=== PATIENT | female | born 1995 | race Caucasian/White ===

== ENCOUNTER 2018-12-04 13:45 | Emergency (ER) | payer MEDICAID, OTHER ==
[~2018-12-04] VITALS: Ht 165.1 cm; Wt 78.5 kg
--- OUTSIDE RECORDS SUMMARY | 2018-12-04 13:51 | XMS REPORT ---
Author Author ISAK BUCHANAN [facility] Address [address] [place] [address] Care Team Providers Care Brand Engineer Name Role Phone ISAK BUCHANAN Unavailable PROBLEMS Type Condition ICD9-CM Code [id number] Code Onset Dates Condition Status SNOMED Code Problem Bipolar 1 disorder, depressed, moderate F31.32 Active 59716773 Problem Borderline personality disorder F60.3 Active 24121129 Problem PTSD (post-traumatic stress disorder) F43.10 Active 46558855 Problem Ulcerative colitis with complication, unspecified location K51.919 Active 27377313 Problem Chronic post-traumatic stress disorder (PTSD) F43.12 Active 911380907 Problem Chronic GERD K21.9 Active 458492843 Problem GERD without esophagitis K21.9 Active 974591543 Problem Opioid use disorder, severe, dependence F11.20 Active 71375745 Problem Mood disorder F39 Active 19821149 Problem Opioid dependence with withdrawal F11.23 Active 85886506 Problem Stimulant dependence F15.20 Active 855638684 Problem MOUNA (generalized anxiety disorder) F41.1 Active 95299519 Problem Other chronic pain G89.29 Active 87956034 ALLERGIES Substance Reaction Event Type Date Status almonds hard to breath Non Drug Allergy Aug, Active red dye headaches Non Drug Allergy Aug, Active ENCOUNTERS Encounter Location Date Diagnosis [facility] [address] [facility] [id number] [address] Sep, [facility] [address] [id number] [address] Sep, [facility] [address] [id number] [address] Aug, [facility] [address] [facility] [id number] [id number] Aug, Dental examination Z01.20 ; Caries K02.9 and Oral health maintenance status requiring routine preventive dental care K08.9 [facility] [address] [address] Aug, [facility] [address] [place] [address] Aug, Opioid use disorder, severe, dependence F11.20 [place] [address] [address] Aug, [place] [address] [address] Aug, [address] [address] Aug, PTSD (post-traumatic stress disorder) F43.10 ; Mood disorder F39 ; Stimulant dependence F15.20 ; Opioid dependence with withdrawal F11.23 ; IV drug user F19.90 and MOUNA (generalized anxiety disorder) F41.1 [place] [address] [address] Aug, Opioid use disorder, severe, dependence F11.20 ; PTSD (post- traumatic stress disorder) F43.10 and IV drug user F19.[address] [address] Aug, Borderline personality disorder F60.[address] [address] Aug, [facility] [address] [place] [address] Aug, Opioid use disorder, severe, dependence F11.[address] [address] Jul, Pain in thoracic spine M54.6 ; Other chronic pain G89.29 ; Encounter for IUD removal Z30.432 ; Cervicitis N72 and Screening for cervical cancer Z12.[address] [address] Jul, Bipolar 1 disorder, depressed, moderate F31.32 ; PTSD (post- traumatic stress disorder) F43.10 ; Borderline personality disorder F60.3 ; Opioid dependence with withdrawal F11.23 and Stimulant dependence F15.20 [facility] [id number] [place] [address] Jul, [facility] [address] [address] Jul, Bipolar 1 disorder, depressed, moderate F31.32 ; Borderline personality disorder F60.3 ; PTSD (post-traumatic stress disorder) F43.10 ; Opioid dependence with withdrawal F11.23 and Stimulant dependence F15.20 [place] [address] [address] Jul, [facility] [address] [address] Jul, Bipolar 1 disorder, depressed, moderate F31.32 ; PTSD (post- traumatic stress disorder) F43.10 and Borderline personality disorder F60.3 [place] [address] [address] Jul, Bipolar 1 disorder, depressed, moderate F31.32 ; PTSD (post- traumatic stress disorder) F43.10 and Borderline personality disorder F60.3 [facility] [id number] [place] [address] Jul, [place] [address] [address] Jul, Chronic GERD K21.9 and Chronic post-traumatic stress disorder (PTSD) F43.12 [facility] [address] [address] Jul, Pain of upper abdomen R10.10 IMMUNIZATIONS No Known Immunizations SOCIAL HISTORY Never Assessed REASON FOR VISIT Dental Establish Care PLAN OF CARE Activity Details Follow Up angie Reason:restorative #14 VITAL SIGNS Height 65 in 2018-09-16 Blood pressure systolic 108 mmHg 2018-09-16 Blood pressure diastolic 78 mmHg 2018-09-16 MEDICATIONS Medication Instructions Dosage Frequency Start Date End Date Duration Status Effexor XR 75 MG Orally Once a day 1 capsule 24h Aug, 30 day(s ) Active Omeprazole 20 MG Orally Once a day 1 capsule 24h Active Sucralfate 1 GM Orally Twice a day 1 tablet at bedtime on an empty stomach before meals 12h Active Diclofenac Sodium 50 mg Orally 2 times a day 1 tablet with food or milk 12h Jul, Sep, 30 day(s) Active RESULTS No Results PROCEDURES Procedure Date Ordered Result Body Site COMP ORAL EVALUATION - NEW/EST PT Sep 16, 2018 INTRAORL - CMPL SERIES CODE 64708 Sep 16, 2018 PROPHYLAXIS - ADULT Sep 16, 2018 PANORAMIC FILM SEE ALSO CODE 19574 Sep 16, 2018 TOPICAL FLUORIDE VARNISH Sep 16, 2018 INSTRUCTIONS MEDICATIONS ADMINISTERED No Known Medications MEDICAL (GENERAL) HISTORY Type Description Date Medical History Colitis Medical History chronic gastritis Medical History heroin use disorder Medical History opiate use disorder Medical History methamphetamine abuse Medical History perthes hip disease Medical History asthma Surgical History cholecystectomy Surgical History left hip surgery; plates and screws 2007 Hospitalization History Colitis 01/2018 Hospitalization History multiple hospitalizations r/t gastritis and colitis Hospitalization History child
--- OUTSIDE RECORDS SUMMARY | 2018-12-04 13:51 | XMS REPORT ---
Author Author CHE EDWARDS Organization [facility] Address [address] [place] [address] Care Team Providers Care Soap Boiler Name Role Phone CHE EDWARDS Unavailable PROBLEMS Type Condition ICD9-CM Code [id number] Code Onset Dates Condition Status SNOMED Code Problem Bipolar 1 disorder, depressed, moderate F31.32 Active 07731130 Problem Borderline personality disorder F60.3 Active 92949384 Problem PTSD (post-traumatic stress disorder) F43.10 Active 52451589 Problem Ulcerative colitis with complication, unspecified location K51.919 Active 87567558 Problem Chronic post-traumatic stress disorder (PTSD) F43.12 Active 613587840 Problem Chronic GERD K21.9 Active 066194195 Problem GERD without esophagitis K21.9 Active 368914119 Problem Opioid use disorder, severe, dependence F11.20 Active 51394620 Problem Mood disorder F39 Active 74825257 Problem Opioid dependence with withdrawal F11.23 Active 53031818 Problem Stimulant dependence F15.20 Active 852215727 Problem MOUNA (generalized anxiety disorder) F41.1 Active 13478820 Problem Other chronic pain G89.29 Active 48832863 ALLERGIES No Information ENCOUNTERS Encounter Location Date Diagnosis [facility] [address] [place] [address] Sep, [facility] [id number] [place] [address] Sep, [facility] [id number] [place] [id number] Aug, Dental examination Z01.20 ; Caries K02.9 and Oral health maintenance status requiring routine preventive dental care K08.9 [facility] [address] [place] [address] Aug, [facility] [address] [place] [id number] Aug, Opioid use disorder, severe, dependence F11.20 [facility] [id number] [place] [address] Aug, [facility] [address] [address] Aug, [facility] [address] [place] [address] [id number] Aug, PTSD (post-traumatic stress disorder) F43.10 ; Mood disorder F39 ; Stimulant dependence F15.20 ; Opioid dependence with withdrawal F11.23 ; IV drug user F19.90 and MOUNA (generalized anxiety disorder) F41.1 [facility] [address] [address] Aug, Opioid use disorder, severe, dependence F11.20 ; PTSD (post- traumatic stress disorder) F43.10 and IV drug user F19.90 [facility] [address] [place] [address] Aug, Borderline personality disorder F60.3 [place] [address] [address] Aug, [facility] [address] [place] [id number] Aug, Opioid use disorder, severe, dependence F11.20 [place] [address] [address] Jul, Pain in thoracic spine M54.6 ; Other chronic pain G89.29 ; Encounter for IUD removal Z30.432 ; Cervicitis N72 and Screening for cervical cancer Z12.4 [facility] [address] [place] [address] Jul, 2018 Bipolar 1 disorder, depressed, moderate F31.32 ; PTSD (post- traumatic stress disorder) F43.10 ; Borderline personality disorder F60.3 ; Opioid dependence with withdrawal F11.23 and Stimulant dependence F15.20 [place] [address] [place] [address] Jul, [facility] [id number] [place], [place] [address] Jul, Bipolar 1 disorder, depressed, moderate F31.32 ; Borderline personality disorder F60.3 ; PTSD (post-traumatic stress disorder) F43.10 ; Opioid dependence with withdrawal F11.23 and Stimulant dependence F15.20 [place] [address] [id number] [place] [address] Jul, [facility] [id number] [place] [address] Jul, Bipolar 1 disorder, depressed, moderate F31.32 ; PTSD (post- traumatic stress disorder) F43.10 and Borderline personality disorder F60.3 [place] [address] [place] [id number] [place] [address] Jul, Bipolar 1 disorder, depressed, moderate F31.32 ; PTSD (post- traumatic stress disorder) F43.10 and Borderline personality disorder F60.3 [facility] [id number] [place] [address] Jul, [place] [address] [id number] [place] [address] Jul, Chronic GERD K21.9 and Chronic post-traumatic stress disorder (PTSD) F43.12 [facility] [address] [place] [address] Jul, Pain of upper abdomen R10.10 IMMUNIZATIONS No Known Immunizations SOCIAL HISTORY Never Assessed REASON FOR VISIT No Show Follow Up PLAN OF CARE VITAL SIGNS MEDICATIONS Unknown Medications RESULTS No Results PROCEDURES No Known procedures INSTRUCTIONS MEDICATIONS ADMINISTERED No Known Medications MEDICAL [...]
--- OUTSIDE RECORDS SUMMARY | 2018-12-04 13:51 | XMS REPORT ---
Author Author JOSHUA WATSON [facility] Address [address] [place] [address] Care Team Providers Care Fish Smoker Name Role Phone JOSHUA WATSON Unavailable PROBLEMS Type Condition ICD9-CM Code EIS61-UD Code Onset Dates Condition Status SNOMED Code Problem Bipolar 1 disorder, depressed, moderate F31.32 Active 73117471 Problem Borderline personality disorder F60.3 Active 55303008 Problem PTSD (post-traumatic stress disorder) F43.10 Active 43664080 Problem Chronic post-traumatic stress disorder (PTSD) F43.12 Active 559940206 Problem Chronic GERD K21.9 Active 393998872 Problem GERD without esophagitis K21.9 Active 940550007 Problem Opioid use disorder, severe, dependence F11.20 Active 34906351 Problem Mood disorder F39 Active 24161504 Problem Opioid dependence with withdrawal F11.23 Active 08239232 Problem Stimulant dependence F15.20 Active 737505647 Problem MOUNA (generalized anxiety disorder) F41.1 Active 59544378 Problem Other chronic pain G89.29 Active 10591593 ALLERGIES No Information ENCOUNTERS Encounter Location Date Diagnosis [facility] [address] [place] [address] Sep, [facility] [address] [place] [address] Aug, [facility] [address] [place] [address] Aug, PTSD (post-traumatic stress disorder) F43.10 ; Mood disorder F39 ; Stimulant dependence F15.20 ; Opioid dependence with withdrawal F11.23 ; IV drug user F19.90 and MOUNA (generalized anxiety disorder) F41.1 [facility] [address] [place] [address] Aug, Opioid use disorder, severe, dependence F11.20 ; PTSD (post- traumatic stress disorder) F43.10 and IV drug user F19.90 [facility] [address] [place] [address] Aug, Borderline personality disorder F60.3 [facility] [id number] [place] [address] Aug, [facility] [address] [place] [address] Aug, [facility] [id number] [place] [address] Jul, Pain in thoracic spine M54.6 ; Other chronic pain G89.29 ; Encounter for IUD removal Z30.432 ; Cervicitis N72 and Screening for cervical cancer Z12.4 [facility] [id number] [place] [address] Jul, Bipolar 1 disorder, depressed, moderate F31.32 ; PTSD (post- traumatic stress disorder) F43.10 ; Borderline personality disorder F60.3 ; Opioid dependence with withdrawal F11.23 and Stimulant dependence F15.20 [facility] [id number] [place] [address] Jul, [facility] [id number] [place] [address] Jul, Bipolar 1 disorder, depressed, moderate F31.32 ; Borderline personality disorder F60.3 ; PTSD (post-traumatic stress disorder) F43.10 ; Opioid dependence with withdrawal F11.23 and Stimulant dependence F15.20 [facility] [address] [place] [address] Jul, [facility] [id number] [place] [address] Jul, Bipolar 1 disorder, depressed, moderate F31.32 ; PTSD (post- traumatic stress disorder) F43.10 and Borderline personality disorder F60.3 [facility] [id number] [place] [address] Jul, Bipolar 1 disorder, depressed, moderate F31.32 ; PTSD (post- traumatic stress disorder) F43.10 and Borderline personality disorder F60.3 [facility] [address] [id number], [place] [address] Jul, [facility] [id number] [address] Jul, Chronic GERD K21.9 and Chronic post-traumatic stress disorder (PTSD) F43.12 [facility] [address] [facility] [id number] [address] Jul, 2018 Pain of upper abdomen R10.10 IMMUNIZATIONS No Known Immunizations SOCIAL HISTORY Never Assessed REASON FOR VISIT SOCWK-IN PLAN OF CARE VITAL SIGNS MEDICATIONS Unknown Medications RESULTS No Results PROCEDURES No Known procedures INSTRUCTIONS MEDICATIONS ADMINISTERED No Known Medications MEDICAL (GENERAL) HISTORY Type Description Date Medical History Colitis Medical History chronic gastritis Medical History heroin use disorder Medical History opiate use disorder Medical History methamphetamine abuse Medical History perthes disease Surgical History cholecystectomy Surgical History left hip surgery; plates and screws 2007 Hospitalization History Colitis 01/2018 Hospitalization History multiple hospitalizations r/t gastritis and colitis Hospitalization History child
--- OUTSIDE RECORDS SUMMARY | 2018-12-04 13:51 | XMS REPORT ---
Author Author DODIE LIMA [facility] Address [address] [place] [address] Care Team Providers Care Cellar Supervisor Name Role Phone LIMA STOLL Unavailable PROBLEMS Type Condition ICD9-CM Code TKD64-AO Code Onset Dates Condition Status SNOMED Code Problem Bipolar 1 disorder, depressed, moderate F31.32 Active 23443035 Problem Borderline personality disorder F60.3 Active 11692151 Problem PTSD (post-traumatic stress disorder) F43.10 Active 03100702 Problem Ulcerative colitis with complication, unspecified location K51.919 Active 63537265 Problem Chronic post-traumatic stress disorder (PTSD) F43.12 Active 262023977 Problem Chronic GERD K21.9 Active 541785999 Problem GERD without esophagitis K21.9 Active 536762002 Problem Opioid use disorder, severe, dependence F11.20 Active 57967119 Problem Mood disorder F39 Active 55232114 Problem Opioid dependence with withdrawal F11.23 Active 91031324 Problem Stimulant dependence F15.20 Active 113979332 Problem MOUNA (generalized anxiety disorder) F41.1 Active 75272382 Problem Other chronic pain G89.29 Active 66959242 ALLERGIES No Information ENCOUNTERS Encounter Location Date Diagnosis [facility] [address] [address] Nov, [facility] [address], [place] [address] Oct, [facility] [address] [place] [address] Oct, PTSD (post-traumatic stress disorder) F43.10 [facility] [id number] [address] Sep, [facility] [address] [place] [id number] Aug, Dental examination Z01.20 ; Caries K02.9 and Oral health maintenance status requiring routine preventive dental care K08.9 [facility] [address] [id number] [place] [address] Aug, [facility] [address] [place] [address] Aug, Opioid use disorder, severe, dependence F11.20 [place] [id number] [place] [address] Aug, [place] [address] [address] Aug, [place] [address] [address] Aug, PTSD (post-traumatic stress disorder) F43.10 ; Mood disorder F39 ; Stimulant dependence F15.20 ; Opioid dependence with withdrawal F11.23 ; IV drug user F19.90 and MOUNA (generalized anxiety disorder) F41.1 [place] [id number] [place] [address] Aug, Opioid use disorder, severe, dependence F11.20 ; PTSD (post- traumatic stress disorder) F43.10 and IV drug user F19.90 [facility] [address] [place] [address] Aug, Borderline personality disorder F60.3 [place] [id number] [place] [address] Aug, [facility] [address] [place] [address] Aug, Opioid use disorder, severe, dependence F11.[address] [address] Jul, Pain in thoracic spine M54.6 ; Other chronic pain G89.29 ; Encounter for IUD removal Z30.432 ; Cervicitis N72 and Screening for cervical cancer Z12.4 [place] [address] [place] [address] Jul, Bipolar 1 disorder, depressed, moderate F31.32 ; PTSD (post- traumatic stress disorder) F43.10 ; Borderline personality disorder F60.3 ; Opioid dependence with withdrawal F11.23 and Stimulant dependence F15.20 [place] [id number] [place] [address] Jul, [place] [address] [address] Jul, Bipolar 1 disorder, depressed, moderate F31.32 ; Borderline personality disorder F60.3 ; PTSD (post-traumatic stress disorder) F43.10 ; Opioid dependence with withdrawal F11.23 and Stimulant dependence F15.20 [place] [id number] [place] [address] Jul, [place] [id number] [place] [address] Jul, Bipolar 1 disorder, depressed, moderate F31.32 ; PTSD (post- traumatic stress disorder) F43.10 and Borderline personality disorder F60.3 [place] [id number] [place] [address]- [address] Jul, Bipolar 1 disorder, depressed, moderate F31.32 ; PTSD (post- traumatic stress disorder) F43.10 and Borderline personality disorder F60.3 [place] [id number] [place] [address] Jul, [place] [id number] [place] [address]- [address] Jul, Chronic GERD K21.9 and Chronic post-traumatic stress disorder (PTSD) F43.12 [facility] [id number] [place] [address] Jul, Pain of upper abdomen R10.10 IMMUNIZATIONS No Known Immunizations SOCIAL HISTORY Never Assessed REASON FOR VISIT Medication refill request PLAN OF CARE VITAL SIGNS MEDICATIONS Medication Instructions Dosage Frequency Start Date End Date Duration Status Effexor XR 75 MG Orally Once a day 1 capsule 24h Aug, 30 day(s ) Active RESULTS No Results PROCEDURES No Known procedures [...]
--- OUTSIDE RECORDS SUMMARY | 2018-12-04 13:51 | XMS REPORT ---
Author Author DEMARCO SEGAL Organization [facility] Address [address] [place] [address] Care Team Providers Care Statistical Geneticist Name Role Phone DEMARCO SEGAL Unavailable PROBLEMS Type Condition ICD9-CM Code [id number] Code Onset Dates Condition Status SNOMED Code Problem Bipolar 1 disorder, depressed, moderate F31.32 Active 72282468 Problem Borderline personality disorder F60.3 Active 48302402 Problem PTSD (post-traumatic stress disorder) F43.10 Active 52170205 Problem Chronic post-traumatic stress disorder (PTSD) F43.12 Active 438445842 Problem Chronic GERD K21.9 Active 627155835 Problem GERD without esophagitis K21.9 Active 054000235 Problem Opioid use disorder, severe, dependence F11.20 Active 65062279 Problem Mood disorder F39 Active 74805345 Problem Opioid dependence with withdrawal F11.23 Active 82521254 Problem Stimulant dependence F15.20 Active 653436481 Problem MOUNA (generalized anxiety disorder) F41.1 Active 68156541 Problem Other chronic pain G89.29 Active 87388191 ALLERGIES Substance Reaction Event Type Date Status almonds Unknown Non Drug Allergy Aug, Active red dye Unknown Non Drug Allergy Aug, Active ENCOUNTERS Encounter Location Date Diagnosis [facility] [id number] [place] [address] Sep, [facility] [id number] [place] [address] Aug, [place] [address] [place] [address] Aug, PTSD (post-traumatic stress disorder) F43.10 ; Mood disorder F39 ; Stimulant dependence F15.20 ; Opioid dependence with withdrawal F11.23 ; IV drug user F19.90 and MOUNA (generalized anxiety disorder) F41.1 [facility] [address] [place] [address] Aug, Opioid use disorder, severe, dependence F11.20 ; PTSD (post- traumatic stress disorder) F43.10 and IV drug user F19.90 [facility] [address] [place] [address] Aug, Borderline personality disorder F60.3 [facility] [address] [address] Aug, [facility] [address] [address] Aug, [facility] [id number] [place] [address] Jul, Pain in thoracic spine M54.6 ; Other chronic pain G89.29 ; Encounter for IUD removal Z30.432 ; Cervicitis N72 and Screening for cervical cancer Z12.4 [place] [id number] [place] [address] Jul, Bipolar 1 disorder, depressed, moderate F31.32 ; PTSD (post- traumatic stress disorder) F43.10 ; Borderline personality disorder F60.3 ; Opioid dependence with withdrawal F11.23 and Stimulant dependence F15.20 [facility] [address] [place] [address] Jul, [facility] [id number] [place] [address] Jul, Bipolar 1 disorder, depressed, moderate F31.32 ; Borderline personality disorder F60.3 ; PTSD (post-traumatic stress disorder) F43.10 ; Opioid dependence with withdrawal F11.23 and Stimulant dependence F15.20 [place] [id number] [place] [address] Jul, [place] [id number] [place] [address] Jul, Bipolar 1 disorder, depressed, moderate F31.32 ; PTSD (post- traumatic stress disorder) F43.10 and Borderline personality disorder F60.3 [facility] [id number], [place] [address] Jul, 2018 Bipolar 1 disorder, depressed, moderate F31.32 ; PTSD (post- traumatic stress disorder) F43.10 and Borderline personality disorder F60.3 [facility] [id number], [place] [address] Jul, [facility] [address] [place] [address] 2018 Chronic GERD K21.9 and Chronic post-traumatic stress disorder (PTSD) F43.12 [facility] [address] [place] [address] Jul, 2018 Pain of upper abdomen R10.10 IMMUNIZATIONS No Known Immunizations SOCIAL HISTORY Never Assessed REASON FOR VISIT MAT Assessment PLAN OF CARE Activity Details Follow Up pt will call Reason: VITAL SIGNS Height 65 in 2018-09-06 Weight 177.8 lbs 2018-09-06 Temperature 98.3 degrees Fahrenheit 2018-09-06 Heart Rate 68 bpm 2018-09-06 Respiratory Rate 18 2018-09-06 BMI 29.58 kg/m2 2018-09-06 Blood pressure systolic 100 mmHg 2018-09-06 Blood pressure diastolic 70 mmHg 2018-09-06 MEDICATIONS Medication Instructions Dosage Frequency Start Date End Date Duration Status Cyclobenzaprine HCl 5 mg Orally Three times a day 1 tablet as needed 8h 17 Aug, 2018 10 days Active Sucralfate 1 GM Orally Twice a day 1 tablet at bedtime on an empty stomach before meals 12h Not-Taking Omeprazole 20 MG Orally Once a day 1 capsule 24h Not-Taking Diclofenac Sodium 50 mg Orally 2 times a day 1 tablet with food or milk 12h 27 Jul, 2018 Sep, 30 day(s) Not-Taking RESULTS No Results PROCEDURES Procedure Date Ordered Result Body Site ACUTE HEPATITIS PANEL Sep 06, 2018 HIV-1 AG W/HIV-1 & HIV-2 AB Sep 06, 2018 COMPREHEN METABOLIC PANEL Sep 06, 2018 LIPID PANEL Sep 06, 2018 ASSAY THYROID STIM HORMONE Sep 06, 2018 COMPLETE CBC W/AUTO DIFF WBC Sep 06, 2018 INSTRUCTIONS MEDICATIONS ADMINISTERED No Known Medications [...]
--- OUTSIDE RECORDS SUMMARY | 2018-12-04 13:51 | XMS REPORT | CCD ---
Author Author MOMOGARRY Lares Organization Unknown Address [address] [place] [id number] Care Team Providers Care Freight Car Inspector Name Role Phone JEREMY MANJARREZ Attphys R., KIRSTEN NASST G., DUKE NASST D., JUSTINE NASST K., FRANKIE [place] NASST R., MARISOL Segal NASST B., KALEIGH NASST C., SUNIL NASST N., PERCY NASST G., JANIE NASST M., MONIQUE NASST Vital Signs Vital Sign Value Unit Date/Time Recent/Initial? BMI (Body Mass Index) 30.95 kg/m^2 09/29/2017 06:30 Initial VS Weight Measured 186 lbs 09/29/2017 06:30 Initial VS Height 65 in 2016 06:30 Initial VS BSA (Body Surface Area) 1.97 m^2 09/29/2017 06:30 Initial VS Respiratory Rate 20 bpm 09/29/2017 11:45 Initial VS Body Temperature 97.4 degrees 09/29/2017 11:45 Initial VS BP Systolic 113 mmHg 09/29/2017 16:58 Initial VS BP Diastolic 60 mmHg 09/29/2017 16:58 Initial VS Heart Rate 77 bpm 11/2016 16:58 Initial VS O2 % BldC Oximetry 97 % 09/29/2017 16:58 Initial VS BP Systolic 116 mmHg 10/02/2017 07:24 Most Recent VS BP Diastolic 66 mmHg 10/02/2017 07:24 Most Recent VS Respiratory Rate 18 bpm 10/02/2017 07:24 Most Recent VS Heart Rate 75 bpm 02/2017 07:24 Most Recent VS O2 % BldC Oximetry 97 % 10/02/2017 07:24 Most Recent VS Body Temperature 97.3 degrees 10/02/2017 07:24 Most Recent VS Allergies Allergy Code Allergy Type Reaction Status RED DYE 0 Drug allergy Active ALMOND 0 Food allergy Active HYDROCODONE 5489 Drug allergy Active Procedures Unknown or Not Available. History of Immunizations Unknown or Not Available. Problems Problem Code Start Date Resolved Date Status Migraine 48541152 04/28/2017 Active Strain of muscle 49954044 06/24/2017 Active Vaginal delivery 741867800 Active Results DRUGS OF ABUSE SCREEN URINE - Collect Date/Time: 09/29/2017 07:00 Test Name Code Test Result Test Units Test Ref Range METHAMPHETAMINE NEGATIVE N/A NORMAL:NEGATIVE COCAINE 96297-6 NEGATIVE N/A NORMAL:NEGATIVE THC NEGATIVE N/A NORMAL:NEGATIVE MDMA NEGATIVE N/A NORMAL:NEGATIVE METHADONE 45607-2 NEGATIVE N/A NORMAL:NEGATIVE MORPHINE NEGATIVE N/ A NORMAL:NEGATIVE BENZODIAZEPINE 58908-1 NEGATIVE N/A NORMAL:NEGATIVE TRICYCLICS, QUAL NEGATIVE N/A NORMAL:NEGATIVE BARBITURATES 60832-3 NEGATIVE N/A NORMAL:NEGATIVE PHENCYCLIDINE 89541-5 NEGATIVE N/A NORMAL:NEGATIVE AMPHETAMINES 33269-3 NEGATIVE N/A NORMAL:NEGATIVE OXYCODONE NEGATIVE N /A NORMAL:NEGATIVE CBC WITH DIFF - Collect Date/Time: 09/29/2017 07:25 Test Name Code Test Result Test Units Test Ref Range WBC 6690-2 14.74 10^3 L=5.00 H=10.00 RBC 789-8 3.52 10^6 L=4.00 H=5.20 HEMOGLOBIN 718-7 9.7 g /dl L=12.0 H=18.0 HEMATOCRIT 4544-3 28.8 % L=36.0 H=52.0 MCV 787-2 81.8 fl L=80.0 H=100 MCH 785-6 27.6 pg L=27.0 H=31.2 MCHC 786-4 33.7 g/dl L=31.0 H=37.0 PLATELET 777-3 524 10^ 3 L=130 H=400 RDW 33208-0 14.4 % L=11.6 H=14.8 SEGS 65.90 % L=60.00 H=70.00 IG% 0.70 % LYMPHS 26.90 % L=10.00 H=50.00 MONOS 5.20 % L=1.00 H=12.00 EOS 1.00 % L=0.00 H=7.00 BASOS 0.30 % L=0.00 H=0.40 # RUCHI 751-8 9.71 10^3 L=2.00 H=6.90 # IG 0.10 10^3 # LYM 731-0 3.97 10^3 L=0.60 H=3.40 # EOS 0.15 10^3 L=0.00 H=0.70 # BASO 0.04 10^3 L=0.00 H=0.04 # MONO 742-7 0.77 10^ 3 L=0.00 H=0.90 MANUAL DIFF NOT INDICATE N/A SEND TO [facility]? NO N/A H /H (HEMOGLOBIN AND HEMATOCRIT) - Collect Date/Time: 09/30/2017 06:36 Test Name Code Test Result Test Units Test Ref Range HEMOGLOBIN 718-7 9.8 g /dl L=12.0 H=18.0 HEMATOCRIT 4544-3 30.8 % L=36.0 H=52.0 TYPE AND SCREEN - Collect Date/Time: 09/29/2017 07:25 Test Name Code Test Result Test Units Test Ref Range ABO A N/A RH POSITIVE N/A AB SCREEN NEGATIVE N /A Active Medications Medication Code Dose Units Frequency Route Modification Start Date/Time Ibuprofen 800MG Oral Tablet 394468 800 MILLIGRAMS EVERY 8 HOURS BY MOUTH 09/30/2017 07:58 Prescription Detail TAKE 800 MILLIGRAMS BY MOUTH EVERY 8 HOURS oxyCODONE HCl-acetaminophen 5MG-325MG Oral Tablet 6982576 1 TABLET(S) NEEDED EVERY 4 HR BY MOUTH 09/30/2017 07:58 Prescription Detail TAKE 1 TABLET(S) BY MOUTH NEEDED EVERY 4 HR Docusate Sodium 100MG Oral Capsule, Liquid Filled 8983152 100 MILLIGRAMS NEEDED 2X DAY BY MOUTH 09/30/2017 07:57 Prescription Detail TAKE 100 MILLIGRAMS BY MOUTH NEEDED 2X DAY Ferrous Sulfate 325MG Oral Tablet 128552 325 mg DAILY BY MOUTH 09/30/2017 07:57 Prescription Detail TAKE 325 mg BY MOUTH DAILY Lansinoh HPA Lanolin Topical application Ointment 48004388186 1 APPLICATION PRN TOPICALLY 12/2016 07:57 Prescription Detail 1 APPLICATION TOPICALLY PRN Medications Administered During Visit Medication Dose Units Frequency Route Date/Time of Last Dose PITOCIN PREMIX 30UNITS/500mL D5W 30 UNITS ONCE IVPB 2016 16:31 IVF LR (lactated ringers) IV 1000mL 1000 ML CONT IV IV 2016 16:32 NS FLUSH Inj 10mL 3 ML Q SHIFT IVP 09/29/2017 21:22 MOTRIN (ibuprofen) Tab 800mg 800 MG Q8H PO 10/01/2017 20:57 TYLENOL (acetaminophen) Tab 325mg 650 MG PRN Q4H PO 09/29/2017 16:30 COLACE (docusate sodium) Cap 100mg 100 MG PRN BID PO 2016 09:05 LANSINOH BREAST (lanolin) Cream 7gm 1 FERNANDO PRN TOP 09/29/2017 17:01 WITCH FAUSTO PADS W/ALOE Topical 1 FERNANDO PRN TOP 09/29/2017 16:30 BENADRYL Cap 25mg 25 MG PRN Q6H PO 09/29/2017 17:08 TYLENOL W/COD Tab 300mg/30mg 1 TAB PRN PO 10/01/2017 17:36 FERROUS SULFATE Tab 325mg 325 mg DAILY PO 10/01/2017 09:05 PERCOCET Tab 5mg/325mg 2 TAB PRN Q4H PO 10/02/2017 08:37 GAS-X Chewable Tab 80mg 80 MG PRN PO 09/30/2017 09:03 Encounters Unknown or Not Available. Social History Smoking Status Code Start Date End Date Current every day smoker 853496140 2007 Patient Decision Aids Patient Decision Aid Caring for Your Breastfed Baby Vaginal Delivery Discharge Instructions You were admitted to [facility] on 09/29/2017 06:11 You had the following tests done: CBC WITH DIFF DRUGS OF ABUSE SCREEN URINE H /H (HEMOGLOBIN AND HEMATOCRIT) TYPE AND SCREEN You were discharged from [facility] on 10/02/2017 09:09 Should you have any questions prior to discharge, please contact a member of your healthcare team. If you have left the hospital and have any questions, please contact your primary care physician. Diet: Regular, non-gas forming. Discharge To: Home, You will receive a follow up phone call. within 2 weeks after discharge.. Activity: No lifting heavier than your baby, Exercise as tolerated. No driving while taking pain medications. No sex or tampon use until 6 week appt. Hygiene: Shower as desired, Tub baths after 48 hours. Limit tub baths to 20min at a time, until 6 week post appt. Sitz bath as needed. Notify Provider: Excessive bleeding or large clots, Temperature 100.4F or higher. Foul odor coming from your vagina, Unrelieved incisional or abdominal pain. Swelling, redness, discharge or bleeding, from your incision or laceration. Your incision begins to separate, Difficulties with urination. No bowel movement within 4 days of, giving . Any type of visual disturbance, Severe headache. Notify Provider Cont'd: Flu-like symptoms, Pain or redness in one or both, your breasts. Pain, warmth, tenderness or swelling, in your legs or calf areas. Frequent nausea and vomiting, Chest pain or problems breathing. Signs of depression. For Help: [facility] OB Business Intern:[phone] ext.[phone]. [facility] Nsg Station:[phone] ext.[phone]. My 2 week follow up appointment: My follow up appt with Karen Kirk APRN, is scheduled for -10/13/17- at - 11:00am- at the [facility] in [place]. My 6 week follow up appt- with Dr. Manjarrez, is scheduled for -11/10/17- at 1:30pm- at the [facility] in [place]. Important Phone Numbers: [place]: , [place]: [phone]. [facility] Nurses Desk: , ext [phone], [facility] Program: [phone]. General Information: The booklet "A New Beginning", has been given to me. All of my questions & concerns have, been addressed. I understand how to care for myself, & my baby. All of my personal belongings will be, taken with me when I am released. I have been given the opportunity to. receive the car seat safety instruction. I understand how to properly install, my baby' s car seat. Resources: Please call for any questions/concerns:. [facility]: [phone], [facility]: or [phone]. Social Rehab Services : . [facility] Dept: [phone]. [facility] Dept: [phone]. [facility] Dept: [phone]. [facility] Dept:[phone]. [facility] Dept : [phone]. Domestic Violence Hotline: [phone]. Patient Survey: It is very important that we provide, you with the best patient and. family centered care., In a few weeks, you may receive a. patient satisfaction survey about your. experience at [facility]., Please honestly answer the questions. and return the completed survey., Please let us know how we are doing.. Breast Care: Lansinoh Cream to nipples as needed, Avoid stimulation. Wearing a bra may help relieve, breast discomfort. Chief Complaint and Reason For Visit Chief Complaint Date of Onset DELIVERY 09/27/2017 Function Status Unknown or Not Available. Plan of Care Unknown or Not Available. Referral/Transition of Care Unknown or Not Available.
--- OUTSIDE RECORDS SUMMARY | 2018-12-04 13:52 | XMS REPORT ---
Author Author LORNA CUNNINGHAM [facility] Address [address] [place] [address] Care Team Providers Care Metal Dealer Name Role Phone LORNA CUNNINGHAM Unavailable PROBLEMS Type Condition ICD9-CM Code [id number] Code Onset Dates Condition Status SNOMED Code Problem Bipolar 1 disorder, depressed, moderate F31.32 Active 77734308 Problem Borderline personality disorder F60.3 Active 54233531 Problem PTSD (post-traumatic stress disorder) F43.10 Active 81748854 Problem Chronic post-traumatic stress disorder (PTSD) F43.12 Active 607845231 Problem Chronic GERD K21.9 Active 053792593 Problem GERD without esophagitis K21.9 Active 053542891 Problem Opioid use disorder, severe, dependence F11.20 Active 02451840 Problem Mood disorder F39 Active 13122353 Problem Opioid dependence with withdrawal F11.23 Active 83169183 Problem Stimulant dependence F15.20 Active 702882406 Problem MOUNA (generalized anxiety disorder) F41.1 Active 59547385 Problem Other chronic pain G89.29 Active 25317515 ALLERGIES Substance Reaction Event Type Date Status almonds Unknown Non Drug Allergy Jul, Active red dye Unknown Non Drug Allergy Jul, Active ENCOUNTERS Encounter Location Date Diagnosis [facility] [id number], [place] [address] Sep, [facility] [id number] [id number] Aug, [facility] [id number] [place] [address] Aug, [facility] [address], [place] [address] Aug, PTSD (post-traumatic stress disorder) F43.10 ; Mood disorder F39 ; Stimulant dependence F15.20 ; Opioid dependence with withdrawal F11.23 ; IV drug user F19.90 and MOUNA (generalized anxiety disorder) F41.1 [facility] [id number] [place] [address] Aug, Opioid use disorder, severe, dependence F11.20 ; PTSD (post- traumatic stress disorder) F43.10 and IV drug user F19.90 [facility] [address] [place] [address] Aug, Borderline personality disorder F60.3 [facility] [id number] [place] [address] Aug, [facility] [address] [id number] Aug, [facility] [id number] [place] [address] Jul, Pain in thoracic spine M54.6 ; Other chronic pain G89.29 ; Encounter for IUD removal Z30.432 ; Cervicitis N72 and Screening for cervical cancer Z12.4 [facility] [id number] [place] [address] Jul, Bipolar 1 disorder, depressed, moderate F31.32 ; PTSD (post- traumatic stress disorder) F43.10 ; Borderline personality disorder F60.3 ; Opioid dependence with withdrawal F11.23 and Stimulant dependence F15.20 [facility] [address] [place] [address] Jul, [facility] [id number] [place] [address] Jul, Bipolar 1 disorder, depressed, moderate F31.32 ; Borderline personality disorder F60.3 ; PTSD (post-traumatic stress disorder) F43.10 ; Opioid dependence with withdrawal F11.23 and Stimulant dependence F15.20 [facility] [address] [place] [address] Jul, [facility] [id number] [place] [address] Jul, Bipolar 1 disorder, depressed, moderate F31.32 ; PTSD (post- traumatic stress disorder) F43.10 and Borderline personality disorder F60.3 [facility] [address], [place] [address] Jul, Bipolar 1 disorder, depressed, moderate F31.32 ; PTSD (post- traumatic stress disorder) F43.10 and Borderline personality disorder F60.3 [facility] [address], [place] [address] Jul, [facility] [address], [place] [address] Jul, Chronic GERD K21.9 and Chronic post-traumatic stress disorder (PTSD) F43.12 [facility] [id number], [place] [address] Jul, Pain of upper abdomen R10.10 IMMUNIZATIONS No Known Immunizations SOCIAL HISTORY Never Assessed REASON FOR VISIT Establish Care Luda Narayanan MA, Patient is also wanting her mirena taken out PLAN OF CARE Activity Details Follow Up 3 months or as indicated by lab Reason: Pending Test GC/CHLAM PROBE (STATE) Pending Test PAP REFLEX TO HPV IF ASCUS Future/Pending Procedure IUD REMOVAL VITAL SIGNS Height 65 in 2018-08-25 Weight 178.6 lbs 2018-08-25 Temperature 97.8 degrees Fahrenheit 2018-08-25 Heart Rate 88 bpm 2018-08-25 Respiratory Rate 20 2018-08-25 BMI 29.72 kg/m2 2018-08-25 Blood pressure systolic 126 mmHg 2018-08-25 Blood pressure diastolic 68 mmHg 2018-08-25 MEDICATIONS Medication Instructions Dosage Frequency Start Date End Date Duration Status Sucralfate 1 GM Orally Twice a day 1 tablet at bedtime on an empty stomach before meals 12h Active Metronidazole 500 mg Orally 2 times a day 1 tablet 12h 27 Jul, 2018Aug 10 day(s) Active Omeprazole 20 MG Orally Once a day 1 capsule 24h Active Cyclobenzaprine HCl 5 mg Orally Three times a day 1 tablet as needed 8h Aug, 10 days Active Diclofenac Sodium 50 mg Orally 2 times a day 1 tablet with food or milk 12h 27 Jul, 2018 Sep, 30 day(s) Active RESULTS No Results PROCEDURES Procedure Date Ordered Result Body Site X-RAY EXAM OF THORACIC SPINE Aug 25, 2018 URINE TEST Aug 25, 2018 REMOVE INTRAUTERINE DEVICE Aug 25, 2018 TRICHOMONAS ASSAY W/OPTIC Aug 25, 2018 No Charge Aug 25, 2018 SPECIMEN HANDLING Aug 25, 2018 Bacterial Vaginosis In House Aug 25, 2018 INSTRUCTIONS MEDICATIONS ADMINISTERED No Known Medications [...]
--- OUTSIDE RECORDS SUMMARY | 2018-12-04 13:52 | XMS REPORT ---
Author Author CHE EDWARDS Organization [facility] Address [address] [place] [address] Care Team Providers Care Project Management Engineer Name Role Phone CHE EDWARDS Unavailable PROBLEMS Type Condition ICD9-CM Code [id number] Code Onset Dates Condition Status SNOMED Code Problem Chronic post-traumatic stress disorder (PTSD) F43.12 Active 243522350 Problem GERD without esophagitis K21.9 Active 126672611 Problem Chronic GERD K21.9 Active 802671278 Problem Other chronic pain G89.29 Active 54144520 Problem Opioid dependence with withdrawal F11.23 Active 96452586 Problem PTSD (post-traumatic stress disorder) F43.10 Active 06197337 Problem Bipolar 1 disorder, depressed, moderate F31.32 Active 17751141 Problem Stimulant dependence F15.20 Active 595560500 Problem Borderline personality disorder F60.3 Active 07965341 ALLERGIES No Information ENCOUNTERS Encounter Location Date Diagnosis [facility] [address] [place] [id number] Aug, [facility] [address] [place] [address] 67167- 1627 Aug, [facility] [id number] [place] [address] 09568- 2249 Aug, [facility] [address] [place] [address] 51444- 1567 Aug, [facility] [address] [place] [address] Aug, Borderline personality disorder F60.3 [facility] [id number] [place] [address] 50045- 6743 Aug, [facility] [address] [place] [address] Aug, [facility] [id number] [place] [address] 47675- 6764 27 Jul, 2018 Pain in thoracic spine M54.6 ; Other chronic pain G89.29 ; Encounter for IUD removal Z30.432 ; Cervicitis N72 and Screening for cervical cancer Z12.4 [place] [id number] [place] [address] 43664- 7154 26 Jul, 2018 Bipolar 1 disorder, depressed, moderate F31.32 ; PTSD (post- traumatic stress disorder) F43.10 ; Borderline personality disorder F60.3 ; Opioid dependence with withdrawal F11.23 and Stimulant dependence F15.20 [place] [id number] [place] [address] 56462- 7784 Jul, [place] [id number] [place] [address] 60064- 4934 Jul, Bipolar 1 disorder, depressed, moderate F31.32 ; Borderline personality disorder F60.3 ; PTSD (post-traumatic stress disorder) F43.10 ; Opioid dependence with withdrawal F11.23 and Stimulant dependence F15.20 [place] [id number] [place] [address] 62950- 6514 Jul, [place] [id number] [place] [address] 35035- 3291 Jul, Bipolar 1 disorder, depressed, moderate F31.32 ; PTSD (post- traumatic stress disorder) F43.10 and Borderline personality disorder F60.3 [place] [id number] [place] [address] 83289- 8751 Jul, Bipolar 1 disorder, depressed, moderate F31.32 ; PTSD (post- traumatic stress disorder) F43.10 and Borderline personality disorder F60.3 [place] [id number] [place] [address] 64872- 7096 Jul, [place] [id number] [place] [address] 90211- 3876 Jul, Chronic GERD K21.9 and Chronic post-traumatic stress disorder (PTSD) F43.12 [facility] [address] [facility] [place] [id number] [place] [address] Jul, Pain of upper abdomen R10.10 IMMUNIZATIONS No Known Immunizations SOCIAL HISTORY Never Assessed REASON FOR VISIT intake PLAN OF CARE Activity Details Follow Up 1 Week Reason: VITAL SIGNS MEDICATIONS Medication Instructions Dosage Frequency Start Date End Date Duration Status Omeprazole 20 MG Orally Once a day 1 capsule 24h Unknown Sucralfate 1 GM Orally Twice a day 1 tablet at bedtime on an empty stomach before meals 12h Unknown RESULTS No Results PROCEDURES Procedure Date Ordered Result Body Site Psych diagnostic evaluation, established patient Aug 09, 2018 INSTRUCTIONS MEDICATIONS ADMINISTERED No Known Medications MEDICAL (GENERAL) HISTORY Type Description Date Medical History Colitis Surgical History cholecystectomy Hospitalization History Colitis 01/2018
--- OUTSIDE RECORDS SUMMARY | 2018-12-04 13:52 | XMS REPORT ---
Author Author [facility] Medical Staff Organization [facility] Address [address] [place], [place] [id number] Phone [phone] Summary purpose CCDA Sent to MDE Chief Complaint and Reason for Visit No authorized Reason for Visit (Admitting Diagnosis) is available for this visit. Problem list No authorized problems tracked for continuity of care are available for this visit. Encounters No authorized problems tracked for encounter diagnoses are available for this visit. Medications No home medications recorded for this patient visit Allergies, adverse reactions, alerts No allergy information is available for this patient. Immunizations No immunizations recorded for this patient visit Relevant diagnostic tests and/or laboratory data RESULTS Chemistry Group [id number]:00 Result Normal Range Units Albumin 4.2 3.5-5.0 g/dl Total Protein 7.0 6.3-8.2 g/dl AST 21 14-36 U/L ALP 54 38-126 U/L ALT 31 9-52 U/L Bilirubin Total .8 0.2-1.3 mg/dl Sodium 139 137-145 mmol/L Potassium 4.5 3.6-5.0 mmol/L Chloride 102 98-107 mmol/L CO2 30 22-30 mmol/L BUN 10 7-17 mg/dl Creatinine .7 0.7-1.2 mg/dl Glucose 83 65-105 mg/dl Calcium 10.2 8.4-10.2 mg/dl AG Ratio 1.6 1.1-2.2 g/dl Globulin 2.7 2.3-3.5 g/dl Comprehensive Metabolic Panel [id number]:18:00 Result Normal Range Units Albumin 4.2 3.5-5.0 g/dl Total Protein 7.0 6.3-8.2 g/dl AST 21 14-36 U/L ALP 54 38-126 U/L ALT 31 9-52 U/L Bilirubin Total .8 0.2-1.3 mg/dl Sodium 139 137-145 mmol/L Potassium 4.5 3.6-5.0 mmol/L Chloride 102 98-107 mmol/L CO2 30 22-30 mmol/L BUN 10 7-17 mg/dl Creatinine .7 0.7-1.2 mg/dl Glucose 83 65-105 mg/dl Calcium 10.2 8.4-10.2 mg/dl AG Ratio 1.6 1.1-2.2 g/dl Globulin 2.7 2.3-3.5 g/dl Hepatic Function Profile :18:00 Result Normal Range Units Albumin 4.2 3.5-5.0 g/dl Total Protein 7.0 6.3-8.2 g/dl AG Ratio 1.6 1.1-2.2 g/dl Globulin 2.7 2.3-3.5 g/dl AST 21 14-36 U/L ALP 54 38-126 U/L ALT 31 9-52 U/L Bilirubin Total .8 0.2-1.3 mg/dl Basic Metabolic Panel :18:00 Result Normal Range Units Sodium 139 137-145 mmol/L Potassium 4.5 3.6-5.0 mmol/L Chloride 102 98-107 mmol/L CO2 30 22-30 mmol/L BUN 10 7-17 mg/dl Creatinine .7 0.7-1.2 mg/dl Glucose 83 65-105 mg/dl Calcium 10.2 8.4-10.2 mg/dl Electrolyte Panel :18:00 Result Normal Range Units Sodium 139 137-145 mmol/L Potassium 4.5 3.6-5.0 mmol/L Chloride 102 98-107 mmol/L CO2 30 22-30 mmol/L Wet Prep [id number]:35:00 Epithelial Cells 10-20 (NORMAL 0-10/HPF) White Blood Cells 0-2 (NORMAL 0-5/HPF) Red Blood Cells 0 (NORMAL 0-5/HPF) Yeast 0 (NORMAL 0/HPF) Hyphae 0 (NORMAL 0/HPF) Trichomonas 0 (NORMAL 0/HPF) Bacteria 3+ LARGE AMOUNTS IN EVERY FIELD (NORMAL 0-4+) Clue Cells 3-5 (NORMAL 0/HPF) JAE Prep [id number]:35:00 Yeast 0 (NORMAL 0/HPF) Hyphae 0 (NORMAL 0/HPF) C. trachomatis/N. gonorrhoeae [id number]:35:00 Result Normal Range Units Source Endocervical Culture Genital :35:00 Result Normal Range Units Source Vagina Special Requests NONE History of procedures No procedures recorded for this patient visit. Functional status No functional or cognitive status observations are available for this visit. Vital signs No authorized vital signs are available for this visit. Social history No Social History or smoking status observations were recorded for this visit. ( Unknown if ever smoked.) Treatment Plan No treatment plan text is available for this visit. Hospital discharge instructions No discharge instruction text is available for this visit.
--- OUTSIDE RECORDS SUMMARY | 2018-12-04 13:52 | XMS REPORT ---
Author Author DODIE LIMA Organization [facility] Address [address] [place] [address] Care Team Providers Care Valve Repairer Reclamation Name Role Phone LENYCHIRAG LIMA Unavailable PROBLEMS Type Condition ICD9-CM Code ERL53-IL Code Onset Dates Condition Status SNOMED Code Problem Bipolar 1 disorder, depressed, moderate F31.32 Active 47061922 Problem Borderline personality disorder F60.3 Active 54277056 Problem PTSD (post-traumatic stress disorder) F43.10 Active 19559505 Problem Chronic post-traumatic stress disorder (PTSD) F43.12 Active 169943734 Problem Chronic GERD K21.9 Active 118508298 Problem GERD without esophagitis K21.9 Active 864867673 Problem Opioid use disorder, severe, dependence F11.20 Active 84304487 Problem Mood disorder F39 Active 79788542 Problem Opioid dependence with withdrawal F11.23 Active 19177239 Problem Stimulant dependence F15.20 Active 014905744 Problem MOUNA (generalized anxiety disorder) F41.1 Active 71694561 Problem Other chronic pain G89.29 Active 23992712 ALLERGIES Substance Reaction Event Type Date Status almonds hard to breath Non Drug Allergy Aug, Active red dye headaches Non Drug Allergy Aug, Active ENCOUNTERS Encounter Location Date Diagnosis [facility] [id number] [place] [address] 60174- 0342 Sep, [facility] [id number] [address] Aug, [facility] [address] [place] [address] 93906- 1358 Aug, PTSD (post-traumatic stress disorder) F43.10 ; Mood disorder F39 ; Stimulant dependence F15.20 ; Opioid dependence with withdrawal F11.23 ; IV drug user F19.90 and MOUNA (generalized anxiety disorder) F41.1 [facility] [address] [place] [address] 66952- 2918 Aug, Opioid use disorder, severe, dependence F11.20 ; PTSD (post- traumatic stress disorder) F43.10 and IV drug user F19.90 [facility] [address] [place] [address] Aug, Borderline personality disorder F60.3 [facility] [address] 356336- [address]689 Aug, [facility] [address] [address] Aug, [place] [address] 356330- 3505 Jul, Pain in thoracic spine M54.6 ; Other chronic pain G89.29 ; Encounter for IUD removal Z30.432 ; Cervicitis N72 and Screening for cervical cancer Z12.4 [place] [address] 24338- 5903 Jul, Bipolar 1 disorder, depressed, moderate F31.32 ; PTSD (post- traumatic stress disorder) F43.10 ; Borderline personality disorder F60.3 ; Opioid dependence with withdrawal F11.23 and Stimulant dependence F15.20 [place] [address] [place] [address] 52003- 0293 Jul, [place] [id number] [place] [address] 86526- 6513 Jul, Bipolar 1 disorder, depressed, moderate F31.32 ; Borderline personality disorder F60.3 ; PTSD (post-traumatic stress disorder) F43.10 ; Opioid dependence with withdrawal F11.23 and Stimulant dependence F15.20 [place] [id number] [place] [address] 61332- 5062 Jul, [place] [id number] [place] [address] 95141- 8168 Jul, Bipolar 1 disorder, depressed, moderate F31.32 ; PTSD (post- traumatic stress disorder) F43.10 and Borderline personality disorder F60.3 [facility] [id number] [address] 11 Jul, 2018 Bipolar 1 disorder, depressed, moderate F31.32 ; PTSD (post- traumatic stress disorder) F43.10 and Borderline personality disorder F60.3 [facility] [id number] [address] Jul, [facility] [id number] [address] 2018 Chronic GERD K21.9 and Chronic post-traumatic stress disorder (PTSD) F43.12 [facility] [address] [address] Jul, 2018 Pain of upper abdomen R10.10 IMMUNIZATIONS No Known Immunizations SOCIAL HISTORY Never Assessed REASON FOR VISIT intake PLAN OF CARE Activity Details Follow Up 4 Weeks Reason: VITAL SIGNS MEDICATIONS Medication Instructions Dosage Frequency Start Date End Date Duration Status Cyclobenzaprine HCl 5 mg Orally Three times a day 1 tablet as needed 8h 17 Aug, 2018 10 days Active Effexor XR 75 MG Orally Once a [...] 30 day(s) Active RESULTS No Results PROCEDURES No Known [...]
--- OUTSIDE RECORDS SUMMARY | 2018-12-04 13:52 | XMS REPORT ---
Author Author PEREZ HOLT Organization [facility] Address [address] [place] [address] Phone Unavailable Care Team Providers Care Pmo Consultant Name Role Phone PEREZ HOLT Unavailable Unavailable PROBLEMS Type Condition ICD9-CM Code QGN00-TR Code Onset Dates Condition Status SNOMED Code Problem Chronic post-traumatic stress disorder (PTSD) F43.12 Active 371111508 Problem GERD without esophagitis K21.9 Active 096125393 Problem Chronic GERD K21.9 Active 110322744 Problem Other chronic pain G89.29 Active 51838193 Problem Opioid dependence with withdrawal F11.23 Active 44839674 Problem PTSD (post-traumatic stress disorder) F43.10 Active 14213686 Problem Bipolar 1 disorder, depressed, moderate F31.32 Active 56556281 Problem Stimulant dependence F15.20 Active 294726459 Problem Borderline personality disorder F60.3 Active 03765849 ALLERGIES Substance Reaction Event Type Date Status almonds Unknown Non Drug Allergy Jul, Active red dye Unknown Non Drug Allergy Jul, Active ENCOUNTERS Encounter Location Date Diagnosis [facility] [address] [place] [address] [phone] Aug, [facility] [address] [place] [address] 24735- 1985 Aug, [facility] [id number] [place] [address] 41209- 5168 Aug, [facility] [id number] [place] [address] 95911- 2446 Aug, [facility] [address] [place] [address] Aug, [facility] [address] [place] [address] 03165- 0080 Jul, Pain in thoracic spine M54.6 ; Other chronic pain G89.29 ; Encounter for IUD removal Z30.432 ; Cervicitis N72 and Screening for cervical cancer Z12.4 [place] [address] [place] [id number] 9[address] 26 Jul, 2018 Bipolar 1 disorder, depressed, moderate F31.32 ; PTSD (post- traumatic stress disorder) F43.10 ; Borderline personality disorder F60.3 ; Opioid dependence with withdrawal F11.23 and Stimulant dependence F15.20 [place] [address] 646354- [address]24 Jul, [place] [address] 939806- 9947 Jul, [place] [address] [place] [address] 922929- 7933 Jul, [place] [address] 43242- 5894 Jul, Bipolar 1 disorder, depressed, moderate F31.32 ; PTSD (post- traumatic stress disorder) F43.10 and Borderline personality disorder F60.3 [place] [address] 68454- 9078 Jul, Bipolar 1 disorder, depressed, moderate F31.32 ; PTSD (post- traumatic stress disorder) F43.10 and Borderline personality disorder F60.3 [place] [address] 54099- 5875 Jul, [place] [address] 91867- 1020 Jul, Chronic GERD K21.9 and Chronic post-traumatic stress disorder (PTSD) F43.12 [facility] [address] [address] Jul, Pain of upper abdomen R10.10 IMMUNIZATIONS Vaccine Route Administration Date Status TORADOL (IM) 60 MG/2ML (UP TO 15 MG) IM Intramuscular Aug 02, 2018 Administered SOCIAL HISTORY Never Assessed REASON FOR VISIT stomach pain- hx of colitis pt ran out of meds JStrasserRN PLAN OF CARE Activity Details Follow Up prn Reason: VITAL SIGNS Height 65 in 2018-08-02 Weight 171.8 lbs 2018-08-02 Temperature 98.2 degrees Fahrenheit 2018-08-02 Heart Rate 80 bpm 2018-08-02 Respiratory Rate 24 2018-08-02 BMI 28.59 kg/m2 2018-08-02 Blood pressure systolic 110 mmHg 2018-08-02 Blood pressure diastolic 80 mmHg 2018-08-02 MEDICATIONS Unknown Medications RESULTS No Results PROCEDURES Procedure Date Ordered Result Body Site TORADOL (IM) 60 MG/2ML (UP TO 15 MG) Aug 02, 2018 THER/PROPH/DIAG INJ, SC/IM Aug 02, 2018 INSTRUCTIONS MEDICATIONS ADMINISTERED No Known Medications MEDICAL (GENERAL) HISTORY Type Description Date Medical History Colitis Surgical History cholecystectomy Hospitalization History Colitis 01/2018
--- OUTSIDE RECORDS SUMMARY | 2018-12-04 13:52 | XMS REPORT ---
Author Author CHE EDWARDS Organization [facility] Address [address] [place] [address] Care Team Providers Care Early Childhood Worker Name Role Phone CHE EDWARDS Unavailable PROBLEMS Type Condition ICD9-CM Code [id number] Code Onset Dates Condition Status SNOMED Code Problem Chronic post-traumatic stress disorder (PTSD) F43.12 Active 367778206 Problem GERD without esophagitis K21.9 Active 030553707 Problem Chronic GERD K21.9 Active 450921467 Problem Other chronic pain G89.29 Active 86756433 Problem Opioid dependence with withdrawal F11.23 Active 81038097 Problem PTSD (post-traumatic stress disorder) F43.10 Active 97168668 Problem Bipolar 1 disorder, depressed, moderate F31.32 Active 33279763 Problem Stimulant dependence F15.20 Active 384458269 Problem Borderline personality disorder F60.3 Active 49771722 ALLERGIES No Information ENCOUNTERS Encounter Location Date Diagnosis [facility] [address] [place] [address] [id number] Aug, [facility] [address] [place] [address] 14482- 4942 Aug, [facility] [id number] [place] [address] 99642- 5668 Aug, [facility] [address] [place] [address] 31498- 1322 Aug, [facility] [address] [place] [address] Aug, Borderline personality disorder F60.3 [facility] [id number] [place] [address] 37022- 0629 Aug, [facility] [address] [place] [address] Aug, [facility] [id number] [place] [address] 97881- 5478 27 Jul, 2018 Pain in thoracic spine M54.6 ; Other chronic pain G89.29 ; Encounter for IUD removal Z30.432 ; Cervicitis N72 and Screening for cervical cancer Z12.4 [place] [id number] [place] [address] 57136- 2369 26 Jul, 2018 Bipolar 1 disorder, depressed, moderate F31.32 ; PTSD (post- traumatic stress disorder) F43.10 ; Borderline personality disorder F60.3 ; Opioid dependence with withdrawal F11.23 and Stimulant dependence F15.20 [place] [id number] [place] [address] 02259- 7062 Jul, [place] [id number] [place] [address] 74421- 3763 Jul, Bipolar 1 disorder, depressed, moderate F31.32 ; Borderline personality disorder F60.3 ; PTSD (post-traumatic stress disorder) F43.10 ; Opioid dependence with withdrawal F11.23 and Stimulant dependence F15.20 [place] [id number] [place] [address] 55411- 7570 Jul, [place] [id number] [place] [address] 26300- 9556 Jul, Bipolar 1 disorder, depressed, moderate F31.32 ; PTSD (post- traumatic stress disorder) F43.10 and Borderline personality disorder F60.3 [place] [id number] [place] [address] 85793- 5573 Jul, Bipolar 1 disorder, depressed, moderate F31.32 ; PTSD (post- traumatic stress disorder) F43.10 and Borderline personality disorder F60.3 [place] [id number] [place] [address] 64145- 1041 Jul, [place] [id number] [place] [address] 15782- 3753 Jul, Chronic GERD K21.9 and Chronic post-traumatic stress disorder (PTSD) F43.12 [facility] [address] [facility] [id number] [place] [address] Jul, Pain of upper abdomen R10.10 IMMUNIZATIONS No Known Immunizations SOCIAL HISTORY Never Assessed REASON FOR VISIT f/u depression and substance use PLAN OF CARE Activity Details Follow Up Next available Reason: VITAL SIGNS MEDICATIONS Unknown Medications RESULTS No Results PROCEDURES Procedure Date Ordered Result Body Site Psychotherapy, patient &/family, 60 minutes, established patient Aug 24, 2018 INSTRUCTIONS MEDICATIONS ADMINISTERED No Known Medications MEDICAL (GENERAL) HISTORY Type Description Date Medical History Colitis Surgical History cholecystectomy Hospitalization History Colitis 01/2018
--- OUTSIDE RECORDS SUMMARY | 2018-12-04 13:52 | XMS REPORT ---
Author Author CHE EDWARDS Organization [facility] Address [address] [place] [address] Care Team Providers Care Bottom Stainer Name Role Phone CHE EDWARDS Unavailable PROBLEMS Type Condition ICD9-CM Code [id number] Code Onset Dates Condition Status SNOMED Code Problem Chronic post-traumatic stress disorder (PTSD) F43.12 Active 474808396 Problem GERD without esophagitis K21.9 Active 449767876 Problem Chronic GERD K21.9 Active 382531381 Problem Other chronic pain G89.29 Active 92559771 Problem Opioid dependence with withdrawal F11.23 Active 53360254 Problem PTSD (post-traumatic stress disorder) F43.10 Active 20834107 Problem Bipolar 1 disorder, depressed, moderate F31.32 Active 83794378 Problem Stimulant dependence F15.20 Active 332030695 Problem Borderline personality disorder F60.3 Active 21965536 ALLERGIES No Information ENCOUNTERS Encounter Location Date Diagnosis [facility] [address] [place] [address] [id number] Aug, [facility] [address] [place] [address] 37267- 7570 Aug, [facility] [id number] [place] [address] 85191- 9719 Aug, [facility] [address] [place] [address] 99585- 0379 Aug, [facility] [address] [place] [address] Aug, Borderline personality disorder F60.3 [facility] [id number] [place] [address] 81999- 3541 Aug, [facility] [address] [place] [address] Aug, [facility] [id number] [place] [address] 47915- 7447 27 Jul, 2018 Pain in thoracic spine M54.6 ; Other chronic pain G89.29 ; Encounter for IUD removal Z30.432 ; Cervicitis N72 and Screening for cervical cancer Z12.4 [place] [id number] [place] [address] 02954- 3947 26 Jul, 2018 Bipolar 1 disorder, depressed, moderate F31.32 ; PTSD (post- traumatic stress disorder) F43.10 ; Borderline personality disorder F60.3 ; Opioid dependence with withdrawal F11.23 and Stimulant dependence F15.20 [place] [id number] [place] [address] 24983- 2514 Jul, [place] [id number] [place] [address] 13503- 8223 Jul, Bipolar 1 disorder, depressed, moderate F31.32 ; Borderline personality disorder F60.3 ; PTSD (post-traumatic stress disorder) F43.10 ; Opioid dependence with withdrawal F11.23 and Stimulant dependence F15.20 [place] [id number] [place] [address] 60789- 8485 Jul, [place] [id number] [place] [address] 42923- 0947 Jul, Bipolar 1 disorder, depressed, moderate F31.32 ; PTSD (post- traumatic stress disorder) F43.10 and Borderline personality disorder F60.3 [place] [id number] [place] [address] 87079- 4164 Jul, Bipolar 1 disorder, depressed, moderate F31.32 ; PTSD (post- traumatic stress disorder) F43.10 and Borderline personality disorder F60.3 [place] [id number] [place] [address] 48005- 6189 Jul, [place] [id number] [place] [address] 13166- 2542 Jul, Chronic GERD K21.9 and Chronic post-traumatic stress disorder (PTSD) F43.12 [facility] [address] [facility] [id number] [place] [address] Jul, Pain of upper abdomen R10.10 IMMUNIZATIONS No Known Immunizations SOCIAL HISTORY Never Assessed REASON FOR VISIT MMPI due to adminstration error the test is invalid (wrong test given) PLAN OF CARE Activity Details Follow Up 1 Week Reason: VITAL SIGNS MEDICATIONS Unknown Medications RESULTS No Results PROCEDURES Procedure Date Ordered Result Body Site PSYCHO TESTING ADMIN BY COMP Aug 23, 2018 INSTRUCTIONS MEDICATIONS ADMINISTERED No Known Medications MEDICAL (GENERAL) HISTORY Type Description Date Medical History Colitis Surgical History cholecystectomy Hospitalization History Colitis 01/2018
--- OUTSIDE RECORDS SUMMARY | 2018-12-04 13:52 | XMS REPORT ---
Author Author DEMARCO SEGAL Organization [facility] Address [address] [place] [address] Care Team Providers Care Sounding Device Operator Name Role Phone DEMARCO SEGAL Unavailable PROBLEMS Type Condition ICD9-CM Code FCF70-EZ Code Onset Dates Condition Status SNOMED Code Problem Chronic post-traumatic stress disorder (PTSD) F43.12 Active 400929475 Problem GERD without esophagitis K21.9 Active 270658720 Problem Chronic GERD K21.9 Active 340863510 Problem Other chronic pain G89.29 Active 48764739 Problem Opioid dependence with withdrawal F11.23 Active 56120083 Problem PTSD (post-traumatic stress disorder) F43.10 Active 34134174 Problem Bipolar 1 disorder, depressed, moderate F31.32 Active 54762798 Problem Stimulant dependence F15.20 Active 101054982 Problem Borderline personality disorder F60.3 Active 56164137 ALLERGIES Substance Reaction Event Type Date Status almonds Unknown Non Drug Allergy Jul, Active red dye Unknown Non Drug Allergy Jul, Active ENCOUNTERS Encounter Location Date Diagnosis [facility] [id number] [place] [address] [id number] Aug, [facility] [address] [place] [address] 76857- 4923 Aug, [facility] [id number] [place] [address] 48316- 6577 Aug, [facility] [id number] [place] [address] 31875- 4288 Aug, [facility] [address] [place] [address] Aug, [facility] [id number] [place] [address] 60629- 2059 Jul, Pain in thoracic spine M54.6 ; Other chronic pain G89.29 ; Encounter for IUD removal Z30.432 ; Cervicitis N72 and Screening for cervical cancer Z12.4 [place] [address] [place] [address] 908477- 9007 Jul, Bipolar 1 disorder, depressed, moderate F31.32 ; PTSD (post- traumatic stress disorder) F43.10 ; Borderline personality disorder F60.3 ; Opioid dependence with withdrawal F11.23 and Stimulant dependence F15.20 [facility] [address] 70413- 6385 Jul, [facility] [address] 93798- 2881 Jul, [place] [address] 356450- 2443 Jul, [place] [address] 33455- 7471 Jul, Bipolar 1 disorder, depressed, moderate F31.32 ; PTSD (post- traumatic stress disorder) F43.10 and Borderline personality disorder F60.3 [place] [id number] [place] [address] 66083- 5911 Jul, Bipolar 1 disorder, depressed, moderate F31.32 ; PTSD (post- traumatic stress disorder) F43.10 and Borderline personality disorder F60.3 [place] [id number] [place] [address] 46543- 7315 Jul, [facility] [address] 95820- 5458 Jul, Chronic GERD K21.9 and Chronic post-traumatic stress disorder (PTSD) F43.12 [facility] [address] [address] Jul, Pain of upper abdomen R10.10 IMMUNIZATIONS No Known Immunizations SOCIAL HISTORY Never Assessed REASON FOR VISIT stomach pain x 3 days vijay holly, Had similar issue, ended up being diagnosed with Colitis in January 2018 PLAN OF CARE Activity Details Follow Up 4 Weeks w me Reason:GRED / anxiety VITAL SIGNS Height 65 in 2018-08-03 Weight 175 lbs 2018-08-03 Temperature 97.2 degrees Fahrenheit 2018-08-03 Heart Rate 76 bpm 2018-08-03 Respiratory Rate 20 2018-08-03 BMI 29.12 kg/m2 2018-08-03 Blood pressure systolic 118 mmHg 2018-08-03 Blood pressure diastolic 66 mmHg 2018-08-03 MEDICATIONS Medication Instructions Dosage Frequency Start Date End Date Duration Status Omeprazole 20 MG Orally Once a day 1 capsule 24h Not-Taking Sucralfate 1 GM Orally Twice a day 1 tablet at bedtime on an empty stomach before meals 12h Not-Taking RESULTS No Results PROCEDURES No Known procedures INSTRUCTIONS MEDICATIONS ADMINISTERED No Known Medications MEDICAL (GENERAL) HISTORY Type Description Date Medical History Colitis Surgical History cholecystectomy Hospitalization History Colitis 01/2018
--- OUTSIDE RECORDS SUMMARY | 2018-12-04 13:52 | XMS REPORT ---
Author Author CHE EDWARDS Organization [facility] Address [address] [place] [address] Care Team Providers Care Utility Pipe Layer Name Role Phone CHE EDWARDS Unavailable PROBLEMS Type Condition ICD9-CM Code ODI24-NE Code Onset Dates Condition Status SNOMED Code Problem Chronic post-traumatic stress disorder (PTSD) F43.12 Active 429941530 Problem GERD without esophagitis K21.9 Active 363705545 Problem Chronic GERD K21.9 Active 804007817 Problem Other chronic pain G89.29 Active 18286785 Problem Opioid dependence with withdrawal F11.23 Active 21631638 Problem PTSD (post-traumatic stress disorder) F43.10 Active 74390945 Problem Bipolar 1 disorder, depressed, moderate F31.32 Active 00148872 Problem Stimulant dependence F15.20 Active 758214919 Problem Borderline personality disorder F60.3 Active 04867966 ALLERGIES No Information ENCOUNTERS Encounter Location Date Diagnosis [facility] [address] [place] [address] [id number] Aug, [facility] [address] [place] [address] 01438- 1224 Aug, [facility] [id number] [place] [address] 44843- 6007 Aug, [facility] [address] [place] [address] 30614- 7228 Aug, [facility] [address] [place] [address] Aug, Borderline personality disorder F60.3 [facility] [id number] [place] [address] 98281- 1819 Aug, [facility] [address] [place] [address] Aug, [facility] [id number] [place] [address] 67440- 0686 27 Jul, 2018 Pain in thoracic spine M54.6 ; Other chronic pain G89.29 ; Encounter for IUD removal Z30.432 ; Cervicitis N72 and Screening for cervical cancer Z12.4 [place] [id number] [place] [address] 72761- 1690 26 Jul, 2018 Bipolar 1 disorder, depressed, moderate F31.32 ; PTSD (post- traumatic stress disorder) F43.10 ; Borderline personality disorder F60.3 ; Opioid dependence with withdrawal F11.23 and Stimulant dependence F15.20 [place] [id number] [place] [address] 99807- 9186 Jul, [place] [id number] [place] [address] 76105- 0405 Jul, Bipolar 1 disorder, depressed, moderate F31.32 ; Borderline personality disorder F60.3 ; PTSD (post-traumatic stress disorder) F43.10 ; Opioid dependence with withdrawal F11.23 and Stimulant dependence F15.20 [place] [id number] [place] [address] 83812- 4327 Jul, [place] [id number] [place] [address] 27118- 9291 Jul, Bipolar 1 disorder, depressed, moderate F31.32 ; PTSD (post- traumatic stress disorder) F43.10 and Borderline personality disorder F60.3 [place] [id number] [place] [address] 74202- 9183 Jul, Bipolar 1 disorder, depressed, moderate F31.32 ; PTSD (post- traumatic stress disorder) F43.10 and Borderline personality disorder F60.3 [place] [id number] [place] [address] 67615- 2240 Jul, [place] [id number] [place] [address] 63868- 8527 Jul, Chronic GERD K21.9 and Chronic post-traumatic stress disorder (PTSD) F43.12 [facility] [address] [facility] [id number] [address] Jul, Pain of upper abdomen R10.10 IMMUNIZATIONS No Known Immunizations SOCIAL HISTORY Never Assessed REASON FOR VISIT f/u PLAN OF CARE Activity Details Follow Up Next available Reason: VITAL SIGNS MEDICATIONS Medication Instructions Dosage Frequency Start Date End Date Duration Status Omeprazole 20 MG Orally Once a day 1 capsule 24h Unknown Sucralfate 1 GM Orally Twice a day 1 tablet at bedtime on an empty stomach before meals 12h Unknown RESULTS No Results PROCEDURES Procedure Date Ordered Result Body Site Psychotherapy, patient &/family, 60 minutes, established patient Aug 18, 2018 INSTRUCTIONS MEDICATIONS ADMINISTERED No Known Medications MEDICAL (GENERAL) HISTORY Type Description Date Medical History Colitis Surgical History cholecystectomy Hospitalization History Colitis 01/2018
--- OUTSIDE RECORDS SUMMARY | 2018-12-04 13:52 | XMS REPORT ---
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 Name Role Phone MYCHAL CAMACHO Unavailable PROBLEMS Type Condition ICD9-CM Code NZN37-FT Code Onset Dates Condition Status SNOMED Code Problem Chronic post-traumatic stress disorder (PTSD) F43.12 Active 653243596 Problem GERD without esophagitis K21.9 Active 354508029 Problem Chronic GERD K21.9 Active 113967570 Problem Other chronic pain G89.29 Active 12940771 Problem Opioid dependence with withdrawal F11.23 Active 58403391 Problem PTSD (post-traumatic stress disorder) F43.10 Active 45133186 Problem Bipolar 1 disorder, depressed, moderate F31.32 Active 39442441 Problem Stimulant dependence F15.20 Active 045188657 Problem Borderline personality disorder F60.3 Active 40531698 ALLERGIES No Information ENCOUNTERS Encounter Location Date Diagnosis [facility] [address] [place] [address] [id number] Aug, [facility] [address] [place] [address] 19093- 7931 Aug, [facility] [address] [place] [address] 12762- 0341 Aug, [facility] [address] [place] [address] 61119- 4762 Aug, [facility] [address] [place] [address] Aug, Borderline personality disorder F60.3 [facility] [id number] [place] [address] 77345- 2520 Aug, [facility] [address] [place] [address] Aug, [facility] [id number] [place] [address] 44944- 6497 27 Jul, 2018 Pain in thoracic spine M54.6 ; Other chronic pain G89.29 ; Encounter for IUD removal Z30.432 ; Cervicitis N72 and Screening for cervical cancer Z12.4 [place] [address] [id number] [place] [address] 30735- 9236 26 Jul, 2018 Bipolar 1 disorder, depressed, moderate F31.32 ; PTSD (post- traumatic stress disorder) F43.10 ; Borderline personality disorder F60.3 ; Opioid dependence with withdrawal F11.23 and Stimulant dependence F15.20 [place] [address] [id number] [place] [address] 44434- 6704 Jul, [place] [address] [id number] [place] [address] 72856- 4690 Jul, Bipolar 1 disorder, depressed, moderate F31.32 ; Borderline personality disorder F60.3 ; PTSD (post-traumatic stress disorder) F43.10 ; Opioid dependence with withdrawal F11.23 and Stimulant dependence F15.20 [place] [id number] [place] [address] 20835- 8125 Jul, [place] [address] [id number] [place] [address] 04771- 5917 Jul, Bipolar 1 disorder, depressed, moderate F31.32 ; PTSD (post- traumatic stress disorder) F43.10 and Borderline personality disorder F60.3 [place] [address] [id number] [place] [address] 42020- 5800 Jul, Bipolar 1 disorder, depressed, moderate F31.32 ; PTSD (post- traumatic stress disorder) F43.10 and Borderline personality disorder F60.3 [place] [id number] [place] [address] 28935- 8970 Jul, [place] [id number] [place] [address] 26147- 0767 Jul, Chronic GERD K21.9 and Chronic post-traumatic stress disorder (PTSD) F43.12 [facility] [address] [facility] [id number] [address] Jul, Pain of upper abdomen R10.10 IMMUNIZATIONS No Known Immunizations SOCIAL HISTORY Never Assessed REASON FOR VISIT PLAN OF CARE VITAL SIGNS MEDICATIONS Unknown Medications RESULTS No Results PROCEDURES No Known procedures INSTRUCTIONS MEDICATIONS ADMINISTERED No Known Medications MEDICAL (GENERAL) HISTORY Type Description Date Medical History Colitis Surgical History cholecystectomy Hospitalization History Colitis 01/2018
--- OUTSIDE RECORDS SUMMARY | 2018-12-04 13:52 | XMS REPORT ---
Author Author JOSHUA WATSON [facility] Address [address] [place] [address] Care Team Providers Care Human Resources Clerk Name Role Phone JOSHUA WATSON Unavailable PROBLEMS ALLERGIES No Information ENCOUNTERS IMMUNIZATIONS No Known Immunizations SOCIAL HISTORY No smoking Hx information available REASON FOR VISIT PLAN OF CARE VITAL SIGNS MEDICATIONS Unknown Medications RESULTS No Results PROCEDURES INSTRUCTIONS MEDICATIONS ADMINISTERED No Known Medications MEDICAL (GENERAL) HISTORY
--- OUTSIDE RECORDS SUMMARY | 2018-12-04 13:52 | XMS REPORT ---
Author Author DEMARCO SEGAL Organization [facility] Address [address] [place] [address] Care Team Providers Care Informatica Architect Name Role Phone DEMARCO SEGAL Unavailable PROBLEMS Type Condition ICD9-CM Code TST36-JV Code Onset Dates Condition Status SNOMED Code Problem Chronic post-traumatic stress disorder (PTSD) F43.12 Active 564911571 Problem GERD without esophagitis K21.9 Active 258720382 Problem Chronic GERD K21.9 Active 988978023 Problem Other chronic pain G89.29 Active 63251788 Problem Opioid dependence with withdrawal F11.23 Active 42517915 Problem PTSD (post-traumatic stress disorder) F43.10 Active 07854578 Problem Bipolar 1 disorder, depressed, moderate F31.32 Active 23267852 Problem Stimulant dependence F15.20 Active 807589104 Problem Borderline personality disorder F60.3 Active 08479481 ALLERGIES No Information ENCOUNTERS Encounter Location Date Diagnosis [facility] [address] [id number] Aug, 2018 [facility] [id number] [place] [address] 78662- 9450 10 Aug, 2018 [facility] [id number] [place] [address] 95769- 6746 Aug, [facility] [id number] [place] [address] 96534- 4160 Aug, [facility] [address] [place] [address] Aug, [facility] [id number] [place] [address] 52418- 0097 Jul, Pain in thoracic spine M54.6 ; Other chronic pain G89.29 ; Encounter for IUD removal Z30.432 ; Cervicitis N72 and Screening for cervical cancer Z12.4 [facility] [address] [address] 26 Jul, 2018 Bipolar 1 disorder, depressed, moderate F31.32 ; PTSD (post- traumatic stress disorder) F43.10 ; Borderline personality disorder F60.3 ; Opioid dependence with withdrawal F11.23 and Stimulant dependence F15.20 [facility] [address] [place] [address] 01960- 0401 Jul, [facility] [id number] [place] [address] 34045- 1820 Jul, [facility] [id number] [place] [address] 445461- 1439 Jul, [facility] [id number] [place] [address] 96783- 2924 20 Jul, 2018 Bipolar 1 disorder, depressed, moderate F31.32 ; PTSD (post- traumatic stress disorder) F43.10 and Borderline personality disorder F60.3 [facility] [address] [place] [address] 95193- 3723 Jul, Bipolar 1 disorder, depressed, moderate F31.32 ; PTSD (post- traumatic stress disorder) F43.10 and Borderline personality disorder F60.3 [facility] [address] [address] Jul, [facility] [id number] [place] [address] 45352- 6458 Jul, Chronic GERD K21.9 and Chronic post-traumatic stress disorder (PTSD) F43.12 [facility] [address] [address] 04 Jul, 2018 Pain of upper abdomen R10.10 IMMUNIZATIONS No Known Immunizations SOCIAL HISTORY Never Assessed REASON FOR VISIT BH/AT phone response PLAN OF CARE VITAL SIGNS MEDICATIONS Unknown Medications RESULTS No Results PROCEDURES No Known procedures INSTRUCTIONS MEDICATIONS ADMINISTERED No Known Medications MEDICAL (GENERAL) HISTORY Type Description Date Medical History Colitis Surgical History cholecystectomy Hospitalization History Colitis 01/2018
--- OUTSIDE RECORDS SUMMARY | 2018-12-04 13:53 | XMS REPORT ---
Author Author [facility] Medical Staff Organization [facility] Address [address] [place] [address] Phone [phone] Summary purpose CCDA Sent to [facility] Chief Complaint and Reason for Visit Admit Diagnosis 1 VAGINITIS NOS Problem list No authorized problems tracked for continuity of care are available for this visit. Encounters No authorized problems tracked for encounter diagnoses are available for this visit. Medications No home medications recorded for this patient visit Allergies, adverse reactions, alerts No allergy information is available for this patient. Immunizations No immunizations recorded for this patient visit Relevant diagnostic tests and/or laboratory data No authorized results are available for this patient visit History of procedures Procedure Code Code Type Description Date Performed Performing Physician [id number] CPT-4 OFFICE/OUTPATIENT VISIT EST 12-28-2014 LUIS [place] Functional status No functional or cognitive status [...]
--- OUTSIDE RECORDS SUMMARY | 2018-12-04 13:53 | XMS REPORT | Continuity Of Care Document ---
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 Name Role Phone JOSE MANUEL RUELAS Unavailable SHASHA LAYNE DO Unavailable FELICE RENO, DEANNE Spencer AT Results Lab Results Visit/Account #[id number] (January 30, 2015 6:00pm - February 01, 2015 12:36pm) Test Result Date/Time 01455-3: COMPLETE BLOOD COUNT WITH DIFF WHITE BLOOD COUNT(4.0-11.0 10E3/UL) 11.2 10E3/UL January 30, 2015 9:24pm 9.4 10E3/UL January 31, 2015 7:10am RED BLOOD COUNT(4.00-5.20 10E6/UL) 4.14 10E6/UL January 30, 2015 9:24pm 4.02 10E6/UL January 31, 2015 7:10am HEMOGLOBIN(12.0-16.0 G/DL) 12.6 G/DL January 30, 2015 9:24pm 12.1 G/DL January 31, 2015 7:10am HEMATOCRIT(36.0-46.0 %) 37.5 % January 30, 2015 9:24pm 36.9 % January 31, 2015 7:10am 59771-8: MEAN CORPUSCULAR VOLUME(82.0-100.0 FL) 90.6 FL January 30, 2015 9:24pm 91.8 FL January 31, 2015 7:10am 58341-9: MEAN CORPUSCULAR HEMOGLOBIN(26.0-34.0 PG) 30.4 PG January 30, 2015 9:24pm 30.1 PG January 31, 2015 7:10am MEAN CORPUSCULAR HGB CONC(31.5-36.5 G/DL) 33.6 G/DL January 30, 2015 9:24pm 32.8 G/DL January 31, 2015 7:10am RED CELL DISTRIBUTION WIDTH(11.5-14.5 %) 12.5 % January 30, 2015 9:24pm 12.5 % January 31, 2015 7:10am 777-3: PLATELET COUNT(150-450 10E3/UL) 337 10E3/UL January 30, 2015 9:24pm 301 10E3/UL January 31, 2015 7:10am MEAN PLATELET VOLUME(8.2-12.4 FL) 9.5 FL January 30, 2015 9:24pm 10.0 FL January 31, 2015 7:10am 770-8: NEUTROPHILS % (AUTO)(40-70 %) 49 % January 30, 2015 9:24pm 42 % January 31, 2015 7:10am LYMPHOCYTES % (AUTO)(15-45 %) 39 % January 30, 2015 9:24pm 44 % January 31, 2015 7:10am 5905-5: MONOCYTES % (AUTO)(2-10 %) 9 % January 30, 2015 9:24pm 10 % January 31, 2015 7:10am 713-8: EOSINOPHILS % (AUTO)(0-6 %) 3 % January 30, 2015 9:24pm 3 % January 31, 2015 7:10am 706-2: BASOPHILS % (AUTO)(0-1 %) 1 % January 30, 2015 9:24pm 1 % January 31, 2015 7:10am 91715-4: IMMATURE GRANS % (AUTO)(0-0 %) 0 % January 30, 2015 9:24pm 0 % January 31, 2015 7:10am NUCLEATED RBCS (AUTO)(0-0 %) 0 % January 30, 2015 9:24pm 0 % January 31, 2015 7:10am 751-8: NEUTROPHILS # (AUTO)(2.5-7.5 10E3/UL) 5.4 10E3/UL January 30, 2015 9:24pm 4.0 10E3/UL January 31, 2015 7:10am 85535-1: LYMPHOCYTES # (AUTO)(1.0-4.0 10E3/UL) 4.3 10E3/UL January 30, 2015 9:24pm 4.1 10E3/UL January 31, 2015 7:10am 742-7: MONOCYTES # (AUTO)(0.2-0.8 10E3/UL) 1.0 10E3/UL January 30, 2015 9:24pm 0.9 10E3/UL January 31, 2015 7:10am 711-2: EOSINOPHILS # (AUTO)(0.0-0.4 10E3/UL) 0.3 10E3/UL January 30, 2015 9:24pm 0.3 10E3/UL January 31, 2015 7:10am 704-7: BASOPHILS # (AUTO)(0.0-0.2 10E3/UL) 0.1 10E3/UL January 30, 2015 9:24pm 0.1 10E3/UL January 31, 2015 7:10am IMMATURE GRANS # (AUTO)(0.0-0.0 10E3/UL) 0.1 10E3/UL January 30, 2015 9:24pm 0.0 10E3/UL January 31, 2015 7:10am DIFF TYPE AUTOMATED January 30, 2015 9:24pm AUTOMATED January 31, 2015 7:10am 55347-7: URINALYSIS WITH MICROSCOPIC 5778-6: COLOR,URINE YELLOW January 31, 2015 12:34am 41523-2: CLARITY,URINE CLEAR January 31, 2015 12:34am GLUCOSE, URINE(NEGATIVE MG/DL) NEGATIVE MG/DL January 31, 2015 12:34am URINE BILIRUBIN(NEGATIVE) NEGATIVE January 31, 2015 12:34am 60783-3: KETONES,URINE(NEGATIVE MG/DL) NEGATIVE MG/DL January 31, 2015 12:34am 2965-2: URINE SPECIFIC GRAVITY(1.001-1.035) 1.020 January 31, 2015 12:34am 27397-0: URINE BLOOD(NEGATIVE) NEGATIVE January 31, 2015 12:34am 2756-5: URINE PH(5.0-9.0) 7.0 January 31, 2015 12:34am URINE PROTEIN(Less than 20 MG/DL) 30 MG/DL January 31, 2015 12:34am URINE UROBILINOGEN(0.2-1.0 MG/DL) 0.2 MG/DL January 31, 2015 12:34am URINE NITRITE(NEGATIVE) NEGATIVE January 31, 2015 12:34am 5799-2: LEUKOCYTE ESTERASE ,URINE(NEGATIVE) NEGATIVE January 31, 2015 12:34am URINE MICROSCOPIC REQUIRED YES January 31, 2015 12:34am URINE WBCS(/HPF) 0-3 /HPF January 31, 2015 1:03am 76094-2: URINE RBCS(/HPF) 0-3 /HPF January 31, 2015 1:04am 46942-4: URINE EPITHELIAL CELLS(/HPF) 13-20 /HPF January 31, 2015 1:04am BACTERIA,URINE(/HPF) TRACE /HPF January 31, 2015 1:04am URINE CRYSTALS(/HPF) NONE SEEN /HPF January 31, 2015 12:36am URINE CASTS(/LPF) NONE SEEN /LPF January 31, 2015 12:36am URINE COMMENTS 3+ MUCOUS January 31, 2015 1:04am 75940-7: COMPLETE METABOLIC PROFILE 59015-4: GLUCOSE(70-110 MG/DL) 88 MG/DL January 30, 2015 9:41pm 78 MG/DL January 31, 2015 7:24am BLOOD UREA NITROGEN(6-20 MG/DL) 10 MG/DL January 30, 2015 9:41pm 12 MG/DL January 31, 2015 7:24am 60088-3: CREATININE(0.50-1.20 MG/DL) 0.65 MG/DL January 30, 2015 9:41pm 0.61 MG/DL January 31, 2015 7:24am 25582-2: EST GLOMERULAR FILTRATION RATE(Greater than or equal to 60) Greater than or equal to 60 Result Comments: If the patient is of -[place] descent/extraction multiply the eGFR value by 1.212 to obtain the actual eGFR. >=60 mg/dL Normal 30-59 mg/dL Moderate Kidney Disease 15-29 mg/dL Severe Kidney Disease <15 mg/dL Kidney Failure January 30, 2015 9:41pm Greater than or equal to 60 Result Comments: If the patient is of -[place] descent/extraction multiply the eGFR value by 1.212 to obtain the actual eGFR. >=60 mg/dL Normal 30-59 mg/dL Moderate Kidney Disease 15-29 mg/dL Severe Kidney Disease <15 mg/dL Kidney Failure January 31, 2015 7:24am BUN CREATININE RATIO(10.0-20.0 RATIO) 15.0 RATIO January 30, 2015 9:41pm 20.0 RATIO January 31, 2015 7:24am 51283-7: SODIUM(135-145 MMOL/L) 137 MMOL/L January 30, 2015 9:41pm 135 MMOL/L January 31, 2015 7:24am 17452-5: POTASSIUM(3.6-5.0 MMOL/L) 4.0 MMOL/L January 30, 2015 9:41pm 3.8 MMOL/L January 31, 2015 7:24am 06925-0: CHLORIDE(101-111 MMOL/L) 107 MMOL/L January 30, 2015 9:41pm 107 MMOL/L January 31, 2015 7:24am 8-9: CO2(21-31 MMOL/L) 24.0 MMOL/L January 30, 2015 9:41pm 25.0 MMOL/L January 31, 2015 7:24am 74630-9: ANION GAP(8-18) 10 January 30, 2015 9:41pm 7 January 31, 2015 7:24am OSMO CALCULATED(270.0-290.0) 272.3 January 30, 2015 9:41pm 268.7 January 31, 2015 7:24am CALCIUM(8.5-10.5 MG/DL) 8.9 MG/DL January 30, 2015 9:41pm 8.5 MG/DL January 31, 2015 7:24am BILIRUBIN,TOTAL(0.1-1.2 MG/DL) 0.6 MG/DL January 30, 2015 9:41pm 0.7 MG/DL January 31, 2015 7:24am ALKALINE PHOSPHATASE(42-121 IU/L) 54 IU/L January 30, 2015 9:41pm 53 IU/L January 31, 2015 7:24am ASPARTATE AMINO TRANSFERASE(14-37 IU/L) 14 IU/L January 30, 2015 9:41pm 14 IU/L January 31, 2015 7:24am ALANINE AMINOTRANSFERASE(8-29 IU/L) 13 IU/L January 30, 2015 9:41pm 13 IU/L January 31, 2015 7:24am 96565-9: TOTAL PROTEIN(6.4-8.2 G/DL) 6.6 G/DL January 30, 2015 9:41pm 5.7 G/DL January 31, 2015 7:24am ALBUMIN(3.5-5.5 G/DL) 3.8 G/DL January 30, 2015 9:41pm 3.4 G/DL January 31, 2015 7:24am 2336-6: GLOBULIN(2.4-3.6) 2.8 January 30, 2015 9:41pm 2.3 January 31, 2015 7:24am 1759-0: ALBUMIN/GLOBULIN RATIO(0.9-1.8 RATIO) 1.4 RATIO January 30, 2015 9:41pm 1.5 RATIO January 31, 2015 7:24am URINE HCG, QUALITATIVE 2106-3: URINE HCG, QUALITATIVE(NEGATIVE) NEGATIVE January 31, 2015 12:37am DRUGS OF ABUSE, URINE 22748-4: OPIATE SCREEN,URINE(NEGATIVE) NEGATIVE January 31, 2015 12:50am 84559-1: BARBITURATES SCREEN, URINE(NEGATIVE) NEGATIVE January 31, 2015 12:50am 16374-4: AMPHETAMINE SCREEN,URINE(NEGATIVE) NEGATIVE January 31, 2015 12:50am BENZODIAZEPINES SCREEN,URINE(NEGATIVE) NEGATIVE January 31, 2015 12:50am COCAINE SCREEN, URINE(NEGATIVE) NEGATIVE January 31, 2015 12:50am CANNABINOID SCREEN,URINE(NEGATIVE) NEGATIVE January 31, 2015 12:50am Microbiology Results Visit/Account #[id number] (January 30, 2015 6:00pm - February 01, 2015 12:36pm) Procedure Result 56632-6: MRSA SCREEN FOR INFEC CONTROL 76689-5: MRSA SCREEN FOR INFEC CONTROL Result Instance On January 31, 2015 10:32pm Source: NARE Special Result Comments: No growth Allergies and Adverse Reactions Allergies and Adverse Reactions Patient Unit Number: [id number] Agent Type Reaction Severity Status Date RED DYE Drug Allergy Unknown Unknown Active Unknown Date Problem List Problem List Visit/Account #[id number] (January 30, 2015 6:00pm - February 01, 2015 12:36pm) Acute Problems: Code/Condition Comments Documented Start Date Documented Resolved Date Code (s) Cholelithiasis January 30, 2015 ICD10: K80.20 Cholelithiasis ICD9: 574.20 Cholelithiasis SNOMED: 550456093 Cholelithiasis Alcohol abuse ICD10: F10.10 Alcohol abuse ICD9: 305.00 Alcohol abuse SNOMED: 52176959 Alcohol abuse Biliary colic ICD10: K80.20 Biliary colic ICD10: K80.50 Biliary colic ICD9: 574.20 Biliary colic SNOMED: 18295488 Biliary colic Dyspepsia ICD10: K30 Indigestion ICD9: 536.8 Indigestion SNOMED: 420537524 Indigestion Gastroesophageal reflux ICD10: K21.9 Gastroesophageal reflux disease ICD9: 530.81 Gastroesophageal reflux disease SNOMED: 137800262 Gastroesophageal reflux disease NSAID long-term use ICD10: Z79.1 Encounter for long-term (current) use of non-steroidal anti- inflammatories ICD9: V58.64 Encounter for long-term (current) use of non-steroidal anti- inflammatories SNOMED: 995669618 Encounter for long-term (current) use of non-steroidal anti- inflammatories Smoking hx ICD10: Z72.0 History of smoking ICD9: V15.82 History of smoking SNOMED: 968149049 History of smoking Drug abuse ICD10: F19.10 Drug abuse ICD9: 305.90 Drug abuse SNOMED: 48197881 Drug abuse 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 Methamphetamine abuse ICD9: 305.70 Methamphetamine abuse SNOMED: 232462829 Methamphetamine abuse RUQ pain ICD10: R10.11 Right upper quadrant pain ICD9: 789.01 Right upper quadrant pain SNOMED: 636558493 Right upper quadrant pain Plan of Care Plan Of Care Visit/Account #[id number] (January 30, 2015 6:00pm - February 01, 2015 12:36pm) Instructions/Comments: Eating a Diet Low in Saturated Fat, Trans Fat, and Cholesterol DI for Cholecystectomy Diclofenac Vital Signs Vital Signs Visit/Account #[id number] (January 30, 2015 6:00pm - February 01, 2015 12:36pm) Label First Result Last Result 2710-2: O2% 96 % January 30, 2015 9:57pm 96 % February 01, 2015 9:01am 8310-5: Celsius Body Temperature 36.19887 Mariela January 30, 2015 9:57pm 36.96901 Mariela February 01, 2015 9:01am 8310-5: Fahrenheit Body Temperature 98.1 [degF] January 30, 2015 9:57pm 98.1 [degF] February 01, 2015 9:01am 8480-04/8462-4: Systolic/Diastolic Blood Pressure 102/63 mm[Hg] January 30, 2015 9:57pm 113/48 mm[Hg] February 01, 2015 9:01am 8867-4: Heart Rate 77 /min January 30, 2015 9:57pm 67 /min February 01, 2015 9:01am 9279-1: Respiratory Rate 18 /min January 30, 2015 9:57pm 48 /min February 01, 2015 9:01am Functional Status Functional Status No Functional Status Data Medications Home Medications Visit/Account #[id number] (January 30, 2015 6:00pm - February 01, 2015 12:36pm) Medication Route Sig/Schedule Precondition/Indication Comments/Instructions Codes ADVAIR DISKUS 50-100(SALMETEROL/FLUTICASONE) 14 DOSE PUFF INHALED BID: TWICE A DAY ADVAIR DISKUS 50-100 (SALMETEROL/FLUTICASONE) RxNorm: Y2377120 ADVAIR DISKUS 50-100 (SALMETEROL/FLUTICASONE) RxNorm: V736711 ADVAIR DISKUS 50-100 (SALMETEROL/FLUTICASONE) RxNorm: U842429 ADVAIR DISKUS 50-100 (SALMETEROL/FLUTICASONE) NDC: 79864194622 PROVENTIL(ALBUTEROL SULF) 4 MG TAB ORAL 4XD: 4 TIMES DAILY PROVENTIL (ALBUTEROL SULF) RxNorm: P206673 PROVENTIL (ALBUTEROL SULF) NDC: 45396224200 Inpatient/Ordered Medications Visit/Account #[id number] (January 30, 2015 6:00pm - February 01, 2015 12:36pm) Medication Route Sig/Schedule Precondition/Indication Comments/Instructions Codes IV Medication Carriers: NORMAL SALINE(SODIUM CHLORIDE) 1000 ML INJECTION Total Dose: 1000 ML INTRAVEN .Q8H (Rate: 125 MLS/HR Duration: 8 HR) Carriers: NORMAL SALINE (SODIUM CHLORIDE) RxNorm: V782062 NORMAL SALINE (SODIUM CHLORIDE) NDC: 56664240220 TORADOL INJ(KETOROLAC TROMETHAMINE) 30 MG/ML INJECTION Total Dose: 30 MG INTRAVEN Q6S: EVERY 6 HOURS Label Comments: DO NOT EXCEED 5 DAYS OF THERAPY TORADOL INJ (KETOROLAC TROMETHAMINE) RxNorm: B149845 TORADOL INJ (KETOROLAC TROMETHAMINE) NDC: 01984542062 NICODERM 7 MG PATCH(NICOTINE) 1 PATCH PATCH Total Dose: 1 PATCH TOPICALLY DAILY: DAILY Label Comments: WEAR GLOVES FOR HANDLING OR WASH HANDS AFTER HANDLING. NICODERM 7 MG PATCH (NICOTINE) RxNorm: Q646055 NICODERM 7 MG PATCH (NICOTINE) NDC: 66118353274 IV Medication Carriers: MEFOXIN 1 GM/50 ML (KIT)(CefOXItin SODIUM) 1 GM/50 ML INJECTION Total Dose: 50 ML INTRAVEN LOADER MAGAZINE GRINDER (Rate: 100 MLS/HR Duration: 30 MIN) Clinical Indication: Clinical Indication: ABX non-surgical pt Label Comments: USE [id number] SYSTEM SYMBICORT 160(BUDESONIDE/FORMOTEROL) 60 PUFF/6 GM INHALER Total Dose: 2 GM INHALED RTBID: TWICE DAILY Label Comments: SHAKE WELL FOR 5 SECONDS BEFORE EACH USE SYMBICORT 160 (BUDESONIDE/FORMOTEROL) RxNorm: W5335555 SYMBICORT 160 (BUDESONIDE/FORMOTEROL) RxNorm: L6263917 SYMBICORT 160 (BUDESONIDE/FORMOTEROL) RxNorm: I7970093 SYMBICORT 160 (BUDESONIDE/FORMOTEROL) NDC: 13279913435 VENTOLIN 0.5% NEB(ALBUTEROL SULF) 2.5 MG/0.5 ML INHALER Total Dose: 2.5 MG INHALED Q2H PRN Reason: PRN Reason: SHORTNESS OF BREATH/WHEEZING Rx Order Comments: Order filed UNV: Allergies/Duplicates/Interactions differ from order to delivery supervisor VENTOLIN 0.5% NEB (ALBUTEROL SULF) RxNorm: U111928 VENTOLIN 0.5% NEB (ALBUTEROL SULF) NDC: 79717550483 VENTOLIN 0.5% NEB(ALBUTEROL SULF) 2.5 MG/0.5 ML INHALER Total Dose: 2.5 MG INHALED Q6H Rx Order Comments: Order filed UNV: Allergies/Duplicates/Interactions differ from order to delivery supervisor VENTOLIN 0.5% NEB (ALBUTEROL SULF) RxNorm: T303856 VENTOLIN 0.5% NEB (ALBUTEROL SULF) NDC: 19374480683 PEPCID INJ(FAMOTIDINE) 20 MG/2 ML INJECTION Total Dose: 20 MG INTRAVEN .PSCU.ARLEEN Rx Order Comments: Order placed as verified: Dose Warnings differ from order to delivery supervisor Dose Warnings differ from order to delivery supervisor Label Comments: Push over at least 2 minutes PEPCID INJ (FAMOTIDINE) RxNorm: L576531 PEPCID INJ (FAMOTIDINE) NDC: 72174401467 VERSED INJ(MIDAZOLAM HCL) 2 MG/2 ML INJECTION Total Dose: 2 MG INTRAVEN .PSCU.ARLEEN Rx Order Comments: Order placed as verified: Dose Warnings differ from order to delivery supervisor Dose Warnings differ from order to delivery supervisor VERSED INJ (MIDAZOLAM HCL) RxNorm: A631299 VERSED INJ (MIDAZOLAM HCL) NDC: 49588490590 ZOFRAN INJ(ONDansetron HCL) 4 MG/2 ML INJECTION Total Dose: 4 MG INTRAVEN .PSCU.ARLEEN Rx Order Comments: Order placed as verified: Dose Warnings differ from order to delivery supervisor Dose Warnings differ from order to delivery supervisor ZOFRAN INJ (ONDansetron HCL) RxNorm: V715408 ZOFRAN INJ (ONDansetron HCL) NDC: 27189243853 DILAUDID(HYDROmorphone HCL) 2 MG/ML INJECTION Total Dose: 0.5 ML INTRAVEN .PACU.ARLEEN PRN Reason: pain Label Comments: to be given in PACU only. Special Dose Instructions: q5min up to 2mg DILAUDID (HYDROmorphone HCL) RxNorm: X730540 DILAUDID (HYDROmorphone HCL) NDC: 12850026274 ULTRAM(TraMADol HCL) 50 MG TAB Total Dose: 0 MG ORAL Q4H PRN Reason: PRN Reason: MODERATE PAIN Label Comments: MAY INCREASE FALL RISK Special Dose Instructions: 50-100 MG ULTRAM (TraMADol HCL) RxNorm: Y181851 ULTRAM (TraMADol HCL) NDC: 11475567895 PROTONIX(PANTOPRAZOLE SOD) 40 MG TAB Total Dose: 40 MG ORAL 60BIDAC: 60 MIN BEFORE BKFST & SUPPER Label Comments: AUTOSUB FROM OMEPRAZOLE PROTONIX (PANTOPRAZOLE SOD) RxNorm: Q929872 PROTONIX (PANTOPRAZOLE SOD) RxNorm: M835264 PROTONIX (PANTOPRAZOLE SOD) NDC: 52203482529 COLACE(DOCUSATE SODIUM) 100 MG CAP Total Dose: 100 MG ORAL NOW: NOW COLACE (DOCUSATE SODIUM) RxNorm: O2284479 COLACE (DOCUSATE SODIUM) NDC: 10211657930 MIRALAX(POLYETHYLENE GLYCOL) 17 GM POWDER Total Dose: 17 GM ORAL DAILY: DAILY Label Comments: DISSOLVE IN 8 OZ OF WATER MIRALAX (POLYETHYLENE GLYCOL) RxNorm: N458317 MIRALAX (POLYETHYLENE GLYCOL) NDC: 21308384895 Discharge Medications Visit/Account #[id number] (January 30, 2015 6:00pm - February 01, 2015 12:36pm) Medication Route Sig/Schedule Precondition/Indication Comments/Instructions Codes ADVAIR DISKUS 50-100(SALMETEROL/FLUTICASONE) 14 DOSE PUFF INHALED BID: TWICE A DAY ADVAIR DISKUS 50-100 (SALMETEROL/FLUTICASONE) RxNorm: J4795244 ADVAIR DISKUS 50-100 (SALMETEROL/FLUTICASONE) RxNorm: G292707 ADVAIR DISKUS 50-100 (SALMETEROL/FLUTICASONE) RxNorm: X572705 ADVAIR DISKUS 50-100 (SALMETEROL/FLUTICASONE) NDC: 79944668730 PROVENTIL(ALBUTEROL SULF) 4 MG TAB ORAL 4XD: 4 TIMES DAILY PROVENTIL (ALBUTEROL SULF) RxNorm: U222578 PROVENTIL (ALBUTEROL SULF) NDC: 94145952073 VOLTAREN XR(DICLOFENAC SODIUM) 100 MG TAB ORAL DAILY: DAILY VOLTAREN XR (DICLOFENAC SODIUM) RxNorm: Z123821 VOLTAREN XR (DICLOFENAC SODIUM) RxNorm: P345164 VOLTAREN XR (DICLOFENAC SODIUM) NDC: 58734512675 PEPCID(FAMOTIDINE) 20 MG TABLET ORAL BID: TWICE A DAY PEPCID (FAMOTIDINE) RxNorm: X828153 PEPCID (FAMOTIDINE) NDC: 32954015363 History Of Encounters Encounters Visit/Account #[id number] (January 30, 2015 6:00pm - February 01, 2015 12:36pm) Account Status Physican Of Record Reason For Visit Visit Diagnosis Start Date/Time Stop Date/Time Nicolás DEANNE VIVEROS MD CHOLELTHIASIS;ABDOMINAL PAIN 574.10: CHOLELITH W CHOLECYS NEC ICD9 Jan 30, 2015 6:00pm Feb 01, 2015 12:36pm History of Procedures Procedure List Visit/Account #[id number] (January 30, 2015 6:00pm - February 01, 2015 12:36pm) Code/Procedure Date 45.16: ESOPHAGOGASTRODUODENOSCOPY [EGD] W/CLOSED BIOPSY February 01, 2015 51.23: LAPAROSCOPIC CHOLECYSTECTOMY February 01, 2015 87.53: INTRAOPER CHOLANGIOGRAM February 01, 2015 Discharge Instructions Discharge Instructions Visit/Account #[id number] (January 30, 2015 6:00pm - February 01, 2015 12:36pm) Department: MEDICAL RECORDS [ Report: GEN DC SUMMARY ] Dictated By: CHRISTOPHE SHAW DO Signed By: CHRISTOPHE SHAW DO [address] [address] Name: DIAN RAMOS UNIT/MR#: [id number] : 1995 Sex: F Report#: [id number]: DEANNE VIVEROS MD Adm Date: 01/30/15 PCP: [facility] Date: 02/01/15 Dictated By: CHRISTOPHE SHAW DO (PGY1) ~ GEN DC SUMMARY ~ Signed DC SUMMARY Date of Service: Feb 01, 2015 Time of Service: 14:38 Note: Date of Admit:~ 01/30/15 Date of Discharge:~ 02/01/15 Admission Diagnoses: 1. Cholelithiasis. 2. Right upper quadrant abdominal pain. 3. Intractable nausea and vomiting. 4. History of significant multisubstance abuse. 5. Pvkf-Qqnas-Odxbpuw. 6. Anxiety. 7. Asthma. Discharge Diagnoses: 1. Cholelithiasis. 2. Right upper quadrant abdominal pain. 3. Intractable nausea and vomiting. 4. History of significant multisubstance abuse. 5. Rvos-Btjxv-Qaxgjwr. 6. Anxiety. 7. Asthma. Disposition:~ home Condition:~ good Consultations: Dr. Shasha Layne [facility] [address] [place] [address], [address] [place], [place]~ [address] Phone:~ Procedures: 1. Lap Vicenta Admission HPI: The patient is a 19-year-old female with past medical history significant for multisubstance abuse and asthma, who presented to the clinic this afternoon with acutely worsening right upper quadrant abdominal pain.~ The patient has been experiencing right upper quadrant pain associated with nausea and vomiting for the past 3 to 4 months.~ Over the past 4 to 5 days, she reports that the pain has increased as well as nausea and vomiting.~ She has had a difficult time keeping down solids and liquids alike. She reports that the pain is described as a sharp, aching pain in the right upper quadrant that will radiate to her mid back, and does note that it is worse after eating and drinking, although reports that it is still present even when she has not eaten or drank anything.~ She reports, she is nauseous and feels the need to vomit nearly all the time.~ She denies any fevers or chills associated with this pain.~ The patient denies any diarrhea or constipation, although does reports soft stools that are yellow-green in nature for the past 3 to 4 months.~ The patient had been seen in clinic this afternoon, and due to her acute pain, was sent to the hospital for a gallbladder ultrasound, which did show a stone in the fundus, as well as a mildly thickened lining.~ She had originally had an appointment to see Dr. Perez on February 04 for consultation related to the right upper quadrant pain, but given the nature of her discomfort and continued nausea and vomiting, it was decided that the patient would be admitted for further monitoring and surgical consultation. Hospital Course: 01/30: Admitted for cholelithiasis, Ba consulted surgery in AM. 01/31: Lap milagro today, D/C per surgery. Possibly later tonight, likely in AM. 02/01: Discharge home today Discharge Physical Exam: General: 19 y/o F resting in bed in NAD. Alert and oriented x3 Lungs: expiratory wheezes b/l lung bases, diminished air flow noted Heart: regular rhythm and rate Abdomen: soft, NT, vicenta scars noted on patient's abdomen Ext: dry, warm, no cyanosis Discharge Medications: per [facility] Discharge Routine Discharge Diet: as tolerated Discharge Activity: as tolerated Problem List Problems: (1) Cholelithiasis (2) Methamphetamine abuse (3) RUQ pain Medications/Allergies MEDICATIONS Scheduled Albuterol Sulf (Proventil) 4 MG PO 4XD (Reported) Diclofenac Sodium Er (Voltaren Xr) 100 MG PO DAILY Salmeterol/Fluticasone 50-100 (Advair Diskus 50-100) Unknown Dose INH BID ( Reported) ALLERGIES Allergies: Coded Allergies: RED DYE (Unverified Allergy, Unknown, 01/30/15) CHRISTOPHE SHAW DO (PGY1) Feb 01, 2015 14:39 Signed By: CHRISTOPHE SHAW DO 02/01/15 1439 SINA HI MD 02/05/15 1652 SINA HI MD 02/05/15 1652 Social History Social History No Social History Data Immunizations Immunizations Patient Unit Number: [id number] Immunizations No Immunizations Administered
--- OUTSIDE RECORDS SUMMARY | 2018-12-04 13:53 | XMS REPORT ---
Author Author [facility] Medical Staff Organization [facility] Address [address] [place], [place] [id number] Phone [phone] Summary purpose CCDA Sent to AKE Chief Complaint and Reason for Visit Admit Diagnosis 1 ABDOMINAL PAIN, RT UP QU Problem list No authorized problems tracked for [...] tests and/or laboratory data RESULTS Chemistry Group [id number]:18:00 Result Normal Range Units Albumin 4.2 3.5-5.0 [...] Globulin 2.7 2.3-3.5 g/dl Comprehensive Metabolic Panel [id number]:18:00 Result Normal Range Units Albumin 4.2 3.5-5.0 [...] mmol/L CO2 30 22-30 mmol/L Wet Prep [id number]:35:00 Epithelial Cells 10-20 (NORMAL 0-10/HPF) White Blood Cells 0-2 (NORMAL 0-5/HPF) Red Blood Cells 0 (NORMAL 0-5/HPF) Yeast 0 (NORMAL 0/HPF) Hyphae 0 (NORMAL 0/HPF) Trichomonas 0 (NORMAL 0/HPF) Bacteria 3+ LARGE AMOUNTS IN EVERY FIELD (NORMAL 0-4+) Clue Cells 3-5 (NORMAL 0/HPF) JAE Prep [id number]:35:00 Yeast 0 (NORMAL 0/HPF) Hyphae 0 (NORMAL 0/HPF) C. trachomatis/N. gonorrhoeae [id number]:35:00 Result Normal Range Units Source ENDOCERVICAL Result Amended on 2015-01-01 at 07:35:27. Previous status was [place]. Corrected on 12/31 AT 1443: Previously Reported as Endocervical Test Source with result of ENDOCERVICAL was originally reported asEndocervical and was changed on 12/31/2014 16:43 by [facility] Chlamydia trachomatis Negative Negative Neisseria gonorrhoeae Negative Negative Testing Performed: [facility], [address] [place] [address] Testing Performed: [facility], [facility] [place] [address] Culture Genital [id number]:35:00 Result Normal Range Units Source Vagina Result Amended on 2015-01-01 at 15:32:59. Previous status was FL. Special Requests NONE Result Amended on 2015-01-01 at 15:32:59. Previous status was FL. Culture Genital Result SEE BELOW GENITAL CULTURE MIXED PRESTON Corrected on 01/01 AT 1000: Previously Reported as SEE BELOW Status Final Testing Performed: [facility], [facility] [place] [address] History of procedures Procedure Code Code Type Description Date Performed Performing Physician 34232 CPT-4 TISSUE EXAM FOR FUNGI 12-28-2014 LUIS MONTANA 16068 CPT-4 SMEAR WET MOUNT SALINE/INK 12-28-2014 LUIS MONTANA 52951 CPT-4 CULTURE OTHR SPECIMN AEROBIC 12-28-2014 LUIS MONTANA 52173 CPT-4 N.GONORRHOEAE DNA DIR PROB 12-28-2014 LUSI MONTANA 23743 CPT-4 CHYLMD TRACH DNA DIR PROBE 12-28-2014 LUIS MONTANA 86361 CPT-4 COMPREHEN METABOLIC PANEL 12-28-2014 LUIS MONTANA 49607 CPT-4 HELICOBACTER PYLORI ANTIBODY 12-28-2014 LUIS MONTANA 40733 CPT-4 ROUTINE VENIPUNCTURE 12-28-2014 LUIS MONTANA 95467 CPT-4 US EXAM ABDOM COMPLETE 12-28-2014 LUIS MONTANA Functional status No functional [...]
--- OUTSIDE RECORDS SUMMARY | 2018-12-04 13:53 | XMS REPORT ---
Author Author [facility] Medical Staff Organization [facility] Address [address] [place], [place] [address] Phone [phone] Summary purpose CCDA Sent to OHE Chief Complaint and Reason for Visit No [...] for this patient visit History of procedures No procedures recorded for [...]
--- OUTSIDE RECORDS SUMMARY | 2018-12-04 13:54 | XMS REPORT | Continuity of Care Document ---
Author Author [facility] Organization [facility] Address Unknown Phone Unavailable Allergies Active Description Code Type Severity Reaction Onset Reported/Identified Relationship to Patient Clinical Status Yes Hydrocodone Bitartrate [id number] Drug Allergy Moderate N/A Yes Oxycodone HCl [id number] Drug Allergy Moderate N/A Yes RED DYE Drug Allergy N/A throat swells Yes ALMOND OIL 2577 DRUG N/A N/A Yes HYDROCODONE 1554 DRUG Med N/A Yes RED DYE 33943 DRUG Med N/A Yes NO KNOWN DRUG ALLERGIES UNKNOWN NO KNOWN DRUG ALLERG Yes almond oil [id number] Drug Allergy N/A N/A 07/16/2016 Yes hydrocodone [id number] Drug Allergy Moderate N/A 07/16/2016 Yes red dye [id number] Drug Allergy Moderate N/A 07/16/2016 Medications Medication Packaging Start Date Stop Date Route Dosage Sig ONDANSETRON VIAL INJ 4 MG/2CC (ZOFRAN 2CC VIAL) MG 08/02/2018 08/02/2018 ONCE&1551 FENTANYL INJ 100 MCG/2CC VIAL MCG 08/02/2018 08/02/2018 ONCE&1551 PANTOPRAZOLE VIAL INJ 40 MG (PROTONIX IV) MG 08/02/2018 08/02/2018 ONCE&1551 GI COCKTAIL SINGLE DOSE LIQ (GRASSHOPPER) ML 08/02/2018 08/02/2018 ONCE&1732 SUCRALFATE TAB 1 GM (CARAFATE) GM 08/02/2018 08/02/2018 ONCE&1802 KETOROLAC VIAL INJ 30 MG/CC (TORADOL VIAL) MG 08/24/2018 08/24/2018 ONCE&0010 ONDANSETRON VIAL INJ 4 MG/2CC (ZOFRAN 2CC VIAL) MG 08/24/2018 08/24/2018 ONCE&0010 NORMAL SALINE 500CC IV BAG INJ 0.9 % (NS 500CC IV BAG) ml 08/24/2018 08/24/2018 ONCE&0010 FENTANYL INJ 100 MCG/2CC VIAL MCG 08/24/2018 08/24/2018 ONCE&0040 FENTANYL INJ 100 MCG/2CC VIAL MCG 08/24/2018 08/24/2018 ONCE&0133 KETOROLAC VIAL INJ 60 MG/2CC (TORADOL VIAL) MG 12/01/2018 12/01/2018 ONCE&1201 Morphine IV cartridge 4mg/cc MG 12/01/2018 PRN ONCE Hydromorphone inj 2mg/cc vial (Dilaudid) MG 12/01/2018 12/01/2018 PRN ONCE Hydromorphone inj 2mg/cc vial (Dilaudid) MG 12/01/2018 12/08/2018 PRN Q4H Problems Date Dx Coded Attending Type Code Diagnosis Diagnosed By 12/28/2014 LUIS MONTANA MD 616.10 VAGINITIS NOS 12/28/2014 LUIS MONTANA MD 789.01 ABDOMINAL PAIN, RT UP QU 12/28/2014 LUIS MONTANA MD 789.02 ABDOMINAL PAIN LT UPP QU 12/28/2014 LUIS MONTANA MD 623.5 NONINFECT VAG LEUKORRHEA 12/28/2014 LUIS MONTANA MD 780.79 OTHER MALAISE & FATIGUE 12/28/2014 LUIS MONTANA MD 789.01 ABDOMINAL PAIN, RT UP QU 12/28/2014 LUIS MONTANA MD 789.02 ABDOMINAL PAIN LT UPP QU 04/29/2015 Akiko Moyer OT 892.0 04/29/2015 Akiko Moyer OT E920.8 05/10/2015 Isabel Kirk MD OT V22.0 06/03/2015 Isabel Kirk MD OT 304.40 06/03/2015 Isabel Kirk MD OT 649.03 06/03/2015 Isabel Kirk MD OT 732.1 06/03/2015 Isabel Kirk MD OT V12.09 06/04/2015 Isabel Kirk MD OT 304.40 06/04/2015 Isabel Kirk MD OT 649.03 06/04/2015 Isabel Kirk MD OT 732.1 06/04/2015 Isabel Kirk MD OT V12.09 06/04/2015 Reagan RENO, Isabel Au OT V22.0 06/24/2015 Toy RENO, Jw Mancuso OT 530.81 06/24/2015 Toy RENO, Jw Mancuso OT 646.83 07/24/2015 Regaan RENO, Isabel Au OT V22.0 07/25/2015 Reagan RENO, Isabel Au OT V22.0 08/13/2015 Eric RENO, Ramón R OT 648.93 08/13/2015 Eric RENO, Ramón R OT 786.2 08/20/2015 Reagan RENO, Isabel Au OT 304.40 08/20/2015 Reagan RENO, Isabel Au OT 649.03 08/20/2015 Reagan RENO, Isabel Au OT 732.1 08/20/2015 Reagan RENO, Isabel Au OT V12.09 08/20/2015 Isabel Kirk MD OT V22.0 08/22/2015 Reagan RENO, Isabel Au OT V22.0 09/02/2015 Reagan RENO, Isabel Au OT 304.40 09/02/2015 Reagan RENO, Isabel Au OT 649.03 09/02/2015 Reagan RENO, Isabel Au OT 732.1 09/02/2015 Reagan RENO, Isabel Au OT V12.09 09/02/2015 Reagan RENO, Isabel Au OT V22.0 09/02/2015 Isabel Kirk MD OT 304.40 09/02/2015 Reagan RENO, Isabel Au OT 649.03 09/02/2015 Reagan RENO, Isabel Au OT 732.1 09/02/2015 Isabel Kirk MD OT V12.09 09/02/2015 Isabel Kirk MD OT V22.0 09/11/2015 Isabel Kirk MD OT F15.20 09/11/2015 Isabel Kirk MD OT M91.80 09/11/2015 Isabel Kirk MD OT O99.333 09/11/2015 Isabel Kirk MD OT F15.20 09/11/2015 Isabel Kirk MD OT M91.80 09/11/2015 Isabel Kirk MD OT O99.333 09/11/2015 Isabel Kirk MD OT F15.20 09/11/2015 Reagan RENO, Isabel D OT M91.80 09/11/2015 Reagan RENO, Isabel D OT O99.333 09/11/2015 Reagan RENO, Isabel D OT F15.20 09/11/2015 Reagan RENO, Isabel D OT M91.80 09/11/2015 Reagan RENO, Isabel D OT O99.333 09/11/2015 Reagan RENO, Isabel D OT F15.20 09/11/2015 Reagan RENO, Isabel D OT M91.80 09/11/2015 Reagan RENO, Isabel D OT O99.333 09/11/2015 Reagan RENO, Isabel D OT F15.20 09/11/2015 Reagan RENO, Isabel D OT M91.80 09/11/2015 Reagan RENO, Isabel D OT O99.333 09/11/2015 Reagan RENO, Isabel D OT F15.20 09/11/2015 Reagan RENO, Isabel D OT M91.80 09/11/2015 Reagan RENO, Isabel D OT O99.333 09/11/2015 Reagan RENO, Isabel D OT F15.20 09/11/2015 Reagan RENO, Isabel D OT M91.80 09/11/2015 Reagan RENO, Isabel D OT O99.333 09/11/2015 Reagan RENO, Isabel D OT F15.20 09/11/2015 Reagan RENO, Isabel D OT M91.80 09/11/2015 Reagan RENO, Isabel D OT O99.333 09/12/2015 Reagan RENO, Isabel D OT F15.20 09/12/2015 Reagan RENO, Isabel D OT M91.80 09/12/2015 Reagan RENO, Isabel D OT O99.333 09/12/2015 Reagan RENO, Isabel D OT F15.20 09/12/2015 Reagan RENO, Isabel D OT M91.80 09/12/2015 Reagan RENO, Isabel D OT O99.333 09/12/2015 Reagan RENO, Isabel D OT F15.20 09/12/2015 Reagan RENO, Isabel D OT M91.80 09/12/2015 Reagan RENO, Isabel D OT O99.333 09/12/2015 Reagan RENO, Isabel D OT F15.20 09/12/2015 Reagan RENO, Isabel D OT M91.80 09/12/2015 Reagan RENO, Isabel D OT O99.333 09/12/2015 Reagan RENO, Isabel D OT F15.20 09/12/2015 Reagan RENO, Isabel D OT M91.80 09/12/2015 Reagan RENO, Isabel D OT O99.333 09/12/2015 Reagan RENO, Isabel D OT F15.20 09/12/2015 Reagan RENO, Isable D OT M91.80 09/12/2015 Reagan RENO, Isabel D OT O99.333 09/12/2015 Reagan RENO, Isabel Au OT F15.20 09/12/2015 Reagan RENO, Isabel Au OT M91.80 09/12/2015 Reagan RENO, sIabel Au OT O99.333 09/22/2015 Aftab RENO, Jesse Sampson OT O21.2 09/22/2015 Jesse Ugalde MD E OT Z3A.32 10/10/2015 Isabel Kirk MD OT F15.20 10/10/2015 Reagan RENO, Isabel Au OT M91.80 10/11/2015 Isabel Kirk MD OT F15.20 10/11/2015 Reagan RENO, Isabel Au OT M91.80 10/17/2015 Isabel Kirk MD OT O60.03 10/17/2015 Isabel Kirk MD OT Z3A.35 11/05/2015 Eric RENO, Ramón R OT F17.210 11/05/2015 Eric RENO, Ramón R OT J45.909 11/05/2015 Eric RENO, Ramón R OT O72.1 11/05/2015 Eric RENO, Ramón R OT O99.334 11/05/2015 Eric RENO, Ramón R OT O99.513 11/05/2015 Eric RENO, Ramón R OT Z23 11/05/2015 Eric RENO, Ramón R OT Z37.0 11/05/2015 Eric RENO, Ramón R OT Z3A.37 11/09/2015 Marlo Singh OT O70.0 12/12/2015 Isabel Kirk MD OT F15.20 12/12/2015 Isabel Kirk MD OT Z34.03 12/12/2015 Reagan RENO, Isabel D OT Z86.19 12/16/2015 Yordan RENO, Sharif L OT R10.84 12/20/2015 Reagan RENO, Isabel D OT Z11.8 01/01/2016 Reagan RENO, Isabel D OT Z11.8 01/16/2016 Yordan RENO, Sharif L OT F15.10 01/16/2016 Yordan RENO, Sharif L OT I95.9 01/16/2016 Yordan RENO, Sharif L OT N92.0 01/20/2016 Reagan RENO, Isabel D OT F15.20 01/20/2016 Reagan RENO, Isabel D OT M91.80 01/21/2016 Isabel Kirk MD D OT F15.20 01/21/2016 Reagan RENO, Isabel D OT M91.80 01/22/2016 Reagan RENO, Isabel D OT F15.20 01/22/2016 Isabel Kirk MD D OT M91.80 01/22/2016 Isabel Kirk MD D OT Z34.03 01/22/2016 Isabel Kirk MD D OT Z86.19 01/31/2016 Ron Mansfield OT J45.909 01/31/2016 Ron Mansfield OT N39.0 01/31/2016 Ron Mansfield OT Z72.0 07/16/2016 CAROLYN SUMMERS~PLOMTI OT E86.0 07/16/2016 CAROLYN SUMMERS~PLOMTI OT F17.210 07/16/2016 CAROLYN SUMMERS~PLOMTI OT F43.10 07/16/2016 CAROLYN SUMMERS~PLOMTI OT J45.909 07/16/2016 CAROLYN SUMMERS~PLOMTI OT R10.32 07/20/2016 Genesis Almonte OT J45.901 07/20/2016 Genesis Almonte OT J45.901 07/20/2016 Genesis Almonte OT J45.901 07/20/2016 Genesis Almonte OT J45.901 07/20/2016 Genesis Almonte OT J45.901 07/20/2016 Genesis Almonte OT J45.901 07/20/2016 Genesis Almonte OT J45.901 02/11/2017 KORNAS, OSVALDO TRAN~PLOMTI OT F43.10 02/11/2017 KORNAS, OSVALDO TRAN~PLOMTI OT J45.909 02/11/2017 KORNAS, OSVALDO TRAN~PLOMTI OT M91.10 02/11/2017 KORNAS, OSVALDO TRAN~PLOMTI OT O26.891 02/11/2017 KORNAS, OSVALDO TRAN~PLOMTI OT O99.331 02/11/2017 KORNAS, OSVALDO TRAN~PLOMTI OT O99.341 02/11/2017 KORNAS, OSVALDO TRAN~PLOMTI OT O99.511 02/11/2017 KORNAS, OSVALDO TRAN~PLOMTI OT O99.89 02/11/2017 KORNAS, OSVALDO TRAN~PLOMTI OT R10.9 02/11/2017 KORNAS, OSVALDO TRAN~PLOMTI OT Z3A.01 03/29/2017 V1 G43.001 Migraine without aura, not intractable, with status migrainosus 03/31/2017 V1 K59.09 Other constipation 04/22/2017 V1 G44.209 Tension- type headache, unspecified, not intractable 04/22/2017 V1 Z3A.16 16 weeks gestation of 04/23/2017 Álvaro Spencer R50.9 FEVER, UNSPECIFIED 04/23/2017 Álvaro Spencer R51 HEADACHE 04/23/2017 Álvaro Spencer Z72.0 TOBACCO USE 05/28/2017 Ramón Gonzalez V22.1 Medical visit for normal 05/28/2017 Ramón Gonzalez V22.1 Medical visit for normal 05/28/2017 Ramón Gonzalez V22.1 Medical visit for normal 05/28/2017 Ramón Gonzalez V22.1 Medical visit for normal 05/28/2017 Ramón Gonzalez V22.1 Medical visit for normal 05/28/2017 Ramón Gonzalez V22.1 Medical visit for normal 05/28/2017 Ramón Gonzalez V22.1 Medical visit for normal 05/28/2017 Ramón Gonzalez F V22.1 Medical visit for normal 05/28/2017 Patrice Suarez V22.1 Medical visit for normal 06/21/2017 Ron Mansfield A V2 860069 Hand Pain 06/21/2017 Ron Mansfield A V2 271770 Hand Pain 06/21/2017 Ron Mansfield A V1 L08.9 Local infection of the skin and subcutaneous tissue, unspecified 06/21/2017 Ron Mansfield A V1 S60.459A Superficial foreign body of unspecified finger, initial encounter 06/21/2017 Ron Mansfield A V1 L08.9 Local infection of the skin and subcutaneous tissue, unspecified 06/21/2017 Ron Mansfield A V1 S60.459A Superficial foreign body of unspecified finger, initial encounter 06/21/2017 Ron Mansfield A V1 L08.9 Local infection of the skin and subcutaneous tissue, unspecified 06/21/2017 Ron Mansfield A V1 S60.459A Superficial foreign body of unspecified finger, initial encounter 06/28/2017 Ramón Gonzalez 641.13 Hemorrhage from placenta previa, antepartum condition or complication 06/28/2017 Ramón Gonzalez 724.2 Lower back pain 07/16/2017 Ramón Gonzalez 112.1 Yeast vaginitis 08/23/2017 Ramón Gonzalez 623.5 vaginal discharge 08/26/2017 Bert Schafer V2 579519 Abdominal Pain 08/26/2017 Bert Schafer V2 299530 Abdominal Pain 08/26/2017 Bert Schafer A1 Z3A.34 34 weeks gestation of 08/26/2017 Bert Schafer A1 Z3A.34 34 weeks gestation of 08/26/2017 Bert Schafer A1 Z3A.34 34 weeks gestation of 08/26/2017 Bert Schafer A1 Z3A.34 34 weeks gestation of 09/22/2017 Eros Wilkins V2 587440 Contractions 09/22/2017 Strandmark, Eros A A1 R10.9 Unspecified abdominal pain 09/22/2017 Eros Wilkins A A1 R10.9 Unspecified abdominal pain 09/22/2017 Franky, Eors A A1 R10.9 Unspecified abdominal pain 09/22/2017 Franky, Eros A A1 R10.9 Unspecified abdominal pain 09/22/2017 Eros Wilkins A A1 R10.9 Unspecified abdominal pain 10/13/2017 Meisel LEGAL RECOVERY SPECIALIST, Sis Duval V25.09 Visit for counseling and contraception advice; other 10/13/2017 Reagan LEGAL RECOVERY SPECIALIST, Sis Duval 300.02 Anxiety 10/13/2017 Ramón Gonzalez 300.02 Anxiety 11/10/2017 Ramón Gonzalez V24.2 follow-up visit 11/10/2017 Ramón Gonzalez 847.1 Thoracic strain 11/12/2017 JD, BUFFY G V2 596053 Abdominal Pain 11/12/2017 JD BUFFY G V2 068385 Abdominal Pain 11/12/2017 JD BUFFY G V2 119117 Abdominal Pain 11/12/2017 JD BUFFY G V1 K52.9 Noninfective gastroenteritis and colitis, unspecified 11/12/2017 JD, BUFFY G V1 K52.9 Noninfective gastroenteritis and colitis, unspecified 11/12/2017 JD, BUFFY G V1 K52.9 Noninfective gastroenteritis and colitis, unspecified 11/12/2017 JD, BUFFY G V1 R52 Pain, unspecified 11/12/2017 JD, BUFFY G V1 R52 Pain, unspecified 11/12/2017 JD, BUFFY G V1 R52 Pain, unspecified 11/12/2017 JD, BUFFY G V1 K52.9 Noninfective gastroenteritis and colitis, unspecified 11/12/2017 JD, BUFFY G V1 K52.9 Noninfective gastroenteritis and colitis, unspecified 11/12/2017 JD, BUFFY G V1 R52 Pain, unspecified 11/13/2017 JD, BUFFY G V1 R52 Pain, unspecified 11/13/2017 JD, BUFFY G V1 R52 Pain, unspecified 11/13/2017 JD, BUFFY G V1 R52 Pain, unspecified 11/14/2017 JD, BUFFY G V1 R52 Pain, unspecified 11/14/2017 JD, BUFFY G V1 R52 Pain, unspecified 11/14/2017 BUFFY MILES V1 R52 Pain, unspecified 11/17/2017 Meisel LEGAL RECOVERY SPECIALIST, Sis Duval V25.11 Encounter for insertion of intrauterine contraceptive device 11/17/2017 Meisel LEGAL RECOVERY SPECIALIST, Sis Duval V25.11 Encounter for insertion of intrauterine contraceptive device 11/17/2017 Meisel LEGAL RECOVERY SPECIALIST, Sis Duval 616.10 Vaginitis 11/17/2017 Shayy, Berry V2 752736 Abdominal Pain 11/17/2017 Shayy, Berry V2 747598 Abdominal Pain 11/17/2017 Shayy, Berry V2 711270 Abdominal Pain 11/17/2017 Shayy, Berry V2 646480 Abdominal Pain 11/17/2017 Shayy, Berry V1 R10.84 Generalized abdominal pain 11/18/2017 Shayy, Berry V1 R10.84 Generalized abdominal pain 12/15/2017 Ramón Gonzalez 569.3 Rectal bleeding 12/30/2017 Meisel LEGAL RECOVERY SPECIALIST, Sis Duval 782.62 Flushing 12/30/2017 Meisel LEGAL RECOVERY SPECIALIST, Sis Duval 278.01 BMI >30% 12/30/2017 Meisel LEGAL RECOVERY SPECIALIST, Sis Duval 278.01 BMI >30% 01/15/2018 Gross Tru L V2 167121 Abdominal Pain 01/15/2018 Gross, Tru L V2 282089 Abdominal Pain 01/15/2018 Gross, Tru L V2 485835 Abdominal Pain 01/15/2018 Manoj Tru L V1 R10.84 Generalized abdominal pain 01/15/2018 Manoj Tru L V1 R11.10 Vomiting, unspecified 01/15/2018 Gross Tru L V1 R19.7 Diarrhea, unspecified 01/15/2018 Gross, Tru L V1 R10.84 Generalized abdominal pain 01/15/2018 GrossJimyw L V1 R11.10 Vomiting, unspecified 01/15/2018 Manoj Tru L V1 R19.7 Diarrhea, unspecified 02/09/2018 Meisel LEGAL RECOVERY SPECIALIST, Sis Duval 625.9 Pelvic pain 05/25/2018 JABIER, JF V2 84 Burn 05/25/2018 JABIER, JF V2 84 Burn 05/25/2018 JABIER, JF V2 84 Burn 05/25/2018 JABIER, JF V2 84 Burn 05/25/2018 JABIER, JF V2 84 Burn 05/25/2018 JABIER, JF V1 T22.431A Corrosion of unspecified degree of right upper arm, initial encounter 05/25/2018 JABIER, JF V1 T22.432A Corrosion of unspecified degree of left upper arm, initial encounter 05/25/2018 JABIER, JF V1 T22.431A Corrosion of unspecified degree of right upper arm, initial encounter 05/25/2018 JABIER, JF V1 T22.432A Corrosion of unspecified degree of left upper arm, initial encounter 05/25/2018 JABIER, JF V1 T22.431A Corrosion of unspecified degree of right upper arm, initial encounter 05/25/2018 JABIER, JF V1 T22.432A Corrosion of unspecified degree of left upper arm, initial encounter 08/02/2018 Denis Mix 535.00 ACUTE GASTRITIS, WITHOUT MENTION OF HEMORRHAGE 08/02/2018 Denis Mix 599.0 URINARY TRACT INFECTION, SITE NOT SPECIFIED 08/02/2018 Denis Mix K29.00 ACUTE GASTRITIS WITHOUT BLEEDING 08/02/2018 Denis Mix N39.0 URINARY TRACT INFECTION, SITE NOT SPECIFIED 08/24/2018 SantoshTrena A W 724.5 BACKACHE, UNSPECIFIED 08/24/2018 FrostTrena A A 789.07 ABDOMINAL PAIN, GENERALIZED 08/24/2018 SantoshTrena A W M54.9 DORSALGIA, UNSPECIFIED 08/24/2018 SantoshTrena A A R10.84 GENERALIZED ABDOMINAL PAIN 12/01/2018 Gavin Ramos 724.4 THORACIC OR LUMBOSACRAL NEURITIS OR RADICULITIS, UNSPECIFIED 12/01/2018 Gavin Ramos M54.16 RADICULOPATHY, LUMBAR REGION Procedures Code Description [place] [address] OFFICE/OUTPATIENT VISIT, EST NAN RENO, LUIS Spencer 12/28/2014 88238 ROUTINE VENIPUNCTURE NAN RENO, LUIS Spencer 12/28/2014 87689 US EXAM, ABDOM, COMPLETE LUIS MONTANA MD 12/28/2014 96914 COMPREHEN METABOLIC PANEL LUIS MONTANA MD 12/28/2014 47519 HELICOBACTER PYLORI LUIS MONTANA MD 12/28/2014 02736 CULTURE, BACTERIA, OTHER LUIS MONTANA MD 12/28/2014 65097 SMEAR, WET MOUNT, SALINE/ INK NAN RENO, LUIS 12/28/2014 49800 TISSUE EXAM FOR FUNGI NAN RENO, LUIS 12/28/2014 58558 CHYLMD TRACH, DNA, DIR PROBE NAN RENO, LUIS 12/28/2014 96109 N.GONORRHOEAE, DNA, DIR PROB NAN RENO, LUIS 12/28/2014 OBCOMP OB Complaint 05/28/2017 88668 JAE (vaginal swab) 05/28/2017 52397 Wet Prep 05/28/2017 64206 GC/Chlamydia DNA probe ( GENITAL Specimen) 05/28/2017 64150 Chlamydia trachomatis detection by nucleic acid, amplified probe. 0500F Initial care visit 05/28/2017 OBCOMP OB Complaint 06/28/2017 0502F Subsequent care visit 06/28/2017 50776 OB Ultrasound, Complete (> 14 wks) 06/28/2017 58475 1 hr Glucose Tolerance Test (50g Load) 06/28/2017 69106 Tdap vaccine, when administered to individuals 7 years or older, for intramuscular use 06/28/2017 48737 JAE 07/16/2017 72785 Wet prep 07/16/2017 85089 GC/Chlamydia DNA probe ( GENITAL Specimen) 07/16/2017 0502F Subsequent care visit 07/16/2017 OBCOMP OB Complaint 07/21/2017 0502F Subsequent care visit 07/21/2017 OBCOMP OB Complaint 08/04/2017 0502F Subsequent care visit 08/04/2017 23615 Amniotic fluid scan ( spectrophotometric) 08/04/2017 59386 Office/outpatient visit; established patient, level 3 08/04/2017 OBCOMP OB Complaint 08/23/2017 78048 Urine Culture 08/23/2017 94850 JAE 08/23/2017 61741 Wet prep 08/23/2017 0502F Subsequent care visit 08/23/2017 OBCOMP OB Complaint 09/06/2017 0502F Subsequent care visit 09/06/2017 OBCOMP OB Complaint 09/13/2017 0502F Subsequent care visit 09/13/2017 OBCOMP OB Complaint 09/20/2017 TCARE2 Transfer of Care from Inpatient Hospital 10/13/2017 48899 Thyroid stimulating hormone (TSH) WITH reflex 10/13/2017 30314 CBC w/ differential 10/13/2017 98693 Office/outpatient visit; established patient, level 3 10/14/2017 0503F care visit 11/10/2017 88633 Office/outpatient visit; established patient, level 3 11/10/2017 49501 Gonadotropin, chorionic (hCG ); qualitative- SERUM 11/17/2017 33216 Insert IUD 11/17/2017 56031 JAE 11/17/2017 11494 JAE 11/17/2017 83398 Wet prep 11/17/2017 TCARE2 Transfer of Care from Inpatient Hospital 12/15/2017 15608 Colonoscopy, flexible; diagnostic 12/15/2017 09712 CBC w/ differential 12/15/2017 26326 ESR 12/15/2017 15500 Comprehensive metabolic panel (CMP) 12/15/2017 80813 Office/outpatient visit; established patient, level 4 12/15/2017 98299 Thyroid stimulating hormone (TSH) WITH reflex 12/30/2017 68191 CBC w/ differential 12/30/2017 15992 Office/outpatient visit; established patient, level 4 12/30/2017 84988 Urine test by visual color comparison methods 02/09/2018 65178 Urinalysis, nonautomated without microscopy 02/09/2018 03291 Ultrasound, transvaginal 02/09/2018 95114 Office/outpatient visit; established patient, level 3 02/09/2018 <section xmlns="urn: hl7-org:v3" xmlns:xsi="http://www.3.org/2001/XMLSchema-instance"> <templateId root="[id number]" /> <templateId root= "[id number]" /> <code codeSystemName="LOINC" codeSystem= "[id number]" code="07928-2" displayName="Results" /> <title>Results< /title> <text> <table> <thead> <tr> <th>Test</th> <th>Result</th> <th>Range</th> </tr> </thead> < tbody> <tr> < colspan="10">Culture Genital - 12/28/14 11:47</ th> </tr> <tr> <td>Source</td> <td>VAGINA </td> <td /> </tr> <tr> <td>Special Request</td> <td>NONE </td> <td /> </tr> <tr> <th colspan="10">JAE Prep - 12/28/14 12:03</th> </tr> <tr> < td>Hyphae</td> <td>0 (NORMAL 0/HPF) </td> <td /> </tr> <tr> <td>Yeast</td> <td>0 (NORMAL 0/HPF) </td> <td /> </tr> <tr> < colspan="10">Wet Prep - 12:03</th> </tr> <tr> <td>Epithelial Cells</td> <td>10-20 (NORMAL 0-10/HPF) </td> <td /> </tr> <tr> <td>White Blood Cells</td> <td>0-2 (NORMAL 0-5/HPF) </td> <td /> </tr> <tr> <td>Red Blood Cells</td> <td>0 (NORMAL 0-5/HPF) </td> <td /> </tr> <tr> <td>Yeast</td> <td>0 (NORMAL 0/HPF) </td> <td /> </tr > <tr> <td>Hyphae</td> <td>0 (NORMAL 0/HPF) </td> <td /> </tr> <tr> <td>Trichomonas</td> <td> 0 (NORMAL 0/HPF) </td> <td /> </tr> <tr> <td> Bacterial</td> <td>(NORMAL 0-4+) </td> <td /> </tr> <tr> <td>Clue Cells</td> <td>3-5 (NORMAL 0/HPF) </td> <td /> </tr> <tr> <th colspan="10">Gonorrhoeae/ Chlamydia Probe - 12/28/14 12:03</th> </tr> <tr> <td> Source</td> <td>ENDOCE </td> <td /> </tr> <tr> <th colspan="10">Comprehensive Metabolic Panel - 12/28/14 12:52</th> </tr> <tr> <td>Glucose</td> <td>83 MG/DL</td> <td>65-105</td> </tr> <tr> <td>Potassium</td> <td>4.5 MMOLL</td> <td>3.6-5.0</td> </tr> <tr> <td>Sodium</td> <td>139 MMOLL</td> <td>137-145</td> </tr> <tr> <td>Albumin</td> <td>4.2 G/DL</td> <td>3.5-5.0</td> </tr> <tr> <td>T. Protein</td> <td>7.0 G/DL</td> <td>6.3-8.2</td> </tr> <tr> <td>AST</td> <td>21 U/L</td> <td>14-36</td> </tr> <tr> <td>Alk Phos</td> <td>54 U/L</td> <td>38 -126</td> </tr> <tr> <td>ALT</td> <td>31 U/L</td > <td>9-52</td> </tr> <tr> <td>T Bili</td> <td>.8 MG/DL</td> <td>0.2-1.3</td> </tr> <tr> <td>Chloride</td> <td>102 MMOLL</td> <td>98-107</td> </tr> <tr> <td>CO2</td> <td>30 MMOLL</td> < td>22-30</td> </tr> <tr> <td>BUN</td> <td>10 MG/ DL</td> <td>7-17</td> </tr> <tr> <td>Creatinine< /td> <td>.7 MG/DL</td> <td>0.7-1.2</td> </tr> < tr> <td>Calcium</td> <td>10.2 MG/DL</td> <td>8.4-10.2 </td> </tr> <tr> <td>A/G Ratio</td> <td>1.6 G/DL </td> <td>1.1-2.2</td> </tr> <tr> <td>Globulin</ td> <td>2.7 G/DL</td> <td>2.3-3.5</td> </tr> <tr > <th colspan="10">GLUCOSE TOLERANCE 100 GEST - 09/12/15 09:48</th> </tr> <tr> <td>GLUCOSE TOLERANCE 100 GEST</td> <td > </td> <td /> </tr> <tr> <th colspan="10"> FIBRONECTIN - 09/22/15 13:40</th> </tr> <tr> <td> FIBRONECTIN</td> <td>NEGATIVE </td> <td>NEGATIVE</td> </tr> <tr> <th colspan="10">URINALYSIS RFLX MICRO CULT UA - 09/22/15 13:45</th> </tr> <tr> <td>COLLECTION TYPE</td > <td>CLEAN CATCH </td> <td /> </tr> <tr> <td>APPEARANCE</td> <td>Cloudy </td> <td>CLEAR</td> </tr> <tr> <td>COLOR</td> <td>Ayaka </td> < td /> </tr> <tr> <td>PH, URINE</td> <td>6.0 </td > <td>5.0-8.0</td> </tr> <tr> <td>SPECIFIC GRAVITY, URINE</td> <td>1.025 </td> <td><1.030</td> </tr> <tr> <td>GLUCOSE, URINE</td> <td>Negative mg/dL</ td> <td>Negative</td> </tr> <tr> <td>BLOOD, URINE</td> <td>Negative </td> <td>Negative</td> </tr> <tr> <td>KETONES, URINE</td> <td>5 mg/dL</td> <td>Negative</td> </tr> <tr> <td>PROTEIN, UA QUALITATIVE< /td> <td>30 mg/dL</td> <td>Negative</td> </tr> < tr> <td>BILIRUBIN, URINE</td> <td>Negative </td> <td> Negative</td> </tr> <tr> <td>UROBILINOGEN, URINE</td> <td>2.0 mg/dL</td> <td><2.0</td> </tr> <tr> <td>LEUKOCYTE ESTERASE, URINE</td> <td>Negative </td> < td>Negative</td> </tr> <tr> <td>NITRITE, URINE</td> <td>Negative </td> <td>Negative</td> </tr> <tr> <td>WBC, URINE</td> <td>6-10 /hpf</td> <td>0-5</td> </tr> <tr> <td>RBC, URINE</td> <td>6-10 /hpf</td> <td>0-5</td> </tr> <tr> <td>BACTERIA, URINE</td > <td>1+ /hpf</td> <td>None seen</td> </tr> <tr > <td>SQUAMOUS CELLS</td> <td>>30 /lpf</td> <td>0- 5</td> </tr> <tr> <td>MUCUS THREADS, URINE</td> <td>3+ /lpf</td> <td /> </tr> <tr> <td>ADD URINE CULTURE</td> <td>NO </td> <td /> </tr> <tr > <td>HYALINE CASTS, URINE</td> <td>1-5 /lpf</td> <td >None seen</td> </tr> <tr> < colspan="10">URINALYSIS RFLX MICRO CULT UA - 10/17/15 16:15</th> </tr> <tr> <td> COLLECTION TYPE</td> <td>CLEAN CATCH </td> <td /> </tr > <tr> <td>APPEARANCE</td> <td>Sl Cloudy </td> <td>CLEAR</td> </tr> <tr> <td>COLOR</td> <td> Yellow </td> <td /> </tr> <tr> <td>PH, URINE</td > <td>7.0 </td> <td>5.0-8.0</td> </tr> <tr> <td>SPECIFIC GRAVITY, URINE</td> <td>1.010 </td> <td>&lt ;1.030</td> </tr> <tr> <td>GLUCOSE, URINE</td> < td>Negative mg/dL</td> <td>Negative</td> </tr> <tr> <td>BLOOD, URINE</td> <td>Negative </td> <td>Negative</td > </tr> <tr> <td>KETONES, URINE</td> <td> Negative mg/dL</td> <td>Negative</td> </tr> <tr> <td>PROTEIN, UA QUALITATIVE</td> <td>Negative mg/dL</td> <td >Negative</td> </tr> <tr> <td>BILIRUBIN, URINE</td> <td>Negative </td> <td>Negative</td> </tr> <tr> <td>UROBILINOGEN, URINE</td> <td><2.0 mg/dL</td> <td> <2.0</td> </tr> <tr> <td>LEUKOCYTE ESTERASE, URINE</td > <td>Negative </td> <td>Negative</td> </tr> <tr > <td>NITRITE, URINE</td> <td>Negative </td> <td> Negative</td> </tr> <tr> <td>ADD URINE CULTURE</td> <td>NO </td> <td /> </tr> <tr> <th colspan= "10">GROUP B STREP CULTURE - 10/17/15 17:50</th> </tr> <tr> <td>Microbiology</td> <td> </td> <td /> </tr> <tr> <th colspan="10">GROUP B STREP CULTURE - 10/23/15 11:19</th> </tr> <tr> <td>Microbiology</td> <td> </td> <td /> </tr> <tr> <th colspan="10">URINE CULTURE - 11/02/15 17:32</th> </tr> <tr> <td>Microbiology</td> <td> </td> <td /> </tr> <tr> <th colspan= "10">CBC Diff reflex to Manual Diff - 11/02/15 17:41</th> </tr> < tr> <td>WBC</td> <td>13.3 1000/uL</td> <td>3.7-11.1</ td> </tr> <tr> <td>RBC</td> <td>4.16 mil/uL</td > <td>4.11-5.63</td> </tr> <tr> <td>HEMOGLOBIN</ td> <td>11.7 g/dl</td> <td>11.9-16.3</td> </tr> <tr> <td>HEMATOCRIT</td> <td>36.3 %</td> <td>37.0 -47.7</td> </tr> <tr> <td>PLATELET COUNT</td> < td>330 1000/uL</td> <td>150-400</td> </tr> <tr> <td>MCV</td> <td>87 fl</td> <td>81-97</td> </tr> <tr> <td>MCH</td> <td>28.2 pg</td> <td>26.7-33.1</ td> </tr> <tr> <td>MCHC</td> <td>32.4 g/dL</td> <td>31.1-35.3</td> </tr> <tr> <td>RDW</td> <td>13.1 %</td> <td>12.3-15.9</td> </tr> <tr> <td>MPV</td> <td>10.9 fl</td> <td /> </tr> <tr> <td>ABSOLUTE NEUTROPHIL</td> <td>8.8 1000/uL</td> <td>1.7-7.1</td> </tr> <tr> <td>ABSOLUTE LYMPHOCYTE</td> <td>3.7 1000/uL</td> <td>1.1-3.7</td> < /tr> <tr> <td>ABSOLUTE MONOCYTE</td> <td>0.6 1000/uL</ td> <td>0.3-0.9</td> </tr> <tr> <td>ABSOLUTE EOSINOPHIL</td> <td>0.1 1000/uL</td> <td>0.0-0.5</td> < /tr> <tr> <td>ABSOLUTE BASOPHIL</td> <td>0.1 1000/uL</ td> <td>0.0-0.1</td> </tr> <tr> <td>NEUTROPHILS< /td> <td>66 %</td> <td /> </tr> <tr> <td>LYMPHOCYTE</td> <td>28 %</td> <td /> </tr> <tr> <td>MONOCYTE</td> <td>5 %</td> <td / > </tr> <tr> <td>EOSINOPHIL</td> <td>1 %</td > <td /> </tr> <tr> <td>BASOPHIL</td> < td>0 %</td> <td /> </tr> <tr> <td>VERIFY DIFF</td> <td>Auto diff </td> <td /> </tr> <tr> <th colspan="10">HEMOGLOBIN HEMATOCRIT - 11/04/15 04:25</th> </tr> <tr> <td>HEMOGLOBIN</td> <td>11.1 g/dl</td> <td>11.9-16.3</td> </tr> <tr> <td>HEMATOCRIT</td> <td>33.4 %</td> <td>37.0-47.7</td> </tr> <tr > <th colspan="10">GONORRHEA CHLAMYDIA RNA - 12/16/15 15:12</th> </tr> <tr> <td>SOURCE GCCT RNA</td> <td> ENDOCERVICAL </td> <td /> </tr> <tr> <td>N. GONORRHOEAE</td> <td>NEGATIVE </td> <td>NEGATIVE</td> < /tr> <tr> <td>C. TRACHOMATIS</td> <td>NEGATIVE </td> <td>NEGATIVE</td> </tr> <tr> <th colspan="10"> URINALYSIS POC - 12/16/15 17:29</th> </tr> <tr> <td> APPEARANCE</td> <td>Clear </td> <td>Clear</td> </tr> <tr> <td>COLOR</td> <td>Yellow </td> <td /> </tr> <tr> <td>PH URINE POC</td> <td>6.5 </td> <td>5.0-8.0</td> </tr> <tr> <td>SPECIFIC GRAVITY UR POC</td> <td>1.015 </td> <td><1.030</td> </tr> <tr> <td>GLUCOSE URINE POC</td> <td>Negative mg/dL</td> <td>Negative</td> </tr> <tr> <td>BLOOD URINE POC</td> <td>Negative </td> <td>Negative</td> </tr> <tr> <td>KETONES URINE POC</td> <td>Negative mg/dL</td> <td>Negative</td> </tr> <tr> <td>PROTEIN UR QUAL POC</td> <td>Negative mg/dL</td> <td>Negative</td> </tr> <tr> <td>BILIRUBIN URINE POC</td> <td>Negative </td> <td>Negative</td> </tr> <tr> <td> UROBILINOGEN URINE POC</td> <td>0.2 mg/dL</td> <td><2.0</td > </tr> <tr> <td>LEUKOCYTE ESTERASE UR POC</td> <td>Trace </td> <td>Negative</td> </tr> <tr> <td >NITRITE URINE POC</td> <td>Negative </td> <td>Negative</td> </tr> <tr> < colspan="10">DRUG SCREEN, URINE - 17:44</th> </tr> <tr> <td>AMPHETAMINE SCREEN,URINE</td > <td>POSITIVE </td> <td>NONE DETECT</td> </tr> <tr> <td>BARBITURATES SCREEN,URINE</td> <td>NONE DETECTED </td > <td>NONE DETECT</td> </tr> <tr> <td> BENZODIAZEPINES SCREEN,URINE</td> <td>NONE DETECTED </td> <td> NONE DETECT</td> </tr> <tr> <td>CANNABINOID SCREEN, URINE </td> <td>NONE DETECTED </td> <td>NONE DETECT</td> </tr > <tr> <td>COCAINE SCREEN, URINE</td> <td>NONE DETECTED </td> <td>NONE DETECT</td> </tr> <tr> < td>ECSTASY (MDMA) SCRN UR</td> <td>NONE DETECTED </td> <td> NONE DETECT</td> </tr> <tr> <td>OPIATE SCREEN, URINE</td > <td>NONE DETECTED </td> <td>NONE DETECT</td> </tr> <tr> <th colspan="10">HOLD SPECIMENS - 01/16/16 13:00</th> </tr> <tr> <td>HOLD SPECIMENS</td> <td>SAVE </td> <td /> </tr> <tr> <th colspan="10">HCG QUANTITATIVE - 01/16/16 13:00</th> </tr> <tr> <td>HCG QUANTITATIVE</td> <td>< 1 mIU/mL</td> <td>0-5</td> < /tr> <tr> <th colspan="10">DRUG SCREEN, URINE - 01/16/16 13:37</ th> </tr> <tr> <td>AMPHETAMINE SCREEN,URINE</td> <td>POSITIVE </td> <td>NONE DETECT</td> </tr> <tr> <td>BARBITURATES SCREEN,URINE</td> <td>NONE DETECTED </td> <td>NONE DETECT</td> </tr> <tr> <td>BENZODIAZEPINES SCREEN,URINE</td> <td>NONE DETECTED </td> <td>NONE DETECT</td > </tr> <tr> <td>CANNABINOID SCREEN, URINE</td> <td>NONE DETECTED </td> <td>NONE DETECT</td> </tr> <tr> <td>COCAINE SCREEN, URINE</td> <td>NONE DETECTED </td> <td>NONE DETECT</td> </tr> <tr> <td>ECSTASY (MDMA) SCRN UR</td> <td>NONE DETECTED </td> <td>NONE DETECT</td> </tr> <tr> <td>OPIATE SCREEN, URINE</td> <td>NONE DETECTED </td> <td>NONE DETECT</td> </tr> <tr> < colspan="10">URINALYSIS POC - 01/16/16 13:44</th> </tr> <tr> <td>APPEARANCE</td> <td>Clear </td> <td>Clear</td> </tr> <tr> <td>COLOR</td> <td>Yellow </td> <td /> </tr> <tr> <td>PH URINE POC</td> <td> 7.0 </td> <td>5.0-8.0</td> </tr> <tr> <td> SPECIFIC GRAVITY UR POC</td> <td>1.010 </td> <td><1.030</td > </tr> <tr> <td>GLUCOSE URINE POC</td> <td> Negative mg/dL</td> <td>Negative</td> </tr> <tr> <td>BLOOD URINE POC</td> <td>Large </td> <td>Negative</td> </tr> <tr> <td>KETONES URINE POC</td> <td> Negative mg/dL</td> <td>Negative</td> </tr> <tr> <td>PROTEIN UR QUAL POC</td> <td>Negative mg/dL</td> <td> Negative</td> </tr> <tr> <td>BILIRUBIN URINE POC</td> <td>Negative </td> <td>Negative</td> </tr> <tr> <td>UROBILINOGEN URINE POC</td> <td>0.2 mg/dL</td> <td ><2.0</td> </tr> <tr> <td>LEUKOCYTE ESTERASE UR POC</ td> <td>Negative </td> <td>Negative</td> </tr> < tr> <td>NITRITE URINE POC</td> <td>Negative </td> <td >Negative</td> </tr> <tr> < colspan="10">DRUG SCREEN, URINE - 01/31/16 07:50</th> </tr> <tr> <td>AMPHETAMINE SCREEN,URINE</td> <td>POSITIVE </td> <td>NONE DETECT</td> </tr> <tr> <td>BARBITURATES SCREEN,URINE</td> <td> NONE DETECTED </td> <td>NONE DETECT</td> </tr> <tr> <td>BENZODIAZEPINES SCREEN,URINE</td> <td>NONE DETECTED </td> <td>NONE DETECT</td> </tr> <tr> <td>CANNABINOID SCREEN, URINE</td> <td>NONE DETECTED </td> <td>NONE DETECT</td > </tr> <tr> <td>COCAINE SCREEN, URINE</td> <td> NONE DETECTED </td> <td>NONE DETECT</td> </tr> <tr> <td>ECSTASY (MDMA) SCRN UR</td> <td>NONE DETECTED </td> < td>NONE DETECT</td> </tr> <tr> <td>OPIATE SCREEN, URINE</ td> <td>NONE DETECTED </td> <td>NONE DETECT</td> </tr> <tr> <th colspan="10">URINALYSIS POC - 01/31/16 07:57</th> </tr> <tr> <td>APPEARANCE</td> <td>Sl Cloudy </td> <td>Clear</td> </tr> <tr> <td>COLOR</td> <td>Other </td> <td /> </tr> <tr> <td>PH URINE POC</td> <td>5.0 </td> <td>5.0-8.0</td> </tr> <tr> <td>SPECIFIC GRAVITY UR POC</td> <td>1.020 </td> <td><1.030</td> </tr> <tr> <td>GLUCOSE URINE POC</td> <td>Negative mg/dL</td> <td>Negative</td> </tr > <tr> <td>BLOOD URINE POC</td> <td>Negative </td> <td>Negative</td> </tr> <tr> <td>KETONES URINE POC< /td> <td>Negative mg/dL</td> <td>Negative</td> </tr> <tr> <td>PROTEIN UR QUAL POC</td> <td>Negative mg/dL</td > <td>Negative</td> </tr> <tr> <td>BILIRUBIN URINE POC</td> <td>Negative </td> <td>Negative</td> </ tr> <tr> <td>UROBILINOGEN URINE POC</td> <td>0.2 mg/dL< /td> <td><2.0</td> </tr> <tr> <td>LEUKOCYTE ESTERASE UR POC</td> <td>Moderate </td> <td>Negative</td> </tr> <tr> <td>NITRITE URINE POC</td> <td>Negative </td> <td>Negative</td> </tr> <tr> <th colspan= "10">URINE CULTURE - 01/31/16 07:50</th> </tr> <tr> <td> Microbiology</td> <td> </td> <td /> </tr> <tr> <th colspan="10">LIPASE - 07/16/16 20:19</th> </tr> <tr> <td>LIPASE</td> <td>23 U/L</td> <td>22-51</td> </tr> <tr> <th colspan="10">HOLD SPECIMENS - 07/16/16 20:19</ th> </tr> <tr> <td>HOLD SPECIMENS</td> <td>SAVE </td> <td /> </tr> <tr> < colspan="10"> URINALYSIS, ROUTINE - 04/23/17 19:15</th> </tr> <tr> <td> Performing Location:</td> <td> </td> <td /> </tr> <tr> <td>[facility] PROTEIN DIPSTICK</td> <td>1+ mg/dL</td> <td>NEGATIVE</td> </tr> <tr> <td>[facility] GLUCOSE DIPSTICK</ td> <td>NEGATIVE mg/dL</td> <td>NEGATIVE</td> </tr> <tr> <td>UA KETONE DIPSTICK</td> <td>TRACE mg/dL</td> <td /> </tr> <tr> <td>UA UROBILINOGEN DIPSTICK</td > <td>1.0 EU/dL</td> <td>0.2 - 1</td> </tr> <tr > <td>UA BILIRUBIN DIPSTICK</td> <td>1+ mg/dL</td> < td>NEGATIVE</td> </tr> <tr> <td>UA BLOOD DIPSTICK</td> <td>TRACE /uL</td> <td>NEGATIVE</td> </tr> <tr> <td>URINE SAMPLE VOLUME</td> <td>12 mL</td> <td /> </tr> <tr> <td>UA MICROSCOPIC</td> <td>SPUN URINE </td> <td /> </tr> <tr> <td>UA RBC</td> <td>2-4 rbc/hpf</td> <td>NEGATIVE</td> </tr> <tr > <td>UA WBC</td> <td>2-4 wbc/hpf</td> <td>NEGATIVE</ td> </tr> <tr> <td>UA BACTERIA</td> <td>TRACE </ td> <td>NEG-1+</td> </tr> <tr> <td>UA COLOR</td > <td>STRAW/YELLOW </td> <td /> </tr> <tr> <td>UA APPEARANCE</td> <td>TURBID </td> <td>CLEAR</td> </tr> <tr> <td>UA SPECIFIC GRAVITY</td> <td> 1.020 </td> <td>1.005-1.030</td> </tr> <tr> <td> UA PH</td> <td>7.5 </td> <td>5.0-9.0</td> </tr> <tr> <td>UA LEUKOCYTE ESTERASE DIPSTICK</td> <td>NEGATIVE u/L< /td> <td>NEGATIVE</td> </tr> <tr> <td>UA NITRITE DIPSTICK</td> <td>NEGATIVE </td> <td>NEGATIVE</td> </tr> <tr> <td>UA EPITHELIAL CELLS</td> <td> MODERATE epi/hpf</td> <td>0-FEW</td> </tr> <tr> < colspan="10">CBC WITH DIFFERENTIAL - 04/23/17 19:30</th> </tr> <tr> <td>WHITE BLOOD CELL</td> <td>3.5 k/cumm</td> <td>4.8-10.8</td> </tr> <tr> <td>RED BLOOD CELL</td> <td>3.81 m/cumm</td> <td>4.2-5.4</td> </tr> <tr> <td>HEMOGLOBIN</td> <td>11.3 gm/dL</td> <td>12.0-16.0< /td> </tr> <tr> <td>HEMATOCRIT</td> <td>32.9 &# 37;</td> <td>37-47</td> </tr> <tr> <td>MEAN CELL VOLUME</td> <td>86.4 fl</td> <td>81-99</td> </tr> <tr> <td>MEAN CELL HGB</td> <td>29.7 pg</td> <td>27-31</td> </tr> <tr> <td>MEAN CELL HGB CONCENTRATION </td> <td>34.3 g/dL</td> <td>33.0-37.0</td> </tr> <tr> <td>RED CELL DISTRIBUTION WIDTH</td> <td>13.4 %</ td> <td>11.5-14.5</td> </tr> <tr> <td>PLATELET COUNT</td> <td>182 k/cumm</td> <td>130-400</td> </tr> <tr> <td>NEUTROPHIL %</td> <td>75.5 %</td> <td>43-65</td> </tr> <tr> <td>LYMPHOCYTE %</td > <td>20.2 %</td> <td>20-45</td> </tr> <tr> <td>MONOCYTE %</td> <td>3.7 %</td> <td>5-12< /td> </tr> <tr> <td>EOSINOPHIL %</td> <td> 0.3 %</td> <td>0.9-2.9</td> </tr> <tr> <td> BASOPHIL %</td> <td>0.3 %</td> <td>0.25-1.0</td> </tr> <tr> <td>ABSOLUTE NEUTROPHIL #</td> <td>2.66 k /cumm</td> <td>2.2-4.8</td> </tr> <tr> <td> LYMPHOCYTE #</td> <td>0.7 k/cumm</td> <td>1.3-2.9</td> </tr> <tr> <td>MONOCYTE #</td> <td>0.1 k/cumm</td> <td>0.31-0.83</td> </tr> <tr> <td>EOSINOPHIL #</td > <td>0.0 k/cumm</td> <td>0.05-0.22</td> </tr> < tr> <td>BASOPHIL #</td> <td>0.0 k/cumm</td> <td>0.02- 0.06</td> </tr> <tr> <td>DIFFERENTIAL/MORPHOLOGY</td> <td>AUTO DIFF </td> <td /> </tr> <tr> <td >Performing Location:</td> <td> </td> <td /> </tr> <tr> < colspan="10">[facility]EL, [facility] - 04/23/17 19:30</ th> </tr> <tr> <td>Performing Location:</td> <td > </td> <td /> </tr> <tr> <td>SODIUM</td> <td>134 mmol/L</td> <td>135-145</td> </tr> <tr> <td>POTASSIUM</td> <td>3.4 mmol/L</td> <td>3.6-5.2</td> </tr> <tr> <td>CHLORIDE</td> <td>101 mmol/L</td > <td>100-108</td> </tr> <tr> <td>CARBON DIOXIDE </td> <td>21.2 mmol/L</td> <td>21.0-32.0</td> </tr> <tr> <td>ANION GAP</td> <td>15 mmol/L</td> <td> 10-20</td> </tr> <tr> <td>GLUCOSE</td> <td>85 mg /dL</td> <td>70-110</td> </tr> <tr> <td>BLOOD UREA NITROGEN</td> <td>7 mg/dL</td> <td>7-22</td> </tr > <tr> <td>CREATININE</td> <td>0.8 mg/dL</td> <td>0.6-1.0</td> </tr> <tr> <td>BUN/CREATININE RATIO</td > <td>8.8 </td> <td /> </tr> <tr> <td> GLOMERULAR FILTRATION RATE</td> <td>95.99 </td> <td /> </tr> <tr> <td>CALCIUM</td> <td>8.1 mg/dL</td> <td>8.7-10.5</td> </tr> <tr> <td>TOTAL PROTEIN</td> <td>6.8 gm/dL</td> <td>6.0-8.0</td> </tr> <tr> <td>ALBUMIN</td> <td>2.9 gm/dL</td> <td>3.5-5.0</td> </tr> <tr> <td>GLOBULIN</td> <td>3.9 gm/dL</td> <td>2.1-3.5</td> </tr> <tr> <td>ALBUMIN/ GLOBULIN RATIO</td> <td>0.7 </td> <td>1.1-2.2</td> </tr > <tr> <td>BILIRUBIN TOTAL</td> <td>0.7 mg/dL</td> <td>0.0-1.0</td> </tr> <tr> <td>SGOT/AST</td> <td>169 UNIT/L</td> <td>15-37</td> </tr> <tr> <td>SGPT/ALT</td> <td>135 UNIT/L</td> <td>12-78</td> </tr> <tr> <td>ALKALINE PHOSPHATASE TOTAL</td> <td> 161 UNIT/L</td> <td>46-116</td> </tr> <tr> <th colspan="10">LACTIC ACID, VENOUS - 04/23/17 19:30</th> </tr> <tr> <td>Performing Location:</td> <td> </td> <td /> </tr> <tr> <td>LACTIC ACID, VENOUS</td> <td>1.0 mmol/L</td> <td>0.4-2.0</td> </tr> <tr> <th colspan="10">BLOOD CULTURE - 04/23/17 19:30</th> </tr> <tr> <td>Performing Location:</td> <td> </td> <td /> </ tr> <tr> <td>BLOOD CULTURE</td> <td>See Below </td> <td /> </tr> <tr> <th colspan="10">BLOOD CULTURE - 04/23/17 19:50</th> </tr> <tr> <td>Performing Location: </td> <td> </td> <td /> </tr> <tr> <td> BLOOD CULTURE</td> <td>See Below </td> <td /> </tr> <tr> <th colspan="10">GLUCOSE 1HR 50G GEST - 06/28/17 19:25</th> </tr> <tr> <td>GLUCOSE 1HR 50G GEST</td> <td>98 mg/dL</td> <td>70-139</td> </tr> <tr> <th colspan="10">Urine Culture, Routine - 08/23/17 15:05</th> </tr> < tr> <td>Urine Culture, Routine</td> <td>Note </td> < td /> </tr> <tr> <th colspan="10">DRUG SCREEN, URINE - 16:08</th> </tr> <tr> <td>AMPHETAMINE SCREEN,URINE </td> <td>None Detected </td> <td>None Detected</td> </ tr> <tr> <td>BARBITURATES SCREEN,URINE</td> <td>None Detected </td> <td>None Detected</td> </tr> <tr> <td>BENZODIAZEPINES SCREEN,URINE</td> <td>None Detected </td> <td>None Detected</td> </tr> <tr> <td>CANNABINOID SCREEN, URINE</td> <td>None Detected </td> <td>None Detected</ td> </tr> <tr> <td>COCAINE SCREEN, URINE</td> < td>None Detected </td> <td>None Detected</td> </tr> <tr> <td>ECSTASY (MDMA) SCRN UR</td> <td>None Detected </td> <td>None Detected</td> </tr> <tr> <td>OPIATE SCREEN , URINE</td> <td>None Detected </td> <td>None Detected</td> </tr> <tr> < colspan="10">CBC WITH DIFFERENTIAL REFLEX MANUAL DIFF - 11/12/17 14:31</th> </tr> <tr> <td>WBC</td > <td>11.7 10*3/uL</td> <td>3.7-11.1</td> </tr> <tr> <td>RBC</td> <td>4.82 10*6/uL</td> <td>4.11-5.63 </td> </tr> <tr> <td>HEMOGLOBIN</td> <td>13.1 g/ dL</td> <td>11.9-16.3</td> </tr> <tr> <td> HEMATOCRIT</td> <td>39.6 %</td> <td>37.0-47.7</td> </tr> <tr> <td>PLATELET COUNT</td> <td>394 10*3/uL</td > <td>150-400</td> </tr> <tr> <td>MCV</td> <td>82 fL</td> <td>81-97</td> </tr> <tr> < td>MCH</td> <td>27.2 pg</td> <td>26.7-33.1</td> </tr> <tr> <td>MCHC</td> <td>33.1 g/dL</td> <td>31.1 -35.3</td> </tr> <tr> <td>MPV</td> <td>9.8 fL</ td> <td /> </tr> <tr> <td>ABSOLUTE NEUTROPHIL</ td> <td>8.94 10*3/uL</td> <td>1.70-7.10</td> </tr> <tr> <td>ABSOLUTE LYMPHOCYTE</td> <td>1.8 10*3/uL</td> <td>1.1-3.7</td> </tr> <tr> <td>ABSOLUTE MONOCYTE< /td> <td>0.8 10*3/uL</td> <td>0.3-0.9</td> </tr> <tr> <td>ABSOLUTE EOSINOPHIL</td> <td>0.1 10*3/uL</td> <td>0.0-0.5</td> </tr> <tr> <td>ABSOLUTE BASOPHIL</ td> <td>0.0 10*3/uL</td> <td>0.0-0.1</td> </tr> <tr> <td>NEUTROPHILS</td> <td>76 %</td> <td /> </tr> <tr> <td>LYMPHOCYTE</td> <td>15 %</td> <td /> </tr> <tr> <td>MONOCYTE</td> < td>7 %</td> <td /> </tr> <tr> <td>EOSINOPHIL </td> <td>1 %</td> <td /> </tr> <tr> <td>BASOPHIL</td> <td>0 %</td> <td /> </tr> <tr> <td>NUCLEATED RBC % AUTO</td> <td>0 /100 WBCs</td > <td /> </tr> <tr> <td>ABSOLUTE IMMATURE GRANULOCYTES</td> <td>0.04 10*3/uL</td> <td><0.1</td> </tr> <tr> <td>IMMATURE GRANULOCYTES</td> <td>0.3 &# 37;</td> <td /> </tr> <tr> <td>RDW-SD</td> <td>48.4 fL</td> <td>37.1-49.8</td> </tr> <tr> <th colspan="10">DRUG SCREEN, URINE - 11/12/17 14:31</th> </tr> <tr> <td>AMPHETAMINE SCREEN,URINE</td> <td>None Detected < /td> <td>None Detected</td> </tr> <tr> <td> BARBITURATES SCREEN,URINE</td> <td>None Detected </td> <td> None Detected</td> </tr> <tr> <td>BENZODIAZEPINES SCREEN, URINE</td> <td>None Detected </td> <td>None Detected</td> </tr> <tr> <td>CANNABINOID SCREEN, URINE</td> <td> None Detected </td> <td>None Detected</td> </tr> <tr> <td>COCAINE SCREEN, URINE</td> <td>None Detected </td> <td>None Detected</td> </tr> <tr> <td>ECSTASY (MDMA) SCRN UR</td> <td>None Detected </td> <td>None Detected</td> </tr> <tr> <td>OPIATE SCREEN, URINE</td> <td> None Detected </td> <td>None Detected</td> </tr> <tr> <th colspan="10">ETHANOL, SERUM - 11/12/17 14:31</th> </tr> <tr> <td>ETHANOL, SERUM</td> <td>4 mg/dL</td> <td / > </tr> <tr> <th colspan="10">LACTATE, VENOUS - 11/12/17 14:31</th> </tr> <tr> <td>LACTATE, VENOUS</td> < td>2.3 mmol/L</td> <td>0.4-2.0</td> </tr> <tr> < th colspan="10">CBC WITH DIFFERENTIAL REFLEX MANUAL DIFF - 11/13/17 04:30</th> </tr> <tr> <td>WBC</td> <td>5.7 10*3/uL</td> <td>3.7-11.1</td> </tr> <tr> <td>RBC</td> <td>4.07 10*6/uL</td> <td>4.11-5.63</td> </tr> <tr> <td>HEMOGLOBIN</td> <td>11.2 g/dL</td> <td>11.9-16.3</ td> </tr> <tr> <td>HEMATOCRIT</td> <td>34.1 &#37 ;</td> <td>37.0-47.7</td> </tr> <tr> <td> PLATELET COUNT</td> <td>302 10*3/uL</td> <td>150-400</td> </tr> <tr> <td>MCV</td> <td>84 fL</td> <td >81-97</td> </tr> <tr> <td>MCH</td> <td>27.5 pg< /td> <td>26.7-33.1</td> </tr> <tr> <td>MCHC</td > <td>32.8 g/dL</td> <td>31.1-35.3</td> </tr> < tr> <td>MPV</td> <td>9.9 fL</td> <td /> </tr> <tr> <td>ABSOLUTE NEUTROPHIL</td> <td>3.08 10*3/uL</td > <td>1.70-7.10</td> </tr> <tr> <td>ABSOLUTE LYMPHOCYTE</td> <td>2.0 10*3/uL</td> <td>1.1-3.7</td> < /tr> <tr> <td>ABSOLUTE MONOCYTE</td> <td>0.5 10*3/uL</ td> <td>0.3-0.9</td> </tr> <tr> <td>ABSOLUTE EOSINOPHIL</td> <td>0.1 10*3/uL</td> <td>0.0-0.5</td> < /tr> <tr> <td>ABSOLUTE BASOPHIL</td> <td>0.0 10*3/uL</ td> <td>0.0-0.1</td> </tr> <tr> <td>NEUTROPHILS< /td> <td>54 %</td> <td /> </tr> <tr> <td>LYMPHOCYTE</td> <td>35 %</td> <td /> </tr> <tr> <td>MONOCYTE</td> <td>8 %</td> <td / > </tr> <tr> <td>EOSINOPHIL</td> <td>2 %</td > <td /> </tr> <tr> <td>BASOPHIL</td> < td>0 %</td> <td /> </tr> <tr> <td>NUCLEATED RBC % AUTO</td> <td>0 /100 WBCs</td> <td /> </tr> <tr> <td>ABSOLUTE IMMATURE GRANULOCYTES</td> <td>0.02 10*3/uL</td> <td><0.1</td> </tr> <tr> <td> IMMATURE GRANULOCYTES</td> <td>0.4 %</td> <td /> </ tr> <tr> <td>RDW-SD</td> <td>49.8 fL</td> <td> 37.1-49.8</td> </tr> <tr> <th colspan="10">LACTATE, VENOUS - 11/13/17 04:30</th> </tr> <tr> <td>LACTATE, VENOUS</td> <td>1.0 mmol/L</td> <td>0.4-2.0</td> </tr> <tr> <th colspan="10">MAGNESIUM - 11/13/17 04:30</th> </ tr> <tr> <td>MAGNESIUM</td> <td>2.0 mg/dL</td> <td>1.6-2.5</td> </tr> <tr> <th colspan="10">HEPATITIS C ANTIBODY - PERFORMABLE FOR PANEL - 11/13/17 12:03</th> </tr> <tr > <td>HEPATITIS C ANTIBODY</td> <td>Non-Reactive </td> <td>Non-Reactive</td> </tr> <tr> <th colspan="10">C DIFF GDH AND TOXIN A/B - 11/13/17 15:12</th> </tr> <tr> < td>Microbiology</td> <td> </td> <td /> </tr> <tr > <th colspan="10">WBCS (STOOL) - 11/13/17 15:12</th> </tr> <tr> <td>Microbiology</td> <td> </td> <td /> </tr> <tr> <th colspan="10">STOOL CULTURE, ROUTINE - 15:12</th> </tr> <tr> <td>Microbiology</td> < td> </td> <td /> </tr> <tr> <th colspan="10"> CBC WITH DIFFERENTIAL REFLEX MANUAL DIFF - 11/14/17 04:39</th> </tr> <tr> <td>WBC</td> <td>5.7 10*3/uL</td> <td>3.7- 11.1</td> </tr> <tr> <td>RBC</td> <td>3.88 10*6/ uL</td> <td>4.11-5.63</td> </tr> <tr> <td> HEMOGLOBIN</td> <td>10.6 g/dL</td> <td>11.9-16.3</td> < /tr> <tr> <td>HEMATOCRIT</td> <td>32.9 %</td> <td>37.0-47.7</td> </tr> <tr> <td>PLATELET COUNT</td > <td>316 10*3/uL</td> <td>150-400</td> </tr> < tr> <td>MCV</td> <td>85 fL</td> <td>81-97</td> </tr> <tr> <td>MCH</td> <td>27.3 pg</td> <td >26.7-33.1</td> </tr> <tr> <td>MCHC</td> <td> 32.2 g/dL</td> <td>31.1-35.3</td> </tr> <tr> <td >MPV</td> <td>9.8 fL</td> <td /> </tr> <tr> <td>ABSOLUTE NEUTROPHIL</td> <td>2.07 10*3/uL</td> <td> 1.70-7.10</td> </tr> <tr> <td>ABSOLUTE LYMPHOCYTE</td> <td>3.0 10*3/uL</td> <td>1.1-3.7</td> </tr> <tr> <td>ABSOLUTE MONOCYTE</td> <td>0.5 10*3/uL</td> <td> 0.3-0.9</td> </tr> <tr> <td>ABSOLUTE EOSINOPHIL</td> <td>0.1 10*3/uL</td> <td>0.0-0.5</td> </tr> <tr> <td>ABSOLUTE BASOPHIL</td> <td>0.0 10*3/uL</td> <td> 0.0-0.1</td> </tr> <tr> <td>NEUTROPHILS</td> <td >37 %</td> <td /> </tr> <tr> <td>LYMPHOCYTE< /td> <td>52 %</td> <td /> </tr> <tr> <td>MONOCYTE</td> <td>9 %</td> <td /> </tr> <tr> <td>EOSINOPHIL</td> <td>2 %</td> <td /> </tr> <tr> <td>BASOPHIL</td> <td>1 %</td> <td /> </tr> <tr> <td>NUCLEATED RBC % AUTO</ td> <td>0 /100 WBCs</td> <td /> </tr> <tr> <td>ABSOLUTE IMMATURE GRANULOCYTES</td> <td>0.01 10*3/uL</td> <td><0.1</td> </tr> <tr> <td>IMMATURE GRANULOCYTES</td> <td>0.2 %</td> <td /> </tr> <tr> <td>RDW-SD</td> <td>50.2 fL</td> <td>37.1- 49.8</td> </tr> <tr> <th colspan="10">MAGNESIUM - 04:39</th> </tr> <tr> <td>MAGNESIUM</td> <td> 2.0 mg/dL</td> <td>1.6-2.5</td> </tr> <tr> <th colspan="10">CBC WITH DIFFERENTIAL REFLEX MANUAL DIFF - 11/17/17 22:12</th> </tr> <tr> <td>WBC</td> <td>10.7 10*3/uL</td> <td>3.7-11.1</td> </tr> <tr> <td>RBC</td> < td>4.36 10*6/uL</td> <td>4.11-5.63</td> </tr> <tr> <td>HEMOGLOBIN</td> <td>11.9 g/dL</td> <td>11.9-16.3</td> </tr> <tr> <td>HEMATOCRIT</td> <td>36.3 %</ td> <td>37.0-47.7</td> </tr> <tr> <td>PLATELET COUNT</td> <td>423 10*3/uL</td> <td>150-400</td> </tr> <tr> <td>MCV</td> <td>83 fL</td> <td>81-97</ td> </tr> <tr> <td>MCH</td> <td>27.3 pg</td> <td>26.7-33.1</td> </tr> <tr> <td>MCHC</td> <td>32.8 g/dL</td> <td>31.1-35.3</td> </tr> <tr> <td>MPV</td> <td>9.8 fL</td> <td /> </tr> <tr> <td>ABSOLUTE NEUTROPHIL</td> <td>5.04 10*3/uL</td> <td>1.70-7.10</td> </tr> <tr> <td>ABSOLUTE LYMPHOCYTE </td> <td>4.9 10*3/uL</td> <td>1.1-3.7</td> </tr> <tr> <td>ABSOLUTE MONOCYTE</td> <td>0.6 10*3/uL</td> <td>0.3-0.9</td> </tr> <tr> <td>ABSOLUTE EOSINOPHIL</ td> <td>0.2 10*3/uL</td> <td>0.0-0.5</td> </tr> <tr> <td>ABSOLUTE BASOPHIL</td> <td>0.1 10*3/uL</td> <td>0.0-0.1</td> </tr> <tr> <td>NEUTROPHILS</td> <td>47 %</td> <td /> </tr> <tr> <td> LYMPHOCYTE</td> <td>46 %</td> <td /> </tr> < tr> <td>MONOCYTE</td> <td>5 %</td> <td /> </tr> <tr> <td>EOSINOPHIL</td> <td>1 %</td> <td /> </tr> <tr> <td>BASOPHIL</td> <td>1 &# 37;</td> <td /> </tr> <tr> <td>NUCLEATED RBC &# 37; AUTO</td> <td>0 /100 WBCs</td> <td /> </tr> <tr> <td>ABSOLUTE IMMATURE GRANULOCYTES</td> <td>0.02 10*3/uL< /td> <td><0.1</td> </tr> <tr> <td>IMMATURE GRANULOCYTES</td> <td>0.2 %</td> <td /> </tr> <tr> <td>RDW-SD</td> <td>48.3 fL</td> <td>37.1- 49.8</td> </tr> <tr> <th colspan="10">HCG QUALITATIVE - 11/17/17 22:12</th> </tr> <tr> <td>HCG QUALITATIVE</td> <td>Negative </td> <td>Negative</td> </tr> <tr> <th colspan="10">CBC WITH DIFFERENTIAL REFLEX MANUAL DIFF - 01/15/18 11:34</th> </tr> <tr> <td>WBC</td> <td>8.0 10*3/ uL</td> <td>3.7-11.1</td> </tr> <tr> <td>RBC</td > <td>4.37 10*6/uL</td> <td>4.11-5.63</td> </tr> <tr> <td>HEMOGLOBIN</td> <td>12.2 g/dL</td> <td> 11.9-16.3</td> </tr> <tr> <td>HEMATOCRIT</td> < td>36.0 %</td> <td>37.0-47.7</td> </tr> <tr> <td>PLATELET COUNT</td> <td>375 10*3/uL</td> <td>150-400</td > </tr> <tr> <td>MCV</td> <td>82 fL</td> <td>81-97</td> </tr> <tr> <td>MCH</td> <td> 27.9 pg</td> <td>26.7-33.1</td> </tr> <tr> <td> MCHC</td> <td>33.9 g/dL</td> <td>31.1-35.3</td> </tr> <tr> <td>MPV</td> <td>9.8 fL</td> <td /> </tr> <tr> <td>ABSOLUTE NEUTROPHIL</td> <td>4.29 10* 3/uL</td> <td>1.70-7.10</td> </tr> <tr> <td> ABSOLUTE LYMPHOCYTE</td> <td>3.0 10*3/uL</td> <td>1.1-3.7</td > </tr> <tr> <td>ABSOLUTE MONOCYTE</td> <td>0.5 10*3/uL</td> <td>0.3-0.9</td> </tr> <tr> <td> ABSOLUTE EOSINOPHIL</td> <td>0.1 10*3/uL</td> <td>0.0-0.5</td > </tr> <tr> <td>ABSOLUTE BASOPHIL</td> <td>0.1 10*3/uL</td> <td>0.0-0.1</td> </tr> <tr> <td> NEUTROPHILS</td> <td>53 %</td> <td /> </tr> <tr> <td>LYMPHOCYTE</td> <td>38 %</td> <td /> </tr> <tr> <td>MONOCYTE</td> <td>7 %</td> <td /> </tr> <tr> <td>EOSINOPHIL</td> <td> 2 %</td> <td /> </tr> <tr> <td>BASOPHIL</td > <td>1 %</td> <td /> </tr> <tr> < td>NUCLEATED RBC % AUTO</td> <td>0 /100 WBCs</td> <td /> </tr> <tr> <td>ABSOLUTE IMMATURE GRANULOCYTES</td> <td>0.02 10*3/uL</td> <td><0.1</td> </tr> <tr> <td>IMMATURE GRANULOCYTES</td> <td>0.2 %</td> <td / > </tr> <tr> <td>RDW-SD</td> <td>41.5 fL</td> <td>37.1-49.8</td> </tr> <tr> <th colspan="10"> COMPREHENSIVE METABLIC GROUP - 01/15/18 11:34</th> </tr> <tr> <td>SODIUM</td> <td>136 mmol/L</td> <td>136-145</td> </tr> <tr> <td>POTASSIUM</td> <td>3.8 mmol/L</td> <td>3.5-5.1</td> </tr> <tr> <td>CHLORIDE</td> <td>104 mmol/L</td> <td>96-111</td> </tr> <tr> <td>CARBON DIOXIDE</td> <td>25 mmol/L</td> <td>20-30< /td> </tr> <tr> <td>ANION GAP</td> <td>11 </td> <td>6-18</td> </tr> <tr> <td>BLOOD UREA NITROGEN</td> <td>11 mg/dL</td> <td>6-24</td> </tr> <tr> <td>BUN/CREATININE RATIO</td> <td>13 </td> <td>6-25</td> </tr> <tr> <td>GLOMERULAR FILTRATION RATE</ td> <td>101.9 mL/min/1.73m*2</td> <td>>60.0</td> </ tr> <tr> <td>GLUCOSE</td> <td>76 mg/dL</td> < td>70-99</td> </tr> <tr> <td>CALCIUM</td> <td> 8.8 mg/dL</td> <td>8.3-10.1</td> </tr> <tr> <td> BILIRUBIN, TOTAL</td> <td>0.5 mg/dL</td> <td>0.2-1.2</td> </tr> <tr> <td>AST/SGOT</td> <td>17 U/L</td> <td>7-37</td> </tr> <tr> <td>ALT/SGPT</td> < td>29 U/L</td> <td>12-78</td> </tr> <tr> <td> PROTEIN, TOTAL BLOOD</td> <td>7.7 g/dL</td> <td>6.4-8.2</td> </tr> <tr> <td>ALBUMIN</td> <td>4.0 g/dL</td> <td>3.4-5.3</td> </tr> <tr> <td>GLOBULIN [ CALCULATED]</td> <td>3.7 g/dL</td> <td>2.2-4.2</td> </ tr> <tr> <td>ALBUMIN/GLOBULIN RATIO</td> <td>1.1 </td> <td>0.8-2.0</td> </tr> <tr> <td>ALKALINE PHOSPHATASE</td> <td>86 U/L</td> <td>20-125</td> </tr> <tr> <td>Creatinine</td> <td>0.82 mg/dL</td> <td>0.53-1.26</td> </tr> <tr> < colspan="10">URINE MICROSCOPIC - 01/15/18 12:15</th> </tr> <tr> <td>WBC, URINE</td> <td>0-5 /HPF</td> <td /> </tr> <tr> <td>RBC, URINE</td> <td>0-2 /HPF</td> <td /> < /tr> <tr> <td>BACTERIA, URINE</td> <td>3+ /HPF</td> <td /> </tr> <tr> <td>SQUAMOUS CELLS</td> <td>0-5 /LPF</td> <td /> </tr> <tr> < colspan="10">CBC WITH DIFFERENTIAL REFLEX MANUAL DIFF - 05/25/18 21:53</th> </tr> <tr> <td>WBC</td> <td>12.1 10*3/uL</td> <td>3.7-11.1</td> </tr> <tr> <td>RBC</td> < td>4.53 10*6/uL</td> <td>4.11-5.63</td> </tr> <tr> <td>HEMOGLOBIN</td> <td>12.7 g/dL</td> <td>11.9-16.3</td> </tr> <tr> <td>HEMATOCRIT</td> <td>39.4 %</ td> <td>37.0-47.7</td> </tr> <tr> <td>PLATELET COUNT</td> <td>412 10*3/uL</td> <td>150-400</td> </tr> <tr> <td>MCV</td> <td>87 fL</td> <td>81-97</ td> </tr> <tr> <td>MCH</td> <td>28.0 pg</td> <td>26.7-33.1</td> </tr> <tr> <td>MCHC</td> <td>32.2 g/dL</td> <td>31.1-35.3</td> </tr> <tr> <td>MPV</td> <td>9.8 fL</td> <td /> </tr> <tr> <td>ABSOLUTE NEUTROPHIL</td> <td>7.75 10*3/uL</td> <td>1.70-7.10</td> </tr> <tr> <td>ABSOLUTE LYMPHOCYTE </td> <td>3.4 10*3/uL</td> <td>1.1-3.7</td> </tr> <tr> <td>ABSOLUTE MONOCYTE</td> <td>0.6 10*3/uL</td> <td>0.3-0.9</td> </tr> <tr> <td>ABSOLUTE EOSINOPHIL</ td> <td>0.2 10*3/uL</td> <td>0.0-0.5</td> </tr> <tr> <td>ABSOLUTE BASOPHIL</td> <td>0.1 10*3/uL</td> <td>0.0-0.1</td> </tr> <tr> <td>NEUTROPHILS</td> <td>64 %</td> <td /> </tr> <tr> <td> LYMPHOCYTE</td> <td>28 %</td> <td /> </tr> < tr> <td>MONOCYTE</td> <td>5 %</td> <td /> </tr> <tr> <td>EOSINOPHIL</td> <td>2 %</td> <td /> </tr> <tr> <td>BASOPHIL</td> <td>1 &# 37;</td> <td /> </tr> <tr> <td>NUCLEATED RBC &# 37; AUTO</td> <td>0 /100 WBCs</td> <td /> </tr> <tr> <td>ABSOLUTE IMMATURE GRANULOCYTES</td> <td>0.04 10*3/uL< /td> <td><0.1</td> </tr> <tr> <td>IMMATURE GRANULOCYTES</td> <td>0.3 %</td> <td /> </tr> <tr> <td>RDW-SD</td> <td>44.2 fL</td> <td>37.1- 49.8</td> </tr> <tr> <th colspan="10">HCG QUALITATIVE - 05/25/18 21:53</th> </tr> <tr> <td>HCG QUALITATIVE</td> <td>Negative </td> <td>Negative</td> </tr> <tr> <th colspan="10">Lipase - 08/02/18 15:51</th> </tr> <tr > <td>Lipase</td> <td>25 U/L</td> <td>7-59</td> </tr> <tr> <th colspan="10">Urinalysis - 08/02/18 15:51</th> </tr> <tr> <td>Icotest</td> <td>N/A </td> <td>Negative</td> </tr> <tr> <td>Urine Volume</td> <td>Urine Volume Sufficient (10mL) </td> <td /> </tr> <tr> <td>Urine-Appearance</td> <td>Cloudy </td> <td>Clear</td> </tr> <tr> <td>Urine-Bacteria</td> <td>3+ </td> <td> </td> </tr> <tr> <td> Urine-Bilirubin</td> <td>1+ </td> <td>Negative</td> </ tr> <tr> <td>Urine-Blood</td> <td>1+ </td> <td >Negative</td> </tr> <tr> <td>Urine-Color</td> < td>Yellow </td> <td>Colorless-Lt. Yellow</td> </tr> <tr> <td>Urine-Epithelial Cells</td> <td>10-20/HPF </td> <td> </td> </tr> <tr> <td>Urine-Glucose</td> <td >Negative </td> <td>Negative</td> </tr> <tr> <td >Urine-Ketones</td> <td>1+ </td> <td>Negative</td> </tr > <tr> <td>Urine-Leukocytes</td> <td>2+ </td> <td>Negative</td> </tr> <tr> <td>Urine-Nitrite</td> <td>Negative </td> <td>Negative</td> </tr> <tr> <td>Urine-pH</td> <td>6.0 </td> <td>5-8.5</td> </ tr> <tr> <td>Urine-Protein</td> <td>1+ </td> < td>Negative</td> </tr> <tr> <td>Urine-RBC</td> < td>2-5/HPF </td> <td> </td> </tr> <tr> <td>Urine -Specific [place]</td> <td>1.020 </td> <td>1.000-1.030</td> </tr> <tr> <td>Urine-WBC</td> <td>10-20/HPF </td > <td> </td> </tr> <tr> <td>Urobilinogen</td> <td>0.2 E.U./dL </td> <td>0.2-1.0</td> </tr> <tr > < colspan="10">Helicobacter Pylori - 08/02/18 15:54</th> </ tr> <tr> <td>H.Pylori</td> <td>Negative </td> <td>Negative</td> </tr> <tr> < colspan="10"> Test-Urine - 08/02/18 16:20</th> </tr> <tr> <td>Preg Test -U</td> <td>Negative </td> <td>Negative</td> </tr> <tr> < colspan="10">Urine Culture - 08/02/18 18:13</th> </ tr> <tr> <td>PRELIM CULTURE RESULTS</td> <td>50,000-100 ,000 Gram Positive Mixed Preston [id number] Skin Contaminant </td> < td /> </tr> <tr> <td>FINAL CULTURE RESULTS</td> <td>50,000-100,000 Gram Positive Mixed Preston [id number] Skin Contaminant [id number] Further Workup done </td> <td /> </tr> <tr> <td>MEDIA PLATED</td> <td>Setup at 18:44 on 08/02/2018 </td> <td /> </tr> <tr> <td>CULTURE SOURCE</td> <td >void </td> <td /> </tr> <tr> < colspan="10"> Comprehensive Metabolic Panel - 08/24/18 00:30</th> </tr> <tr> <td>Albumin</td> <td>4.0 g/dL</td> <td>3.6-5.1</td> </tr> <tr> <td>ALP</td> <td>73 U/L</td> < td>35-130</td> </tr> <tr> <td>ALT</td> <td>24 U/ L</td> <td>6-45</td> </tr> <tr> <td>Anion Gap</ td> <td>14 </td> <td>6-14</td> </tr> <tr> <td>AST</td> <td>16 U/L</td> <td>2-40</td> </tr> <tr> <td>BUN</td> <td>12 mg/dL</td> <td>5-25</ td> </tr> <tr> <td>Calcium</td> <td>9.0 mg/dL</ td> <td>8.3-10.4</td> </tr> <tr> <td>Chloride</ td> <td>109 mmol/L</td> <td>95-114</td> </tr> < tr> <td>CO2</td> <td>22 mEq/L</td> <td>22-33</td> </tr> <tr> <td>Creat</td> <td>0.78 mg/dL</td> <td>0.50-1.50</td> </tr> <tr> <td>eGFR</td> <td>91 mL/min/1.73m2</td> <td>>59</td> </tr> <tr> <td>Globulin</td> <td>3.3 g/dL</td> <td>2.3-3.5</td> </tr> <tr> <td>Glucose</td> <td>123 mg/dL</td> <td>70-110</td> </tr> <tr> <td>Osmo</td> <td>292 </td> <td>280-295</td> </tr> <tr> < td>Potassium</td> <td>4.0 mmol/L</td> <td>3.5-5.3</td> </tr> <tr> <td>Sodium</td> <td>141 mmol/L</td> <td>134-148</td> </tr> <tr> <td>TBil</td> <td> 0.3 mg/dL</td> <td>0.2-1.2</td> </tr> <tr> <td> TP</td> <td>7.3 g/dL</td> <td>6.0-8.3</td> </tr> <tr> < colspan="10">SURE[employer] PAP RFX HPV mRNA E6/E7 - 08/25/18 17: 39</th> </tr> <tr> <td>CLINICAL INFORMATION:</td> <td> </td> <td>NRG</td> </tr> <tr> <td>LMP:</ td> <td>IUD NONE </td> <td>NRG</td> </tr> <tr> <td>PREV. PAP:</td> <td>NONE </td> <td>NRG</td> </tr> <tr> <td>PREV. BX:</td> <td> </td> < td>NRG</td> </tr> <tr> <td>SOURCE:</td> <td> Cervix </td> <td>NRG</td> </tr> <tr> <td> STATEMENT OF ADEQUACY:</td> <td> </td> <td>NRG</td> </ tr> <tr> <td>INTERPRETATION/RESULT:</td> <td> </td> <td>NRG</td> </tr> <tr> <td>SERVICE COORDINATOR [facility]:</td > <td> </td> <td>NRG</td> </tr> <tr> < td>PATHOLOGIST:</td> <td> </td> <td>NRG</td> </tr> <tr> <td>COMMENT</td> <td> </td> <td>NRG</td> </tr> <tr> <th colspan="10">CMP - 09/06/18 15:16</th> </tr> <tr> <td>GLUCOSE</td> <td>86 mg/dL</td> <td>65-99</td> </tr> <tr> <td>UREA NITROGEN (BUN)</td > <td>10 mg/dL</td> <td>7-25</td> </tr> <tr> <td>CREATININE</td> <td>0.71 mg/dL</td> <td>0.50-1.10</ td> </tr> <tr> <td>eGFR NON-AFR. SUDANESE</td> < td>120 mL/min/1.73m2</td> <td>> OR=60</td> </tr> <tr> <td>eGFR </td> <td>139 mL/min/1.73m2</td> <td>> OR=60</td> </tr> <tr> <td>BUN/CREATININE RATIO</td> <td>NOT APPLICABLE (calc)</td> <td>6-22</td> </tr> <tr> <td>SODIUM</td> <td>138 mmol/L</td> <td>135-146</td> </tr> <tr> <td>POTASSIUM</td> <td>4.6 mmol/L</td> <td>3.5-5.3</td> </tr> <tr> <td>CHLORIDE</td> <td>103 mmol/L</td> <td>98-110</td> </tr> <tr> <td>CARBON DIOXIDE</td> <td>27 mmol/L</ td> <td>20-32</td> </tr> <tr> <td>CALCIUM</td> <td>10.2 mg/dL</td> <td>8.6-10.2</td> </tr> <tr > <td>PROTEIN, TOTAL</td> <td>8.5 g/dL</td> <td>6.1- 8.1</td> </tr> <tr> <td>ALBUMIN</td> <td>5.1 g/ dL</td> <td>3.6-5.1</td> </tr> <tr> <td>GLOBULIN </td> <td>3.4 g/dL (calc)</td> <td>1.9-3.7</td> </tr> <tr> <td>ALBUMIN/GLOBULIN RATIO</td> <td>1.5 (calc)</td > <td>1.0-2.5</td> </tr> <tr> <td>BILIRUBIN, TOTAL</td> <td>0.7 mg/dL</td> <td>0.2-1.2</td> </tr> <tr> <td>ALKALINE PHOSPHATASE</td> <td>77 U/L</td> <td>33-115</td> </tr> <tr> <td>AST</td> <td >30 U/L</td> <td>10-30</td> </tr> <tr> <td>ALT</ td> <td>28 U/L</td> <td>6-29</td> </tr> <tr> < colspan="10">CBC - 09/06/18 15:16</th> </tr> <tr> <td>WHITE BLOOD CELL COUNT</td> <td>9.2 Thousand/uL</td> <td>3.8-10.8</td> </tr> <tr> <td>RED BLOOD CELL COUNT</td > <td>4.89 Million/uL</td> <td>3.80-5.10</td> </tr> <tr> <td>HEMOGLOBIN</td> <td>14.3 g/dL</td> <td> 11.7-15.5</td> </tr> <tr> <td>HEMATOCRIT</td> < td>42.7 %</td> <td>35.0-45.0</td> </tr> <tr> <td>MCV</td> <td>87.3 fL</td> <td>80.0-100.0</td> </ tr> <tr> <td>MCH</td> <td>29.2 pg</td> <td> 27.0-33.0</td> </tr> <tr> <td>MCHC</td> <td> 33.5 g/dL</td> <td>32.0-36.0</td> </tr> <tr> <td >RDW</td> <td>12.9 %</td> <td>11.0-15.0</td> </tr> <tr> <td>PLATELET COUNT</td> <td>462 Thousand/uL</td> <td>140-400</td> </tr> <tr> <td>MPV</td> <td>10.1 fL</td> <td>7.5-12.5</td> </tr> <tr> <td>ABSOLUTE NEUTROPHILS</td> <td>3275 cells/uL</td> <td> 3408-7952</td> </tr> <tr> <td>ABSOLUTE LYMPHOCYTES</td> <td>4996 cells/uL</td> <td>850-3900</td> </tr> < tr> <td>ABSOLUTE MONOCYTES</td> <td>543 cells/uL</td> <td>200-950</td> </tr> <tr> <td>ABSOLUTE EOSINOPHILS</ td> <td>285 cells/uL</td> <td>15-500</td> </tr> <tr> <td>ABSOLUTE BASOPHILS</td> <td>101 cells/uL</td> <td>0-200</td> </tr> <tr> <td>NEUTROPHILS</td> <td>35.6 %</td> <td>NRG</td> </tr> <tr> < td>LYMPHOCYTES</td> <td>54.3 %</td> <td>NRG</td> </ tr> <tr> <td>MONOCYTES</td> <td>5.9 %</td> <td>NRG</td> </tr> <tr> <td>EOSINOPHILS</td> < td>3.1 %</td> <td>NRG</td> </tr> <tr> <td> BASOPHILS</td> <td>1.1 %</td> <td>NRG</td> </tr> <tr> <th colspan="10">TSH - 09/06/18 15:16</th> </tr> <tr> <td>TSH</td> <td>2.04 mIU/L</td> <td>NRG</td > </tr> </tbody> </table> </text> <entry> <organizer moodCode="EVN" classCode="BATTERY"> <templateId root= "[id number]" /> <id nullFlavor="NA" /> <code codeSystem="local" code="UUEX8SE" displayName="Culture Genital" /> < statusCode code="completed" /> <component> <observation moodCode= "EVN" classCode="OBS"> <templateId root="[id number] " /> <id nullFlavor="NA" /> <code codeSystem="local" code= "CGENSRC" displayName="Source" /> <statusCode code="completed" /> <effectiveTime value="[id number]" /> <value unit="" xsi:type="PQ " value="VAGINA" /> <referenceRange> <observationRange> <text /> </observationRange> </referenceRange> </observation> </component> <component> <observation moodCode="EVN" classCode="OBS"> <templateId root= "[id number]..22.4.2" /> <id nullFlavor="NA" /> < code codeSystem="local" code="CGENSPRQ" displayName="Special Request" /> <statusCode code="completed" /> <effectiveTime value="831485468771" /> <value unit="" xsi:type="PQ" value="NONE" /> < referenceRange> <observationRange> <text /> < /observationRange> </referenceRange> </observation> </ component> </organizer> </entry> <entry> <organizer moodCode="EVN" classCode="BATTERY"> <templateId root="[id number]..4.1" /> <id nullFlavor="NA" /> <code codeSystem="local" code="KOHG5" displayName="JAE Prep" /> <statusCode code="completed" /> <component> <observation moodCode="EVN" classCode="OBS"> <templateId root= "01.14.840.1.998444.10...4.2" /> <id nullFlavor="NA" /> < code codeSystem="local" code="HYPHKOHQ" displayName="Hyphae" /> < statusCode code="completed" /> <effectiveTime value="610446563887" /> <value unit="" xsi:type="PQ" value="0 (NORMAL 0/HPF)" /> < referenceRange> <observationRange> <text /> < /observationRange> </referenceRange> </observation> </ component> <component> <observation moodCode="EVN" classCode="OBS"> <templateId root="[id number]..22.4.2" /> <id nullFlavor="NA" /> <code codeSystem="local" code="YSTKOHQT" displayName ="Yeast" /> <statusCode code="completed" /> <effectiveTime value="139793284858" /> <value unit="" xsi:type="PQ" value="0 (NORMAL 0 /HPF)" /> <referenceRange> <observationRange> < text /> </observationRange> </referenceRange> </ observation> </component> </organizer> </entry> <entry> <organizer moodCode="EVN" classCode="BATTERY"> <templateId root= "216.840.1.450377.10..22.4.1" /> <id nullFlavor="NA" /> <code codeSystem="local" code="WETG10" displayName="Wet Prep" /> <statusCode code ="completed" /> <component> <observation moodCode="EVN" classCode= "OBS"> <templateId root="216.840.1.142227....4.2" /> < id nullFlavor="NA" /> <code codeSystem="local" code="EPIWETQT" displayName="Epithelial Cells" /> <statusCode code="completed" /> <effectiveTime value="417461027906" /> <value unit="" xsi:type="PQ " value="10-20 (NORMAL 0-10/HPF)" /> <referenceRange> < observationRange> <text /> </observationRange> </referenceRange> </observation> </component> <component> <observation moodCode="EVN" classCode="OBS"> <templateId root= "216.840.1.690240.10...4.2" /> <id nullFlavor="NA" /> < code codeSystem="local" code="WBCWETQT" displayName="White Blood Cells" /> <statusCode code="completed" /> <effectiveTime value="873346461650 " /> <value unit="" xsi:type="PQ" value="0-2 (NORMAL 0-5/HPF)" /> <referenceRange> <observationRange> <text /> </observationRange> </referenceRange> </observation> </component> <component> <observation moodCode="EVN" classCode="OBS "> <templateId root="216.840.1.778420.09.17.22.4.2" /> <id nullFlavor="NA" /> <code codeSystem="local" code="RBCWETQT" displayName ="Red Blood Cells" /> <statusCode code="completed" /> < effectiveTime value="860702144359" /> <value unit="" xsi:type="PQ" value="0 (NORMAL 0-5/HPF)" /> <referenceRange> < observationRange> <text /> </observationRange> </referenceRange> </observation> </component> <component> <observation moodCode="EVN" classCode="OBS"> <templateId root= "16.840.1.948753.09.17.22.4.2" /> <id nullFlavor="NA" /> < code codeSystem="local" code="YSTWETQT" displayName="Yeast" /> < statusCode code="completed" /> <effectiveTime value="495516135006" /> <value unit="" xsi:type="PQ" value="0 (NORMAL 0/HPF)" /> < referenceRange> <observationRange> <text /> < /observationRange> </referenceRange> </observation> </ component> <component> <observation moodCode="EVN" classCode="OBS"> <templateId root="216.840.1.808890.10..4.2" /> <id nullFlavor="NA" /> <code codeSystem="local" code="HYPHWETQ" displayName ="Hyphae" /> <statusCode code="completed" /> <effectiveTime value="015193412956" /> <value unit="" xsi:type="PQ" value="0 (NORMAL 0 /HPF)" /> <referenceRange> <observationRange> < text /> </observationRange> </referenceRange> </ observation> </component> <component> <observation moodCode= "EVN" classCode="OBS"> <templateId root="16.840.1.586749.10.22.4.2 " /> <id nullFlavor="NA" /> <code codeSystem="local" code= "TRIWETQT" displayName="Trichomonas" /> <statusCode code="completed" / > <effectiveTime value="196546743759" /> <value unit="" xsi: type="PQ" value="0 (NORMAL 0/HPF)" /> <referenceRange> < observationRange> <text /> </observationRange> </referenceRange> </observation> </component> <component> <observation moodCode="EVN" classCode="OBS"> <templateId root= "16.840.1.757013.09.17.22.4.2" /> <id nullFlavor="NA" /> < code codeSystem="local" code="BACWET+" displayName="Bacterial" /> < statusCode code="completed" /> <effectiveTime value="178036583256" /> <value unit="" xsi:type="PQ" value="(NORMAL 0-4+)" /> < referenceRange> <observationRange> <text /> < /observationRange> </referenceRange> </observation> </ component> <component> <observation moodCode="EVN" classCode="OBS"> <templateId root="16.840.1.128020.22.4.2" /> <id nullFlavor="NA" /> <code codeSystem="local" code="CLUEWETQT" displayName="Clue Cells" /> <statusCode code="completed" /> < effectiveTime value="953770261244" /> <value unit="" xsi:type="PQ" value="3-5 (NORMAL 0/HPF)" /> <referenceRange> < observationRange> <text /> </observationRange> </referenceRange> </observation> </component> </organizer> </ entry> <entry> <organizer moodCode="EVN" classCode="BATTERY"> < templateId root="216.840.1.106164.10..4.1" /> <id nullFlavor="NA" /> <code codeSystem="local" code="GCPG3R" displayName="Gonorrhoeae/Chlamydia Probe" /> <statusCode code="completed" /> <component> < observation moodCode="EVN" classCode="OBS"> <templateId root= "216.840.1.797449.10...4.2" /> <id nullFlavor="NA" /> < code codeSystem="local" code="GCPSRC" displayName="Source" /> < statusCode code="completed" /> <effectiveTime value="269247044281" /> <value unit="" xsi:type="PQ" value="ENDOCE" /> <referenceRange > <observationRange> <text /> </ observationRange> </referenceRange> </observation> </ component> </organizer> </entry> <entry> <organizer moodCode="EVN" classCode="BATTERY"> <templateId root="216.840.1.344755.10.22.4.1" /> <id nullFlavor="NA" /> <code codeSystem="local" code="CMP15" displayName="Comprehensive Metabolic Panel" /> <statusCode code="completed " /> <component> <observation moodCode="EVN" classCode="OBS"> <templateId root="16.840.1.676835.09.17.22.4.2" /> <id nullFlavor ="NA" /> <code codeSystem="local" code="GLU" displayName="Glucose" /> <statusCode code="completed" /> <effectiveTime value= "215417962773" /> <value unit="MG/DL" xsi:type="PQ" value="83" /> <referenceRange> <observationRange> <text>65-105</ text> </observationRange> </referenceRange> </ observation> </component> <component> <observation moodCode= "EVN" classCode="OBS"> <templateId root="01.14.840.1.793488.09.17.22.4.2 " /> <id nullFlavor="NA" /> <code codeSystem="local" code="K" displayName="Potassium" /> <statusCode code="completed" /> < effectiveTime value="281674097583" /> <value unit="MMOLL" xsi:type="PQ " value="4.5" /> <referenceRange> <observationRange> <text>3.6-5.0</text> </observationRange> </ referenceRange> </observation> </component> <component> <observation moodCode="EVN" classCode="OBS"> <templateId root= "01.14.840.1.417312.09.17.22.4.2" /> <id nullFlavor="NA" /> < code codeSystem="local" code="NA" displayName="Sodium" /> <statusCode code="completed" /> <effectiveTime value="788151934321" /> < value unit="MMOLL" xsi:type="PQ" value="139" /> <referenceRange> <observationRange> <text>137-145</text> </ observationRange> </referenceRange> </observation> </ component> <component> <observation moodCode="EVN" classCode="OBS"> <templateId root="[id number]2.4.2" /> <id nullFlavor="NA" /> <code codeSystem="local" code="ALB" displayName= "Albumin" /> <statusCode code="completed" /> <effectiveTime value="[id number]" /> <value unit="G/DL" xsi:type="PQ" value="4.2" / > <referenceRange> <observationRange> <text>3.5 -5.0</text> </observationRange> </referenceRange> </ observation> </component> <component> <observation moodCode= "EVN" classCode="OBS"> <templateId root="840.1.752789.10.22.4.2 " /> <id nullFlavor="NA" /> <code codeSystem="local" code="TP " displayName="T. Protein" /> <statusCode code="completed" /> <effectiveTime value="890822546588" /> <value unit="G/DL" xsi:type="PQ " value="7.0" /> <referenceRange> <observationRange> <text>6.3-8.2</text> </observationRange> </ referenceRange> </observation> </component> <component> <observation moodCode="EVN" classCode="OBS"> <templateId root= "01.14.840.1.701047.10..22.4.2" /> <id nullFlavor="NA" /> < code codeSystem="local" code="AST" displayName="AST" /> <statusCode code="completed" /> <effectiveTime value="907210666563" /> < value unit="U/L" xsi:type="PQ" value="21" /> <referenceRange> <observationRange> <text>14-36</text> </ observationRange> </referenceRange> </observation> </ component> <component> <observation moodCode="EVN" classCode="OBS"> <templateId root="216.840.1.480381.10..4.2" /> <id nullFlavor="NA" /> <code codeSystem="local" code="ALP" displayName=" Alk Phos" /> <statusCode code="completed" /> <effectiveTime value="939201845564" /> <value unit="U/L" xsi:type="PQ" value="54" /> <referenceRange> <observationRange> <text>38- 126</text> </observationRange> </referenceRange> </ observation> </component> <component> <observation moodCode= "EVN" classCode="OBS"> <templateId root="16.840.1.886692.10..4.2 " /> <id nullFlavor="NA" /> <code codeSystem="local" code="ALT " displayName="ALT" /> <statusCode code="completed" /> < effectiveTime value="423588151202" /> <value unit="U/L" xsi:type="PQ" value="31" /> <referenceRange> <observationRange> <text>9-52</text> </observationRange> </referenceRange> </observation> </component> <component> <observation moodCode="EVN" classCode="OBS"> <templateId root= "216.840.1.194290.10..22.4.2" /> <id nullFlavor="NA" /> < code codeSystem="local" code="TBIL" displayName="T Bili" /> < statusCode code="completed" /> <effectiveTime value="405923486822" /> <value unit="MG/DL" xsi:type="PQ" value=".8" /> < referenceRange> <observationRange> <text>0.2-1.3</text> </observationRange> </referenceRange> </observation > </component> <component> <observation moodCode="EVN" classCode="OBS"> <templateId root="01.14.840.1.861093.10..22.4.2" /> <id nullFlavor="NA" /> <code codeSystem="local" code="CL" displayName="Chloride" /> <statusCode code="completed" /> < effectiveTime value="678339605330" /> <value unit="MMOLL" xsi:type="PQ " value="102" /> <referenceRange> <observationRange> <text>98-107</text> </observationRange> </ referenceRange> </observation> </component> <component> <observation moodCode="EVN" classCode="OBS"> <templateId root= "16.840.1.996205.10..22.4.2" /> <id nullFlavor="NA" /> < code codeSystem="local" code="CO2" displayName="CO2" /> <statusCode code="completed" /> <effectiveTime value="865858510708" /> < value unit="MMOLL" xsi:type="PQ" value="30" /> <referenceRange> <observationRange> <text>22-30</text> </ observationRange> </referenceRange> </observation> </ component> <component> <observation moodCode="EVN" classCode="OBS"> <templateId root="01.14.840.1.873666.20.22.4.2" /> <id nullFlavor="NA" /> <code codeSystem="local" code="BUN" displayName="BUN " /> <statusCode code="completed" /> <effectiveTime value= "231006041747" /> <value unit="MG/DL" xsi:type="PQ" value="10" /> <referenceRange> <observationRange> <text>7-17</ text> </observationRange> </referenceRange> </ observation> </component> <component> <observation moodCode= "EVN" classCode="OBS"> <templateId root="216.840.1.785072....4.2 " /> <id nullFlavor="NA" /> <code codeSystem="local" code= "CREAT" displayName="Creatinine" /> <statusCode code="completed" /> <effectiveTime value="571561080980" /> <value unit="MG/DL" xsi: type="PQ" value=".7" /> <referenceRange> <observationRange> <text>0.7-1.2</text> </observationRange> </ referenceRange> </observation> </component> <component> <observation moodCode="EVN" classCode="OBS"> <templateId root= "2.16.840.1.879819.10...4.2" /> <id nullFlavor="NA" /> < code codeSystem="local" code="CA" displayName="Calcium" /> <statusCode code="completed" /> <effectiveTime value="582415030078" /> < value unit="MG/DL" xsi:type="PQ" value="10.2" /> <referenceRange> <observationRange> <text>8.4-10.2</text> </ observationRange> </referenceRange> </observation> </ component> <component> <observation moodCode="EVN" classCode="OBS"> <templateId root="01.14.840.1.320748.10..22.4.2" /> <id nullFlavor="NA" /> <code codeSystem="local" code="AG" displayName="A/G Ratio" /> <statusCode code="completed" /> <effectiveTime value ="[id number]" /> <value unit="G/DL" xsi:type="PQ" value="1.6" /> <referenceRange> <observationRange> <text>1.1-2.2< /text> </observationRange> </referenceRange> </ observation> </component> <component> <observation moodCode= "EVN" classCode="OBS"> <templateId root="840.1.670716.22.4.2 " /> <id nullFlavor="NA" /> <code codeSystem="local" code= "GLOB" displayName="Globulin" /> <statusCode code="completed" /> <effectiveTime value="253742624334" /> <value unit="G/DL" xsi:type= "PQ" value="2.7" /> <referenceRange> <observationRange> <text>2.3-3.5</text> </observationRange> </ referenceRange> </observation> </component> </organizer> </entry > <entry> <organizer moodCode="EVN" classCode="BATTERY"> <templateId root="01.14.840.1.723344.10.20.22.4.1" /> <id nullFlavor="NA" /> <code codeSystem="local" code="[id number]" displayName="GLUCOSE TOLERANCE 100 GEST" / > <statusCode code="completed" /> <component> <observation moodCode="EVN" classCode="OBS"> <templateId root= "01.14.840.1.583447.09.17.22.4.2" /> <id nullFlavor="NA" /> < code codeSystem="local" code="[id number]" displayName="GLUCOSE TOLERANCE 100 GEST" /> <statusCode code="completed" /> <effectiveTime value= "[id number]" /> <value unit="" xsi:type="PQ" value="" /> < referenceRange> <observationRange> <text /> < /observationRange> </referenceRange> </observation> </ component> </organizer> </entry> <entry> <organizer moodCode="EVN" classCode="BATTERY"> <templateId root="01.14.840.1.721841.09.17.22.4.1" /> <id nullFlavor="NA" /> <code codeSystem="local" code="FFN" displayName =" FIBRONECTIN" /> <statusCode code="completed" /> <component> <observation moodCode="EVN" classCode="OBS"> <templateId root= "01.14.840.1.103902.09.17.22.4.2" /> <id nullFlavor="NA" /> < code codeSystem="local" code="FFN" displayName=" FIBRONECTIN" /> < statusCode code="completed" /> <effectiveTime value="242516243893" /> <value unit="" xsi:type="PQ" value="NEGATIVE" /> < referenceRange> <observationRange> <text>NEGATIVE</text > </observationRange> </referenceRange> </observation > </component> </organizer> </entry> <entry> <organizer moodCode= "EVN" classCode="BATTERY"> <templateId root="01.14.840.1.324418.09.17.22.4.1 " /> <id nullFlavor="NA" /> <code codeSystem="local" code="UARFLXCULT " displayName="URINALYSIS RFLX MICRO CULT UA" /> <statusCode code= "completed" /> <component> <observation moodCode="EVN" classCode= "OBS"> <templateId root="01.14.840.1.338212.10.4.2" /> < id nullFlavor="NA" /> <code codeSystem="local" code="COLLTYPE" displayName="COLLECTION TYPE" /> <statusCode code="completed" /> <effectiveTime value="082723736882" /> <value unit="" xsi:type="PQ " value="CLEAN CATCH" /> <referenceRange> <observationRange > <text /> </observationRange> </referenceRange > </observation> </component> <component> <observation moodCode="EVN" classCode="OBS"> <templateId root= "01.14.840.1.934560.09.17.22.4.2" /> <id nullFlavor="NA" /> < code codeSystem="local" code="APPEARUA" displayName="APPEARANCE" /> < statusCode code="completed" /> <effectiveTime value="" /> <value unit="" xsi:type="PQ" value="Cloudy" /> <referenceRange > <observationRange> <text>CLEAR</text> </ observationRange> </referenceRange> </observation> </ component> <component> <observation moodCode="EVN" classCode="OBS"> <templateId root="01.14.840.1.708677.10.4.2" /> <id nullFlavor="NA" /> <code codeSystem="local" code="COLORUA" displayName= "COLOR" /> <statusCode code="completed" /> <effectiveTime value="824260827916" /> <value unit="" xsi:type="PQ" value="[place]" /> <referenceRange> <observationRange> <text /> </observationRange> </referenceRange> </observation> </component> <component> <observation moodCode="EVN" classCode= "OBS"> <templateId root="216.840.1.216637.10..4.2" /> < id nullFlavor="NA" /> <code codeSystem="local" code="PHUA" displayName= "PH, URINE" /> <statusCode code="completed" /> <effectiveTime value="600692948283" /> <value unit="" xsi:type="PQ" value="6.0" /> <referenceRange> <observationRange> <text>5.0-8.0 </text> </observationRange> </referenceRange> </ observation> </component> <component> <observation moodCode= "EVN" classCode="OBS"> <templateId root="01.14.840.1.076358.10.4.2 " /> <id nullFlavor="NA" /> <code codeSystem="local" code= "SPGUA" displayName="SPECIFIC GRAVITY, URINE" /> <statusCode code= "completed" /> <effectiveTime value="934115311868" /> <value unit="" xsi:type="PQ" value="1.025" /> <referenceRange> < observationRange> <text><1.030</text> </ observationRange> </referenceRange> </observation> </ component> <component> <observation moodCode="EVN" classCode="OBS"> <templateId root="16.840.1.689726.10..4.2" /> <id nullFlavor="NA" /> <code codeSystem="local" code="GLUCUA" displayName= "GLUCOSE, URINE" /> <statusCode code="completed" /> < effectiveTime value="703842986652" /> <value unit="mg/dL" xsi:type="PQ " value="Negative" /> <referenceRange> <observationRange> <text>Negative</text> </observationRange> </ referenceRange> </observation> </component> <component> <observation moodCode="EVN" classCode="OBS"> <templateId root= "01.14.840.1.178901.22.4.2" /> <id nullFlavor="NA" /> < code codeSystem="local" code="BLOODUA" displayName="BLOOD, URINE" /> < statusCode code="completed" /> <effectiveTime value="" /> <value unit="" xsi:type="PQ" value="Negative" /> < referenceRange> <observationRange> <text>Negative</text > </observationRange> </referenceRange> </observation > </component> <component> <observation moodCode="EVN" classCode="OBS"> <templateId root="01.14.840.1.648539...4.2" /> <id nullFlavor="NA" /> <code codeSystem="local" code="KETOUA" displayName="KETONES, URINE" /> <statusCode code="completed" /> <effectiveTime value="" /> <value unit="mg/dL" xsi:type= "PQ" value="5" /> <referenceRange> <observationRange> <text>Negative</text> </observationRange> </ referenceRange> </observation> </component> <component> <observation moodCode="EVN" classCode="OBS"> <templateId root= "01.14.840.1.983551..22.4.2" /> <id nullFlavor="NA" /> < code codeSystem="local" code="PROTUA" displayName="PROTEIN, UA QUALITATIVE" /> <statusCode code="completed" /> <effectiveTime value= "" /> <value unit="mg/dL" xsi:type="PQ" value="30" /> <referenceRange> <observationRange> <text>Negative< /text> </observationRange> </referenceRange> </ observation> </component> <component> <observation moodCode= "EVN" classCode="OBS"> <templateId root="01.14.840.1.944432.09.17.22.4.2 " /> <id nullFlavor="NA" /> <code codeSystem="local" code= "BILIUA" displayName="BILIRUBIN, URINE" /> <statusCode code="completed " /> <effectiveTime value="" /> <value unit="" xsi :type="PQ" value="Negative" /> <referenceRange> < observationRange> <text>Negative</text> </ observationRange> </referenceRange> </observation> </ component> <component> <observation moodCode="EVN" classCode="OBS"> <templateId root="01.14.840.1.206005.09.17.22.4.2" /> <id nullFlavor="NA" /> <code codeSystem="local" code="UROBILNUA" displayName="UROBILINOGEN, URINE" /> <statusCode code="completed" /> <effectiveTime value="" /> <value unit="mg/dL" xsi: type="PQ" value="2.0" /> <referenceRange> <observationRange > <text><2.0</text> </observationRange> </ referenceRange> </observation> </component> <component> <observation moodCode="EVN" classCode="OBS"> <templateId root= "01.14.840.1.536563.09.17.22.4.2" /> <id nullFlavor="NA" /> < code codeSystem="local" code="LEUKESTUA" displayName="LEUKOCYTE ESTERASE, URINE " /> <statusCode code="completed" /> <effectiveTime value= "" /> <value unit="" xsi:type="PQ" value="Negative" /> <referenceRange> <observationRange> <text>Negative </text> </observationRange> </referenceRange> </ observation> </component> <component> <observation moodCode= "EVN" classCode="OBS"> <templateId root="2.16.840.1.241154.10..4.2 " /> <id nullFlavor="NA" /> <code codeSystem="local" code= "NITRITEUA" displayName="NITRITE, URINE" /> <statusCode code="completed " /> <effectiveTime value="" /> <value unit="" xsi :type="PQ" value="Negative" /> <interpretationCode codeSystem="local" code="N" /> <referenceRange> <observationRange> <text>Negative</text> </observationRange> </referenceRange > </observation> </component> <component> <observation moodCode="EVN" classCode="OBS"> <templateId root= "216.840.1.935668.10...4.2" /> <id nullFlavor="NA" /> < code codeSystem="local" code="WBCUA" displayName="WBC, URINE" /> < statusCode code="completed" /> <effectiveTime value="590257865407" /> <value unit="/hpf" xsi:type="PQ" value="6-10" /> < interpretationCode codeSystem="local" code="A" /> <referenceRange> <observationRange> <text>0-5</text> </ observationRange> </referenceRange> </observation> </ component> <component> <observation moodCode="EVN" classCode="OBS"> <templateId root="01.14.840.1.053614.10.22.4.2" /> <id nullFlavor="NA" /> <code codeSystem="local" code="RBCUA" displayName= "RBC, URINE" /> <statusCode code="completed" /> < effectiveTime value="" /> <value unit="/hpf" xsi:type="PQ" value="6-10" /> <interpretationCode codeSystem="local" code="A" /> <referenceRange> <observationRange> <text>0-5</ text> </observationRange> </referenceRange> </ observation> </component> <component> <observation moodCode= "EVN" classCode="OBS"> <templateId root="01.14.840.1.234723.09.17.22.4.2 " /> <id nullFlavor="NA" /> <code codeSystem="local" code= "BACTERIA" displayName="BACTERIA, URINE" /> <statusCode code="completed " /> <effectiveTime value="" /> <value unit="/hpf " xsi:type="PQ" value="1+" /> <interpretationCode codeSystem="local" code="A" /> <referenceRange> <observationRange> <text>None seen</text> </observationRange> </ referenceRange> </observation> </component> <component> <observation moodCode="EVN" classCode="OBS"> <templateId root= "01.14.840.1.169321.09.17.22.4.2" /> <id nullFlavor="NA" /> < code codeSystem="local" code="SQUAEPI" displayName="SQUAMOUS CELLS" /> <statusCode code="completed" /> <effectiveTime value="085983142306" /> <value unit="/lpf" xsi:type="PQ" value=">30" /> < interpretationCode codeSystem="local" code="A" /> <referenceRange> <observationRange> <text>0-5</text> </ observationRange> </referenceRange> </observation> </ component> <component> <observation moodCode="EVN" classCode="OBS"> <templateId root="216.840.1.232043.10.20.22.4.2" /> <id nullFlavor="NA" /> <code codeSystem="local" code="MUCUSTHRD" displayName="MUCUS THREADS, URINE" /> <statusCode code="completed" /> <effectiveTime value="270553142269" /> <value unit="/lpf" xsi: type="PQ" value="3+" /> <interpretationCode codeSystem="local" code="N " /> <referenceRange> <observationRange> <text /> </observationRange> </referenceRange> </ observation> </component> <component> <observation moodCode= "EVN" classCode="OBS"> <templateId root="216.840.1.897646.10.20.22.4.2 " /> <id nullFlavor="NA" /> <code codeSystem="local" code= "ACULT" displayName="ADD URINE CULTURE" /> <statusCode code="completed " /> <effectiveTime value="440245274858" /> <value unit="" xsi :type="PQ" value="NO" /> <interpretationCode codeSystem="local" code="N " /> <referenceRange> <observationRange> <text /> </observationRange> </referenceRange> </ observation> </component> <component> <observation moodCode= "EVN" classCode="OBS"> <templateId root="216.840.1.337169.10..4.2 " /> <id nullFlavor="NA" /> <code codeSystem="local" code= "HYLCAST" displayName="HYALINE CASTS, URINE" /> <statusCode code= "completed" /> <effectiveTime value="973605780787" /> <value unit="/lpf" xsi:type="PQ" value="1-5" /> <interpretationCode codeSystem ="local" code="A" /> <referenceRange> <observationRange> <text>None seen</text> </observationRange> </ referenceRange> </observation> </component> </organizer> </entry > <entry> <organizer moodCode="EVN" classCode="BATTERY"> <templateId root="216.840.1.433496...4.1" /> <id nullFlavor="NA" /> <code codeSystem="local" code="UARFLXCULT" displayName="URINALYSIS RFLX MICRO CULT UA " /> <statusCode code="completed" /> <component> <observation moodCode="EVN" classCode="OBS"> <templateId root= "216.840.1.866786.10...4.2" /> <id nullFlavor="NA" /> < code codeSystem="local" code="COLLTYPE" displayName="COLLECTION TYPE" /> <statusCode code="completed" /> <effectiveTime value="159826674054" /> <value unit="" xsi:type="PQ" value="CLEAN CATCH" /> < referenceRange> <observationRange> <text /> < /observationRange> </referenceRange> </observation> </ component> <component> <observation moodCode="EVN" classCode="OBS"> <templateId root="01.14.840.1.706188.09.17.22.4.2" /> <id nullFlavor="NA" /> <code codeSystem="local" code="APPEARUA" displayName ="APPEARANCE" /> <statusCode code="completed" /> < effectiveTime value="" /> <value unit="" xsi:type="PQ" value="Sl Cloudy" /> <referenceRange> <observationRange> <text>CLEAR</text> </observationRange> </ referenceRange> </observation> </component> <component> <observation moodCode="EVN" classCode="OBS"> <templateId root= "216.840.1.191221.10...4.2" /> <id nullFlavor="NA" /> < code codeSystem="local" code="COLORUA" displayName="COLOR" /> < statusCode code="completed" /> <effectiveTime value="" /> <value unit="" xsi:type="PQ" value="Yellow" /> <referenceRange > <observationRange> <text /> </ observationRange> </referenceRange> </observation> </ component> <component> <observation moodCode="EVN" classCode="OBS"> <templateId root="01.14.840.1.952811.10..22.4.2" /> <id nullFlavor="NA" /> <code codeSystem="local" code="PHUA" displayName="PH , URINE" /> <statusCode code="completed" /> <effectiveTime value="" /> <value unit="" xsi:type="PQ" value="7.0" /> <referenceRange> <observationRange> <text>5.0-8.0 </text> </observationRange> </referenceRange> </ observation> </component> <component> <observation moodCode= "EVN" classCode="OBS"> <templateId root="01.14.840.1.728614.10..22.4.2 " /> <id nullFlavor="NA" /> <code codeSystem="local" code= "SPGUA" displayName="SPECIFIC GRAVITY, URINE" /> <statusCode code= "completed" /> <effectiveTime value="229158009629" /> <value unit="" xsi:type="PQ" value="1.010" /> <referenceRange> < observationRange> <text><1.030</text> </ observationRange> </referenceRange> </observation> </ component> <component> <observation moodCode="EVN" classCode="OBS"> <templateId root="216.840.1.901303.10..4.2" /> <id nullFlavor="NA" /> <code codeSystem="local" code="GLUCUA" displayName= "GLUCOSE, URINE" /> <statusCode code="completed" /> < effectiveTime value="" /> <value unit="mg/dL" xsi:type="PQ " value="Negative" /> <referenceRange> <observationRange> <text>Negative</text> </observationRange> </ referenceRange> </observation> </component> <component> <observation moodCode="EVN" classCode="OBS"> <templateId root= "16.840.1.847631.10.22.4.2" /> <id nullFlavor="NA" /> < code codeSystem="local" code="BLOODUA" displayName="BLOOD, URINE" /> < statusCode code="completed" /> <effectiveTime value="" /> <value unit="" xsi:type="PQ" value="Negative" /> < referenceRange> <observationRange> <text>Negative</text > </observationRange> </referenceRange> </observation > </component> <component> <observation moodCode="EVN" classCode="OBS"> <templateId root="216.840.1.486418.10.22.4.2" /> <id nullFlavor="NA" /> <code codeSystem="local" code="KETOUA" displayName="KETONES, URINE" /> <statusCode code="completed" /> <effectiveTime value="" /> <value unit="mg/dL" xsi:type= "PQ" value="Negative" /> <referenceRange> <observationRange > <text>Negative</text> </observationRange> </ referenceRange> </observation> </component> <component> <observation moodCode="EVN" classCode="OBS"> <templateId root= "01.14.840.1.905691.10..4.2" /> <id nullFlavor="NA" /> < code codeSystem="local" code="PROTUA" displayName="PROTEIN, UA QUALITATIVE" /> <statusCode code="completed" /> <effectiveTime value= "" /> <value unit="mg/dL" xsi:type="PQ" value="Negative" / > <referenceRange> <observationRange> <text> Negative</text> </observationRange> </referenceRange> </observation> </component> <component> <observation moodCode ="EVN" classCode="OBS"> <templateId root= "01.14.840.1.009666.10.22.4.2" /> <id nullFlavor="NA" /> < code codeSystem="local" code="BILIUA" displayName="BILIRUBIN, URINE" /> <statusCode code="completed" /> <effectiveTime value="" / > <value unit="" xsi:type="PQ" value="Negative" /> < referenceRange> <observationRange> <text>Negative</text > </observationRange> </referenceRange> </observation > </component> <component> <observation moodCode="EVN" classCode="OBS"> <templateId root="216.840.1.776674.10.4.2" /> <id nullFlavor="NA" /> <code codeSystem="local" code= "UROBILNUA" displayName="UROBILINOGEN, URINE" /> <statusCode code= "completed" /> <effectiveTime value="" /> <value unit="mg/dL" xsi:type="PQ" value="<2.0" /> <referenceRange> <observationRange> <text><2.0</text> </ observationRange> </referenceRange> </observation> </ component> <component> <observation moodCode="EVN" classCode="OBS"> <templateId root="01.14.840.1.750522.09.17.22.4.2" /> <id nullFlavor="NA" /> <code codeSystem="local" code="LEUKESTUA" displayName="LEUKOCYTE ESTERASE, URINE" /> <statusCode code="completed " /> <effectiveTime value="" /> <value unit="" xsi :type="PQ" value="Negative" /> <referenceRange> < observationRange> <text>Negative</text> </ observationRange> </referenceRange> </observation> </ component> <component> <observation moodCode="EVN" classCode="OBS"> <templateId root="16.840.1.367375.09.17.22.4.2" /> <id nullFlavor="NA" /> <code codeSystem="local" code="NITRITEUA" displayName="NITRITE, URINE" /> <statusCode code="completed" /> <effectiveTime value="" /> <value unit="" xsi:type="PQ" value="Negative" /> <referenceRange> <observationRange> <text>Negative</text> </observationRange> </ referenceRange> </observation> </component> <component> <observation moodCode="EVN" classCode="OBS"> <templateId root= "16.840.1.085203.10..22.4.2" /> <id nullFlavor="NA" /> < code codeSystem="local" code="ACULT" displayName="ADD URINE CULTURE" /> <statusCode code="completed" /> <effectiveTime value="058992423237" / > <value unit="" xsi:type="PQ" value="NO" /> <referenceRange> <observationRange> <text /> </ observationRange> </referenceRange> </observation> </ component> </organizer> </entry> <entry> <organizer moodCode="EVN" classCode="BATTERY"> <templateId root="16.840.1.793276.10..22.4.1" /> <id nullFlavor="NA" /> <code codeSystem="local" code="GBC" displayName ="GROUP B STREP CULTURE" /> <statusCode code="completed" /> <component > <observation moodCode="EVN" classCode="OBS"> <templateId root= "16.840.1.565006.10.22.4.2" /> <id nullFlavor="NA" /> < code codeSystem="local" code="MB" displayName="Microbiology" /> < statusCode code="completed" /> <effectiveTime value="531900555838" /> <value xsi:type="ST" value="<pre><b>GROUP B STREP CULTURE& lt;/b> [address] [place] [phone] [phone] AGALACTIAE GROUP B: STREP AGALACTIAE GROUP BGROUP B STREP CULTURE: <POSITIVE> for Group B, Beta Hemolytic Strep</pre>" /> <referenceRange> <observationRange> <text /> </observationRange> </referenceRange> </observation> </component> </organizer> </entry> <entry> <organizer moodCode="EVN" classCode="BATTERY"> <templateId root="2.16.840.1.138244.10.20.22.4.1" /> <id nullFlavor="NA" /> <code codeSystem="local" code="GBC" displayName ="GROUP B STREP CULTURE" /> <statusCode code="completed" /> <component > <observation moodCode="EVN" classCode="OBS"> <templateId root= "2.16.840.1.911128.10.20.22.4.2" /> <id nullFlavor="NA" /> < code codeSystem="local" code="MB" displayName="Microbiology" /> < statusCode code="completed" /> <effectiveTime value="833310222046" /> <value xsi:type="ST" value="<pre><b>GROUP B STREP CULTURE</b> [address] [place] [address] [address] GROUP B STREP CULTURE: NO GROUP B BETA STREP ISOLATED.</pre>" /> <referenceRange> <observationRange> <text /> </observationRange > </referenceRange> </observation> </component> </ organizer> </entry> <entry> <organizer moodCode="EVN" classCode="BATTERY"> <templateId root="01.14.840.1.935808.10.4.1" /> <id nullFlavor= "NA" /> <code codeSystem="local" code="UC" displayName="URINE CULTURE" /> <statusCode code="completed" /> <component> <observation moodCode="EVN" classCode="OBS"> <templateId root= "840.1.624668.09.17.22.4.2" /> <id nullFlavor="NA" /> < code codeSystem="local" code="MB" displayName="Microbiology" /> < statusCode code="completed" /> <effectiveTime value="603860338742" /> <value xsi:type="ST" value="<pre><b>URINE CULTURE</b> [address] [address] URINE CULTURE : NO GROWTH</pre>" /> <referenceRange> <observationRange> <text /> </observationRange> </referenceRange> </observation> </component> </organizer> </entry> <entry> < organizer moodCode="EVN" classCode="BATTERY"> <templateId root= "840.1.975362.09.17.22.4.1" /> <id nullFlavor="NA" /> <code codeSystem="local" code="CBC" displayName="CBC Diff reflex to Manual Diff" /> <statusCode code="completed" /> <component> <observation moodCode="EVN" classCode="OBS"> <templateId root= "01.14.840.1.961861.10.4.2" /> <id nullFlavor="NA" /> < code codeSystem="local" code="WBC" displayName="WBC" /> <statusCode code="completed" /> <effectiveTime value="" /> < value unit="1000/uL" xsi:type="PQ" value="13.3" /> <referenceRange> <observationRange> <text>3.7-11.1</text> </ observationRange> </referenceRange> </observation> </ component> <component> <observation moodCode="EVN" classCode="OBS"> <templateId root="01.14.840.1.629973.10.20.22.4.2" /> <id nullFlavor="NA" /> <code codeSystem="local" code="RBC" displayName="RBC " /> <statusCode code="completed" /> <effectiveTime value= "" /> <value unit="mil/uL" xsi:type="PQ" value="4.16" /> <referenceRange> <observationRange> <text>4.11- 5.63</text> </observationRange> </referenceRange> </ observation> </component> <component> <observation moodCode= "EVN" classCode="OBS"> <templateId root="01.14.840.1.722961.10.20.22.4.2 " /> <id nullFlavor="NA" /> <code codeSystem="local" code="HGB " displayName="HEMOGLOBIN" /> <statusCode code="completed" /> <effectiveTime value="" /> <value unit="g/dl" xsi:type="PQ " value="11.7" /> <referenceRange> <observationRange> <text>11.9-16.3</text> </observationRange> </ referenceRange> </observation> </component> <component> <observation moodCode="EVN" classCode="OBS"> <templateId root= "840.1.164561.10.22.4.2" /> <id nullFlavor="NA" /> < code codeSystem="local" code="HCT" displayName="HEMATOCRIT" /> < statusCode code="completed" /> <effectiveTime value="" /> <value unit="%" xsi:type="PQ" value="36.3" /> < referenceRange> <observationRange> <text>37.0-47.7</text > </observationRange> </referenceRange> </observation > </component> <component> <observation moodCode="EVN" classCode="OBS"> <templateId root="216.840.1.180687.09.17.22.4.2" /> <id nullFlavor="NA" /> <code codeSystem="local" code="PLT" displayName="PLATELET COUNT" /> <statusCode code="completed" /> <effectiveTime value="" /> <value unit="1000/uL" xsi: type="PQ" value="330" /> <referenceRange> <observationRange > <text>150-400</text> </observationRange> </ referenceRange> </observation> </component> <component> <observation moodCode="EVN" classCode="OBS"> <templateId root= "216.840.1.632969.1022.4.2" /> <id nullFlavor="NA" /> < code codeSystem="local" code="MCV" displayName="MCV" /> <statusCode code="completed" /> <effectiveTime value="134221553680" /> < value unit="fl" xsi:type="PQ" value="87" /> <referenceRange> <observationRange> <text>81-97</text> </ observationRange> </referenceRange> </observation> </ component> <component> <observation moodCode="EVN" classCode="OBS"> <templateId root="16.840.1.263056.10.2022.4.2" /> <id nullFlavor="NA" /> <code codeSystem="local" code="MCH" displayName="MCH " /> <statusCode code="completed" /> <effectiveTime value= "" /> <value unit="pg" xsi:type="PQ" value="28.2" /> <referenceRange> <observationRange> <text>26.7-33.1< /text> </observationRange> </referenceRange> </ observation> </component> <component> <observation moodCode= "EVN" classCode="OBS"> <templateId root="01.14.840.1.690608.10.22.4.2 " /> <id nullFlavor="NA" /> <code codeSystem="local" code[facility]" displayName="[facility]" /> <statusCode code="completed" /> < effectiveTime value="" /> <value unit="g/dL" xsi:type="PQ" value="32.4" /> <referenceRange> <observationRange> <text>31.1-35.3</text> </observationRange> </ referenceRange> </observation> </component> <component> <observation moodCode="EVN" classCode="OBS"> <templateId root= "01.14.840.1.761318.10.20.22.4.2" /> <id nullFlavor="NA" /> < code codeSystem="local" code="RDW" displayName="RDW" /> <statusCode code="completed" /> <effectiveTime value="" /> < value unit="%" xsi:type="PQ" value="13.1" /> <referenceRange> <observationRange> <text>12.3-15.9</text> </ observationRange> </referenceRange> </observation> </ component> <component> <observation moodCode="EVN" classCode="OBS"> <templateId root="01.14.840.1.997307.10.2022.4.2" /> <id nullFlavor="NA" /> <code codeSystem="local" code="MPV" displayName="MPV " /> <statusCode code="completed" /> <effectiveTime value= "" /> <value unit="fl" xsi:type="PQ" value="10.9" /> <referenceRange> <observationRange> <text /> </observationRange> </referenceRange> </observation> < /component> <component> <observation moodCode="EVN" classCode="OBS" > <templateId root="01.14.840.1.642767.1022.4.2" /> <id nullFlavor="NA" /> <code codeSystem="local" code="NEUTROAB" displayName ="ABSOLUTE NEUTROPHIL" /> <statusCode code="completed" /> < effectiveTime value="" /> <value unit="1000/uL" xsi:type= "PQ" value="8.8" /> <referenceRange> <observationRange> <text>1.7-7.1</text> </observationRange> </ referenceRange> </observation> </component> <component> <observation moodCode="EVN" classCode="OBS"> <templateId root= "01.14.840.1.168457.22.4.2" /> <id nullFlavor="NA" /> < code codeSystem="local" code="LYMPAB" displayName="ABSOLUTE LYMPHOCYTE" /> <statusCode code="completed" /> <effectiveTime value=" " /> <value unit="1000/uL" xsi:type="PQ" value="3.7" /> < referenceRange> <observationRange> <text>1.1-3.7</text> </observationRange> </referenceRange> </observation > </component> <component> <observation moodCode="EVN" classCode="OBS"> <templateId root="16.840.1.210455.10...4.2" /> <id nullFlavor="NA" /> <code codeSystem="local" code="MONOAB" displayName="ABSOLUTE MONOCYTE" /> <statusCode code="completed" /> <effectiveTime value="" /> <value unit="1000/uL" xsi: type="PQ" value="0.6" /> <referenceRange> <observationRange > <text>0.3-0.9</text> </observationRange> </ referenceRange> </observation> </component> <component> <observation moodCode="EVN" classCode="OBS"> <templateId root= "01.14.840.1.857311.09.17.22.4.2" /> <id nullFlavor="NA" /> < code codeSystem="local" code="EOSAB" displayName="ABSOLUTE EOSINOPHIL" /> <statusCode code="completed" /> <effectiveTime value=" " /> <value unit="1000/uL" xsi:type="PQ" value="0.1" /> < referenceRange> <observationRange> <text>0.0-0.5</text> </observationRange> </referenceRange> </observation > </component> <component> <observation moodCode="EVN" classCode="OBS"> <templateId root="01.14.840.1.957434.10..22.4.2" /> <id nullFlavor="NA" /> <code codeSystem="local" code="BASOAB" displayName="ABSOLUTE BASOPHIL" /> <statusCode code="completed" /> <effectiveTime value="" /> <value unit="1000/uL" xsi: type="PQ" value="0.1" /> <referenceRange> <observationRange > <text>0.0-0.1</text> </observationRange> </ referenceRange> </observation> </component> <component> <observation moodCode="EVN" classCode="OBS"> <templateId root= "840.1.941472.10.20.22.4.2" /> <id nullFlavor="NA" /> < code codeSystem="local" code="NEUTRO" displayName="NEUTROPHILS" /> < statusCode code="completed" /> <effectiveTime value="" /> <value unit="%" xsi:type="PQ" value="66" /> < referenceRange> <observationRange> <text /> < /observationRange> </referenceRange> </observation> </ component> <component> <observation moodCode="EVN" classCode="OBS"> <templateId root="01.14.840.1.506837.10.2022.4.2" /> <id nullFlavor="NA" /> <code codeSystem="local" code="LYMP" displayName= "LYMPHOCYTE" /> <statusCode code="completed" /> < effectiveTime value="" /> <value unit="%" xsi:type="PQ " value="28" /> <referenceRange> <observationRange> <text /> </observationRange> </referenceRange> </observation> </component> <component> <observation moodCode= "EVN" classCode="OBS"> <templateId root="01.14.840.1.259002.10.20.22.4.2 " /> <id nullFlavor="NA" /> <code codeSystem="local" code= "MONO" displayName="MONOCYTE" /> <statusCode code="completed" /> <effectiveTime value="" /> <value unit="%" xsi:type ="PQ" value="5" /> <interpretationCode codeSystem="local" code="N" /> <referenceRange> <observationRange> <text /> </observationRange> </referenceRange> </observation> </component> <component> <observation moodCode="EVN" classCode= "OBS"> <templateId root="2.16.840.1.574135.09.17.224.2" /> < id nullFlavor="NA" /> <code codeSystem="local" code="EOS" displayName= "EOSINOPHIL" /> <statusCode code="completed" /> < effectiveTime value="" /> <value unit="%" xsi:type="PQ " value="1" /> <interpretationCode codeSystem="local" code="N" /> <referenceRange> <observationRange> <text /> </observationRange> </referenceRange> </observation> </component> <component> <observation moodCode="EVN" classCode="OBS "> <templateId root="2.16.840.1.760486.10.4.2" /> <id nullFlavor="NA" /> <code codeSystem="local" code="BASO" displayName= "BASOPHIL" /> <statusCode code="completed" /> <effectiveTime value="" /> <value unit="%" xsi:type="PQ" value="0" /> <interpretationCode codeSystem="local" code="N" /> < referenceRange> <observationRange> <text /> < /observationRange> </referenceRange> </observation> </ component> <component> <observation moodCode="EVN" classCode="OBS"> <templateId root="2.16.840.1.076796.10..22.4.2" /> <id nullFlavor="NA" /> <code codeSystem="local" code="VD" displayName= "VERIFY DIFF" /> <statusCode code="completed" /> < effectiveTime value="021990476152" /> <value unit="" xsi:type="PQ" value="Auto diff" /> <interpretationCode codeSystem="local" code="N" / > <referenceRange> <observationRange> <text /> </observationRange> </referenceRange> </observation > </component> </organizer> </entry> <entry> <organizer moodCode= "EVN" classCode="BATTERY"> <templateId root="216.840.1.931903.10..22.4.1 " /> <id nullFlavor="NA" /> <code codeSystem="local" code="HH" displayName="HEMOGLOBIN HEMATOCRIT" /> <statusCode code="completed" /> <component> <observation moodCode="EVN" classCode="OBS"> < templateId root="2.16.840.1.756095.10.20.22.4.2" /> <id nullFlavor="NA " /> <code codeSystem="local" code="HGB" displayName="HEMOGLOBIN" /> <statusCode code="completed" /> <effectiveTime value= "181045334795" /> <value unit="g/dl" xsi:type="PQ" value="11.1" /> <interpretationCode codeSystem="local" code="L" /> < referenceRange> <observationRange> <text>11.9-16.3</text > </observationRange> </referenceRange> </observation > </component> <component> <observation moodCode="EVN" classCode="OBS"> <templateId root="216.840.1.465479.10..22.4.2" /> <id nullFlavor="NA" /> <code codeSystem="local" code="HCT" displayName="HEMATOCRIT" /> <statusCode code="completed" /> < effectiveTime value="236682746954" /> <value unit="%" xsi:type="PQ " value="33.4" /> <interpretationCode codeSystem="local" code="L" /> <referenceRange> <observationRange> <text>37.0- 47.7</text> </observationRange> </referenceRange> </ observation> </component> </organizer> </entry> <entry> <organizer moodCode="EVN" classCode="BATTERY"> <templateId root= "216.840.1.903068.10..22.4.1" /> <id nullFlavor="NA" /> <code codeSystem="local" code="GCCTRNA" displayName="GONORRHEA CHLAMYDIA RNA" /> <statusCode code="completed" /> <component> <observation moodCode ="EVN" classCode="OBS"> <templateId root= "216.840.1.509498.10..22.4.2" /> <id nullFlavor="NA" /> < code codeSystem="local" code="GCCTSOURCE" displayName="SOURCE GCCT RNA" /> <statusCode code="completed" /> <effectiveTime value="238308018496 " /> <value unit="" xsi:type="PQ" value="ENDOCERVICAL" /> < referenceRange> <observationRange> <text /> < /observationRange> </referenceRange> </observation> </ component> <component> <observation moodCode="EVN" classCode="OBS"> <templateId root="840.1.172064.1022.4.2" /> <id nullFlavor="NA" /> <code codeSystem="local" code="COMBO_GC" displayName ="N. GONORRHOEAE" /> <statusCode code="completed" /> < effectiveTime value="" /> <value unit="" xsi:type="PQ" value="NEGATIVE" /> <referenceRange> <observationRange> <text>NEGATIVE</text> </observationRange> </ referenceRange> </observation> </component> <component> <observation moodCode="EVN" classCode="OBS"> <templateId root= "840.1.948915.09.17.22.4.2" /> <id nullFlavor="NA" /> < code codeSystem="local" code="COMBO_CT" displayName="C. TRACHOMATIS" /> <statusCode code="completed" /> <effectiveTime value="" / > <value unit="" xsi:type="PQ" value="NEGATIVE" /> < referenceRange> <observationRange> <text>NEGATIVE</text > </observationRange> </referenceRange> </observation > </component> </organizer> </entry> <entry> <organizer moodCode= "EVN" classCode="BATTERY"> <templateId root="840.1.875093.09.17.22.4.1 " /> <id nullFlavor="NA" /> <code codeSystem="local" code="UAPOC" displayName="URINALYSIS POC" /> <statusCode code="completed" /> < component> <observation moodCode="EVN" classCode="OBS"> < templateId root="840.1.461965.1022.4.2" /> <id nullFlavor="NA " /> <code codeSystem="local" code="APPUAPOC" displayName="APPEARANCE" /> <statusCode code="completed" /> <effectiveTime value= "" /> <value unit="" xsi:type="PQ" value="Clear" /> <referenceRange> <observationRange> <text>Clear</text > </observationRange> </referenceRange> </observation > </component> <component> <observation moodCode="EVN" classCode="OBS"> <templateId root="16.840.1.154805.09.17.22.4.2" /> <id nullFlavor="NA" /> <code codeSystem="local" code= "COLORUAPOC" displayName="COLOR" /> <statusCode code="completed" /> <effectiveTime value="" /> <value unit="" xsi:type= "PQ" value="Yellow" /> <referenceRange> <observationRange> <text /> </observationRange> </referenceRange> </observation> </component> <component> <observation moodCode="EVN" classCode="OBS"> <templateId root= "01.14.840.1.410275.09.17.22.4.2" /> <id nullFlavor="NA" /> < code codeSystem="local" code="PHUAPOC" displayName="PH URINE POC" /> < statusCode code="completed" /> <effectiveTime value="" /> <value unit="" xsi:type="PQ" value="6.5" /> <referenceRange> <observationRange> <text>5.0-8.0</text> </ observationRange> </referenceRange> </observation> </ component> <component> <observation moodCode="EVN" classCode="OBS"> <templateId root="01.14.840.1.847155.09.17.22.4.2" /> <id nullFlavor="NA" /> <code codeSystem="local" code="SPGUAPOC" displayName ="SPECIFIC GRAVITY UR POC" /> <statusCode code="completed" /> <effectiveTime value="" /> <value unit="" xsi:type="PQ" value="1.015" /> <referenceRange> <observationRange> <text><1.030</text> </observationRange> </ referenceRange> </observation> </component> <component> <observation moodCode="EVN" classCode="OBS"> <templateId root= "2.16.840.1.914634.10..22.4.2" /> <id nullFlavor="NA" /> < code codeSystem="local" code="GLUCUAPOC" displayName="GLUCOSE URINE POC" /> <statusCode code="completed" /> <effectiveTime value= "" /> <value unit="mg/dL" xsi:type="PQ" value="Negative" / > <referenceRange> <observationRange> <text> Negative</text> </observationRange> </referenceRange> </observation> </component> <component> <observation moodCode ="EVN" classCode="OBS"> <templateId root= "2.16.840.1.679034.10..22.4.2" /> <id nullFlavor="NA" /> < code codeSystem="local" code="BLDUAPOC" displayName="BLOOD URINE POC" /> <statusCode code="completed" /> <effectiveTime value="" /> <value unit="" xsi:type="PQ" value="Negative" /> < referenceRange> <observationRange> <text>Negative</text > </observationRange> </referenceRange> </observation > </component> <component> <observation moodCode="EVN" classCode="OBS"> <templateId root="01.14.840.1.153782.10..22.4.2" /> <id nullFlavor="NA" /> <code codeSystem="local" code= "KETOUAPOC" displayName="KETONES URINE POC" /> <statusCode code= "completed" /> <effectiveTime value="" /> <value unit="mg/dL" xsi:type="PQ" value="Negative" /> <referenceRange> <observationRange> <text>Negative</text> </ observationRange> </referenceRange> </observation> </ component> <component> <observation moodCode="EVN" classCode="OBS"> <templateId root="01.14.840.1.177001.10...4.2" /> <id nullFlavor="NA" /> <code codeSystem="local" code="PROTUAPOC" displayName="PROTEIN UR QUAL POC" /> <statusCode code="completed" /> <effectiveTime value="" /> <value unit="mg/dL" xsi: type="PQ" value="Negative" /> <referenceRange> < observationRange> <text>Negative</text> </ observationRange> </referenceRange> </observation> </ component> <component> <observation moodCode="EVN" classCode="OBS"> <templateId root="01.14.840.1.280953.10..22.4.2" /> <id nullFlavor="NA" /> <code codeSystem="local" code="BILIUAPOC" displayName="BILIRUBIN URINE POC" /> <statusCode code="completed" /> <effectiveTime value="" /> <value unit="" xsi:type= "PQ" value="Negative" /> <referenceRange> <observationRange > <text>Negative</text> </observationRange> </ referenceRange> </observation> </component> <component> <observation moodCode="EVN" classCode="OBS"> <templateId root= "2.16.840.1.655340.10..4.2" /> <id nullFlavor="NA" /> < code codeSystem="local" code="UROBIUAPOC" displayName="UROBILINOGEN URINE POC" / > <statusCode code="completed" /> <effectiveTime value= "587038573611" /> <value unit="mg/dL" xsi:type="PQ" value="0.2" /> <referenceRange> <observationRange> <text><2.0< /text> </observationRange> </referenceRange> </ observation> </component> <component> <observation moodCode= "EVN" classCode="OBS"> <templateId root="216.840.1.216477.09.17.22.4.2 " /> <id nullFlavor="NA" /> <code codeSystem="local" code= "LEUKEUAPOC" displayName="LEUKOCYTE ESTERASE UR POC" /> <statusCode code="completed" /> <effectiveTime value="936703894947" /> < value unit="" xsi:type="PQ" value="Trace" /> <referenceRange> <observationRange> <text>Negative</text> </ observationRange> </referenceRange> </observation> </ component> <component> <observation moodCode="EVN" classCode="OBS"> <templateId root="216.840.1.126456.10..4.2" /> <id nullFlavor="NA" /> <code codeSystem="local" code="NITRIUAPOC" displayName="NITRITE URINE POC" /> <statusCode code="completed" /> <effectiveTime value="626520687113" /> <value unit="" xsi:type= "PQ" value="Negative" /> <interpretationCode codeSystem="local" code="N " /> <referenceRange> <observationRange> <text> Negative</text> </observationRange> </referenceRange> </observation> </component> </organizer> </entry> <entry> < organizer moodCode="EVN" classCode="BATTERY"> <templateId root= "216.840.1.113930.10...4.1" /> <id nullFlavor="NA" /> <code codeSystem="local" code="DRUGU" displayName="DRUG SCREEN, URINE" /> < statusCode code="completed" /> <component> <observation moodCode= "EVN" classCode="OBS"> <templateId root="216.840.1.338255.10...4.2 " /> <id nullFlavor="NA" /> <code codeSystem="local" code= "AMPHETU" displayName="AMPHETAMINE SCREEN,URINE" /> <statusCode code= "completed" /> <effectiveTime value="" /> <value unit="" xsi:type="PQ" value="POSITIVE" /> <referenceRange> < observationRange> <text>NONE DETECT</text> </ observationRange> </referenceRange> </observation> </ component> <component> <observation moodCode="EVN" classCode="OBS"> <templateId root="16.840.1.131286.10...4.2" /> <id nullFlavor="NA" /> <code codeSystem="local" code="BARBITU" displayName= "BARBITURATES SCREEN,URINE" /> <statusCode code="completed" /> <effectiveTime value="" /> <value unit="" xsi:type="PQ" value="NONE DETECTED" /> <referenceRange> <observationRange > <text>NONE DETECT</text> </observationRange> </referenceRange> </observation> </component> <component> <observation moodCode="EVN" classCode="OBS"> <templateId root= "16.840.1.940167.10.22.4.2" /> <id nullFlavor="NA" /> < code codeSystem="local" code="BENZODIAU" displayName="BENZODIAZEPINES SCREEN, URINE" /> <statusCode code="completed" /> <effectiveTime value ="" /> <value unit="" xsi:type="PQ" value="NONE DETECTED" / > <referenceRange> <observationRange> <text> NONE DETECT</text> </observationRange> </referenceRange> </observation> </component> <component> <observation moodCode="EVN" classCode="OBS"> <templateId root= "01.14.840.1.584248.09.17.22.4.2" /> <id nullFlavor="NA" /> < code codeSystem="local" code="CANNABU" displayName="CANNABINOID SCREEN, URINE" / > <statusCode code="completed" /> <effectiveTime value= "" /> <value unit="" xsi:type="PQ" value="NONE DETECTED" / > <referenceRange> <observationRange> <text> NONE DETECT</text> </observationRange> </referenceRange> </observation> </component> <component> <observation moodCode="EVN" classCode="OBS"> <templateId root= "01.14.840.1.692026.09.17.22.4.2" /> <id nullFlavor="NA" /> < code codeSystem="local" code="COCAINEU" displayName="COCAINE SCREEN, URINE" /> <statusCode code="completed" /> <effectiveTime value= "" /> <value unit="" xsi:type="PQ" value="NONE DETECTED" / > <referenceRange> <observationRange> <text> NONE DETECT</text> </observationRange> </referenceRange> </observation> </component> <component> <observation moodCode="EVN" classCode="OBS"> <templateId root= "216.840.1.033958.10..22.4.2" /> <id nullFlavor="NA" /> < code codeSystem="local" code="ECSTASYU" displayName="ECSTASY (MDMA) SCRN UR" /> <statusCode code="completed" /> <effectiveTime value= "" /> <value unit="" xsi:type="PQ" value="NONE DETECTED" / > <referenceRange> <observationRange> <text> NONE DETECT</text> </observationRange> </referenceRange> </observation> </component> <component> <observation moodCode="EVN" classCode="OBS"> <templateId root= "216.840.1.531698.10...4.2" /> <id nullFlavor="NA" /> < code codeSystem="local" code="OPIATEU" displayName="OPIATE SCREEN, URINE" /> <statusCode code="completed" /> <effectiveTime value= "" /> <value unit="" xsi:type="PQ" value="NONE DETECTED" / > <interpretationCode codeSystem="local" code="N" /> < referenceRange> <observationRange> <text>NONE DETECT</ text> </observationRange> </referenceRange> </ observation> </component> </organizer> </entry> <entry> <organizer moodCode="EVN" classCode="BATTERY"> <templateId root= "216.840.1.174835.10..22.4.1" /> <id nullFlavor="NA" /> <code codeSystem="local" code="HOLD" displayName="HOLD SPECIMENS" /> <statusCode code="completed" /> <component> <observation moodCode="EVN" classCode="OBS"> <templateId root="216.840.1.987448.10..22.4.2" /> <id nullFlavor="NA" /> <code codeSystem="local" code="HOLD" displayName="HOLD SPECIMENS" /> <statusCode code="completed" /> <effectiveTime value="036142256872" /> <value unit="" xsi:type="PQ" value="SAVE" /> <referenceRange> <observationRange> <text /> </observationRange> </referenceRange> </observation> </component> </organizer> </entry> <entry> < organizer moodCode="EVN" classCode="BATTERY"> <templateId root= "216.840.1.801804.10..22.4.1" /> <id nullFlavor="NA" /> <code codeSystem="local" code="HCGQNT" displayName="HCG QUANTITATIVE" /> < statusCode code="completed" /> <component> <observation moodCode= "EVN" classCode="OBS"> <templateId root="216.840.1.523715.10..22.4.2 " /> <id nullFlavor="NA" /> <code codeSystem="local" code= "HCGQNT" displayName="HCG QUANTITATIVE" /> <statusCode code="completed " /> <effectiveTime value="480094799605" /> <value unit="mIU/ mL" xsi:type="PQ" value="< 1" /> <referenceRange> < observationRange> <text>0-5</text> </observationRange> </referenceRange> </observation> </component> </ organizer> </entry> <entry> <organizer moodCode="EVN" classCode="BATTERY"> <templateId root="216.840.1.277508.10..4.1" /> <id nullFlavor= "NA" /> <code codeSystem="local" code="DRUGU" displayName="DRUG SCREEN, URINE" /> <statusCode code="completed" /> <component> < observation moodCode="EVN" classCode="OBS"> <templateId root= "216.840.1.327798.10..4.2" /> <id nullFlavor="NA" /> < code codeSystem="local" code="AMPHETU" displayName="AMPHETAMINE SCREEN,URINE" / > <statusCode code="completed" /> <effectiveTime value= "" /> <value unit="" xsi:type="PQ" value="POSITIVE" /> <referenceRange> <observationRange> <text>NONE DETECT</text> </observationRange> </referenceRange> < /observation> </component> <component> <observation moodCode= "EVN" classCode="OBS"> <templateId root="216.840.1.543820.09.17.22.4.2 " /> <id nullFlavor="NA" /> <code codeSystem="local" code= "BARBITU" displayName="BARBITURATES SCREEN,URINE" /> <statusCode code= "completed" /> <effectiveTime value="" /> <value unit="" xsi:type="PQ" value="NONE DETECTED" /> <referenceRange> <observationRange> <text>NONE DETECT</text> </ observationRange> </referenceRange> </observation> </ component> <component> <observation moodCode="EVN" classCode="OBS"> <templateId root="216.840.1.958068.09.17.22.4.2" /> <id nullFlavor="NA" /> <code codeSystem="local" code="BENZODIAU" displayName="BENZODIAZEPINES SCREEN,URINE" /> <statusCode code= "completed" /> <effectiveTime value="" /> <value unit="" xsi:type="PQ" value="NONE DETECTED" /> <referenceRange> <observationRange> <text>NONE DETECT</text> </ observationRange> </referenceRange> </observation> </ component> <component> <observation moodCode="EVN" classCode="OBS"> <templateId root="216.840.1.593592.10..4.2" /> <id nullFlavor="NA" /> <code codeSystem="local" code="CANNABU" displayName= "CANNABINOID SCREEN, URINE" /> <statusCode code="completed" /> <effectiveTime value="" /> <value unit="" xsi:type="PQ" value="NONE DETECTED" /> <referenceRange> <observationRange > <text>NONE DETECT</text> </observationRange> </referenceRange> </observation> </component> <component> <observation moodCode="EVN" classCode="OBS"> <templateId root= "2.16.840.1.570036.10..4.2" /> <id nullFlavor="NA" /> < code codeSystem="local" code="COCAINEU" displayName="COCAINE SCREEN, URINE" /> <statusCode code="completed" /> <effectiveTime value= "" /> <value unit="" xsi:type="PQ" value="NONE DETECTED" / > <referenceRange> <observationRange> <text> NONE DETECT</text> </observationRange> </referenceRange> </observation> </component> <component> <observation moodCode="EVN" classCode="OBS"> <templateId root= "840.1.297340.10..22.4.2" /> <id nullFlavor="NA" /> < code codeSystem="local" code="ECSTASYU" displayName="ECSTASY (MDMA) SCRN UR" /> <statusCode code="completed" /> <effectiveTime value= "238676044485" /> <value unit="" xsi:type="PQ" value="NONE DETECTED" / > <referenceRange> <observationRange> <text> NONE DETECT</text> </observationRange> </referenceRange> </observation> </component> <component> <observation moodCode="EVN" classCode="OBS"> <templateId root= "840.1.898183.10.4.2" /> <id nullFlavor="NA" /> < code codeSystem="local" code="OPIATEU" displayName="OPIATE SCREEN, URINE" /> <statusCode code="completed" /> <effectiveTime value= "" /> <value unit="" xsi:type="PQ" value="NONE DETECTED" / > <interpretationCode codeSystem="local" code="N" /> < referenceRange> <observationRange> <text>NONE DETECT</ text> </observationRange> </referenceRange> </ observation> </component> </organizer> </entry> <entry> <organizer moodCode="EVN" classCode="BATTERY"> <templateId root= "840.1.728051.10..22.4.1" /> <id nullFlavor="NA" /> <code codeSystem="local" code="UAPOC" displayName="URINALYSIS POC" /> < statusCode code="completed" /> <component> <observation moodCode= "EVN" classCode="OBS"> <templateId root="840.1.331330.10..22.4.2 " /> <id nullFlavor="NA" /> <code codeSystem="local" code= "APPUAPOC" displayName="APPEARANCE" /> <statusCode code="completed" /> <effectiveTime value="" /> <value unit="" xsi: type="PQ" value="Clear" /> <referenceRange> < observationRange> <text>Clear</text> </observationRange > </referenceRange> </observation> </component> < component> <observation moodCode="EVN" classCode="OBS"> < templateId root="216.840.1.383451...4.2" /> <id nullFlavor="NA " /> <code codeSystem="local" code="COLORUAPOC" displayName="COLOR" /> <statusCode code="completed" /> <effectiveTime value= "" /> <value unit="" xsi:type="PQ" value="Yellow" /> <referenceRange> <observationRange> <text /> </observationRange> </referenceRange> </observation> < /component> <component> <observation moodCode="EVN" classCode="OBS" > <templateId root="216.840.1.579423.10...4.2" /> <id nullFlavor="NA" /> <code codeSystem="local" code="PHUAPOC" displayName= "PH URINE POC" /> <statusCode code="completed" /> < effectiveTime value="" /> <value unit="" xsi:type="PQ" value="7.0" /> <referenceRange> <observationRange> <text>5.0-8.0</text> </observationRange> </ referenceRange> </observation> </component> <component> <observation moodCode="EVN" classCode="OBS"> <templateId root= "216.840.1.435708.10..22.4.2" /> <id nullFlavor="NA" /> < code codeSystem="local" code="SPGUAPOC" displayName="SPECIFIC GRAVITY UR POC" / > <statusCode code="completed" /> <effectiveTime value= "182823896633" /> <value unit="" xsi:type="PQ" value="1.010" /> <referenceRange> <observationRange> <text><1.030</ text> </observationRange> </referenceRange> </ observation> </component> <component> <observation moodCode= "EVN" classCode="OBS"> <templateId root="216.840.1.102866.10...4.2 " /> <id nullFlavor="NA" /> <code codeSystem="local" code= "GLUCUAPOC" displayName="GLUCOSE URINE POC" /> <statusCode code= "completed" /> <effectiveTime value="055485587434" /> <value unit="mg/dL" xsi:type="PQ" value="Negative" /> <referenceRange> <observationRange> <text>Negative</text> </ observationRange> </referenceRange> </observation> </ component> <component> <observation moodCode="EVN" classCode="OBS"> <templateId root="16.840.1.755975.10..22.4.2" /> <id nullFlavor="NA" /> <code codeSystem="local" code="BLDUAPOC" displayName ="BLOOD URINE POC" /> <statusCode code="completed" /> < effectiveTime value="335657321205" /> <value unit="" xsi:type="PQ" value="Large" /> <referenceRange> <observationRange> <text>Negative</text> </observationRange> </ referenceRange> </observation> </component> <component> <observation moodCode="EVN" classCode="OBS"> <templateId root= "216.840.1.870287.10.4.2" /> <id nullFlavor="NA" /> < code codeSystem="local" code="KETOUAPOC" displayName="KETONES URINE POC" /> <statusCode code="completed" /> <effectiveTime value= "845734003031" /> <value unit="mg/dL" xsi:type="PQ" value="Negative" / > <referenceRange> <observationRange> <text> Negative</text> </observationRange> </referenceRange> </observation> </component> <component> <observation moodCode ="EVN" classCode="OBS"> <templateId root= "01.14.840.1.590224.09.17.22.4.2" /> <id nullFlavor="NA" /> < code codeSystem="local" code="PROTUAPOC" displayName="PROTEIN UR QUAL POC" /> <statusCode code="completed" /> <effectiveTime value= "100811596487" /> <value unit="mg/dL" xsi:type="PQ" value="Negative" / > <referenceRange> <observationRange> <text> Negative</text> </observationRange> </referenceRange> </observation> </component> <component> <observation moodCode ="EVN" classCode="OBS"> <templateId root= "01.14.840.1.040863.09.17.22.4.2" /> <id nullFlavor="NA" /> < code codeSystem="local" code="BILIUAPOC" displayName="BILIRUBIN URINE POC" /> <statusCode code="completed" /> <effectiveTime value= "292823120827" /> <value unit="" xsi:type="PQ" value="Negative" /> <referenceRange> <observationRange> <text>Negative </text> </observationRange> </referenceRange> </ observation> </component> <component> <observation moodCode= "EVN" classCode="OBS"> <templateId root="216.840.1.893547.10..22.4.2 " /> <id nullFlavor="NA" /> <code codeSystem="local" code= "UROBIUAPOC" displayName="UROBILINOGEN URINE POC" /> <statusCode code= "completed" /> <effectiveTime value="422532144265" /> <value unit="mg/dL" xsi:type="PQ" value="0.2" /> <referenceRange> < observationRange> <text><2.0</text> </ observationRange> </referenceRange> </observation> </ component> <component> <observation moodCode="EVN" classCode="OBS"> <templateId root="01.14.840.1.937450.10..4.2" /> <id nullFlavor="NA" /> <code codeSystem="local" code="LEUKEUAPOC" displayName="LEUKOCYTE ESTERASE UR POC" /> <statusCode code="completed " /> <effectiveTime value="757701707514" /> <value unit="" xsi :type="PQ" value="Negative" /> <referenceRange> < observationRange> <text>Negative</text> </ observationRange> </referenceRange> </observation> </ component> <component> <observation moodCode="EVN" classCode="OBS"> <templateId root="16.840.1.425817.10.20.22.4.2" /> <id nullFlavor="NA" /> <code codeSystem="local" code="NITRIUAPOC" displayName="NITRITE URINE POC" /> <statusCode code="completed" /> <effectiveTime value="786986111288" /> <value unit="" xsi:type= "PQ" value="Negative" /> <interpretationCode codeSystem="local" code="N " /> <referenceRange> <observationRange> <text> Negative</text> </observationRange> </referenceRange> </observation> </component> </organizer> </entry> <entry> < organizer moodCode="EVN" classCode="BATTERY"> <templateId root= "2.16.840.1.832448.10..22.4.1" /> <id nullFlavor="NA" /> <code codeSystem="local" code="DRUGU" displayName="DRUG SCREEN, URINE" /> < statusCode code="completed" /> <component> <observation moodCode= "EVN" classCode="OBS"> <templateId root="2.16.840.1.458144.10..22.4.2 " /> <id nullFlavor="NA" /> <code codeSystem="local" code= "AMPHETU" displayName="AMPHETAMINE SCREEN,URINE" /> <statusCode code= "completed" /> <effectiveTime value="820376755915" /> <value unit="" xsi:type="PQ" value="POSITIVE" /> <referenceRange> < observationRange> <text>NONE DETECT</text> </ observationRange> </referenceRange> </observation> </ component> <component> <observation moodCode="EVN" classCode="OBS"> <templateId root="216.840.1.181523.10..22.4.2" /> <id nullFlavor="NA" /> <code codeSystem="local" code="BARBITU" displayName= "BARBITURATES SCREEN,URINE" /> <statusCode code="completed" /> <effectiveTime value="" /> <value unit="" xsi:type="PQ" value="NONE DETECTED" /> <referenceRange> <observationRange > <text>NONE DETECT</text> </observationRange> </referenceRange> </observation> </component> <component> <observation moodCode="EVN" classCode="OBS"> <templateId root= "16.840.1.754406.09.17.22.4.2" /> <id nullFlavor="NA" /> < code codeSystem="local" code="BENZODIAU" displayName="BENZODIAZEPINES SCREEN, URINE" /> <statusCode code="completed" /> <effectiveTime value ="" /> <value unit="" xsi:type="PQ" value="NONE DETECTED" / > <referenceRange> <observationRange> <text> NONE DETECT</text> </observationRange> </referenceRange> </observation> </component> <component> <observation moodCode="EVN" classCode="OBS"> <templateId root= "01.14.840.1.138647.09.17.22.4.2" /> <id nullFlavor="NA" /> < code codeSystem="local" code="CANNABU" displayName="CANNABINOID SCREEN, URINE" / > <statusCode code="completed" /> <effectiveTime value= "" /> <value unit="" xsi:type="PQ" value="NONE DETECTED" / > <referenceRange> <observationRange> <text> NONE DETECT</text> </observationRange> </referenceRange> </observation> </component> <component> <observation moodCode="EVN" classCode="OBS"> <templateId root= "16.840.1.839707.10..4.2" /> <id nullFlavor="NA" /> < code codeSystem="local" code="COCAINEU" displayName="COCAINE SCREEN, URINE" /> <statusCode code="completed" /> <effectiveTime value= "" /> <value unit="" xsi:type="PQ" value="NONE DETECTED" / > <referenceRange> <observationRange> <text> NONE DETECT</text> </observationRange> </referenceRange> </observation> </component> <component> <observation moodCode="EVN" classCode="OBS"> <templateId root= "2.16.840.1.999589.10..22.4.2" /> <id nullFlavor="NA" /> < code codeSystem="local" code="ECSTASYU" displayName="ECSTASY (MDMA) SCRN UR" /> <statusCode code="completed" /> <effectiveTime value= "" /> <value unit="" xsi:type="PQ" value="NONE DETECTED" / > <referenceRange> <observationRange> <text> NONE DETECT</text> </observationRange> </referenceRange> </observation> </component> <component> <observation moodCode="EVN" classCode="OBS"> <templateId root= "2.16.840.1.761117.10..22.4.2" /> <id nullFlavor="NA" /> < code codeSystem="local" code="OPIATEU" displayName="OPIATE SCREEN, URINE" /> <statusCode code="completed" /> <effectiveTime value= "652645673918" /> <value unit="" xsi:type="PQ" value="NONE DETECTED" / > <interpretationCode codeSystem="local" code="N" /> < referenceRange> <observationRange> <text>NONE DETECT</ text> </observationRange> </referenceRange> </ observation> </component> </organizer> </entry> <entry> <organizer moodCode="EVN" classCode="BATTERY"> <templateId root= "840.1.043198.09.17.22.4.1" /> <id nullFlavor="NA" /> <code codeSystem="local" code="UAPOC" displayName="URINALYSIS POC" /> < statusCode code="completed" /> <component> <observation moodCode= "EVN" classCode="OBS"> <templateId root="840.1.756770.09.17.22.4.2 " /> <id nullFlavor="NA" /> <code codeSystem="local" code= "APPUAPOC" displayName="APPEARANCE" /> <statusCode code="completed" /> <effectiveTime value="" /> <value unit="" xsi: type="PQ" value="Sl Cloudy" /> <referenceRange> < observationRange> <text>Clear</text> </observationRange > </referenceRange> </observation> </component> < component> <observation moodCode="EVN" classCode="OBS"> < templateId root="840.1.697720.09.17.22.4.2" /> <id nullFlavor="NA " /> <code codeSystem="local" code="COLORUAPOC" displayName="COLOR" /> <statusCode code="completed" /> <effectiveTime value= "" /> <value unit="" xsi:type="PQ" value="Other" /> <referenceRange> <observationRange> <text /> </observationRange> </referenceRange> </observation> </ component> <component> <observation moodCode="EVN" classCode="OBS"> <templateId root="840.1.499475.09.17.22.4.2" /> <id nullFlavor="NA" /> <code codeSystem="local" code="PHUAPOC" displayName= "PH URINE POC" /> <statusCode code="completed" /> < effectiveTime value="805691777870" /> <value unit="" xsi:type="PQ" value="5.0" /> <referenceRange> <observationRange> <text>5.0-8.0</text> </observationRange> </ referenceRange> </observation> </component> <component> <observation moodCode="EVN" classCode="OBS"> <templateId root= "16.840.1.382924.10..22.4.2" /> <id nullFlavor="NA" /> < code codeSystem="local" code="SPGUAPOC" displayName="SPECIFIC GRAVITY UR POC" / > <statusCode code="completed" /> <effectiveTime value= "898059435613" /> <value unit="" xsi:type="PQ" value="1.020" /> <referenceRange> <observationRange> <text><1.030</ text> </observationRange> </referenceRange> </ observation> </component> <component> <observation moodCode= "EVN" classCode="OBS"> <templateId root="16.840.1.885422.10..22.4.2 " /> <id nullFlavor="NA" /> <code codeSystem="local" code= "GLUCUAPOC" displayName="GLUCOSE URINE POC" /> <statusCode code= "completed" /> <effectiveTime value="661085433702" /> <value unit="mg/dL" xsi:type="PQ" value="Negative" /> <referenceRange> <observationRange> <text>Negative</text> </ observationRange> </referenceRange> </observation> </ component> <component> <observation moodCode="EVN" classCode="OBS"> <templateId root="01.14.840.1.417199.09.17.22.4.2" /> <id nullFlavor="NA" /> <code codeSystem="local" code="BLDUAPOC" displayName ="BLOOD URINE POC" /> <statusCode code="completed" /> < effectiveTime value="" /> <value unit="" xsi:type="PQ" value="Negative" /> <referenceRange> <observationRange> <text>Negative</text> </observationRange> </ referenceRange> </observation> </component> <component> <observation moodCode="EVN" classCode="OBS"> <templateId root= "216.840.1.511985.09.17.22.4.2" /> <id nullFlavor="NA" /> < code codeSystem="local" code="KETOUAPOC" displayName="KETONES URINE POC" /> <statusCode code="completed" /> <effectiveTime value= "" /> <value unit="mg/dL" xsi:type="PQ" value="Negative" / > <referenceRange> <observationRange> <text> Negative</text> </observationRange> </referenceRange> </observation> </component> <component> <observation moodCode ="EVN" classCode="OBS"> <templateId root= "16.840.1.920930.09.17.22.4.2" /> <id nullFlavor="NA" /> < code codeSystem="local" code="PROTUAPOC" displayName="PROTEIN UR QUAL POC" /> <statusCode code="completed" /> <effectiveTime value= "" /> <value unit="mg/dL" xsi:type="PQ" value="Negative" / > <referenceRange> <observationRange> <text> Negative</text> </observationRange> </referenceRange> </observation> </component> <component> <observation moodCode ="EVN" classCode="OBS"> <templateId root= "216.840.1.160124.10.22.4.2" /> <id nullFlavor="NA" /> < code codeSystem="local" code="BILIUAPOC" displayName="BILIRUBIN URINE POC" /> <statusCode code="completed" /> <effectiveTime value= "" /> <value unit="" xsi:type="PQ" value="Negative" /> <referenceRange> <observationRange> <text>Negative </text> </observationRange> </referenceRange> </ observation> </component> <component> <observation moodCode= "EVN" classCode="OBS"> <templateId root="216.840.1.730374.10..4.2 " /> <id nullFlavor="NA" /> <code codeSystem="local" code= "UROBIUAPOC" displayName="UROBILINOGEN URINE POC" /> <statusCode code= "completed" /> <effectiveTime value="" /> <value unit="mg/dL" xsi:type="PQ" value="0.2" /> <referenceRange> < observationRange> <text><2.0</text> </ observationRange> </referenceRange> </observation> </ component> <component> <observation moodCode="EVN" classCode="OBS"> <templateId root="16.840.1.131167.10..22.4.2" /> <id nullFlavor="NA" /> <code codeSystem="local" code="LEUKEUAPOC" displayName="LEUKOCYTE ESTERASE UR POC" /> <statusCode code="completed " /> <effectiveTime value="" /> <value unit="" xsi :type="PQ" value="Moderate" /> <interpretationCode codeSystem="local" code="A" /> <referenceRange> <observationRange> <text>Negative</text> </observationRange> </referenceRange > </observation> </component> <component> <observation moodCode="EVN" classCode="OBS"> <templateId root= "216.840.1.158097.10..4.2" /> <id nullFlavor="NA" /> < code codeSystem="local" code="NITRIUAPOC" displayName="NITRITE URINE POC" /> <statusCode code="completed" /> <effectiveTime value= "970536320416" /> <value unit="" xsi:type="PQ" value="Negative" /> <interpretationCode codeSystem="local" code="N" /> < referenceRange> <observationRange> <text>Negative</text > </observationRange> </referenceRange> </observation > </component> </organizer> </entry> <entry> <organizer moodCode= "EVN" classCode="BATTERY"> <templateId root="01.14.840.1.949892.10..4.1 " /> <id nullFlavor="NA" /> <code codeSystem="local" code="UC" displayName="URINE CULTURE" /> <statusCode code="completed" /> < component> <observation moodCode="EVN" classCode="OBS"> < templateId root="216.840.1.015210.10..4.2" /> <id nullFlavor="NA " /> <code codeSystem="local" code="MB" displayName="Microbiology" /> <statusCode code="completed" /> <effectiveTime value= "500921303390" /> <value xsi:type="ST" value="<pre><b>URINE CULTURE</b > [address], [place] [phone] [address], [place] [phone] PRESTON: MIXED FLORAURINE CULTURE: COMMENTS SUGGEST REPEAT IF CLINICALLY INDICATED.</pre>" /> <referenceRange> < observationRange> <text /> </observationRange> </referenceRange> </observation> </component> </organizer> </ entry> <entry> <organizer moodCode="EVN" classCode="BATTERY"> < templateId root="2.16.840.1.860581.10..22.4.1" /> <id nullFlavor="NA" /> <code codeSystem="local" code="LIPASE" displayName="LIPASE" /> < statusCode code="completed" /> <component> <observation moodCode= "EVN" classCode="OBS"> <templateId root="2.16.840.1.149274.10..22.4.2 " /> <id nullFlavor="NA" /> <code codeSystem="local" code= "LIPASE" displayName="LIPASE" /> <statusCode code="completed" /> <effectiveTime value="169499625003" /> <value unit="U/L" xsi:type= "PQ" value="23" /> <referenceRange> <observationRange> <text>22-51</text> </observationRange> </ referenceRange> </observation> </component> </organizer> </entry > <entry> <organizer moodCode="EVN" classCode="BATTERY"> <templateId root="2.16.840.1.047492.10..22.4.1" /> <id nullFlavor="NA" /> <code codeSystem="local" code="HOLD" displayName="HOLD SPECIMENS" /> <statusCode code="completed" /> <component> <observation moodCode="EVN" classCode="OBS"> <templateId root="01.14.840.1.236476.10..22.4.2" /> <id nullFlavor="NA" /> <code codeSystem="local" code="HOLD" displayName="HOLD SPECIMENS" /> <statusCode code="completed" /> <effectiveTime value="964711631218" /> <value unit="" xsi:type="PQ" value="SAVE" /> <referenceRange> <observationRange> <text /> </observationRange> </referenceRange> </observation> </component> </organizer> </entry> <entry> < organizer moodCode="EVN" classCode="BATTERY"> <templateId root= "01.14.840.1.128610.10..4.1" /> <id nullFlavor="NA" /> <code codeSystem="local" code="UA" displayName="URINALYSIS, ROUTINE" /> < statusCode code="completed" /> <component> <observation moodCode= "EVN" classCode="OBS"> <templateId root="01.14.840.1.035160.10..4.2 " /> <id nullFlavor="NA" /> <code codeSystem="local" code= "NovoInsertedPL" displayName="Performing Location:" /> <statusCode code ="completed" /> <effectiveTime value="862268849310" /> <value unit="" xsi:type="PQ" value="" /> <referenceRange> < observationRange> <text /> </observationRange> </referenceRange> </observation> </component> <component> <observation moodCode="EVN" classCode="OBS"> <templateId root= "01.14.840.1.485982.10...4.2" /> <id nullFlavor="NA" /> < code codeSystem="local" code="PROTEIU" displayName="UA PROTEIN DIPSTICK" /> <statusCode code="completed" /> <effectiveTime value= "" /> <value unit="mg/dL" xsi:type="PQ" value="1+" /> <referenceRange> <observationRange> <text>NEGATIVE< /text> </observationRange> </referenceRange> </ observation> </component> <component> <observation moodCode= "EVN" classCode="OBS"> <templateId root="01.14.840.1.603187.10...4.2 " /> <id nullFlavor="NA" /> <code codeSystem="local" code= "DGLUU" displayName="UA GLUCOSE DIPSTICK" /> <statusCode code= "completed" /> <effectiveTime value="" /> <value unit="mg/dL" xsi:type="PQ" value="NEGATIVE" /> <referenceRange> <observationRange> <text>NEGATIVE</text> </ observationRange> </referenceRange> </observation> </ component> <component> <observation moodCode="EVN" classCode="OBS"> <templateId root="16.840.1.345990.10...4.2" /> <id nullFlavor="NA" /> <code codeSystem="local" code="KETONU" displayName= "UA KETONE DIPSTICK" /> <statusCode code="completed" /> < effectiveTime value="" /> <value unit="mg/dL" xsi:type="PQ " value="TRACE" /> <referenceRange> <observationRange> <text /> </observationRange> </referenceRange> </observation> </component> <component> <observation moodCode="EVN" classCode="OBS"> <templateId root= "01.14.840.1.605607.09.17.22.4.2" /> <id nullFlavor="NA" /> < code codeSystem="local" code="UROBILU" displayName="UA UROBILINOGEN DIPSTICK" / > <statusCode code="completed" /> <effectiveTime value= "316402896534" /> <value unit="EU/dL" xsi:type="PQ" value="1.0" /> <referenceRange> <observationRange> <text>0.2 - 1< /text> </observationRange> </referenceRange> </ observation> </component> <component> <observation moodCode= "EVN" classCode="OBS"> <templateId root="216.840.1.706096.09.17.22.4.2 " /> <id nullFlavor="NA" /> <code codeSystem="local" code= "BILU" displayName="UA BILIRUBIN DIPSTICK" /> <statusCode code= "completed" /> <effectiveTime value="009047497480" /> <value unit="mg/dL" xsi:type="PQ" value="1+" /> <referenceRange> < observationRange> <text>NEGATIVE</text> </ observationRange> </referenceRange> </observation> </ component> <component> <observation moodCode="EVN" classCode="OBS"> <templateId root="216.840.1.635601.09.17.22.4.2" /> <id nullFlavor="NA" /> <code codeSystem="local" code="VALERIA" displayName="UA BLOOD DIPSTICK" /> <statusCode code="completed" /> < effectiveTime value="715975296233" /> <value unit="/uL" xsi:type="PQ" value="TRACE" /> <referenceRange> <observationRange> <text>NEGATIVE</text> </observationRange> </ referenceRange> </observation> </component> <component> <observation moodCode="EVN" classCode="OBS"> <templateId root= "216.840.1.931837.10...4.2" /> <id nullFlavor="NA" /> < code codeSystem="local" code="USVC" displayName="URINE SAMPLE VOLUME" /> <statusCode code="completed" /> <effectiveTime value="" /> <value unit="mL" xsi:type="PQ" value="12" /> < referenceRange> <observationRange> <text /> < /observationRange> </referenceRange> </observation> </ component> <component> <observation moodCode="EVN" classCode="OBS"> <templateId root="216.840.1.290331....4.2" /> <id nullFlavor="NA" /> <code codeSystem="local" code="UASPUN" displayName= "UA MICROSCOPIC" /> <statusCode code="completed" /> < effectiveTime value="" /> <value unit="" xsi:type="PQ" value="SPUN URINE" /> <referenceRange> <observationRange> <text /> </observationRange> </referenceRange> </observation> </component> <component> <observation moodCode="EVN" classCode="OBS"> <templateId root= "01.14.840.1.892150.1022.4.2" /> <id nullFlavor="NA" /> < code codeSystem="local" code="RBCU" displayName="UA RBC" /> < statusCode code="completed" /> <effectiveTime value="" /> <value unit="rbc/hpf" xsi:type="PQ" value="2-4" /> < referenceRange> <observationRange> <text>NEGATIVE</text > </observationRange> </referenceRange> </observation > </component> <component> <observation moodCode="EVN" classCode="OBS"> <templateId root="216.840.1.265488.1022.4.2" /> <id nullFlavor="NA" /> <code codeSystem="local" code="WBCU" displayName="UA WBC" /> <statusCode code="completed" /> < effectiveTime value="" /> <value unit="wbc/hpf" xsi:type= "PQ" value="2-4" /> <referenceRange> <observationRange> <text>NEGATIVE</text> </observationRange> </ referenceRange> </observation> </component> <component> <observation moodCode="EVN" classCode="OBS"> <templateId root= "01.14.840.1.575024.09.17.22.4.2" /> <id nullFlavor="NA" /> < code codeSystem="local" code="BACU" displayName="UA BACTERIA" /> < statusCode code="completed" /> <effectiveTime value="" /> <value unit="" xsi:type="PQ" value="TRACE" /> <referenceRange > <observationRange> <text>NEG-1+</text> </ observationRange> </referenceRange> </observation> </ component> <component> <observation moodCode="EVN" classCode="OBS"> <templateId root="16.840.1.209067.10.22.4.2" /> <id nullFlavor="NA" /> <code codeSystem="local" code="COLU" displayName=" UA COLOR" /> <statusCode code="completed" /> <effectiveTime value="" /> <value unit="" xsi:type="PQ" value="STRAW/ YELLOW" /> <referenceRange> <observationRange> <text /> </observationRange> </referenceRange> </ observation> </component> <component> <observation moodCode= "EVN" classCode="OBS"> <templateId root="16.840.1.875679.10..4.2 " /> <id nullFlavor="NA" /> <code codeSystem="local" code= "APPU" displayName="UA APPEARANCE" /> <statusCode code="completed" /> <effectiveTime value="" /> <value unit="" xsi:type ="PQ" value="TURBID" /> <referenceRange> <observationRange> <text>CLEAR</text> </observationRange> </ referenceRange> </observation> </component> <component> <observation moodCode="EVN" classCode="OBS"> <templateId root= "01.14.840.1.191996.09.17.22.4.2" /> <id nullFlavor="NA" /> < code codeSystem="local" code="SPGRU" displayName="UA SPECIFIC GRAVITY" /> <statusCode code="completed" /> <effectiveTime value=" " /> <value unit="" xsi:type="PQ" value="1.020" /> < referenceRange> <observationRange> <text>1.005-1.030</ text> </observationRange> </referenceRange> </ observation> </component> <component> <observation moodCode= "EVN" classCode="OBS"> <templateId root="01.14.840.1.408723.09.17.22.4.2 " /> <id nullFlavor="NA" /> <code codeSystem="local" code="TOVA " displayName="UA PH" /> <statusCode code="completed" /> < effectiveTime value="" /> <value unit="" xsi:type="PQ" value="7.5" /> <referenceRange> <observationRange> <text>5.0-9.0</text> </observationRange> </ referenceRange> </observation> </component> <component> <observation moodCode="EVN" classCode="OBS"> <templateId root= "216.840.1.757707.10..4.2" /> <id nullFlavor="NA" /> < code codeSystem="local" code="LEUESU" displayName="UA LEUKOCYTE ESTERASE DIPSTICK" /> <statusCode code="completed" /> <effectiveTime value="" /> <value unit="u/L" xsi:type="PQ" value="NEGATIVE " /> <referenceRange> <observationRange> <text> NEGATIVE</text> </observationRange> </referenceRange> </observation> </component> <component> <observation moodCode ="EVN" classCode="OBS"> <templateId root= "01.14.840.1.614728.09.17.22.4.2" /> <id nullFlavor="NA" /> < code codeSystem="local" code="NITRIU" displayName="UA NITRITE DIPSTICK" /> <statusCode code="completed" /> <effectiveTime value=" " /> <value unit="" xsi:type="PQ" value="NEGATIVE" /> < referenceRange> <observationRange> <text>NEGATIVE</text > </observationRange> </referenceRange> </observation > </component> <component> <observation moodCode="EVN" classCode="OBS"> <templateId root="16.840.1.184352.10..4.2" /> <id nullFlavor="NA" /> <code codeSystem="local" code="EPIU" displayName="UA EPITHELIAL CELLS" /> <statusCode code="completed" /> <effectiveTime value="537135987864" /> <value unit="epi/hpf" xsi:type="PQ" value="MODERATE" /> <referenceRange> < observationRange> <text>0-FEW</text> </observationRange > </referenceRange> </observation> </component> </ organizer> </entry> <entry> <organizer moodCode="EVN" classCode="BATTERY"> <templateId root="01.14.840.1.476042.10..22.4.1" /> <id nullFlavor= "NA" /> <code codeSystem="local" code="CBCWD" displayName="CBC WITH DIFFERENTIAL" /> <statusCode code="completed" /> <component> < observation moodCode="EVN" classCode="OBS"> <templateId root= "01.14.840.1.280585.10..22.4.2" /> <id nullFlavor="NA" /> < code codeSystem="local" code="WBCTOT" displayName="WHITE BLOOD CELL" /> <statusCode code="completed" /> <effectiveTime value="[id number]" / > <value unit="k/cumm" xsi:type="PQ" value="3.5" /> < interpretationCode codeSystem="local" code="L" /> <referenceRange> <observationRange> <text>4.8-10.8</text> </ observationRange> </referenceRange> </observation> </ component> <component> <observation moodCode="EVN" classCode="OBS"> <templateId root="01.14.840.1.574048.10.20.22.4.2" /> <id nullFlavor="NA" /> <code codeSystem="local" code="RBC" displayName=" RED BLOOD CELL" /> <statusCode code="completed" /> < effectiveTime value="[id number]" /> <value unit="m/cumm" xsi:type="PQ " value="3.81" /> <interpretationCode codeSystem="local" code="L" /> <referenceRange> <observationRange> <text>4.2- 5.4</text> </observationRange> </referenceRange> </ observation> </component> <component> <observation moodCode= "EVN" classCode="OBS"> <templateId root="2.16.840.1.865336.10.20.22.4.2 " /> <id nullFlavor="NA" /> <code codeSystem="local" code= "HGBT" displayName="HEMOGLOBIN" /> <statusCode code="completed" /> <effectiveTime value="[id number]" /> <value unit="gm/dL" xsi: type="PQ" value="11.3" /> <interpretationCode codeSystem="local" code= "L" /> <referenceRange> <observationRange> < text>12.0-16.0</text> </observationRange> </referenceRange> </observation> </component> <component> <observation moodCode="EVN" classCode="OBS"> <templateId root= "2.16.840.1.172404.10.20.22.4.2" /> <id nullFlavor="NA" /> < code codeSystem="local" code="HCTT" displayName="HEMATOCRIT" /> < statusCode code="completed" /> <effectiveTime value="" /> <value unit="%" xsi:type="PQ" value="32.9" /> < interpretationCode codeSystem="local" code="L" /> <referenceRange> <observationRange> <text>37-47</text> </ observationRange> </referenceRange> </observation> </ component> <component> <observation moodCode="EVN" classCode="OBS"> <templateId root="216.840.1.104450.10..22.4.2" /> <id nullFlavor="NA" /> <code codeSystem="local" code="MCV" displayName= "MEAN CELL VOLUME" /> <statusCode code="completed" /> < effectiveTime value="" /> <value unit="fl" xsi:type="PQ" value="86.4" /> <referenceRange> <observationRange> <text>81-99</text> </observationRange> </ referenceRange> </observation> </component> <component> <observation moodCode="EVN" classCode="OBS"> <templateId root= "216.840.1.330945.10..4.2" /> <id nullFlavor="NA" /> < code codeSystem="local" code="MCH" displayName="MEAN CELL HGB" /> < statusCode code="completed" /> <effectiveTime value="" /> <value unit="pg" xsi:type="PQ" value="29.7" /> <referenceRange > <observationRange> <text>27-31</text> </ observationRange> </referenceRange> </observation> </ component> <component> <observation moodCode="EVN" classCode="OBS"> <templateId root="01.14.840.1.238427.10.20.22.4.2" /> <id nullFlavor="NA" /> <code codeSystem="local" code="MCHC" displayName= "MEAN CELL HGB CONCENTRATION" /> <statusCode code="completed" /> <effectiveTime value="" /> <value unit="g/dL" xsi:type= "PQ" value="34.3" /> <referenceRange> <observationRange> <text>33.0-37.0</text> </observationRange> </ referenceRange> </observation> </component> <component> <observation moodCode="EVN" classCode="OBS"> <templateId root= "216.840.1.037475.10.20.22.4.2" /> <id nullFlavor="NA" /> < code codeSystem="local" code="RDW" displayName="RED CELL DISTRIBUTION WIDTH" /> <statusCode code="completed" /> <effectiveTime value= "601901049419" /> <value unit="%" xsi:type="PQ" value="13.4" /> <referenceRange> <observationRange> <text>11.5- 14.5</text> </observationRange> </referenceRange> </ observation> </component> <component> <observation moodCode= "EVN" classCode="OBS"> <templateId root="01.14.840.1.105195.10...4.2 " /> <id nullFlavor="NA" /> <code codeSystem="local" code= "PLTTOT" displayName="PLATELET COUNT" /> <statusCode code="completed" / > <effectiveTime value="206349086036" /> <value unit="k/cumm" xsi:type="PQ" value="182" /> <referenceRange> < observationRange> <text>130-400</text> </ observationRange> </referenceRange> </observation> </ component> <component> <observation moodCode="EVN" classCode="OBS"> <templateId root="01.14.840.1.759365.10.20.22.4.2" /> <id nullFlavor="NA" /> <code codeSystem="local" code="NE%" displayName= "NEUTROPHIL %" /> <statusCode code="completed" /> < effectiveTime value="158890863052" /> <value unit="%" xsi:type="PQ " value="75.5" /> <interpretationCode codeSystem="local" code="H" /> <referenceRange> <observationRange> <text>43-65< /text> </observationRange> </referenceRange> </ observation> </component> <component> <observation moodCode= "EVN" classCode="OBS"> <templateId root="2.16.840.1.755702.10.20.22.4.2 " /> <id nullFlavor="NA" /> <code codeSystem="local" code="LY& #37;" displayName="LYMPHOCYTE %" /> <statusCode code="completed" / > <effectiveTime value="510781664947" /> <value unit="%" xsi:type="PQ" value="20.2" /> <referenceRange> < observationRange> <text>20-45</text> </observationRange > </referenceRange> </observation> </component> < component> <observation moodCode="EVN" classCode="OBS"> < templateId root="2.16.840.1.728984.10.20.22.4.2" /> <id nullFlavor="NA " /> <code codeSystem="local" code="MO%" displayName="MONOCYTE &#37 ;" /> <statusCode code="completed" /> <effectiveTime value= "210759225915" /> <value unit="%" xsi:type="PQ" value="3.7" /> <interpretationCode codeSystem="local" code="L" /> < referenceRange> <observationRange> <text>5-12</text> </observationRange> </referenceRange> </observation> </component> <component> <observation moodCode="EVN" classCode= "OBS"> <templateId root="2.16.840.1.104970.10..4.2" /> < id nullFlavor="NA" /> <code codeSystem="local" code="EO%" displayName="EOSINOPHIL %" /> <statusCode code="completed" /> <effectiveTime value="" /> <value unit="%" xsi: type="PQ" value="0.3" /> <interpretationCode codeSystem="local" code="L " /> <referenceRange> <observationRange> <text> 0.9-2.9</text> </observationRange> </referenceRange> </observation> </component> <component> <observation moodCode= "EVN" classCode="OBS"> <templateId root="216.840.1.149483.09.17.22.4.2 " /> <id nullFlavor="NA" /> <code codeSystem="local" code="BA& #37;" displayName="BASOPHIL %" /> <statusCode code="completed" /> <effectiveTime value="" /> <value unit="%" xsi :type="PQ" value="0.3" /> <referenceRange> <observationRange > <text>0.25-1.0</text> </observationRange> </ referenceRange> </observation> </component> <component> <observation moodCode="EVN" classCode="OBS"> <templateId root= "216.840.1.518374...4.2" /> <id nullFlavor="NA" /> < code codeSystem="local" code="NE#" displayName="ABSOLUTE NEUTROPHIL #" /> <statusCode code="completed" /> <effectiveTime value=" " /> <value unit="k/cumm" xsi:type="PQ" value="2.66" /> < referenceRange> <observationRange> <text>2.2-4.8</text> </observationRange> </referenceRange> </observation > </component> <component> <observation moodCode="EVN" classCode="OBS"> <templateId root="01.14.840.1.365507.09.17.22.4.2" /> <id nullFlavor="NA" /> <code codeSystem="local" code="LY#" displayName="LYMPHOCYTE #" /> <statusCode code="completed" /> <effectiveTime value="" /> <value unit="k/cumm" xsi:type= "PQ" value="0.7" /> <interpretationCode codeSystem="local" code="L" /> <referenceRange> <observationRange> <text>1.3- 2.9</text> </observationRange> </referenceRange> </ observation> </component> <component> <observation moodCode= "EVN" classCode="OBS"> <templateId root="01.14.840.1.239769.09.17.22.4.2 " /> <id nullFlavor="NA" /> <code codeSystem="local" code="MO# " displayName="MONOCYTE #" /> <statusCode code="completed" /> <effectiveTime value="" /> <value unit="k/cumm" xsi:type= "PQ" value="0.1" /> <interpretationCode codeSystem="local" code="L" /> <referenceRange> <observationRange> <text>0.31 -0.83</text> </observationRange> </referenceRange> </ observation> </component> <component> <observation moodCode= "EVN" classCode="OBS"> <templateId root="01.14.840.1.082672.10..22.4.2 " /> <id nullFlavor="NA" /> <code codeSystem="local" code="EO# " displayName="EOSINOPHIL #" /> <statusCode code="completed" /> <effectiveTime value="" /> <value unit="k/cumm" xsi:type ="PQ" value="0.0" /> <interpretationCode codeSystem="local" code="L" / > <referenceRange> <observationRange> <text> 0.05-0.22</text> </observationRange> </referenceRange> </observation> </component> <component> <observation moodCode="EVN" classCode="OBS"> <templateId root= "840.1.595012.09.17.22.4.2" /> <id nullFlavor="NA" /> < code codeSystem="local" code="BA#" displayName="BASOPHIL #" /> < statusCode code="completed" /> <effectiveTime value="" /> <value unit="k/cumm" xsi:type="PQ" value="0.0" /> < interpretationCode codeSystem="local" code="L" /> <referenceRange> <observationRange> <text>0.02-0.06</text> </ observationRange> </referenceRange> </observation> </ component> <component> <observation moodCode="EVN" classCode="OBS"> <templateId root="01.14.840.1.408863.10..4.2" /> <id nullFlavor="NA" /> <code codeSystem="local" code="MD" displayName= "DIFFERENTIAL/MORPHOLOGY" /> <statusCode code="completed" /> < effectiveTime value="" /> <value unit="" xsi:type="PQ" value="AUTO DIFF" /> <referenceRange> <observationRange> <text /> </observationRange> </referenceRange> </observation> </component> <component> <observation moodCode="EVN" classCode="OBS"> <templateId root= "216.840.1.363507.10.22.4.2" /> <id nullFlavor="NA" /> < code codeSystem="local" code="NovoInsertedPL" displayName="Performing Location: " /> <statusCode code="completed" /> <effectiveTime value= "018652872981" /> <value unit="" xsi:type="PQ" value="" /> < referenceRange> <observationRange> <text /> < /observationRange> </referenceRange> </observation> </ component> </organizer> </entry> <entry> <organizer moodCode="EVN" classCode="BATTERY"> <templateId root="216.840.1.480451.10..4.1" /> <id nullFlavor="NA" /> <code codeSystem="local" code="METABC" displayName="METABOLIC PANEL, COMPREHN" /> <statusCode code="completed" /> <component> <observation moodCode="EVN" classCode="OBS"> < templateId root="216.840.1.137160.10..4.2" /> <id nullFlavor="NA " /> <code codeSystem="local" code="NovoInsertedPL" displayName= "Performing Location:" /> <statusCode code="completed" /> < effectiveTime value="033322836122" /> <value unit="" xsi:type="PQ" value="" /> <referenceRange> <observationRange> <text /> </observationRange> </referenceRange> </ observation> </component> <component> <observation moodCode= "EVN" classCode="OBS"> <templateId root="16.840.1.097546.10.20.22.4.2 " /> <id nullFlavor="NA" /> <code codeSystem="local" code="NA " displayName="SODIUM" /> <statusCode code="completed" /> < effectiveTime value="" /> <value unit="mmol/L" xsi:type="PQ " value="134" /> <interpretationCode codeSystem="local" code="L" /> <referenceRange> <observationRange> <text>135-145 </text> </observationRange> </referenceRange> </ observation> </component> <component> <observation moodCode= "EVN" classCode="OBS"> <templateId root="16.840.1.606132...4.2 " /> <id nullFlavor="NA" /> <code codeSystem="local" code="K" displayName="POTASSIUM" /> <statusCode code="completed" /> < effectiveTime value="" /> <value unit="mmol/L" xsi:type="PQ " value="3.4" /> <interpretationCode codeSystem="local" code="L" /> <referenceRange> <observationRange> <text>3.6-5.2 </text> </observationRange> </referenceRange> </ observation> </component> <component> <observation moodCode= "EVN" classCode="OBS"> <templateId root="16.840.1.280836...22.4.2 " /> <id nullFlavor="NA" /> <code codeSystem="local" code="CL " displayName="CHLORIDE" /> <statusCode code="completed" /> < effectiveTime value="" /> <value unit="mmol/L" xsi:type="PQ " value="101" /> <referenceRange> <observationRange> <text>100-108</text> </observationRange> </ referenceRange> </observation> </component> <component> <observation moodCode="EVN" classCode="OBS"> <templateId root= "216.840.1.495296.10.20.22.4.2" /> <id nullFlavor="NA" /> < code codeSystem="local" code="CO2" displayName="CARBON DIOXIDE" /> < statusCode code="completed" /> <effectiveTime value="631536903276" /> <value unit="mmol/L" xsi:type="PQ" value="21.2" /> < referenceRange> <observationRange> <text>21.0-32.0</text > </observationRange> </referenceRange> </observation > </component> <component> <observation moodCode="EVN" classCode="OBS"> <templateId root="01.14.840.1.961864.10..22.4.2" /> <id nullFlavor="NA" /> <code codeSystem="local" code="GAP" displayName="ANION GAP" /> <statusCode code="completed" /> < effectiveTime value="690120045784" /> <value unit="mmol/L" xsi:type="PQ " value="15" /> <referenceRange> <observationRange> <text>10-20</text> </observationRange> </ referenceRange> </observation> </component> <component> <observation moodCode="EVN" classCode="OBS"> <templateId root= "01.14.840.1.408992.10.20.22.4.2" /> <id nullFlavor="NA" /> < code codeSystem="local" code="GLU" displayName="GLUCOSE" /> < statusCode code="completed" /> <effectiveTime value="579665624538" /> <value unit="mg/dL" xsi:type="PQ" value="85" /> < referenceRange> <observationRange> <text>70-110</text> </observationRange> </referenceRange> </observation> </component> <component> <observation moodCode="EVN" classCode ="OBS"> <templateId root="2.16.840.1.958567.10..22.4.2" /> < id nullFlavor="NA" /> <code codeSystem="local" code="BUN" displayName= "BLOOD UREA NITROGEN" /> <statusCode code="completed" /> < effectiveTime value="" /> <value unit="mg/dL" xsi:type="PQ " value="7" /> <referenceRange> <observationRange> <text>7-22</text> </observationRange> </referenceRange > </observation> </component> <component> <observation moodCode="EVN" classCode="OBS"> <templateId root= "216.840.1.052345.10...4.2" /> <id nullFlavor="NA" /> < code codeSystem="local" code="CREATX" displayName="CREATININE" /> < statusCode code="completed" /> <effectiveTime value="423021517989" /> <value unit="mg/dL" xsi:type="PQ" value="0.8" /> < referenceRange> <observationRange> <text>0.6-1.0</text> </observationRange> </referenceRange> </observation > </component> <component> <observation moodCode="EVN" classCode="OBS"> <templateId root="2.16.840.1.352396.10..22.4.2" /> <id nullFlavor="NA" /> <code codeSystem="local" code="BUN/CREA " displayName="BUN/CREATININE RATIO" /> <statusCode code="completed" / > <effectiveTime value="" /> <value unit="" xsi: type="PQ" value="8.8" /> <referenceRange> <observationRange > <text /> </observationRange> </referenceRange > </observation> </component> <component> <observation moodCode="EVN" classCode="OBS"> <templateId root= "2.16.840.1.985973.10.20.22.4.2" /> <id nullFlavor="NA" /> < code codeSystem="local" code="GFRX" displayName="GLOMERULAR FILTRATION RATE" /> <statusCode code="completed" /> <effectiveTime value= "" /> <value unit="" xsi:type="PQ" value="95.99" /> <referenceRange> <observationRange> <text /> </observationRange> </referenceRange> </observation> </ component> <component> <observation moodCode="EVN" classCode="OBS"> <templateId root="2.16.840.1.243703.10.20.22.4.2" /> <id nullFlavor="NA" /> <code codeSystem="local" code="CA" displayName= "CALCIUM" /> <statusCode code="completed" /> <effectiveTime value="" /> <value unit="mg/dL" xsi:type="PQ" value="8.1" / > <interpretationCode codeSystem="local" code="L" /> < referenceRange> <observationRange> <text>8.7-10.5</text > </observationRange> </referenceRange> </observation > </component> <component> <observation moodCode="EVN" classCode="OBS"> <templateId root="16.840.1.140802.10.20.22.4.2" /> <id nullFlavor="NA" /> <code codeSystem="local" code="TP" displayName="TOTAL PROTEIN" /> <statusCode code="completed" /> <effectiveTime value="" /> <value unit="gm/dL" xsi:type= "PQ" value="6.8" /> <referenceRange> <observationRange> <text>6.0-8.0</text> </observationRange> </ referenceRange> </observation> </component> <component> <observation moodCode="EVN" classCode="OBS"> <templateId root= "01.14.840.1.769944.1022.4.2" /> <id nullFlavor="NA" /> < code codeSystem="local" code="ALB" displayName="ALBUMIN" /> < statusCode code="completed" /> <effectiveTime value="" /> <value unit="gm/dL" xsi:type="PQ" value="2.9" /> < interpretationCode codeSystem="local" code="L" /> <referenceRange> <observationRange> <text>3.5-5.0</text> </ observationRange> </referenceRange> </observation> </ component> <component> <observation moodCode="EVN" classCode="OBS"> <templateId root="01.14.840.1.947384.10.2022.4.2" /> <id nullFlavor="NA" /> <code codeSystem="local" code="GLOB" displayName= "GLOBULIN" /> <statusCode code="completed" /> <effectiveTime value="" /> <value unit="gm/dL" xsi:type="PQ" value="3.9" / > <interpretationCode codeSystem="local" code="H" /> < referenceRange> <observationRange> <text>2.1-3.5</text> </observationRange> </referenceRange> </observation > </component> <component> <observation moodCode="EVN" classCode="OBS"> <templateId root="16.840.1.617551.10..22.4.2" /> <id nullFlavor="NA" /> <code codeSystem="local" code="A/G" displayName="ALBUMIN/GLOBULIN RATIO" /> <statusCode code="completed" / > <effectiveTime value="337163664776" /> <value unit="" xsi: type="PQ" value="0.7" /> <interpretationCode codeSystem="local" code="L " /> <referenceRange> <observationRange> <text> 1.1-2.2</text> </observationRange> </referenceRange> </observation> </component> <component> <observation moodCode= "EVN" classCode="OBS"> <templateId root="01.14.840.1.987102.09.17.22.4.2 " /> <id nullFlavor="NA" /> <code codeSystem="local" code= "BILTOT" displayName="BILIRUBIN TOTAL" /> <statusCode code="completed" /> <effectiveTime value="382755832146" /> <value unit="mg/dL" xsi:type="PQ" value="0.7" /> <referenceRange> < observationRange> <text>0.0-1.0</text> </ observationRange> </referenceRange> </observation> </ component> <component> <observation moodCode="EVN" classCode="OBS"> <templateId root="16.840.1.571921.10.22.4.2" /> <id nullFlavor="NA" /> <code codeSystem="local" code="AST" displayName= "SGOT/AST" /> <statusCode code="completed" /> <effectiveTime value="" /> <value unit="UNIT/L" xsi:type="PQ" value="169" /> <interpretationCode codeSystem="local" code="H" /> < referenceRange> <observationRange> <text>15-37</text> </observationRange> </referenceRange> </observation> </component> <component> <observation moodCode="EVN" classCode= "OBS"> <templateId root="2.16.840.1.039654.10.20.22.4.2" /> < id nullFlavor="NA" /> <code codeSystem="local" code="ALT" displayName= "SGPT/ALT" /> <statusCode code="completed" /> <effectiveTime value="" /> <value unit="UNIT/L" xsi:type="PQ" value="135" /> <interpretationCode codeSystem="local" code="H" /> < referenceRange> <observationRange> <text>12-78</text> </observationRange> </referenceRange> </observation> </component> <component> <observation moodCode="EVN" classCode= "OBS"> <templateId root="2.16.840.1.299616.10..22.4.2" /> < id nullFlavor="NA" /> <code codeSystem="local" code="ALKP" displayName= "ALKALINE PHOSPHATASE TOTAL" /> <statusCode code="completed" /> <effectiveTime value="" /> <value unit="UNIT/L" xsi:type ="PQ" value="161" /> <interpretationCode codeSystem="local" code="H" / > <referenceRange> <observationRange> <text>46- 116</text> </observationRange> </referenceRange> </ observation> </component> </organizer> </entry> <entry> <organizer moodCode="EVN" classCode="BATTERY"> <templateId root= "216.840.1.105173.10..22.4.1" /> <id nullFlavor="NA" /> <code codeSystem="local" code="LACTV" displayName="LACTIC ACID, VENOUS" /> < statusCode code="completed" /> <component> <observation moodCode= "EVN" classCode="OBS"> <templateId root="2.16.840.1.380296.10..22.4.2 " /> <id nullFlavor="NA" /> <code codeSystem="local" code= "NovoInsertedPL" displayName="Performing Location:" /> <statusCode code ="completed" /> <effectiveTime value="472643246135" /> <value unit="" xsi:type="PQ" value="" /> <referenceRange> < observationRange> <text /> </observationRange> </referenceRange> </observation> </component> <component> <observation moodCode="EVN" classCode="OBS"> <templateId root= "2.16.840.1.600824.10..22.4.2" /> <id nullFlavor="NA" /> < code codeSystem="local" code="LACTV" displayName="LACTIC ACID, VENOUS" /> <statusCode code="completed" /> <effectiveTime value=" " /> <value unit="mmol/L" xsi:type="PQ" value="1.0" /> < referenceRange> <observationRange> <text>0.4-2.0</text> </observationRange> </referenceRange> </observation > </component> </organizer> </entry> <entry> <organizer moodCode= "EVN" classCode="BATTERY"> <templateId root="216.840.1.774155.10..4.1 " /> <id nullFlavor="NA" /> <code codeSystem="local" code="BC" displayName="BLOOD CULTURE" /> <statusCode code="completed" /> < component> <observation moodCode="EVN" classCode="OBS"> < templateId root="01.14.840.1.014678.09.17.22.4.2" /> <id nullFlavor="NA " /> <code codeSystem="local" code="NovoDarrianertedPL" displayName= "Performing Location:" /> <statusCode code="completed" /> < effectiveTime value="925835878398" /> <value unit="" xsi:type="PQ" value="" /> <referenceRange> <observationRange> <text /> </observationRange> </referenceRange> </ observation> </component> <component> <observation moodCode= "EVN" classCode="OBS"> <templateId root="01.14.840.1.854739.09.17.22.4.2 " /> <id nullFlavor="NA" /> <code codeSystem="local" code="BC " displayName="BLOOD CULTURE" /> <statusCode code="completed" /> <effectiveTime value="" /> <value unit="" xsi:type="PQ " value="See Below" /> <referenceRange> <observationRange> <text /> </observationRange> </referenceRange> </observation> </component> </organizer> </entry> <entry> < organizer moodCode="EVN" classCode="BATTERY"> <templateId root= "216.840.1.601940.10..4.1" /> <id nullFlavor="NA" /> <code codeSystem="local" code="BC" displayName="BLOOD CULTURE" /> <statusCode code="completed" /> <component> <observation moodCode="EVN" classCode="OBS"> <templateId root="16.840.1.512092.10.22.4.2" /> <id nullFlavor="NA" /> <code codeSystem="local" code= "NovoInsertedPL" displayName="Performing Location:" /> <statusCode code ="completed" /> <effectiveTime value="" /> <value unit="" xsi:type="PQ" value="" /> <referenceRange> < observationRange> <text /> </observationRange> </referenceRange> </observation> </component> <component> <observation moodCode="EVN" classCode="OBS"> <templateId root= "01.14.840.1.689752.09.17.22.4.2" /> <id nullFlavor="NA" /> < code codeSystem="local" code="BC" displayName="BLOOD CULTURE" /> < statusCode code="completed" /> <effectiveTime value="" /> <value unit="" xsi:type="PQ" value="See Below" /> < referenceRange> <observationRange> <text /> < /observationRange> </referenceRange> </observation> </ component> </organizer> </entry> <entry> <organizer moodCode="EVN" classCode="BATTERY"> <templateId root="01.14.840.1.099654...4.1" /> <id nullFlavor="NA" /> <code codeSystem="local" code="[id number]" displayName="GLUCOSE 1HR 50G GEST" /> <statusCode code="completed" /> <component> <observation moodCode="EVN" classCode="OBS"> < templateId root="01.14.840.1.678064.10..22.4.2" /> <id nullFlavor="NA " /> <code codeSystem="local" code="[id number]" displayName="GLUCOSE 1HR 50G GEST" /> <statusCode code="completed" /> <effectiveTime value="335649500355" /> <value unit="mg/dL" xsi:type="PQ" value="98" / > <referenceRange> <observationRange> <text>70- 139</text> </observationRange> </referenceRange> </ observation> </component> </organizer> </entry> <entry> <organizer moodCode="EVN" classCode="BATTERY"> <templateId root= "216.840.1.539296.10..22.4.1" /> <id nullFlavor="NA" /> <code codeSystem="local" code="345494" displayName="Urine Culture, Routine" /> < statusCode code="completed" /> <component> <observation moodCode= "EVN" classCode="OBS"> <templateId root="216.840.1.525053.10..22.4.2 " /> <id nullFlavor="NA" /> <code codeSystem="local" code= "628300" displayName="Urine Culture, Routine" /> <statusCode code= "completed" /> <effectiveTime value="[id number]" /> <value unit="" xsi:type="PQ" value="Note" /> <referenceRange> < observationRange> <text /> </observationRange> </referenceRange> </observation> </component> </organizer> </ entry> <entry> <organizer moodCode="EVN" classCode="BATTERY"> < templateId root="2.840.1.946099...22.4.1" /> <id nullFlavor="NA" /> <code codeSystem="local" code="DRUGU" displayName="DRUG SCREEN, URINE" /> <statusCode code="completed" /> <component> <observation moodCode="EVN" classCode="OBS"> <templateId root= "216.840.1.760056.10..4.2" /> <id nullFlavor="NA" /> < code codeSystem="local" code="AMPHETU" displayName="AMPHETAMINE SCREEN,URINE" / > <statusCode code="completed" /> <effectiveTime value= "678522516873" /> <value unit="" xsi:type="PQ" value="None Detected" / > <referenceRange> <observationRange> <text> None Detected</text> </observationRange> </referenceRange> </observation> </component> <component> <observation moodCode="EVN" classCode="OBS"> <templateId root= "840.1.427292.09.17.22.4.2" /> <id nullFlavor="NA" /> < code codeSystem="local" code="BARBITU" displayName="BARBITURATES SCREEN,URINE" / > <statusCode code="completed" /> <effectiveTime value= "980156890078" /> <value unit="" xsi:type="PQ" value="None Detected" / > <referenceRange> <observationRange> <text> None Detected</text> </observationRange> </referenceRange> </observation> </component> <component> <observation moodCode="EVN" classCode="OBS"> <templateId root= "01.14.840.1.175933.10...4.2" /> <id nullFlavor="NA" /> < code codeSystem="local" code="BENZODIAU" displayName="BENZODIAZEPINES SCREEN, URINE" /> <statusCode code="completed" /> <effectiveTime value ="" /> <value unit="" xsi:type="PQ" value="None Detected" / > <referenceRange> <observationRange> <text> None Detected</text> </observationRange> </referenceRange> </observation> </component> <component> <observation moodCode="EVN" classCode="OBS"> <templateId root= "01.14.840.1.760791.22.4.2" /> <id nullFlavor="NA" /> < code codeSystem="local" code="CANNABU" displayName="CANNABINOID SCREEN, URINE" / > <statusCode code="completed" /> <effectiveTime value= "" /> <value unit="" xsi:type="PQ" value="None Detected" / > <referenceRange> <observationRange> <text> None Detected</text> </observationRange> </referenceRange> </observation> </component> <component> <observation moodCode="EVN" classCode="OBS"> <templateId root= "01.14.840.1.395868.22.4.2" /> <id nullFlavor="NA" /> < code codeSystem="local" code="COCAINEU" displayName="COCAINE SCREEN, URINE" /> <statusCode code="completed" /> <effectiveTime value= "" /> <value unit="" xsi:type="PQ" value="None Detected" / > <referenceRange> <observationRange> <text> None Detected</text> </observationRange> </referenceRange> </observation> </component> <component> <observation moodCode="EVN" classCode="OBS"> <templateId root= "01.14.840.1.808270.22.4.2" /> <id nullFlavor="NA" /> < code codeSystem="local" code="ECSTASYU" displayName="ECSTASY (MDMA) SCRN UR" /> <statusCode code="completed" /> <effectiveTime value= "691501896740" /> <value unit="" xsi:type="PQ" value="None Detected" / > <referenceRange> <observationRange> <text> None Detected</text> </observationRange> </referenceRange> </observation> </component> <component> <observation moodCode="EVN" classCode="OBS"> <templateId root= "16.840.1.945057.10..4.2" /> <id nullFlavor="NA" /> < code codeSystem="local" code="OPIATEU" displayName="OPIATE SCREEN, URINE" /> <statusCode code="completed" /> <effectiveTime value= "346365403064" /> <value unit="" xsi:type="PQ" value="None Detected" / > <referenceRange> <observationRange> <text> None Detected</text> </observationRange> </referenceRange> </observation> </component> </organizer> </entry> <entry> < organizer moodCode="EVN" classCode="BATTERY"> <templateId root= "16.840.1.927296.10..4.1" /> <id nullFlavor="NA" /> <code codeSystem="local" code="[id number]" displayName="CBC WITH DIFFERENTIAL REFLEX MANUAL DIFF" /> <statusCode code="completed" /> <component> < observation moodCode="EVN" classCode="OBS"> <templateId root= "01.14.840.1.861914.09.17.22.4.2" /> <id nullFlavor="NA" /> < code codeSystem="local" code="WBC" displayName="WBC" /> <statusCode code="completed" /> <effectiveTime value="877397716657" /> < value unit="10*3/uL" xsi:type="PQ" value="11.7" /> <interpretationCode codeSystem="local" code="H" /> <referenceRange> < observationRange> <text>3.7-11.1</text> </ observationRange> </referenceRange> </observation> </ component> <component> <observation moodCode="EVN" classCode="OBS"> <templateId root="216.840.1.283154.10.20.22.4.2" /> <id nullFlavor="NA" /> <code codeSystem="local" code="RBC" displayName="RBC " /> <statusCode code="completed" /> <effectiveTime value= "255801588094" /> <value unit="10*6/uL" xsi:type="PQ" value="4.82" /> <referenceRange> <observationRange> <text>4.11- 5.63</text> </observationRange> </referenceRange> </ observation> </component> <component> <observation moodCode= "EVN" classCode="OBS"> <templateId root="216.840.1.244428.10.20.22.4.2 " /> <id nullFlavor="NA" /> <code codeSystem="local" code="HGB " displayName="HEMOGLOBIN" /> <statusCode code="completed" /> <effectiveTime value="839009585694" /> <value unit="g/dL" xsi:type="PQ " value="13.1" /> <referenceRange> <observationRange> <text>11.9-16.3</text> </observationRange> </ referenceRange> </observation> </component> <component> <observation moodCode="EVN" classCode="OBS"> <templateId root= "216.840.1.593467.09.17.22.4.2" /> <id nullFlavor="NA" /> < code codeSystem="local" code="HCT" displayName="HEMATOCRIT" /> < statusCode code="completed" /> <effectiveTime value="243731995113" /> <value unit="%" xsi:type="PQ" value="39.6" /> < referenceRange> <observationRange> <text>37.0-47.7</text > </observationRange> </referenceRange> </observation > </component> <component> <observation moodCode="EVN" classCode="OBS"> <templateId root="216.840.1.536378.09.17.22.4.2" /> <id nullFlavor="NA" /> <code codeSystem="local" code="PLT" displayName="PLATELET COUNT" /> <statusCode code="completed" /> <effectiveTime value="543106715363" /> <value unit="10*3/uL" xsi: type="PQ" value="394" /> <referenceRange> <observationRange > <text>150-400</text> </observationRange> </ referenceRange> </observation> </component> <component> <observation moodCode="EVN" classCode="OBS"> <templateId root= "216.840.1.529557.09.17.22.4.2" /> <id nullFlavor="NA" /> < code codeSystem="local" code="MCV" displayName="MCV" /> <statusCode code="completed" /> <effectiveTime value="908958177401" /> < value unit="fL" xsi:type="PQ" value="82" /> <referenceRange> <observationRange> <text>81-97</text> </ observationRange> </referenceRange> </observation> </ component> <component> <observation moodCode="EVN" classCode="OBS"> <templateId root="01.14.840.1.022196.10..22.4.2" /> <id nullFlavor="NA" /> <code codeSystem="local" code="MCH" displayName="MCH " /> <statusCode code="completed" /> <effectiveTime value= "771057393535" /> <value unit="pg" xsi:type="PQ" value="27.2" /> <referenceRange> <observationRange> <text>26.7-33.1< /text> </observationRange> </referenceRange> </ observation> </component> <component> <observation moodCode= "EVN" classCode="OBS"> <templateId root="01.14.840.1.949178...4.2 " /> <id nullFlavor="NA" /> <code codeSystem="local" code= "MCHC" displayName="MCHC" /> <statusCode code="completed" /> < effectiveTime value="" /> <value unit="g/dL" xsi:type="PQ" value="33.1" /> <referenceRange> <observationRange> <text>31.1-35.3</text> </observationRange> </ referenceRange> </observation> </component> <component> <observation moodCode="EVN" classCode="OBS"> <templateId root= "01.14.840.1.489685.10.20.22.4.2" /> <id nullFlavor="NA" /> < code codeSystem="local" code="MPV" displayName="MPV" /> <statusCode code="completed" /> <effectiveTime value="940131771790" /> < value unit="fL" xsi:type="PQ" value="9.8" /> <referenceRange> <observationRange> <text /> </observationRange> </referenceRange> </observation> </component> <component> <observation moodCode="EVN" classCode="OBS"> <templateId root= "01.14.840.1.953967.10.2022.4.2" /> <id nullFlavor="NA" /> < code codeSystem="local" code="NEUTROAB" displayName="ABSOLUTE NEUTROPHIL" /> <statusCode code="completed" /> <effectiveTime value= "458621860403" /> <value unit="10*3/uL" xsi:type="PQ" value="8.94" /> <interpretationCode codeSystem="local" code="H" /> < referenceRange> <observationRange> <text>1.70-7.10</text > </observationRange> </referenceRange> </observation > </component> <component> <observation moodCode="EVN" classCode="OBS"> <templateId root="840.1.884330.1022.4.2" /> <id nullFlavor="NA" /> <code codeSystem="local" code="LYMPAB" displayName="ABSOLUTE LYMPHOCYTE" /> <statusCode code="completed" /> <effectiveTime value="705265093900" /> <value unit="10*3/uL" xsi:type="PQ" value="1.8" /> <referenceRange> < observationRange> <text>1.1-3.7</text> </ observationRange> </referenceRange> </observation> </ component> <component> <observation moodCode="EVN" classCode="OBS"> <templateId root="01.14.840.1.683414.10.20.22.4.2" /> <id nullFlavor="NA" /> <code codeSystem="local" code="MONOAB" displayName= "ABSOLUTE MONOCYTE" /> <statusCode code="completed" /> < effectiveTime value="136876076362" /> <value unit="10*3/uL" xsi:type= "PQ" value="0.8" /> <referenceRange> <observationRange> <text>0.3-0.9</text> </observationRange> </ referenceRange> </observation> </component> <component> <observation moodCode="EVN" classCode="OBS"> <templateId root= "216.840.1.859051....4.2" /> <id nullFlavor="NA" /> < code codeSystem="local" code="EOSAB" displayName="ABSOLUTE EOSINOPHIL" /> <statusCode code="completed" /> <effectiveTime value="488415310457 " /> <value unit="10*3/uL" xsi:type="PQ" value="0.1" /> < referenceRange> <observationRange> <text>0.0-0.5</text> </observationRange> </referenceRange> </observation > </component> <component> <observation moodCode="EVN" classCode="OBS"> <templateId root="216.840.1.245319.10...4.2" /> <id nullFlavor="NA" /> <code codeSystem="local" code="BASOAB" displayName="ABSOLUTE BASOPHIL" /> <statusCode code="completed" /> <effectiveTime value="861845114498" /> <value unit="10*3/uL" xsi: type="PQ" value="0.0" /> <referenceRange> <observationRange > <text>0.0-0.1</text> </observationRange> </ referenceRange> </observation> </component> <component> <observation moodCode="EVN" classCode="OBS"> <templateId root= "216.840.1.974375.09.17.22.4.2" /> <id nullFlavor="NA" /> < code codeSystem="local" code="NEUTRO" displayName="NEUTROPHILS" /> < statusCode code="completed" /> <effectiveTime value="777313954853" /> <value unit="%" xsi:type="PQ" value="76" /> < referenceRange> <observationRange> <text /> < /observationRange> </referenceRange> </observation> </ component> <component> <observation moodCode="EVN" classCode="OBS"> <templateId root="01.14.840.1.844818.09.17.22.4.2" /> <id nullFlavor="NA" /> <code codeSystem="local" code="LYMP" displayName= "LYMPHOCYTE" /> <statusCode code="completed" /> < effectiveTime value="899100421291" /> <value unit="%" xsi:type="PQ " value="15" /> <referenceRange> <observationRange> <text /> </observationRange> </referenceRange> </observation> </component> <component> <observation moodCode= "EVN" classCode="OBS"> <templateId root="01.14.840.1.000491.10..4.2 " /> <id nullFlavor="NA" /> <code codeSystem="local" code= "MONO" displayName="MONOCYTE" /> <statusCode code="completed" /> <effectiveTime value="506836522531" /> <value unit="%" xsi:type ="PQ" value="7" /> <referenceRange> <observationRange> <text /> </observationRange> </referenceRange> </observation> </component> <component> <observation moodCode="EVN" classCode="OBS"> <templateId root= "16.840.1.308952.10..4.2" /> <id nullFlavor="NA" /> < code codeSystem="local" code="EOS" displayName="EOSINOPHIL" /> < statusCode code="completed" /> <effectiveTime value="747902367311" /> <value unit="%" xsi:type="PQ" value="1" /> <referenceRange > <observationRange> <text /> </ observationRange> </referenceRange> </observation> </ component> <component> <observation moodCode="EVN" classCode="OBS"> <templateId root="216.840.1.702673.09.17.22.4.2" /> <id nullFlavor="NA" /> <code codeSystem="local" code="BASO" displayName= "BASOPHIL" /> <statusCode code="completed" /> <effectiveTime value="" /> <value unit="%" xsi:type="PQ" value="0" /> <referenceRange> <observationRange> <text /> </observationRange> </referenceRange> </observation> </component> <component> <observation moodCode="EVN" classCode ="OBS"> <templateId root="216.840.1.806533.09.17.22.4.2" /> < id nullFlavor="NA" /> <code codeSystem="local" code="NRBC" displayName= "NUCLEATED RBC % AUTO" /> <statusCode code="completed" /> <effectiveTime value="030547474833" /> <value unit="/100WBCs" xsi:type= "PQ" value="0" /> <referenceRange> <observationRange> <text /> </observationRange> </referenceRange> </observation> </component> <component> <observation moodCode="EVN" classCode="OBS"> <templateId root= "16.840.1.297336.10.20.22.4.2" /> <id nullFlavor="NA" /> < code codeSystem="local" code="IGAB" displayName="ABSOLUTE IMMATURE GRANULOCYTES " /> <statusCode code="completed" /> <effectiveTime value= "235505662026" /> <value unit="10*3/uL" xsi:type="PQ" value="0.04" /> <referenceRange> <observationRange> <text>< 0.1</text> </observationRange> </referenceRange> </ observation> </component> <component> <observation moodCode= "EVN" classCode="OBS"> <templateId root="01.14.840.1.030662.1022.4.2 " /> <id nullFlavor="NA" /> <code codeSystem="local" code="IG " displayName="IMMATURE GRANULOCYTES" /> <statusCode code="completed" / > <effectiveTime value="926261313617" /> <value unit="%" xsi:type="PQ" value="0.3" /> <referenceRange> < observationRange> <text /> </observationRange> </referenceRange> </observation> </component> <component> <observation moodCode="EVN" classCode="OBS"> <templateId root= "01.14.840.1.058843.10.2022.4.2" /> <id nullFlavor="NA" /> < code codeSystem="local" code="0356474309" displayName="RDW-SD" /> < statusCode code="completed" /> <effectiveTime value="532933530733" /> <value unit="fL" xsi:type="PQ" value="48.4" /> <referenceRange > <observationRange> <text>37.1-49.8</text> < /observationRange> </referenceRange> </observation> </ component> </organizer> </entry> <entry> <organizer moodCode="EVN" classCode="BATTERY"> <templateId root="2.16.840.1.700454.10..22.4.1" /> <id nullFlavor="NA" /> <code codeSystem="local" code="DRUGU" displayName="DRUG SCREEN, URINE" /> <statusCode code="completed" /> < component> <observation moodCode="EVN" classCode="OBS"> < templateId root="2.16.840.1.368216.10...4.2" /> <id nullFlavor="NA " /> <code codeSystem="local" code="AMPHETU" displayName="AMPHETAMINE SCREEN,URINE" /> <statusCode code="completed" /> < effectiveTime value="090804935763" /> <value unit="" xsi:type="PQ" value="None Detected" /> <referenceRange> <observationRange > <text>None Detected</text> </observationRange> </referenceRange> </observation> </component> <component> <observation moodCode="EVN" classCode="OBS"> <templateId root= "2.16.840.1.729975.10...4.2" /> <id nullFlavor="NA" /> < code codeSystem="local" code="BARBITU" displayName="BARBITURATES SCREEN,URINE" / > <statusCode code="completed" /> <effectiveTime value= "375228061948" /> <value unit="" xsi:type="PQ" value="None Detected" / > <referenceRange> <observationRange> <text> None Detected</text> </observationRange> </referenceRange> </observation> </component> <component> <observation moodCode="EVN" classCode="OBS"> <templateId root= "16.840.1.732404.10...4.2" /> <id nullFlavor="NA" /> < code codeSystem="local" code="BENZODIAU" displayName="BENZODIAZEPINES SCREEN, URINE" /> <statusCode code="completed" /> <effectiveTime value ="" /> <value unit="" xsi:type="PQ" value="None Detected" / > <referenceRange> <observationRange> <text> None Detected</text> </observationRange> </referenceRange> </observation> </component> <component> <observation moodCode="EVN" classCode="OBS"> <templateId root= "16.840.1.692070.10...4.2" /> <id nullFlavor="NA" /> < code codeSystem="local" code="CANNABU" displayName="CANNABINOID SCREEN, URINE" / > <statusCode code="completed" /> <effectiveTime value= "177537317851" /> <value unit="" xsi:type="PQ" value="None Detected" / > <referenceRange> <observationRange> <text> None Detected</text> </observationRange> </referenceRange> </observation> </component> <component> <observation moodCode="EVN" classCode="OBS"> <templateId root= "01.14.840.1.856924.10...4.2" /> <id nullFlavor="NA" /> < code codeSystem="local" code="COCAINEU" displayName="COCAINE SCREEN, URINE" /> <statusCode code="completed" /> <effectiveTime value= "864300324007" /> <value unit="" xsi:type="PQ" value="None Detected" / > <referenceRange> <observationRange> <text> None Detected</text> </observationRange> </referenceRange> </observation> </component> <component> <observation moodCode="EVN" classCode="OBS"> <templateId root= "2.16.840.1.069334.10.4.2" /> <id nullFlavor="NA" /> < code codeSystem="local" code="ECSTASYU" displayName="ECSTASY (MDMA) SCRN UR" /> <statusCode code="completed" /> <effectiveTime value= "617011095097" /> <value unit="" xsi:type="PQ" value="None Detected" / > <referenceRange> <observationRange> <text> None Detected</text> </observationRange> </referenceRange> </observation> </component> <component> <observation moodCode="EVN" classCode="OBS"> <templateId root= "216.840.1.886151.09.17.22.4.2" /> <id nullFlavor="NA" /> < code codeSystem="local" code="OPIATEU" displayName="OPIATE SCREEN, URINE" /> <statusCode code="completed" /> <effectiveTime value= "028583270390" /> <value unit="" xsi:type="PQ" value="None Detected" / > <referenceRange> <observationRange> <text> None Detected</text> </observationRange> </referenceRange> </observation> </component> </organizer> </entry> <entry> < organizer moodCode="EVN" classCode="BATTERY"> <templateId root= "2.16.840.1.729973.10..4.1" /> <id nullFlavor="NA" /> <code codeSystem="local" code="ETOHB" displayName="ETHANOL, SERUM" /> < statusCode code="completed" /> <component> <observation moodCode= "EVN" classCode="OBS"> <templateId root="16.840.1.579986.10..22.4.2 " /> <id nullFlavor="NA" /> <code codeSystem="local" code= "ETOHB" displayName="ETHANOL, SERUM" /> <statusCode code="completed" / > <effectiveTime value="587814496876" /> <value unit="mg/dL" xsi:type="PQ" value="4" /> <referenceRange> < observationRange> <text /> </observationRange> </referenceRange> </observation> </component> </organizer> </ entry> <entry> <organizer moodCode="EVN" classCode="BATTERY"> < templateId root="216.840.1.351363.10..22.4.1" /> <id nullFlavor="NA" /> <code codeSystem="local" code="LACTVEN" displayName="LACTATE, VENOUS" /> <statusCode code="completed" /> <component> <observation moodCode="EVN" classCode="OBS"> <templateId root= "216.840.1.568347.10..22.4.2" /> <id nullFlavor="NA" /> < code codeSystem="local" code="LACTVEN" displayName="LACTATE, VENOUS" /> <statusCode code="completed" /> <effectiveTime value="974865676942" / > <value unit="mmol/L" xsi:type="PQ" value="2.3" /> < interpretationCode codeSystem="local" code="H" /> <referenceRange> <observationRange> <text>0.4-2.0</text> </ observationRange> </referenceRange> </observation> </ component> </organizer> </entry> <entry> <organizer moodCode="EVN" classCode="BATTERY"> <templateId root="16.840.1.845275..22.4.1" /> <id nullFlavor="NA" /> <code codeSystem="local" code="[id number]" displayName="CBC WITH DIFFERENTIAL REFLEX MANUAL DIFF" /> <statusCode code= "completed" /> <component> <observation moodCode="EVN" classCode= "OBS"> <templateId root="01.14.840.1.680438.22.4.2" /> < id nullFlavor="NA" /> <code codeSystem="local" code="WBC" displayName= "WBC" /> <statusCode code="completed" /> <effectiveTime value= "655427035288" /> <value unit="10*3/uL" xsi:type="PQ" value="5.7" /> <referenceRange> <observationRange> <text>3.7- 11.1</text> </observationRange> </referenceRange> </ observation> </component> <component> <observation moodCode= "EVN" classCode="OBS"> <templateId root="01.14.840.1.123665.09.17.22.4.2 " /> <id nullFlavor="NA" /> <code codeSystem="local" code="RBC " displayName="RBC" /> <statusCode code="completed" /> < effectiveTime value="384593617130" /> <value unit="10*6/uL" xsi:type= "PQ" value="4.07" /> <interpretationCode codeSystem="local" code="L" / > <referenceRange> <observationRange> <text> 4.11-5.63</text> </observationRange> </referenceRange> </observation> </component> <component> <observation moodCode="EVN" classCode="OBS"> <templateId root= "01.14.840.1.299158.09.17.22.4.2" /> <id nullFlavor="NA" /> < code codeSystem="local" code="HGB" displayName="HEMOGLOBIN" /> < statusCode code="completed" /> <effectiveTime value="172291440746" /> <value unit="g/dL" xsi:type="PQ" value="11.2" /> < interpretationCode codeSystem="local" code="L" /> <referenceRange> <observationRange> <text>11.9-16.3</text> </ observationRange> </referenceRange> </observation> </ component> <component> <observation moodCode="EVN" classCode="OBS"> <templateId root="01.14.840.1.993278.22.4.2" /> <id nullFlavor="NA" /> <code codeSystem="local" code="HCT" displayName= "HEMATOCRIT" /> <statusCode code="completed" /> < effectiveTime value="318119949101" /> <value unit="%" xsi:type="PQ " value="34.1" /> <interpretationCode codeSystem="local" code="L" /> <referenceRange> <observationRange> <text>37.0- 47.7</text> </observationRange> </referenceRange> </ observation> </component> <component> <observation moodCode= "EVN" classCode="OBS"> <templateId root="01.14.840.1.428808.10.2022.4.2 " /> <id nullFlavor="NA" /> <code codeSystem="local" code="PLT " displayName="PLATELET COUNT" /> <statusCode code="completed" /> <effectiveTime value="227386933804" /> <value unit="10*3/uL" xsi: type="PQ" value="302" /> <referenceRange> <observationRange > <text>150-400</text> </observationRange> </ referenceRange> </observation> </component> <component> <observation moodCode="EVN" classCode="OBS"> <templateId root= "01.14.840.1.772618.10...4.2" /> <id nullFlavor="NA" /> < code codeSystem="local" code="MCV" displayName="MCV" /> <statusCode code="completed" /> <effectiveTime value="" /> < value unit="fL" xsi:type="PQ" value="84" /> <referenceRange> <observationRange> <text>81-97</text> </ observationRange> </referenceRange> </observation> </ component> <component> <observation moodCode="EVN" classCode="OBS"> <templateId root="01.14.840.1.430453.09.17.22.4.2" /> <id nullFlavor="NA" /> <code codeSystem="local" code="MCH" displayName="MCH " /> <statusCode code="completed" /> <effectiveTime value= "" /> <value unit="pg" xsi:type="PQ" value="27.5" /> <referenceRange> <observationRange> <text>26.7-33.1< /text> </observationRange> </referenceRange> </ observation> </component> <component> <observation moodCode= "EVN" classCode="OBS"> <templateId root="01.14.840.1.618317...4.2 " /> <id nullFlavor="NA" /> <code codeSystem="local" code= "MCHC" displayName="MCHC" /> <statusCode code="completed" /> < effectiveTime value="" /> <value unit="g/dL" xsi:type="PQ" value="32.8" /> <referenceRange> <observationRange> <text>31.1-35.3</text> </observationRange> </ referenceRange> </observation> </component> <component> <observation moodCode="EVN" classCode="OBS"> <templateId root= "01.14.840.1.569709.10.20.22.4.2" /> <id nullFlavor="NA" /> < code codeSystem="local" code="MPV" displayName="MPV" /> <statusCode code="completed" /> <effectiveTime value="512637689349" /> < value unit="fL" xsi:type="PQ" value="9.9" /> <referenceRange> <observationRange> <text /> </observationRange> </referenceRange> </observation> </component> <component> <observation moodCode="EVN" classCode="OBS"> <templateId root= "840.1.418921.10.2022.4.2" /> <id nullFlavor="NA" /> < code codeSystem="local" code="NEUTROAB" displayName="ABSOLUTE NEUTROPHIL" /> <statusCode code="completed" /> <effectiveTime value= "972275367079" /> <value unit="10*3/uL" xsi:type="PQ" value="3.08" /> <referenceRange> <observationRange> <text>1.70- 7.10</text> </observationRange> </referenceRange> </ observation> </component> <component> <observation moodCode= "EVN" classCode="OBS"> <templateId root="01.14.840.1.285837.10.20.22.4.2 " /> <id nullFlavor="NA" /> <code codeSystem="local" code= "LYMPAB" displayName="ABSOLUTE LYMPHOCYTE" /> <statusCode code= "completed" /> <effectiveTime value="916905870497" /> <value unit="10*3/uL" xsi:type="PQ" value="2.0" /> <referenceRange> <observationRange> <text>1.1-3.7</text> </ observationRange> </referenceRange> </observation> </ component> <component> <observation moodCode="EVN" classCode="OBS"> <templateId root="01.14.840.1.110210.10..22.4.2" /> <id nullFlavor="NA" /> <code codeSystem="local" code="MONOAB" displayName= "ABSOLUTE MONOCYTE" /> <statusCode code="completed" /> < effectiveTime value="676042537789" /> <value unit="10*3/uL" xsi:type= "PQ" value="0.5" /> <referenceRange> <observationRange> <text>0.3-0.9</text> </observationRange> </ referenceRange> </observation> </component> <component> <observation moodCode="EVN" classCode="OBS"> <templateId root= "16.840.1.987796.10..22.4.2" /> <id nullFlavor="NA" /> < code codeSystem="local" code="EOSAB" displayName="ABSOLUTE EOSINOPHIL" /> <statusCode code="completed" /> <effectiveTime value="532063745595 " /> <value unit="10*3/uL" xsi:type="PQ" value="0.1" /> < referenceRange> <observationRange> <text>0.0-0.5</text> </observationRange> </referenceRange> </observation > </component> <component> <observation moodCode="EVN" classCode="OBS"> <templateId root="01.14.840.1.587334.10..4.2" /> <id nullFlavor="NA" /> <code codeSystem="local" code="BASOAB" displayName="ABSOLUTE BASOPHIL" /> <statusCode code="completed" /> <effectiveTime value="383179756910" /> <value unit="10*3/uL" xsi: type="PQ" value="0.0" /> <referenceRange> <observationRange > <text>0.0-0.1</text> </observationRange> </ referenceRange> </observation> </component> <component> <observation moodCode="EVN" classCode="OBS"> <templateId root= "216.840.1.425762.10..4.2" /> <id nullFlavor="NA" /> < code codeSystem="local" code="NEUTRO" displayName="NEUTROPHILS" /> < statusCode code="completed" /> <effectiveTime value="" /> <value unit="%" xsi:type="PQ" value="54" /> < referenceRange> <observationRange> <text /> < /observationRange> </referenceRange> </observation> </ component> <component> <observation moodCode="EVN" classCode="OBS"> <templateId root="216.840.1.228455.10..4.2" /> <id nullFlavor="NA" /> <code codeSystem="local" code="LYMP" displayName= "LYMPHOCYTE" /> <statusCode code="completed" /> < effectiveTime value="" /> <value unit="%" xsi:type="PQ " value="35" /> <referenceRange> <observationRange> <text /> </observationRange> </referenceRange> </observation> </component> <component> <observation moodCode= "EVN" classCode="OBS"> <templateId root="16.840.1.600837.10.22.4.2 " /> <id nullFlavor="NA" /> <code codeSystem="local" code= "MONO" displayName="MONOCYTE" /> <statusCode code="completed" /> <effectiveTime value="" /> <value unit="%" xsi:type ="PQ" value="8" /> <referenceRange> <observationRange> <text /> </observationRange> </referenceRange> </observation> </component> <component> <observation moodCode="EVN" classCode="OBS"> <templateId root= "16.840.1.492407..22.4.2" /> <id nullFlavor="NA" /> < code codeSystem="local" code="EOS" displayName="EOSINOPHIL" /> < statusCode code="completed" /> <effectiveTime value="" /> <value unit="%" xsi:type="PQ" value="2" /> <referenceRange > <observationRange> <text /> </ observationRange> </referenceRange> </observation> </ component> <component> <observation moodCode="EVN" classCode="OBS"> <templateId root="01.14.840.1.647035.102022.4.2" /> <id nullFlavor="NA" /> <code codeSystem="local" code="BASO" displayName= "BASOPHIL" /> <statusCode code="completed" /> <effectiveTime value="540097239608" /> <value unit="%" xsi:type="PQ" value="0" /> <referenceRange> <observationRange> <text /> </observationRange> </referenceRange> </observation> </component> <component> <observation moodCode="EVN" classCode ="OBS"> <templateId root="16.840.1.408065.22.4.2" /> < id nullFlavor="NA" /> <code codeSystem="local" code="NRBC" displayName= "NUCLEATED RBC % AUTO" /> <statusCode code="completed" /> <effectiveTime value="" /> <value unit="/100WBCs" xsi:type= "PQ" value="0" /> <referenceRange> <observationRange> <text /> </observationRange> </referenceRange> </observation> </component> <component> <observation moodCode="EVN" classCode="OBS"> <templateId root= "16.840.1.234435.22.4.2" /> <id nullFlavor="NA" /> < code codeSystem="local" code="IGAB" displayName="ABSOLUTE IMMATURE GRANULOCYTES " /> <statusCode code="completed" /> <effectiveTime value= "" /> <value unit="10*3/uL" xsi:type="PQ" value="0.02" /> <referenceRange> <observationRange> <text>< 0.1</text> </observationRange> </referenceRange> </ observation> </component> <component> <observation moodCode= "EVN" classCode="OBS"> <templateId root="01.14.840.1.366416.10.2022.4.2 " /> <id nullFlavor="NA" /> <code codeSystem="local" code="IG " displayName="IMMATURE GRANULOCYTES" /> <statusCode code="completed" / > <effectiveTime value="" /> <value unit="%" xsi:type="PQ" value="0.4" /> <referenceRange> < observationRange> <text /> </observationRange> </referenceRange> </observation> </component> <component> <observation moodCode="EVN" classCode="OBS"> <templateId root= "16.840.1.993163.10.2022.4.2" /> <id nullFlavor="NA" /> < code codeSystem="local" code="[id number]" displayName="RDW-SD" /> < statusCode code="completed" /> <effectiveTime value="664940841088" /> <value unit="fL" xsi:type="PQ" value="49.8" /> <referenceRange > <observationRange> <text>37.1-49.8</text> < /observationRange> </referenceRange> </observation> </ component> </organizer> </entry> <entry> <organizer moodCode="EVN" classCode="BATTERY"> <templateId root="01.14.840.1.830392.10..22.4.1" /> <id nullFlavor="NA" /> <code codeSystem="local" code="LACTVEN" displayName="LACTATE, VENOUS" /> <statusCode code="completed" /> < component> <observation moodCode="EVN" classCode="OBS"> < templateId root="01.14.840.1.349872.1022.4.2" /> <id nullFlavor="NA " /> <code codeSystem="local" code="LACTVEN" displayName="LACTATE, VENOUS" /> <statusCode code="completed" /> <effectiveTime value="221541189171" /> <value unit="mmol/L" xsi:type="PQ" value="1.0" /> <referenceRange> <observationRange> <text> 0.4-2.0</text> </observationRange> </referenceRange> </observation> </component> </organizer> </entry> <entry> < organizer moodCode="EVN" classCode="BATTERY"> <templateId root= "840.1.510107.09.17.22.4.1" /> <id nullFlavor="NA" /> <code codeSystem="local" code="MG" displayName="MAGNESIUM" /> <statusCode code= "completed" /> <component> <observation moodCode="EVN" classCode= "OBS"> <templateId root="840.1.237042.09.17.22.4.2" /> < id nullFlavor="NA" /> <code codeSystem="local" code="MG" displayName= "MAGNESIUM" /> <statusCode code="completed" /> <effectiveTime value="317488161997" /> <value unit="mg/dL" xsi:type="PQ" value="2.0" / > <referenceRange> <observationRange> <text>1.6 -2.5</text> </observationRange> </referenceRange> </ observation> </component> </organizer> </entry> <entry> <organizer moodCode="EVN" classCode="BATTERY"> <templateId root= "840.1.320754.09.17.22.4.1" /> <id nullFlavor="NA" /> <code codeSystem="local" code="065541" displayName="HEPATITIS C ANTIBODY - PERFORMABLE FOR PANEL" /> <statusCode code="completed" /> <component> <observation moodCode="EVN" classCode="OBS"> <templateId root= "01.14.840.1.914383.09.17..4.2" /> <id nullFlavor="NA" /> < code codeSystem="local" code="HCAB" displayName="HEPATITIS C ANTIBODY" /> <statusCode code="completed" /> <effectiveTime value="075352134268 " /> <value unit="" xsi:type="PQ" value="Non-Reactive" /> < referenceRange> <observationRange> <text>Non-Reactive</ text> </observationRange> </referenceRange> </ observation> </component> </organizer> </entry> <entry> <organizer moodCode="EVN" classCode="BATTERY"> <templateId root= "2.16.840.1.519775.10.20.22.4.1" /> <id nullFlavor="NA" /> <code codeSystem="local" code="CDIFFGDHG" displayName="C DIFF GDH AND TOXIN A/B" /> <statusCode code="completed" /> <component> <observation moodCode="EVN" classCode="OBS"> <templateId root= "2.16.840.1.347850.10.20.22.4.2" /> <id nullFlavor="NA" /> < code codeSystem="local" code="MB" displayName="Microbiology" /> < statusCode code="completed" /> <effectiveTime value="967929703825" /> <value xsi:type="ST" value="<pre><b>C DIFF ANTIGEN AND TOXINS RAPID SCREEN REFLEX PCR</b> [address] [address] [address] C. difficile disease remains a clinical diagnosis based primarily on clinical findings and patient history. Laboratory tests for C. difficile are presumptive as they cannot independently differentiate active C. difficile disease from colonization and therefore must be interpreted in conjunction with clinical presentation and the pre-test likelihood of active C. difficile disease. The negative predictive value of both antigen and PCR testing is high, therefore repeat testing during the same episode of diarrhea is of limited value and discouraged. Laboratory testing for cure is also not indicated.Clostridium difficile GDH Antigen and Toxin NEGATIVE for C. difficile antigen and toxins A and B</pre>" /> < referenceRange> <observationRange> <text /> < /observationRange> </referenceRange> </observation> </ component> </organizer> </entry> <entry> <organizer moodCode="EVN" classCode="BATTERY"> <templateId root="01.14.840.1.173722.10..22.4.1" /> <id nullFlavor="NA" /> <code codeSystem="local" code="SWBC" displayName="WBCS (STOOL)" /> <statusCode code="completed" /> < component> <observation moodCode="EVN" classCode="OBS"> < templateId root="01.14.840.1.336829.10..22.4.2" /> <id nullFlavor="NA " /> <code codeSystem="local" code="MB" displayName="Microbiology" /> <statusCode code="completed" /> <effectiveTime value= "151759211120" /> <value xsi:type="ST" value="<pre><b>WBC STOOL</b> [facility] [id number] [place] [address] [id number] [place] [id number], Fecal Positive ---> ABNORMAL</pre>" /> < referenceRange> <observationRange> <text /> < /observationRange> </referenceRange> </observation> </ component> </organizer> </entry> <entry> <organizer moodCode="EVN" classCode="BATTERY"> <templateId root="01.14.840.1.542887.10..22.4.1" /> <id nullFlavor="NA" /> <code codeSystem="local" code="STLG" displayName="STOOL CULTURE, ROUTINE" /> <statusCode code="completed" /> <component> <observation moodCode="EVN" classCode="OBS"> < templateId root="01.14.840.1.623845.10.20.22.4.2" /> <id nullFlavor="NA " /> <code codeSystem="local" code="MB" displayName="Microbiology" /> <statusCode code="completed" /> <effectiveTime value= "476035037085" /> <value xsi:type="ST" value="<pre><b>CULTURE STOOL</b > [facility] [id number] [place] [address]EPC [id number] [place], [place] [address]Gpbza Culture No Salmonella, Shigella, Campylobacter isolated</pre>" /> <referenceRange> <observationRange> <text /> </observationRange> </referenceRange> </observation> </component> </organizer> </entry> <entry> < organizer moodCode="EVN" classCode="BATTERY"> <templateId root= "216.840.1.767406.10.20.22.4.1" /> <id nullFlavor="NA" /> <code codeSystem="local" code="[id number]" displayName="CBC WITH DIFFERENTIAL REFLEX MANUAL DIFF" /> <statusCode code="completed" /> <component> < observation moodCode="EVN" classCode="OBS"> <templateId root= "2.16.840.1.410950.10.20.22.4.2" /> <id nullFlavor="NA" /> < code codeSystem="local" code="WBC" displayName="WBC" /> <statusCode code="completed" /> <effectiveTime value="966711261256" /> < value unit="10*3/uL" xsi:type="PQ" value="5.7" /> <referenceRange> <observationRange> <text>3.7-11.1</text> </ observationRange> </referenceRange> </observation> </ component> <component> <observation moodCode="EVN" classCode="OBS"> <templateId root="01.14.840.1.046775.10.20.22.4.2" /> <id nullFlavor="NA" /> <code codeSystem="local" code="RBC" displayName="RBC " /> <statusCode code="completed" /> <effectiveTime value= "924974685788" /> <value unit="10*6/uL" xsi:type="PQ" value="3.88" /> <interpretationCode codeSystem="local" code="L" /> < referenceRange> <observationRange> <text>4.11-5.63</text > </observationRange> </referenceRange> </observation > </component> <component> <observation moodCode="EVN" classCode="OBS"> <templateId root="01.14.840.1.101192.10.22.4.2" /> <id nullFlavor="NA" /> <code codeSystem="local" code="HGB" displayName="HEMOGLOBIN" /> <statusCode code="completed" /> < effectiveTime value="094646148964" /> <value unit="g/dL" xsi:type="PQ" value="10.6" /> <interpretationCode codeSystem="local" code="L" /> <referenceRange> <observationRange> <text>11.9- 16.3</text> </observationRange> </referenceRange> </ observation> </component> <component> <observation moodCode= "EVN" classCode="OBS"> <templateId root="01.14.840.1.750541.10.20.22.4.2 " /> <id nullFlavor="NA" /> <code codeSystem="local" code="HCT " displayName="HEMATOCRIT" /> <statusCode code="completed" /> <effectiveTime value="751955818651" /> <value unit="%" xsi:type="PQ " value="32.9" /> <interpretationCode codeSystem="local" code="L" /> <referenceRange> <observationRange> <text>37.0- 47.7</text> </observationRange> </referenceRange> </ observation> </component> <component> <observation moodCode= "EVN" classCode="OBS"> <templateId root="01.14.840.1.271818.1022.4.2 " /> <id nullFlavor="NA" /> <code codeSystem="local" code="PLT " displayName="PLATELET COUNT" /> <statusCode code="completed" /> <effectiveTime value="151128579408" /> <value unit="10*3/uL" xsi: type="PQ" value="316" /> <referenceRange> <observationRange > <text>150-400</text> </observationRange> </ referenceRange> </observation> </component> <component> <observation moodCode="EVN" classCode="OBS"> <templateId root= "840.1.527285.09.17.22.4.2" /> <id nullFlavor="NA" /> < code codeSystem="local" code="MCV" displayName="MCV" /> <statusCode code="completed" /> <effectiveTime value="839156753269" /> < value unit="fL" xsi:type="PQ" value="85" /> <referenceRange> <observationRange> <text>81-97</text> </ observationRange> </referenceRange> </observation> </ component> <component> <observation moodCode="EVN" classCode="OBS"> <templateId root="01.14.840.1.404637.10.2022.4.2" /> <id nullFlavor="NA" /> <code codeSystem="local" code="MCH" displayName="MCH " /> <statusCode code="completed" /> <effectiveTime value= "194996566638" /> <value unit="pg" xsi:type="PQ" value="27.3" /> <referenceRange> <observationRange> <text>26.7-33.1< /text> </observationRange> </referenceRange> </ observation> </component> <component> <observation moodCode= "EVN" classCode="OBS"> <templateId root="01.14.840.1.570494.10.20.22.4.2 " /> <id nullFlavor="NA" /> <code codeSystem="local" code= "MCHC" displayName="MCHC" /> <statusCode code="completed" /> < effectiveTime value="841675016734" /> <value unit="g/dL" xsi:type="PQ" value="32.2" /> <referenceRange> <observationRange> <text>31.1-35.3</text> </observationRange> </ referenceRange> </observation> </component> <component> <observation moodCode="EVN" classCode="OBS"> <templateId root= "01.14.840.1.738941.10.22.4.2" /> <id nullFlavor="NA" /> < code codeSystem="local" code="MPV" displayName="MPV" /> <statusCode code="completed" /> <effectiveTime value="779279009085" /> < value unit="fL" xsi:type="PQ" value="9.8" /> <referenceRange> <observationRange> <text /> </observationRange> </referenceRange> </observation> </component> <component> <observation moodCode="EVN" classCode="OBS"> <templateId root= "01.14.840.1.269298.104.2" /> <id nullFlavor="NA" /> < code codeSystem="local" code="NEUTROAB" displayName="ABSOLUTE NEUTROPHIL" /> <statusCode code="completed" /> <effectiveTime value= "" /> <value unit="10*3/uL" xsi:type="PQ" value="2.07" /> <referenceRange> <observationRange> <text>1.70- 7.10</text> </observationRange> </referenceRange> </ observation> </component> <component> <observation moodCode= "EVN" classCode="OBS"> <templateId root="216.840.1.649451.09.17.224.2 " /> <id nullFlavor="NA" /> <code codeSystem="local" code= "LYMPAB" displayName="ABSOLUTE LYMPHOCYTE" /> <statusCode code= "completed" /> <effectiveTime value="" /> <value unit="10*3/uL" xsi:type="PQ" value="3.0" /> <referenceRange> <observationRange> <text>1.1-3.7</text> </ observationRange> </referenceRange> </observation> </ component> <component> <observation moodCode="EVN" classCode="OBS"> <templateId root="216.840.1.110261.09.17.22.4.2" /> <id nullFlavor="NA" /> <code codeSystem="local" code="MONOAB" displayName= "ABSOLUTE MONOCYTE" /> <statusCode code="completed" /> < effectiveTime value="" /> <value unit="10*3/uL" xsi:type= "PQ" value="0.5" /> <referenceRange> <observationRange> <text>0.3-0.9</text> </observationRange> </ referenceRange> </observation> </component> <component> <observation moodCode="EVN" classCode="OBS"> <templateId root= "216.840.1.856182.09.17.22.4.2" /> <id nullFlavor="NA" /> < code codeSystem="local" code="EOSAB" displayName="ABSOLUTE EOSINOPHIL" /> <statusCode code="completed" /> <effectiveTime value=" " /> <value unit="10*3/uL" xsi:type="PQ" value="0.1" /> < referenceRange> <observationRange> <text>0.0-0.5</text> </observationRange> </referenceRange> </observation > </component> <component> <observation moodCode="EVN" classCode="OBS"> <templateId root="16.840.1.488142.09.17.224.2" /> <id nullFlavor="NA" /> <code codeSystem="local" code="BASOAB" displayName="ABSOLUTE BASOPHIL" /> <statusCode code="completed" /> <effectiveTime value="" /> <value unit="10*3/uL" xsi: type="PQ" value="0.0" /> <referenceRange> <observationRange > <text>0.0-0.1</text> </observationRange> </ referenceRange> </observation> </component> <component> <observation moodCode="EVN" classCode="OBS"> <templateId root= "16.840.1.218294.09.17.22.4.2" /> <id nullFlavor="NA" /> < code codeSystem="local" code="NEUTRO" displayName="NEUTROPHILS" /> < statusCode code="completed" /> <effectiveTime value="" /> <value unit="%" xsi:type="PQ" value="37" /> < referenceRange> <observationRange> <text /> < /observationRange> </referenceRange> </observation> </ component> <component> <observation moodCode="EVN" classCode="OBS"> <templateId root="16.840.1.488924.10.20.22.4.2" /> <id nullFlavor="NA" /> <code codeSystem="local" code="LYMP" displayName= "LYMPHOCYTE" /> <statusCode code="completed" /> < effectiveTime value="" /> <value unit="%" xsi:type="PQ " value="52" /> <referenceRange> <observationRange> <text /> </observationRange> </referenceRange> </observation> </component> <component> <observation moodCode= "EVN" classCode="OBS"> <templateId root="01.14.840.1.330605.1022.4.2 " /> <id nullFlavor="NA" /> <code codeSystem="local" code= "MONO" displayName="MONOCYTE" /> <statusCode code="completed" /> <effectiveTime value="" /> <value unit="%" xsi:type ="PQ" value="9" /> <referenceRange> <observationRange> <text /> </observationRange> </referenceRange> </observation> </component> <component> <observation moodCode="EVN" classCode="OBS"> <templateId root= "01.14.840.1.782902.10.2022.4.2" /> <id nullFlavor="NA" /> < code codeSystem="local" code="EOS" displayName="EOSINOPHIL" /> < statusCode code="completed" /> <effectiveTime value="" /> <value unit="%" xsi:type="PQ" value="2" /> <referenceRange > <observationRange> <text /> </ observationRange> </referenceRange> </observation> </ component> <component> <observation moodCode="EVN" classCode="OBS"> <templateId root="01.14.840.1.523123.10.22.4.2" /> <id nullFlavor="NA" /> <code codeSystem="local" code="BASO" displayName= "BASOPHIL" /> <statusCode code="completed" /> <effectiveTime value="212958817333" /> <value unit="%" xsi:type="PQ" value="1" /> <referenceRange> <observationRange> <text /> </observationRange> </referenceRange> </observation> </component> <component> <observation moodCode="EVN" classCode ="OBS"> <templateId root="01.14.840.1.975419.10..4.2" /> < id nullFlavor="NA" /> <code codeSystem="local" code="NRBC" displayName= "NUCLEATED RBC % AUTO" /> <statusCode code="completed" /> <effectiveTime value="843566926540" /> <value unit="/100WBCs" xsi:type= "PQ" value="0" /> <referenceRange> <observationRange> <text /> </observationRange> </referenceRange> </observation> </component> <component> <observation moodCode="EVN" classCode="OBS"> <templateId root= "01.14.840.1.164314.10.2022.4.2" /> <id nullFlavor="NA" /> < code codeSystem="local" code="IGAB" displayName="ABSOLUTE IMMATURE GRANULOCYTES " /> <statusCode code="completed" /> <effectiveTime value= "238376795126" /> <value unit="10*3/uL" xsi:type="PQ" value="0.01" /> <referenceRange> <observationRange> <text>< 0.1</text> </observationRange> </referenceRange> </ observation> </component> <component> <observation moodCode= "EVN" classCode="OBS"> <templateId root="216.840.1.737362.10..4.2 " /> <id nullFlavor="NA" /> <code codeSystem="local" code="IG " displayName="IMMATURE GRANULOCYTES" /> <statusCode code="completed" / > <effectiveTime value="517020341771" /> <value unit="%" xsi:type="PQ" value="0.2" /> <referenceRange> < observationRange> <text /> </observationRange> </referenceRange> </observation> </component> <component> <observation moodCode="EVN" classCode="OBS"> <templateId root= "216.840.1.651559.10..4.2" /> <id nullFlavor="NA" /> < code codeSystem="local" code="5138889413" displayName="RDW-SD" /> < statusCode code="completed" /> <effectiveTime value="523982532349" /> <value unit="fL" xsi:type="PQ" value="50.2" /> < interpretationCode codeSystem="local" code="H" /> <referenceRange> <observationRange> <text>37.1-49.8</text> </ observationRange> </referenceRange> </observation> </ component> </organizer> </entry> <entry> <organizer moodCode="EVN" classCode="BATTERY"> <templateId root="840.1.675148...4.1" /> <id nullFlavor="NA" /> <code codeSystem="local" code="MG" displayName= "MAGNESIUM" /> <statusCode code="completed" /> <component> < observation moodCode="EVN" classCode="OBS"> <templateId root= "840.1.278958.09.17.22.4.2" /> <id nullFlavor="NA" /> < code codeSystem="local" code="MG" displayName="MAGNESIUM" /> < statusCode code="completed" /> <effectiveTime value="171062727253" /> <value unit="mg/dL" xsi:type="PQ" value="2.0" /> < referenceRange> <observationRange> <text>1.6-2.5</text> </observationRange> </referenceRange> </observation > </component> </organizer> </entry> <entry> <organizer moodCode= "EVN" classCode="BATTERY"> <templateId root="840.1.876076.09.17.22.4.1 " /> <id nullFlavor="NA" /> <code codeSystem="local" code="[id number]" displayName="CBC WITH DIFFERENTIAL REFLEX MANUAL DIFF" /> <statusCode code= "completed" /> <component> <observation moodCode="EVN" classCode= "OBS"> <templateId root="840.1.723108.09.17.22.4.2" /> < id nullFlavor="NA" /> <code codeSystem="local" code="WBC" displayName= "WBC" /> <statusCode code="completed" /> <effectiveTime value= "103788456179" /> <value unit="10*3/uL" xsi:type="PQ" value="10.7" /> <referenceRange> <observationRange> <text>3.7- 11.1</text> </observationRange> </referenceRange> </ observation> </component> <component> <observation moodCode= "EVN" classCode="OBS"> <templateId root="16.840.1.203406.10.20.22.4.2 " /> <id nullFlavor="NA" /> <code codeSystem="local" code="RBC " displayName="RBC" /> <statusCode code="completed" /> < effectiveTime value="" /> <value unit="10*6/uL" xsi:type= "PQ" value="4.36" /> <referenceRange> <observationRange> <text>4.11-5.63</text> </observationRange> </ referenceRange> </observation> </component> <component> <observation moodCode="EVN" classCode="OBS"> <templateId root= "01.14.840.1.532462.10.22.4.2" /> <id nullFlavor="NA" /> < code codeSystem="local" code="HGB" displayName="HEMOGLOBIN" /> < statusCode code="completed" /> <effectiveTime value="" /> <value unit="g/dL" xsi:type="PQ" value="11.9" /> < referenceRange> <observationRange> <text>11.9-16.3</text > </observationRange> </referenceRange> </observation > </component> <component> <observation moodCode="EVN" classCode="OBS"> <templateId root="01.14.840.1.220217.10.22.4.2" /> <id nullFlavor="NA" /> <code codeSystem="local" code="HCT" displayName="HEMATOCRIT" /> <statusCode code="completed" /> < effectiveTime value="" /> <value unit="%" xsi:type="PQ " value="36.3" /> <interpretationCode codeSystem="local" code="L" /> <referenceRange> <observationRange> <text>37.0- 47.7</text> </observationRange> </referenceRange> </ observation> </component> <component> <observation moodCode= "EVN" classCode="OBS"> <templateId root="16.840.1.076386.10...4.2 " /> <id nullFlavor="NA" /> <code codeSystem="local" code="PLT " displayName="PLATELET COUNT" /> <statusCode code="completed" /> <effectiveTime value="" /> <value unit="10*3/uL" xsi: type="PQ" value="423" /> <interpretationCode codeSystem="local" code="H " /> <referenceRange> <observationRange> <text> 150-400</text> </observationRange> </referenceRange> </observation> </component> <component> <observation moodCode= "EVN" classCode="OBS"> <templateId root="01.14.840.1.118602.10..22.4.2 " /> <id nullFlavor="NA" /> <code codeSystem="local" code="MCV " displayName="MCV" /> <statusCode code="completed" /> < effectiveTime value="" /> <value unit="fL" xsi:type="PQ" value="83" /> <referenceRange> <observationRange> <text>81-97</text> </observationRange> </referenceRange > </observation> </component> <component> <observation moodCode="EVN" classCode="OBS"> <templateId root= "01.14.840.1.119156.1022.4.2" /> <id nullFlavor="NA" /> < code codeSystem="local" code="MCH" displayName="MCH" /> <statusCode code="completed" /> <effectiveTime value="" /> < value unit="pg" xsi:type="PQ" value="27.3" /> <referenceRange> <observationRange> <text>26.7-33.1</text> </ observationRange> </referenceRange> </observation> </ component> <component> <observation moodCode="EVN" classCode="OBS"> <templateId root="2.16.840.1.138991.09.17.22.4.2" /> <id nullFlavor="NA" /> <code codeSystem="local" code="MCHC" displayName= "MCHC" /> <statusCode code="completed" /> <effectiveTime value ="" /> <value unit="g/dL" xsi:type="PQ" value="32.8" /> <referenceRange> <observationRange> <text>31.1- 35.3</text> </observationRange> </referenceRange> </ observation> </component> <component> <observation moodCode= "EVN" classCode="OBS"> <templateId root="216.840.1.396465...22.4.2 " /> <id nullFlavor="NA" /> <code codeSystem="local" code="MPV " displayName="MPV" /> <statusCode code="completed" /> < effectiveTime value="" /> <value unit="fL" xsi:type="PQ" value="9.8" /> <referenceRange> <observationRange> <text /> </observationRange> </referenceRange> < /observation> </component> <component> <observation moodCode= "EVN" classCode="OBS"> <templateId root="01.14.840.1.466221.10.20.22.4.2 " /> <id nullFlavor="NA" /> <code codeSystem="local" code= "NEUTROAB" displayName="ABSOLUTE NEUTROPHIL" /> <statusCode code= "completed" /> <effectiveTime value="483329111794" /> <value unit="10*3/uL" xsi:type="PQ" value="5.04" /> <referenceRange> <observationRange> <text>1.70-7.10</text> </ observationRange> </referenceRange> </observation> </ component> <component> <observation moodCode="EVN" classCode="OBS"> <templateId root="840.1.799421.10.2022.4.2" /> <id nullFlavor="NA" /> <code codeSystem="local" code="LYMPAB" displayName= "ABSOLUTE LYMPHOCYTE" /> <statusCode code="completed" /> < effectiveTime value="079774676143" /> <value unit="10*3/uL" xsi:type= "PQ" value="4.9" /> <interpretationCode codeSystem="local" code="H" /> <referenceRange> <observationRange> <text>1.1- 3.7</text> </observationRange> </referenceRange> </ observation> </component> <component> <observation moodCode= "EVN" classCode="OBS"> <templateId root="01.14.840.1.059735.10.2022.4.2 " /> <id nullFlavor="NA" /> <code codeSystem="local" code= "MONOAB" displayName="ABSOLUTE MONOCYTE" /> <statusCode code="completed " /> <effectiveTime value="790222726459" /> <value unit="10*3/ uL" xsi:type="PQ" value="0.6" /> <referenceRange> < observationRange> <text>0.3-0.9</text> </ observationRange> </referenceRange> </observation> </ component> <component> <observation moodCode="EVN" classCode="OBS"> <templateId root="16.840.1.575342.10...4.2" /> <id nullFlavor="NA" /> <code codeSystem="local" code="EOSAB" displayName= "ABSOLUTE EOSINOPHIL" /> <statusCode code="completed" /> < effectiveTime value="" /> <value unit="10*3/uL" xsi:type= "PQ" value="0.2" /> <referenceRange> <observationRange> <text>0.0-0.5</text> </observationRange> </ referenceRange> </observation> </component> <component> <observation moodCode="EVN" classCode="OBS"> <templateId root= "840.1.960022...4.2" /> <id nullFlavor="NA" /> < code codeSystem="local" code="BASOAB" displayName="ABSOLUTE BASOPHIL" /> <statusCode code="completed" /> <effectiveTime value="" /> <value unit="10*3/uL" xsi:type="PQ" value="0.1" /> < referenceRange> <observationRange> <text>0.0-0.1</text> </observationRange> </referenceRange> </observation > </component> <component> <observation moodCode="EVN" classCode="OBS"> <templateId root="16.840.1.349889.10.20.22.4.2" /> <id nullFlavor="NA" /> <code codeSystem="local" code="NEUTRO" displayName="NEUTROPHILS" /> <statusCode code="completed" /> < effectiveTime value="" /> <value unit="%" xsi:type="PQ " value="47" /> <referenceRange> <observationRange> <text /> </observationRange> </referenceRange> </observation> </component> <component> <observation moodCode= "EVN" classCode="OBS"> <templateId root="01.14.840.1.412380.1022.4.2 " /> <id nullFlavor="NA" /> <code codeSystem="local" code= "LYMP" displayName="LYMPHOCYTE" /> <statusCode code="completed" /> <effectiveTime value="" /> <value unit="%" xsi: type="PQ" value="46" /> <referenceRange> <observationRange> <text /> </observationRange> </referenceRange > </observation> </component> <component> <observation moodCode="EVN" classCode="OBS"> <templateId root= "840.1.138945.1022.4.2" /> <id nullFlavor="NA" /> < code codeSystem="local" code="MONO" displayName="MONOCYTE" /> < statusCode code="completed" /> <effectiveTime value="" /> <value unit="%" xsi:type="PQ" value="5" /> <referenceRange > <observationRange> <text /> </ observationRange> </referenceRange> </observation> </ component> <component> <observation moodCode="EVN" classCode="OBS"> <templateId root="01.14.840.1.044872.1022.4.2" /> <id nullFlavor="NA" /> <code codeSystem="local" code="EOS" displayName= "EOSINOPHIL" /> <statusCode code="completed" /> < effectiveTime value="" /> <value unit="%" xsi:type="PQ " value="1" /> <referenceRange> <observationRange> <text /> </observationRange> </referenceRange> < /observation> </component> <component> <observation moodCode= "EVN" classCode="OBS"> <templateId root="01.14.840.1.416393.10..4.2 " /> <id nullFlavor="NA" /> <code codeSystem="local" code= "BASO" displayName="BASOPHIL" /> <statusCode code="completed" /> <effectiveTime value="" /> <value unit="%" xsi:type ="PQ" value="1" /> <referenceRange> <observationRange> <text /> </observationRange> </referenceRange> </observation> </component> <component> <observation moodCode="EVN" classCode="OBS"> <templateId root= "01.14.840.1.871904.10.4.2" /> <id nullFlavor="NA" /> < code codeSystem="local" code="NRBC" displayName="NUCLEATED RBC % AUTO" /> <statusCode code="completed" /> <effectiveTime value= "" /> <value unit="/100WBCs" xsi:type="PQ" value="0" /> <referenceRange> <observationRange> <text /> </observationRange> </referenceRange> </observation> </component> <component> <observation moodCode="EVN" classCode= "OBS"> <templateId root="01.14.840.1.732919.10.22.4.2" /> < id nullFlavor="NA" /> <code codeSystem="local" code="IGAB" displayName= "ABSOLUTE IMMATURE GRANULOCYTES" /> <statusCode code="completed" /> <effectiveTime value="" /> <value unit="10*3/uL" xsi :type="PQ" value="0.02" /> <referenceRange> < observationRange> <text><0.1</text> </ observationRange> </referenceRange> </observation> </ component> <component> <observation moodCode="EVN" classCode="OBS"> <templateId root="2.16.840.1.129981.10.20.22.4.2" /> <id nullFlavor="NA" /> <code codeSystem="local" code="IG" displayName= "IMMATURE GRANULOCYTES" /> <statusCode code="completed" /> < effectiveTime value="" /> <value unit="%" xsi:type="PQ " value="0.2" /> <referenceRange> <observationRange> <text /> </observationRange> </referenceRange> </observation> </component> <component> <observation moodCode ="EVN" classCode="OBS"> <templateId root= "2.16.840.1.303137.10.20.22.4.2" /> <id nullFlavor="NA" /> < code codeSystem="local" code="[id number]" displayName="RDW-SD" /> < statusCode code="completed" /> <effectiveTime value="" /> <value unit="fL" xsi:type="PQ" value="48.3" /> <referenceRange > <observationRange> <text>37.1-49.8</text> < /observationRange> </referenceRange> </observation> </ component> </organizer> </entry> <entry> <organizer moodCode="EVN" classCode="BATTERY"> <templateId root="01.14.840.1.524224.09.17.22.4.1" /> <id nullFlavor="NA" /> <code codeSystem="local" code="HCGQUAL" displayName="HCG QUALITATIVE" /> <statusCode code="completed" /> < component> <observation moodCode="EVN" classCode="OBS"> < templateId root="840.1.398192.09.17.22.4.2" /> <id nullFlavor="NA " /> <code codeSystem="local" code="HCGQUAL" displayName="HCG QUALITATIVE" /> <statusCode code="completed" /> < effectiveTime value="880841372328" /> <value unit="" xsi:type="PQ" value="Negative" /> <referenceRange> <observationRange> <text>Negative</text> </observationRange> </ referenceRange> </observation> </component> </organizer> </entry > <entry> <organizer moodCode="EVN" classCode="BATTERY"> <templateId root="840.1.232926.09.17.22.4.1" /> <id nullFlavor="NA" /> <code codeSystem="local" code="[id number]" displayName="CBC WITH DIFFERENTIAL REFLEX MANUAL DIFF" /> <statusCode code="completed" /> <component> < observation moodCode="EVN" classCode="OBS"> <templateId root= "01.14.840.1.575778.09.17.22.4.2" /> <id nullFlavor="NA" /> < code codeSystem="local" code="WBC" displayName="WBC" /> <statusCode code="completed" /> <effectiveTime value="521906250753" /> < value unit="10*3/uL" xsi:type="PQ" value="8.0" /> <referenceRange> <observationRange> <text>3.7-11.1</text> </ observationRange> </referenceRange> </observation> </ component> <component> <observation moodCode="EVN" classCode="OBS"> <templateId root="16.840.1.221087.10.20.22.4.2" /> <id nullFlavor="NA" /> <code codeSystem="local" code="RBC" displayName="RBC " /> <statusCode code="completed" /> <effectiveTime value= "069418554601" /> <value unit="10*6/uL" xsi:type="PQ" value="4.37" /> <referenceRange> <observationRange> <text>4.11- 5.63</text> </observationRange> </referenceRange> </ observation> </component> <component> <observation moodCode= "EVN" classCode="OBS"> <templateId root="01.14.840.1.967319.10.20.22.4.2 " /> <id nullFlavor="NA" /> <code codeSystem="local" code="HGB " displayName="HEMOGLOBIN" /> <statusCode code="completed" /> <effectiveTime value="741902569427" /> <value unit="g/dL" xsi:type="PQ " value="12.2" /> <referenceRange> <observationRange> <text>11.9-16.3</text> </observationRange> </ referenceRange> </observation> </component> <component> <observation moodCode="EVN" classCode="OBS"> <templateId root= "01.14.840.1.869323.10.20.22.4.2" /> <id nullFlavor="NA" /> < code codeSystem="local" code="HCT" displayName="HEMATOCRIT" /> < statusCode code="completed" /> <effectiveTime value="281610336951" /> <value unit="%" xsi:type="PQ" value="36.0" /> < interpretationCode codeSystem="local" code="L" /> <referenceRange> <observationRange> <text>37.0-47.7</text> </ observationRange> </referenceRange> </observation> </ component> <component> <observation moodCode="EVN" classCode="OBS"> <templateId root="216.840.1.742177.10..22.4.2" /> <id nullFlavor="NA" /> <code codeSystem="local" code="PLT" displayName= "PLATELET COUNT" /> <statusCode code="completed" /> < effectiveTime value="474272273851" /> <value unit="10*3/uL" xsi:type= "PQ" value="375" /> <referenceRange> <observationRange> <text>150-400</text> </observationRange> </ referenceRange> </observation> </component> <component> <observation moodCode="EVN" classCode="OBS"> <templateId root= "216.840.1.475613.10..22.4.2" /> <id nullFlavor="NA" /> < code codeSystem="local" code="MCV" displayName="MCV" /> <statusCode code="completed" /> <effectiveTime value="811242970543" /> < value unit="fL" xsi:type="PQ" value="82" /> <referenceRange> <observationRange> <text>81-97</text> </ observationRange> </referenceRange> </observation> </ component> <component> <observation moodCode="EVN" classCode="OBS"> <templateId root="16.840.1.084782.09.17.22.4.2" /> <id nullFlavor="NA" /> <code codeSystem="local" code="MCH" displayName="MCH " /> <statusCode code="completed" /> <effectiveTime value= "084030301205" /> <value unit="pg" xsi:type="PQ" value="27.9" /> <referenceRange> <observationRange> <text>26.7-33.1< /text> </observationRange> </referenceRange> </ observation> </component> <component> <observation moodCode= "EVN" classCode="OBS"> <templateId root="216.840.1.183654.09.17.22.4.2 " /> <id nullFlavor="NA" /> <code codeSystem="local" code= "MCHC" displayName="MCHC" /> <statusCode code="completed" /> < effectiveTime value="338601539274" /> <value unit="g/dL" xsi:type="PQ" value="33.9" /> <referenceRange> <observationRange> <text>31.1-35.3</text> </observationRange> </ referenceRange> </observation> </component> <component> <observation moodCode="EVN" classCode="OBS"> <templateId root= "16.840.1.667043.1022.4.2" /> <id nullFlavor="NA" /> < code codeSystem="local" code="MPV" displayName="MPV" /> <statusCode code="completed" /> <effectiveTime value="261838400592" /> < value unit="fL" xsi:type="PQ" value="9.8" /> <referenceRange> <observationRange> <text /> </observationRange> </referenceRange> </observation> </component> <component> <observation moodCode="EVN" classCode="OBS"> <templateId root= "16.840.1.543217.10.2022.4.2" /> <id nullFlavor="NA" /> < code codeSystem="local" code="NEUTROAB" displayName="ABSOLUTE NEUTROPHIL" /> <statusCode code="completed" /> <effectiveTime value= "613459127128" /> <value unit="10*3/uL" xsi:type="PQ" value="4.29" /> <referenceRange> <observationRange> <text>1.70- 7.10</text> </observationRange> </referenceRange> </ observation> </component> <component> <observation moodCode= "EVN" classCode="OBS"> <templateId root="16.840.1.870209.09.17.22.4.2 " /> <id nullFlavor="NA" /> <code codeSystem="local" code= "LYMPAB" displayName="ABSOLUTE LYMPHOCYTE" /> <statusCode code= "completed" /> <effectiveTime value="097893268351" /> <value unit="10*3/uL" xsi:type="PQ" value="3.0" /> <referenceRange> <observationRange> <text>1.1-3.7</text> </ observationRange> </referenceRange> </observation> </ component> <component> <observation moodCode="EVN" classCode="OBS"> <templateId root="01.14.840.1.960847.10.2022.4.2" /> <id nullFlavor="NA" /> <code codeSystem="local" code="MONOAB" displayName= "ABSOLUTE MONOCYTE" /> <statusCode code="completed" /> < effectiveTime value="225083303836" /> <value unit="10*3/uL" xsi:type= "PQ" value="0.5" /> <referenceRange> <observationRange> <text>0.3-0.9</text> </observationRange> </ referenceRange> </observation> </component> <component> <observation moodCode="EVN" classCode="OBS"> <templateId root= "01.14.840.1.973663.10.20.22.4.2" /> <id nullFlavor="NA" /> < code codeSystem="local" code="EOSAB" displayName="ABSOLUTE EOSINOPHIL" /> <statusCode code="completed" /> <effectiveTime value="638871050960 " /> <value unit="10*3/uL" xsi:type="PQ" value="0.1" /> < referenceRange> <observationRange> <text>0.0-0.5</text> </observationRange> </referenceRange> </observation > </component> <component> <observation moodCode="EVN" classCode="OBS"> <templateId root="840.1.711950.09.17.22.4.2" /> <id nullFlavor="NA" /> <code codeSystem="local" code="BASOAB" displayName="ABSOLUTE BASOPHIL" /> <statusCode code="completed" /> <effectiveTime value="664565911018" /> <value unit="10*3/uL" xsi: type="PQ" value="0.1" /> <referenceRange> <observationRange > <text>0.0-0.1</text> </observationRange> </ referenceRange> </observation> </component> <component> <observation moodCode="EVN" classCode="OBS"> <templateId root= "01.14.840.1.101511.10.2022.4.2" /> <id nullFlavor="NA" /> < code codeSystem="local" code="NEUTRO" displayName="NEUTROPHILS" /> < statusCode code="completed" /> <effectiveTime value="777244455800" /> <value unit="%" xsi:type="PQ" value="53" /> < referenceRange> <observationRange> <text /> < /observationRange> </referenceRange> </observation> </ component> <component> <observation moodCode="EVN" classCode="OBS"> <templateId root="01.14.840.1.454143.1022.4.2" /> <id nullFlavor="NA" /> <code codeSystem="local" code="LYMP" displayName= "LYMPHOCYTE" /> <statusCode code="completed" /> < effectiveTime value="473910526404" /> <value unit="%" xsi:type="PQ " value="38" /> <referenceRange> <observationRange> <text /> </observationRange> </referenceRange> </observation> </component> <component> <observation moodCode= "EVN" classCode="OBS"> <templateId root="840.1.193687.1022.4.2 " /> <id nullFlavor="NA" /> <code codeSystem="local" code= "MONO" displayName="MONOCYTE" /> <statusCode code="completed" /> <effectiveTime value="979186053780" /> <value unit="%" xsi:type ="PQ" value="7" /> <referenceRange> <observationRange> <text /> </observationRange> </referenceRange> </observation> </component> <component> <observation moodCode="EVN" classCode="OBS"> <templateId root= "01.14.840.1.490008.102022.4.2" /> <id nullFlavor="NA" /> < code codeSystem="local" code="EOS" displayName="EOSINOPHIL" /> < statusCode code="completed" /> <effectiveTime value="755015459869" /> <value unit="%" xsi:type="PQ" value="2" /> <referenceRange > <observationRange> <text /> </ observationRange> </referenceRange> </observation> </ component> <component> <observation moodCode="EVN" classCode="OBS"> <templateId root="01.14.840.1.431104.10.4.2" /> <id nullFlavor="NA" /> <code codeSystem="local" code="BASO" displayName= "BASOPHIL" /> <statusCode code="completed" /> <effectiveTime value="161275585934" /> <value unit="%" xsi:type="PQ" value="1" /> <referenceRange> <observationRange> <text /> </observationRange> </referenceRange> </observation> </component> <component> <observation moodCode="EVN" classCode ="OBS"> <templateId root="01.14.840.1.910072.10.4.2" /> < id nullFlavor="NA" /> <code codeSystem="local" code="NRBC" displayName= "NUCLEATED RBC % AUTO" /> <statusCode code="completed" /> <effectiveTime value="020371482283" /> <value unit="/100WBCs" xsi:type= "PQ" value="0" /> <referenceRange> <observationRange> <text /> </observationRange> </referenceRange> </observation> </component> <component> <observation moodCode="EVN" classCode="OBS"> <templateId root= "01.14.840.1.280782.10.22.4.2" /> <id nullFlavor="NA" /> < code codeSystem="local" code="IGAB" displayName="ABSOLUTE IMMATURE GRANULOCYTES " /> <statusCode code="completed" /> <effectiveTime value= "747591386231" /> <value unit="10*3/uL" xsi:type="PQ" value="0.02" /> <referenceRange> <observationRange> <text>< 0.1</text> </observationRange> </referenceRange> </ observation> </component> <component> <observation moodCode= "EVN" classCode="OBS"> <templateId root="2.16.840.1.171383.10..22.4.2 " /> <id nullFlavor="NA" /> <code codeSystem="local" code="IG " displayName="IMMATURE GRANULOCYTES" /> <statusCode code="completed" / > <effectiveTime value="954370701986" /> <value unit="%" xsi:type="PQ" value="0.2" /> <referenceRange> < observationRange> <text /> </observationRange> </referenceRange> </observation> </component> <component> <observation moodCode="EVN" classCode="OBS"> <templateId root= "2.16.840.1.513185.10..22.4.2" /> <id nullFlavor="NA" /> < code codeSystem="local" code="2934100353" displayName="RDW-SD" /> < statusCode code="completed" /> <effectiveTime value="409386345777" /> <value unit="fL" xsi:type="PQ" value="41.5" /> <referenceRange > <observationRange> <text>37.1-49.8</text> < /observationRange> </referenceRange> </observation> </ component> </organizer> </entry> <entry> <organizer moodCode="EVN" classCode="BATTERY"> <templateId root="16.840.1.349935.10...4.1" /> <id nullFlavor="NA" /> <code codeSystem="local" code="COMP" displayName="COMPREHENSIVE METABLIC GROUP" /> <statusCode code="completed" /> <component> <observation moodCode="EVN" classCode="OBS"> <templateId root="01.14.840.1.073436.09.17.22.4.2" /> <id nullFlavor= "NA" /> <code codeSystem="local" code="NA" displayName="SODIUM" /> <statusCode code="completed" /> <effectiveTime value= "262155258492" /> <value unit="mmol/L" xsi:type="PQ" value="136" /> <referenceRange> <observationRange> <text>136-145 </text> </observationRange> </referenceRange> </ observation> </component> <component> <observation moodCode= "EVN" classCode="OBS"> <templateId root="01.14.840.1.520851.09.17.22.4.2 " /> <id nullFlavor="NA" /> <code codeSystem="local" code="K" displayName="POTASSIUM" /> <statusCode code="completed" /> < effectiveTime value="972492083063" /> <value unit="mmol/L" xsi:type="PQ " value="3.8" /> <referenceRange> <observationRange> <text>3.5-5.1</text> </observationRange> </ referenceRange> </observation> </component> <component> <observation moodCode="EVN" classCode="OBS"> <templateId root= "01.14.840.1.041964.09.17.22.4.2" /> <id nullFlavor="NA" /> < code codeSystem="local" code="CL" displayName="CHLORIDE" /> < statusCode code="completed" /> <effectiveTime value="144311550400" /> <value unit="mmol/L" xsi:type="PQ" value="104" /> < referenceRange> <observationRange> <text>96-111</text> </observationRange> </referenceRange> </observation> </component> <component> <observation moodCode="EVN" classCode ="OBS"> <templateId root="216.840.1.367724.10..22.4.2" /> < id nullFlavor="NA" /> <code codeSystem="local" code="CO2" displayName= "CARBON DIOXIDE" /> <statusCode code="completed" /> < effectiveTime value="612411357581" /> <value unit="mmol/L" xsi:type="PQ " value="25" /> <referenceRange> <observationRange> <text>20-30</text> </observationRange> </ referenceRange> </observation> </component> <component> <observation moodCode="EVN" classCode="OBS"> <templateId root= "216.840.1.965636.10.20.22.4.2" /> <id nullFlavor="NA" /> < code codeSystem="local" code="ANIONGAP" displayName="ANION GAP" /> < statusCode code="completed" /> <effectiveTime value="445319484759" /> <value unit="" xsi:type="PQ" value="11" /> <referenceRange> <observationRange> <text>6-18</text> </ observationRange> </referenceRange> </observation> </ component> <component> <observation moodCode="EVN" classCode="OBS"> <templateId root="01.14.840.1.814358.10..4.2" /> <id nullFlavor="NA" /> <code codeSystem="local" code="BUN" displayName= "BLOOD UREA NITROGEN" /> <statusCode code="completed" /> < effectiveTime value="890535994967" /> <value unit="mg/dL" xsi:type="PQ " value="11" /> <referenceRange> <observationRange> <text>6-24</text> </observationRange> </referenceRange > </observation> </component> <component> <observation moodCode="EVN" classCode="OBS"> <templateId root= "216.840.1.893103.09.17.22.4.2" /> <id nullFlavor="NA" /> < code codeSystem="local" code="BUNCREAT" displayName="BUN/CREATININE RATIO" /> <statusCode code="completed" /> <effectiveTime value= "362765152952" /> <value unit="" xsi:type="PQ" value="13" /> < referenceRange> <observationRange> <text>6-25</text> </observationRange> </referenceRange> </observation> </component> <component> <observation moodCode="EVN" classCode= "OBS"> <templateId root="216.840.1.604773...4.2" /> < id nullFlavor="NA" /> <code codeSystem="local" code="GFR" displayName= "GLOMERULAR FILTRATION RATE" /> <statusCode code="completed" /> <effectiveTime value="507924425968" /> <value unit="mL/min/1.73m*2" xsi:type="PQ" value="101.9" /> <referenceRange> < observationRange> <text>>60.0</text> </ observationRange> </referenceRange> </observation> </ component> <component> <observation moodCode="EVN" classCode="OBS"> <templateId root="16.840.1.122159.10..22.4.2" /> <id nullFlavor="NA" /> <code codeSystem="local" code="GLU" displayName= "GLUCOSE" /> <statusCode code="completed" /> <effectiveTime value="604728897255" /> <value unit="mg/dL" xsi:type="PQ" value="76" / > <referenceRange> <observationRange> <text>70- 99</text> </observationRange> </referenceRange> </ observation> </component> <component> <observation moodCode= "EVN" classCode="OBS"> <templateId root="01.14.840.1.327632.09.17.22.4.2 " /> <id nullFlavor="NA" /> <code codeSystem="local" code="CA " displayName="CALCIUM" /> <statusCode code="completed" /> < effectiveTime value="270063029370" /> <value unit="mg/dL" xsi:type="PQ " value="8.8" /> <referenceRange> <observationRange> <text>8.3-10.1</text> </observationRange> </ referenceRange> </observation> </component> <component> <observation moodCode="EVN" classCode="OBS"> <templateId root= "01.14.840.1.892419.10..22.4.2" /> <id nullFlavor="NA" /> < code codeSystem="local" code="BILIT" displayName="BILIRUBIN, TOTAL" /> <statusCode code="completed" /> <effectiveTime value="122249211015" /> <value unit="mg/dL" xsi:type="PQ" value="0.5" /> < referenceRange> <observationRange> <text>0.2-1.2</text> </observationRange> </referenceRange> </observation > </component> <component> <observation moodCode="EVN" classCode="OBS"> <templateId root="216.840.1.321835.10...4.2" /> <id nullFlavor="NA" /> <code codeSystem="local" code="AST" displayName="AST/SGOT" /> <statusCode code="completed" /> < effectiveTime value="504703097501" /> <value unit="U/L" xsi:type="PQ" value="17" /> <referenceRange> <observationRange> <text>7-37</text> </observationRange> </referenceRange> </observation> </component> <component> <observation moodCode="EVN" classCode="OBS"> <templateId root= "01.14.840.1.769297.10..4.2" /> <id nullFlavor="NA" /> < code codeSystem="local" code="ALT" displayName="ALT/SGPT" /> < statusCode code="completed" /> <effectiveTime value="531085591043" /> <value unit="U/L" xsi:type="PQ" value="29" /> <referenceRange > <observationRange> <text>12-78</text> </ observationRange> </referenceRange> </observation> </ component> <component> <observation moodCode="EVN" classCode="OBS"> <templateId root="01.14.840.1.512488.10..4.2" /> <id nullFlavor="NA" /> <code codeSystem="local" code="TP" displayName= "PROTEIN, TOTAL BLOOD" /> <statusCode code="completed" /> < effectiveTime value="479920777777" /> <value unit="g/dL" xsi:type="PQ" value="7.7" /> <referenceRange> <observationRange> <text>6.4-8.2</text> </observationRange> </ referenceRange> </observation> </component> <component> <observation moodCode="EVN" classCode="OBS"> <templateId root= "216.840.1.172508.1022.4.2" /> <id nullFlavor="NA" /> < code codeSystem="local" code="ALB" displayName="ALBUMIN" /> < statusCode code="completed" /> <effectiveTime value="816975717814" /> <value unit="g/dL" xsi:type="PQ" value="4.0" /> < referenceRange> <observationRange> <text>3.4-5.3</text> </observationRange> </referenceRange> </observation > </component> <component> <observation moodCode="EVN" classCode="OBS"> <templateId root="216.840.1.608975.10..4.2" /> <id nullFlavor="NA" /> <code codeSystem="local" code="GLOB" displayName="GLOBULIN [CALCULATED]" /> <statusCode code="completed" /> <effectiveTime value="019788843144" /> <value unit="g/dL" xsi :type="PQ" value="3.7" /> <referenceRange> <observationRange > <text>2.2-4.2</text> </observationRange> </ referenceRange> </observation> </component> <component> <observation moodCode="EVN" classCode="OBS"> <templateId root= "216.840.1.588114.10.22.4.2" /> <id nullFlavor="NA" /> < code codeSystem="local" code="AGRATIO" displayName="ALBUMIN/GLOBULIN RATIO" /> <statusCode code="completed" /> <effectiveTime value= "745701043880" /> <value unit="" xsi:type="PQ" value="1.1" /> <referenceRange> <observationRange> <text>0.8-2.0</text > </observationRange> </referenceRange> </observation > </component> <component> <observation moodCode="EVN" classCode="OBS"> <templateId root="2.16.840.1.141706.10..22.4.2" /> <id nullFlavor="NA" /> <code codeSystem="local" code="ALKP" displayName="ALKALINE PHOSPHATASE" /> <statusCode code="completed" /> <effectiveTime value="708733381504" /> <value unit="U/L" xsi: type="PQ" value="86" /> <referenceRange> <observationRange> <text>20-125</text> </observationRange> </ referenceRange> </observation> </component> <component> <observation moodCode="EVN" classCode="OBS"> <templateId root= "2.16.840.1.820060.10..22.4.2" /> <id nullFlavor="NA" /> < code codeSystem="local" code="CREAT" displayName="Creatinine" /> < statusCode code="completed" /> <effectiveTime value="219670179076" /> <value unit="mg/dL" xsi:type="PQ" value="0.82" /> < referenceRange> <observationRange> <text>0.53-1.26</text > </observationRange> </referenceRange> </observation > </component> </organizer> </entry> <entry> <organizer moodCode= "EVN" classCode="BATTERY"> <templateId root="216.840.1.698356.10...4.1 " /> <id nullFlavor="NA" /> <code codeSystem="local" code="UAMICRO" displayName="URINE MICROSCOPIC" /> <statusCode code="completed" /> < component> <observation moodCode="EVN" classCode="OBS"> < templateId root="01.14.840.1.469580.09.17.22.4.2" /> <id nullFlavor="NA " /> <code codeSystem="local" code="WBCUA" displayName="WBC, URINE" /> <statusCode code="completed" /> <effectiveTime value= "" /> <value unit="/HPF" xsi:type="PQ" value="0-5" /> <referenceRange> <observationRange> <text /> </observationRange> </referenceRange> </observation> </component> <component> <observation moodCode="EVN" classCode="OBS "> <templateId root="01.14.840.1.130258.09.17.22.4.2" /> <id nullFlavor="NA" /> <code codeSystem="local" code="RBCUA" displayName= "RBC, URINE" /> <statusCode code="completed" /> < effectiveTime value="490919288302" /> <value unit="/HPF" xsi:type="PQ" value="0-2" /> <referenceRange> <observationRange> <text /> </observationRange> </referenceRange> < /observation> </component> <component> <observation moodCode= "EVN" classCode="OBS"> <templateId root="16.840.1.174270...4.2 " /> <id nullFlavor="NA" /> <code codeSystem="local" code= "BACTERIA" displayName="BACTERIA, URINE" /> <statusCode code="completed " /> <effectiveTime value="631551018022" /> <value unit="/HPF " xsi:type="PQ" value="3+" /> <referenceRange> < observationRange> <text /> </observationRange> </referenceRange> </observation> </component> <component> <observation moodCode="EVN" classCode="OBS"> <templateId root= "01.14.840.1.145091.09.17.22.4.2" /> <id nullFlavor="NA" /> < code codeSystem="local" code="SQUAEPI" displayName="SQUAMOUS CELLS" /> <statusCode code="completed" /> <effectiveTime value="340287697776" /> <value unit="/LPF" xsi:type="PQ" value="0-5" /> < referenceRange> <observationRange> <text /> < /observationRange> </referenceRange> </observation> </ component> </organizer> </entry> <entry> <organizer moodCode="EVN" classCode="BATTERY"> <templateId root="01.14.840.1.193144.09.17.22.4.1" /> <id nullFlavor="NA" /> <code codeSystem="local" code="[id number]" displayName="CBC WITH DIFFERENTIAL REFLEX MANUAL DIFF" /> <statusCode code= "completed" /> <component> <observation moodCode="EVN" classCode= "OBS"> <templateId root="01.14.840.1.643135.09.17.22.4.2" /> < id nullFlavor="NA" /> <code codeSystem="local" code="WBC" displayName= "WBC" /> <statusCode code="completed" /> <effectiveTime value= "870048260094" /> <value unit="10*3/uL" xsi:type="PQ" value="12.1" /> <interpretationCode codeSystem="local" code="H" /> < referenceRange> <observationRange> <text>3.7-11.1</text > </observationRange> </referenceRange> </observation > </component> <component> <observation moodCode="EVN" classCode="OBS"> <templateId root="16.840.1.000445.1022.4.2" /> <id nullFlavor="NA" /> <code codeSystem="local" code="RBC" displayName="RBC" /> <statusCode code="completed" /> < effectiveTime value="600141285376" /> <value unit="10*6/uL" xsi:type= "PQ" value="4.53" /> <referenceRange> <observationRange> <text>4.11-5.63</text> </observationRange> </ referenceRange> </observation> </component> <component> <observation moodCode="EVN" classCode="OBS"> <templateId root= "01.14.840.1.653252.09.17.22.4.2" /> <id nullFlavor="NA" /> < code codeSystem="local" code="HGB" displayName="HEMOGLOBIN" /> < statusCode code="completed" /> <effectiveTime value="652602201187" /> <value unit="g/dL" xsi:type="PQ" value="12.7" /> < referenceRange> <observationRange> <text>11.9-16.3</text > </observationRange> </referenceRange> </observation > </component> <component> <observation moodCode="EVN" classCode="OBS"> <templateId root="01.14.840.1.956651.09.17.22.4.2" /> <id nullFlavor="NA" /> <code codeSystem="local" code="HCT" displayName="HEMATOCRIT" /> <statusCode code="completed" /> < effectiveTime value="618758539823" /> <value unit="%" xsi:type="PQ " value="39.4" /> <referenceRange> <observationRange> <text>37.0-47.7</text> </observationRange> </ referenceRange> </observation> </component> <component> <observation moodCode="EVN" classCode="OBS"> <templateId root= "2.16.840.1.290211.09.17.22.4.2" /> <id nullFlavor="NA" /> < code codeSystem="local" code="PLT" displayName="PLATELET COUNT" /> < statusCode code="completed" /> <effectiveTime value="023702583477" /> <value unit="10*3/uL" xsi:type="PQ" value="412" /> < interpretationCode codeSystem="local" code="H" /> <referenceRange> <observationRange> <text>150-400</text> </ observationRange> </referenceRange> </observation> </ component> <component> <observation moodCode="EVN" classCode="OBS"> <templateId root="2.16.840.1.572649.09.17.22.4.2" /> <id nullFlavor="NA" /> <code codeSystem="local" code="MCV" displayName="MCV " /> <statusCode code="completed" /> <effectiveTime value= "631723694864" /> <value unit="fL" xsi:type="PQ" value="87" /> <referenceRange> <observationRange> <text>81-97</text > </observationRange> </referenceRange> </observation > </component> <component> <observation moodCode="EVN" classCode="OBS"> <templateId root="01.14.840.1.468839.10..4.2" /> <id nullFlavor="NA" /> <code codeSystem="local" code="MCH" displayName="MCH" /> <statusCode code="completed" /> < effectiveTime value="165383014859" /> <value unit="pg" xsi:type="PQ" value="28.0" /> <referenceRange> <observationRange> <text>26.7-33.1</text> </observationRange> </ referenceRange> </observation> </component> <component> <observation moodCode="EVN" classCode="OBS"> <templateId root= "01.14.840.1.130563...4.2" /> <id nullFlavor="NA" /> < code codeSystem="local" code="MCHC" displayName="MCHC" /> <statusCode code="completed" /> <effectiveTime value="067251566411" /> < value unit="g/dL" xsi:type="PQ" value="32.2" /> <referenceRange> <observationRange> <text>31.1-35.3</text> </ observationRange> </referenceRange> </observation> </ component> <component> <observation moodCode="EVN" classCode="OBS"> <templateId root="01.14.840.1.288734.10..22.4.2" /> <id nullFlavor="NA" /> <code codeSystem="local" code="MPV" displayName="MPV " /> <statusCode code="completed" /> <effectiveTime value= "185770488020" /> <value unit="fL" xsi:type="PQ" value="9.8" /> <referenceRange> <observationRange> <text /> </observationRange> </referenceRange> </observation> </ component> <component> <observation moodCode="EVN" classCode="OBS"> <templateId root="01.14.840.1.292825.10.20.22.4.2" /> <id nullFlavor="NA" /> <code codeSystem="local" code="NEUTROAB" displayName ="ABSOLUTE NEUTROPHIL" /> <statusCode code="completed" /> < effectiveTime value="014951675729" /> <value unit="10*3/uL" xsi:type= "PQ" value="7.75" /> <interpretationCode codeSystem="local" code="H" / > <referenceRange> <observationRange> <text> 1.70-7.10</text> </observationRange> </referenceRange> </observation> </component> <component> <observation moodCode="EVN" classCode="OBS"> <templateId root= "840.1.094249.10.20.22.4.2" /> <id nullFlavor="NA" /> < code codeSystem="local" code="LYMPAB" displayName="ABSOLUTE LYMPHOCYTE" /> <statusCode code="completed" /> <effectiveTime value="570440603850 " /> <value unit="10*3/uL" xsi:type="PQ" value="3.4" /> < referenceRange> <observationRange> <text>1.1-3.7</text> </observationRange> </referenceRange> </observation > </component> <component> <observation moodCode="EVN" classCode="OBS"> <templateId root="01.14.840.1.276627.10.20.22.4.2" /> <id nullFlavor="NA" /> <code codeSystem="local" code="MONOAB" displayName="ABSOLUTE MONOCYTE" /> <statusCode code="completed" /> <effectiveTime value="118378173979" /> <value unit="10*3/uL" xsi: type="PQ" value="0.6" /> <referenceRange> <observationRange > <text>0.3-0.9</text> </observationRange> </ referenceRange> </observation> </component> <component> <observation moodCode="EVN" classCode="OBS"> <templateId root= "01.14.840.1.457185.10...4.2" /> <id nullFlavor="NA" /> < code codeSystem="local" code="EOSAB" displayName="ABSOLUTE EOSINOPHIL" /> <statusCode code="completed" /> <effectiveTime value="467761321833 " /> <value unit="10*3/uL" xsi:type="PQ" value="0.2" /> < referenceRange> <observationRange> <text>0.0-0.5</text> </observationRange> </referenceRange> </observation > </component> <component> <observation moodCode="EVN" classCode="OBS"> <templateId root="01.14.840.1.872024.10...4.2" /> <id nullFlavor="NA" /> <code codeSystem="local" code="BASOAB" displayName="ABSOLUTE BASOPHIL" /> <statusCode code="completed" /> <effectiveTime value="093403303652" /> <value unit="10*3/uL" xsi: type="PQ" value="0.1" /> <referenceRange> <observationRange > <text>0.0-0.1</text> </observationRange> </ referenceRange> </observation> </component> <component> <observation moodCode="EVN" classCode="OBS"> <templateId root= "840.1.687194.10..4.2" /> <id nullFlavor="NA" /> < code codeSystem="local" code="NEUTRO" displayName="NEUTROPHILS" /> < statusCode code="completed" /> <effectiveTime value="539000617264" /> <value unit="%" xsi:type="PQ" value="64" /> < referenceRange> <observationRange> <text /> < /observationRange> </referenceRange> </observation> </ component> <component> <observation moodCode="EVN" classCode="OBS"> <templateId root="216.840.1.858192.09.17.22.4.2" /> <id nullFlavor="NA" /> <code codeSystem="local" code="LYMP" displayName= "LYMPHOCYTE" /> <statusCode code="completed" /> < effectiveTime value="098810123010" /> <value unit="%" xsi:type="PQ " value="28" /> <referenceRange> <observationRange> <text /> </observationRange> </referenceRange> </observation> </component> <component> <observation moodCode= "EVN" classCode="OBS"> <templateId root="216.840.1.629223.09.17.22.4.2 " /> <id nullFlavor="NA" /> <code codeSystem="local" code= "MONO" displayName="MONOCYTE" /> <statusCode code="completed" /> <effectiveTime value="345071314443" /> <value unit="%" xsi:type ="PQ" value="5" /> <referenceRange> <observationRange> <text /> </observationRange> </referenceRange> </observation> </component> <component> <observation moodCode="EVN" classCode="OBS"> <templateId root= "16.840.1.072500.10.22.4.2" /> <id nullFlavor="NA" /> < code codeSystem="local" code="EOS" displayName="EOSINOPHIL" /> < statusCode code="completed" /> <effectiveTime value="392999317016" /> <value unit="%" xsi:type="PQ" value="2" /> <referenceRange > <observationRange> <text /> </ observationRange> </referenceRange> </observation> </ component> <component> <observation moodCode="EVN" classCode="OBS"> <templateId root="01.14.840.1.810198.1022.4.2" /> <id nullFlavor="NA" /> <code codeSystem="local" code="BASO" displayName= "BASOPHIL" /> <statusCode code="completed" /> <effectiveTime value="295583332377" /> <value unit="%" xsi:type="PQ" value="1" /> <referenceRange> <observationRange> <text /> </observationRange> </referenceRange> </observation> </component> <component> <observation moodCode="EVN" classCode ="OBS"> <templateId root="01.14.840.1.112925.1022.4.2" /> < id nullFlavor="NA" /> <code codeSystem="local" code="NRBC" displayName= "NUCLEATED RBC % AUTO" /> <statusCode code="completed" /> <effectiveTime value="596546302001" /> <value unit="/100WBCs" xsi:type= "PQ" value="0" /> <referenceRange> <observationRange> <text /> </observationRange> </referenceRange> </observation> </component> <component> <observation moodCode="EVN" classCode="OBS"> <templateId root= "216.840.1.394454.10.22.4.2" /> <id nullFlavor="NA" /> < code codeSystem="local" code="IGAB" displayName="ABSOLUTE IMMATURE GRANULOCYTES " /> <statusCode code="completed" /> <effectiveTime value= "575931809229" /> <value unit="10*3/uL" xsi:type="PQ" value="0.04" /> <referenceRange> <observationRange> <text>< 0.1</text> </observationRange> </referenceRange> </ observation> </component> <component> <observation moodCode= "EVN" classCode="OBS"> <templateId root="16.840.1.880578.104.2 " /> <id nullFlavor="NA" /> <code codeSystem="local" code="IG " displayName="IMMATURE GRANULOCYTES" /> <statusCode code="completed" / > <effectiveTime value="" /> <value unit="%" xsi:type="PQ" value="0.3" /> <referenceRange> < observationRange> <text /> </observationRange> </referenceRange> </observation> </component> <component> <observation moodCode="EVN" classCode="OBS"> <templateId root= "16.840.1.256255.10.2022.4.2" /> <id nullFlavor="NA" /> < code codeSystem="local" code="8061151053" displayName="RDW-SD" /> < statusCode code="completed" /> <effectiveTime value="502260049560" /> <value unit="fL" xsi:type="PQ" value="44.2" /> <referenceRange > <observationRange> <text>37.1-49.8</text> < /observationRange> </referenceRange> </observation> </ component> </organizer> </entry> <entry> <organizer moodCode="EVN" classCode="BATTERY"> <templateId root="01.14.840.1.689632.10.4.1" /> <id nullFlavor="NA" /> <code codeSystem="local" code="HCGQUAL" displayName="HCG QUALITATIVE" /> <statusCode code="completed" /> < component> <observation moodCode="EVN" classCode="OBS"> < templateId root="840.1.180466.09.17.22.4.2" /> <id nullFlavor="NA " /> <code codeSystem="local" code="HCGQUAL" displayName="HCG QUALITATIVE" /> <statusCode code="completed" /> < effectiveTime value="165021106379" /> <value unit="" xsi:type="PQ" value="Negative" /> <referenceRange> <observationRange> <text>Negative</text> </observationRange> </ referenceRange> </observation> </component> </organizer> </entry > <entry> <organizer moodCode="EVN" classCode="BATTERY"> <templateId root="840.1.797066.09.17.22.4.1" /> <id nullFlavor="NA" /> <code codeSystem="local" code="ORD28" displayName="Lipase" /> <statusCode code= "completed" /> <component> <observation moodCode="EVN" classCode= "OBS"> <templateId root="01.14.840.1.458536.10.4.2" /> < id nullFlavor="NA" /> <code codeSystem="local" code="Res65" displayName ="Lipase" /> <statusCode code="completed" /> <effectiveTime value="" /> <value unit="U/L" xsi:type="PQ" value="25" /> <referenceRange> <observationRange> <text>7-59< /text> </observationRange> </referenceRange> </ observation> </component> </organizer> </entry> <entry> <organizer moodCode="EVN" classCode="BATTERY"> <templateId root= "216.840.1.370981.10...4.1" /> <id nullFlavor="NA" /> <code codeSystem="local" code="ORD68" displayName="Urinalysis" /> <statusCode code="completed" /> <component> <observation moodCode="EVN" classCode="OBS"> <templateId root="216.840.1.821737.10...4.2" /> <id nullFlavor="NA" /> <code codeSystem="local" code="[id number] " displayName="Icotest" /> <statusCode code="completed" /> < effectiveTime value="" /> <value unit="" xsi:type="PQ" value="N/A" /> <interpretationCode codeSystem="local" code="A" /> <referenceRange> <observationRange> <text>Negative< /text> </observationRange> </referenceRange> </ observation> </component> <component> <observation moodCode= "EVN" classCode="OBS"> <templateId root="16.840.1.387540.10..4.2 " /> <id nullFlavor="NA" /> <code codeSystem="local" code= "Imy698" displayName="Urine Volume" /> <statusCode code="completed" /> <effectiveTime value="" /> <value unit="" xsi: type="PQ" value="Urine Volume Sufficient (10mL)" /> <referenceRange> <observationRange> <text /> </observationRange > </referenceRange> </observation> </component> < component> <observation moodCode="EVN" classCode="OBS"> < templateId root="216.840.1.617648.10.22.4.2" /> <id nullFlavor="NA " /> <code codeSystem="local" code="Yjx165" displayName="Urine- Appearance" /> <statusCode code="completed" /> <effectiveTime value="" /> <value unit="" xsi:type="PQ" value="Cloudy" /> <interpretationCode codeSystem="local" code="A" /> < referenceRange> <observationRange> <text>Clear</text> </observationRange> </referenceRange> </observation> </component> <component> <observation moodCode="EVN" classCode= "OBS"> <templateId root="216.840.1.660635.09.17.22.4.2" /> < id nullFlavor="NA" /> <code codeSystem="local" code="Bkq668" displayName="Urine-Bacteria" /> <statusCode code="completed" /> <effectiveTime value="" /> <value unit="" xsi:type="PQ" value="3+" /> <interpretationCode codeSystem="local" code="A" /> <referenceRange> <observationRange> <text> </text> </observationRange> </referenceRange> </observation> </component> <component> <observation moodCode="EVN" classCode ="OBS"> <templateId root="216.840.1.540374.09.17.224.2" /> < id nullFlavor="NA" /> <code codeSystem="local" code="Iso689" displayName="Urine-Bilirubin" /> <statusCode code="completed" /> <effectiveTime value="" /> <value unit="" xsi:type="PQ " value="1+" /> <interpretationCode codeSystem="local" code="A" /> <referenceRange> <observationRange> <text>Negative </text> </observationRange> </referenceRange> </ observation> </component> <component> <observation moodCode= "EVN" classCode="OBS"> <templateId root="2.16.840.1.999725.09.17.224.2 " /> <id nullFlavor="NA" /> <code codeSystem="local" code= "Scg534" displayName="Urine-Blood" /> <statusCode code="completed" /> <effectiveTime value="" /> <value unit="" xsi:type ="PQ" value="1+" /> <interpretationCode codeSystem="local" code="A" /> <referenceRange> <observationRange> <text> Negative</text> </observationRange> </referenceRange> </observation> </component> <component> <observation moodCode ="EVN" classCode="OBS"> <templateId root= "2.16.840.1.649310.09.17.22.4.2" /> <id nullFlavor="NA" /> < code codeSystem="local" code="Bxv905" displayName="Urine-Color" /> < statusCode code="completed" /> <effectiveTime value="" /> <value unit="" xsi:type="PQ" value="Yellow" /> <referenceRange > <observationRange> <text>Colorless-Lt. Yellow</text> </observationRange> </referenceRange> </observation> </component> <component> <observation moodCode="EVN" classCode ="OBS"> <templateId root="2.16.840.1.846858.10..4.2" /> < id nullFlavor="NA" /> <code codeSystem="local" code="Bol472" displayName="Urine-Epithelial Cells" /> <statusCode code="completed" / > <effectiveTime value="" /> <value unit="" xsi: type="PQ" value="10-20/" /> <interpretationCode codeSystem="local" code="A" /> <referenceRange> <observationRange> <text> </text> </observationRange> </referenceRange> </observation> </component> <component> <observation moodCode="EVN" classCode="OBS"> <templateId root= "216.840.1.517677.09.17.22.4.2" /> <id nullFlavor="NA" /> < code codeSystem="local" code="Wxm004" displayName="Urine-Glucose" /> < statusCode code="completed" /> <effectiveTime value="" /> <value unit="" xsi:type="PQ" value="Negative" /> < referenceRange> <observationRange> <text>Negative</text > </observationRange> </referenceRange> </observation > </component> <component> <observation moodCode="EVN" classCode="OBS"> <templateId root="2.16.840.1.712273.09.17.22.4.2" /> <id nullFlavor="NA" /> <code codeSystem="local" code="Wsl361" displayName="Urine-Ketones" /> <statusCode code="completed" /> <effectiveTime value="" /> <value unit="" xsi:type="PQ" value="1+" /> <interpretationCode codeSystem="local" code="A" /> <referenceRange> <observationRange> <text>Negative</ text> </observationRange> </referenceRange> </ observation> </component> <component> <observation moodCode= "EVN" classCode="OBS"> <templateId root="16.840.1.778665.1022.4.2 " /> <id nullFlavor="NA" /> <code codeSystem="local" code= "Xpb084" displayName="Urine-Leukocytes" /> <statusCode code="completed " /> <effectiveTime value="" /> <value unit="" xsi :type="PQ" value="2+" /> <interpretationCode codeSystem="local" code="A " /> <referenceRange> <observationRange> <text> Negative</text> </observationRange> </referenceRange> </observation> </component> <component> <observation moodCode ="EVN" classCode="OBS"> <templateId root= "840.1.886629.09.17.224.2" /> <id nullFlavor="NA" /> < code codeSystem="local" code="Ltj491" displayName="Urine-Nitrite" /> < statusCode code="completed" /> <effectiveTime value="869916831869" /> <value unit="" xsi:type="PQ" value="Negative" /> < referenceRange> <observationRange> <text>Negative</text > </observationRange> </referenceRange> </observation > </component> <component> <observation moodCode="EVN" classCode="OBS"> <templateId root="01.14.840.1.562667.22.4.2" /> <id nullFlavor="NA" /> <code codeSystem="local" code="Tbb337" displayName="Urine-pH" /> <statusCode code="completed" /> < effectiveTime value="" /> <value unit="" xsi:type="PQ" value="6.0" /> <referenceRange> <observationRange> <text>5-8.5</text> </observationRange> </referenceRange > </observation> </component> <component> <observation moodCode="EVN" classCode="OBS"> <templateId root= "2.16.840.1.738246.10..22.4.2" /> <id nullFlavor="NA" /> < code codeSystem="local" code="Ypf712" displayName="Urine-Protein" /> < statusCode code="completed" /> <effectiveTime value="" /> <value unit="" xsi:type="PQ" value="1+" /> < interpretationCode codeSystem="local" code="A" /> <referenceRange> <observationRange> <text>Negative</text> </ observationRange> </referenceRange> </observation> </ component> <component> <observation moodCode="EVN" classCode="OBS"> <templateId root="2.16.840.1.965451.10.20.22.4.2" /> <id nullFlavor="NA" /> <code codeSystem="local" code="Xqp446" displayName= "Urine-RBC" /> <statusCode code="completed" /> <effectiveTime value="" /> <value unit="" xsi:type="PQ" value="2-5/HPF" / > <interpretationCode codeSystem="local" code="A" /> < referenceRange> <observationRange> <text> </text> </observationRange> </referenceRange> </observation> </component> <component> <observation moodCode="EVN" classCode="OBS "> <templateId root="216.840.1.166090.10..22.4.2" /> <id nullFlavor="NA" /> <code codeSystem="local" code="Pwx873" displayName= "Urine-Specific [place]" /> <statusCode code="completed" /> < effectiveTime value="" /> <value unit="" xsi:type="PQ" value="1.020" /> <referenceRange> <observationRange> <text>1.000-1.030</text> </observationRange> </ referenceRange> </observation> </component> <component> <observation moodCode="EVN" classCode="OBS"> <templateId root= "16.840.1.936933.22.4.2" /> <id nullFlavor="NA" /> < code codeSystem="local" code="Zdk657" displayName="Urine-WBC" /> < statusCode code="completed" /> <effectiveTime value="" /> <value unit="" xsi:type="PQ" value="10-20/HPF" /> < interpretationCode codeSystem="local" code="A" /> <referenceRange> <observationRange> <text> </text> </ observationRange> </referenceRange> </observation> </ component> <component> <observation moodCode="EVN" classCode="OBS"> <templateId root="16.840.1.588284.10.22.4.2" /> <id nullFlavor="NA" /> <code codeSystem="local" code="Cxh585" displayName= "Urobilinogen" /> <statusCode code="completed" /> < effectiveTime value="" /> <value unit="" xsi:type="PQ" value="0.2 E.U./dL" /> <interpretationCode codeSystem="local" code="A" /> <referenceRange> <observationRange> <text> 0.2-1.0</text> </observationRange> </referenceRange> </observation> </component> </organizer> </entry> <entry> < organizer moodCode="EVN" classCode="BATTERY"> <templateId root= "216.840.1.504339.10..4.1" /> <id nullFlavor="NA" /> <code codeSystem="local" code="ORD77" displayName="Helicobacter Pylori" /> < statusCode code="completed" /> <component> <observation moodCode= "EVN" classCode="OBS"> <templateId root="216.840.1.385583.10..4.2 " /> <id nullFlavor="NA" /> <code codeSystem="local" code= "Res79" displayName="H.Pylori" /> <statusCode code="completed" /> <effectiveTime value="290982035174" /> <value unit="" xsi:type="PQ " value="Negative" /> <referenceRange> <observationRange> <text>Negative</text> </observationRange> </ referenceRange> </observation> </component> </organizer> </entry > <entry> <organizer moodCode="EVN" classCode="BATTERY"> <templateId root="216.840.1.869937.10..4.1" /> <id nullFlavor="NA" /> <code codeSystem="local" code="PNR517" displayName=" Test-Urine" /> < statusCode code="completed" /> <component> <observation moodCode= "EVN" classCode="OBS"> <templateId root="216.840.1.174620.09.17.22.4.2 " /> <id nullFlavor="NA" /> <code codeSystem="local" code= "Ugs823" displayName="Preg Test-U" /> <statusCode code="completed" /> <effectiveTime value="444770142401" /> <value unit="" xsi:type ="PQ" value="Negative" /> <referenceRange> <observationRange > <text>Negative</text> </observationRange> </ referenceRange> </observation> </component> </organizer> </entry > <entry> <organizer moodCode="EVN" classCode="BATTERY"> <templateId root="216.840.1.815372.09.17.22.4.1" /> <id nullFlavor="NA" /> <code codeSystem="local" code="MDG3199" displayName="Urine Culture" /> < statusCode code="completed" /> <component> <observation moodCode= "EVN" classCode="OBS"> <templateId root="216.840.1.974724.10..4.2 " /> <id nullFlavor="NA" /> <code codeSystem="local" code= "Rsj4864" displayName="PRELIM CULTURE RESULTS" /> <statusCode code= "completed" /> <effectiveTime value="104178335554" /> <value unit="" xsi:type="PQ" value="50,000-100,000 Gram Positive Mixed Preston [id number] Skin Contaminant" /> <referenceRange> < observationRange> <text /> </observationRange> </referenceRange> </observation> </component> <component> <observation moodCode="EVN" classCode="OBS"> <templateId root= "216.840.1.418877.10..4.2" /> <id nullFlavor="NA" /> < code codeSystem="local" code="Ipa4920" displayName="FINAL CULTURE RESULTS" /> <statusCode code="completed" /> <effectiveTime value= "461256326360" /> <value unit="" xsi:type="PQ" value="50,000-100,000 Gram Positive Mixed Preston E5Y2FJeohzszw Skin Contaminant C2Z3UOn Further Workup done" /> <referenceRange> <observationRange> < text /> </observationRange> </referenceRange> </ observation> </component> <component> <observation moodCode= "EVN" classCode="OBS"> <templateId root="2.16.840.1.857817.10..22.4.2 " /> <id nullFlavor="NA" /> <code codeSystem="local" code= "Cuj7736" displayName="MEDIA PLATED" /> <statusCode code="completed" / > <effectiveTime value="078407987685" /> <value unit="" xsi: type="PQ" value="Setup at 18:44 on 08/02/2018" /> <referenceRange> <observationRange> <text /> </observationRange> </referenceRange> </observation> </component> < component> <observation moodCode="EVN" classCode="OBS"> < templateId root="2.16.840.1.939998.10..22.4.2" /> <id nullFlavor="NA " /> <code codeSystem="local" code="Zqo5439" displayName="CULTURE SOURCE" /> <statusCode code="completed" /> <effectiveTime value="485508114194" /> <value unit="" xsi:type="PQ" value="void" /> <referenceRange> <observationRange> <text /> </observationRange> </referenceRange> </observation> </component> </organizer> </entry> <entry> <organizer moodCode="EVN " classCode="BATTERY"> <templateId root="01.14.840.1.337028.10.22.4.1" / > <id nullFlavor="NA" /> <code codeSystem="local" code="ORD3" displayName="Comprehensive Metabolic Panel" /> <statusCode code="completed " /> <component> <observation moodCode="EVN" classCode="OBS"> <templateId root="840.1.225885.09.17.22.4.2" /> <id nullFlavor ="NA" /> <code codeSystem="local" code="Res44" displayName="Albumin" / > <statusCode code="completed" /> <effectiveTime value= "092120796026" /> <value unit="g/dL" xsi:type="PQ" value="4.0" /> <referenceRange> <observationRange> <text>3.6-5.1</ text> </observationRange> </referenceRange> </ observation> </component> <component> <observation moodCode= "EVN" classCode="OBS"> <templateId root="840.1.994389.09.17.22.4.2 " /> <id nullFlavor="NA" /> <code codeSystem="local" code= "Res45" displayName="ALP" /> <statusCode code="completed" /> < effectiveTime value="312987947976" /> <value unit="U/L" xsi:type="PQ" value="73" /> <referenceRange> <observationRange> <text>35-130</text> </observationRange> </referenceRange > </observation> </component> <component> <observation moodCode="EVN" classCode="OBS"> <templateId root= "01.14.840.1.986998.10.4.2" /> <id nullFlavor="NA" /> < code codeSystem="local" code="Res46" displayName="ALT" /> <statusCode code="completed" /> <effectiveTime value="708196261935" /> < value unit="U/L" xsi:type="PQ" value="24" /> <referenceRange> <observationRange> <text>6-45</text> </ observationRange> </referenceRange> </observation> </ component> <component> <observation moodCode="EVN" classCode="OBS"> <templateId root="216.840.1.593554.10..22.4.2" /> <id nullFlavor="NA" /> <code codeSystem="local" code="Res61" displayName= "Anion Gap" /> <statusCode code="completed" /> <effectiveTime value="867679070619" /> <value unit="" xsi:type="PQ" value="14" /> <referenceRange> <observationRange> <text>6-14</ text> </observationRange> </referenceRange> </ observation> </component> <component> <observation moodCode= "EVN" classCode="OBS"> <templateId root="01.14.840.1.495064.10..22.4.2 " /> <id nullFlavor="NA" /> <code codeSystem="local" code= "Res48" displayName="AST" /> <statusCode code="completed" /> < effectiveTime value="462614673588" /> <value unit="U/L" xsi:type="PQ" value="16" /> <referenceRange> <observationRange> <text>2-40</text> </observationRange> </referenceRange> </observation> </component> <component> <observation moodCode="EVN" classCode="OBS"> <templateId root= "01.14.840.1.038180.10.20.4.2" /> <id nullFlavor="NA" /> < code codeSystem="local" code="Res26" displayName="BUN" /> <statusCode code="completed" /> <effectiveTime value="556475132887" /> < value unit="mg/dL" xsi:type="PQ" value="12" /> <referenceRange> <observationRange> <text>5-25</text> </ observationRange> </referenceRange> </observation> </ component> <component> <observation moodCode="EVN" classCode="OBS"> <templateId root="216.840.1.091570.10..4.2" /> <id nullFlavor="NA" /> <code codeSystem="local" code="Res5" displayName= "Calcium" /> <statusCode code="completed" /> <effectiveTime value="434793320067" /> <value unit="mg/dL" xsi:type="PQ" value="9.0" / > <referenceRange> <observationRange> <text>8.3 -10.4</text> </observationRange> </referenceRange> </ observation> </component> <component> <observation moodCode= "EVN" classCode="OBS"> <templateId root="216.840.1.494401.10...4.2 " /> <id nullFlavor="NA" /> <code codeSystem="local" code= "Res21" displayName="Chloride" /> <statusCode code="completed" /> <effectiveTime value="908982532040" /> <value unit="mmol/L" xsi: type="PQ" value="109" /> <referenceRange> <observationRange > <text>95-114</text> </observationRange> </ referenceRange> </observation> </component> <component> <observation moodCode="EVN" classCode="OBS"> <templateId root= "216.840.1.156620.10.22.4.2" /> <id nullFlavor="NA" /> < code codeSystem="local" code="Res49" displayName="CO2" /> <statusCode code="completed" /> <effectiveTime value="319803361985" /> < value unit="mEq/L" xsi:type="PQ" value="22" /> <referenceRange> <observationRange> <text>22-33</text> </ observationRange> </referenceRange> </observation> </ component> <component> <observation moodCode="EVN" classCode="OBS"> <templateId root="16.840.1.027253.09.17.22.4.2" /> <id nullFlavor="NA" /> <code codeSystem="local" code="Mfr099" displayName= "Creat" /> <statusCode code="completed" /> <effectiveTime value="863567296694" /> <value unit="mg/dL" xsi:type="PQ" value="0.78" /> <referenceRange> <observationRange> <text> 0.50-1.50</text> </observationRange> </referenceRange> </observation> </component> <component> <observation moodCode="EVN" classCode="OBS"> <templateId root= "01.14.840.1.125123.10.4.2" /> <id nullFlavor="NA" /> < code codeSystem="local" code="Hcv114" displayName="eGFR" /> < statusCode code="completed" /> <effectiveTime value="580286248749" /> <value unit="mL/min/1.73m2" xsi:type="PQ" value="91" /> < referenceRange> <observationRange> <text>>59</text> </observationRange> </referenceRange> </observation> </component> <component> <observation moodCode="EVN" classCode ="OBS"> <templateId root="16.840.1.469075.10.4.2" /> < id nullFlavor="NA" /> <code codeSystem="local" code="Res7" displayName= "Globulin" /> <statusCode code="completed" /> <effectiveTime value="937440996909" /> <value unit="g/dL" xsi:type="PQ" value="3.3" / > <referenceRange> <observationRange> <text>2.3 -3.5</text> </observationRange> </referenceRange> </ observation> </component> <component> <observation moodCode= "EVN" classCode="OBS"> <templateId root="01.14.840.1.875216.09.17.22.4.2 " /> <id nullFlavor="NA" /> <code codeSystem="local" code= "Res60" displayName="Glucose" /> <statusCode code="completed" /> <effectiveTime value="936932894380" /> <value unit="mg/dL" xsi:type ="PQ" value="123" /> <interpretationCode codeSystem="local" code="H" / > <referenceRange> <observationRange> <text>70- 110</text> </observationRange> </referenceRange> </ observation> </component> <component> <observation moodCode= "EVN" classCode="OBS"> <templateId root="16.840.1.906193.09.17.22.4.2 " /> <id nullFlavor="NA" /> <code codeSystem="local" code= "Res52" displayName="Osmo" /> <statusCode code="completed" /> <effectiveTime value="538332012095" /> <value unit="" xsi:type="PQ" value="292" /> <referenceRange> <observationRange> <text>280-295</text> </observationRange> </ referenceRange> </observation> </component> <component> <observation moodCode="EVN" classCode="OBS"> <templateId root= "01.14.840.1.985709.10.20.22.4.2" /> <id nullFlavor="NA" /> < code codeSystem="local" code="Res20" displayName="Potassium" /> < statusCode code="completed" /> <effectiveTime value="191052772641" /> <value unit="mmol/L" xsi:type="PQ" value="4.0" /> < referenceRange> <observationRange> <text>3.5-5.3</text> </observationRange> </referenceRange> </observation > </component> <component> <observation moodCode="EVN" classCode="OBS"> <templateId root="840.1.154610.10.22.4.2" /> <id nullFlavor="NA" /> <code codeSystem="local" code="Res19" displayName="Sodium" /> <statusCode code="completed" /> < effectiveTime value="186609547710" /> <value unit="mmol/L" xsi:type="PQ " value="141" /> <referenceRange> <observationRange> <text>134-148</text> </observationRange> </ referenceRange> </observation> </component> <component> <observation moodCode="EVN" classCode="OBS"> <templateId root= "01.14.840.1.289976.10.20.22.4.2" /> <id nullFlavor="NA" /> < code codeSystem="local" code="Res51" displayName="TBil" /> <statusCode code="completed" /> <effectiveTime value="392667283558" /> < value unit="mg/dL" xsi:type="PQ" value="0.3" /> <referenceRange> <observationRange> <text>0.2-1.2</text> </ observationRange> </referenceRange> </observation> </ component> <component> <observation moodCode="EVN" classCode="OBS"> <templateId root="01.14.840.1.705946.10.4.2" /> <id nullFlavor="NA" /> <code codeSystem="local" code="Res24" displayName= "TP" /> <statusCode code="completed" /> <effectiveTime value= "861740545818" /> <value unit="g/dL" xsi:type="PQ" value="7.3" /> <referenceRange> <observationRange> <text>6.0-8.3</ text> </observationRange> </referenceRange> </ observation> </component> </organizer> </entry> <entry> <organizer moodCode="EVN" classCode="BATTERY"> <templateId root= "01.14.840.1.236958.09.17.22.4.1" /> <id nullFlavor="NA" /> <code codeSystem="local" code="73999" displayName="SUREPATH PAP RFX HPV mRNA E6/E7" / > <statusCode code="completed" /> <component> <observation moodCode="EVN" classCode="OBS"> <templateId root= "01.14.840.1.226431.10.4.2" /> <id nullFlavor="NA" /> < code codeSystem="local" code="80631215" displayName="CLINICAL INFORMATION:" /> <statusCode code="completed" /> <effectiveTime value= "065728534723" /> <value unit="" xsi:type="PQ" value="" /> < referenceRange> <observationRange> <text>NRG</text> </observationRange> </referenceRange> </observation> </component> <component> <observation moodCode="EVN" classCode= "OBS"> <templateId root="01.14.840.1.034789.10..4.2" /> < id nullFlavor="NA" /> <code codeSystem="local" code="42544341" displayName="LMP:" /> <statusCode code="completed" /> < effectiveTime value="292449468571" /> <value unit="" xsi:type="PQ" value="IUD NONE" /> <referenceRange> <observationRange> <text>NRG</text> </observationRange> </ referenceRange> </observation> </component> <component> <observation moodCode="EVN" classCode="OBS"> <templateId root= "840.1.883465.09.17.22.4.2" /> <id nullFlavor="NA" /> < code codeSystem="local" code="49814732" displayName="PREV. PAP:" /> < statusCode code="completed" /> <effectiveTime value="402212768684" /> <value unit="" xsi:type="PQ" value="NONE" /> <referenceRange> <observationRange> <text>NRG</text> </ observationRange> </referenceRange> </observation> </ component> <component> <observation moodCode="EVN" classCode="OBS"> <templateId root="840.1.737931.102022.4.2" /> <id nullFlavor="NA" /> <code codeSystem="local" code="89173183" displayName ="PREV. BX:" /> <statusCode code="completed" /> < effectiveTime value="285576177271" /> <value unit="" xsi:type="PQ" value="" /> <referenceRange> <observationRange> <text>NRG</text> </observationRange> </referenceRange> </observation> </component> <component> <observation moodCode="EVN" classCode="OBS"> <templateId root= "01.14.840.1.284331.09.17.22.4.2" /> <id nullFlavor="NA" /> < code codeSystem="local" code="60113777" displayName="SOURCE:" /> < statusCode code="completed" /> <effectiveTime value="663033550393" /> <value unit="" xsi:type="PQ" value="Cerv[employer]" /> <referenceRange > <observationRange> <text>NRG</text> </ observationRange> </referenceRange> </observation> </ component> <component> <observation moodCode="EVN" classCode="OBS"> <templateId root="840.1.396129.09.17.22.4.2" /> <id nullFlavor="NA" /> <code codeSystem="local" code="78322194" displayName ="STATEMENT OF ADEQUACY:" /> <statusCode code="completed" /> < effectiveTime value="211271244895" /> <value unit="" xsi:type="PQ" value="" /> <referenceRange> <observationRange> <text>NRG</text> </observationRange> </referenceRange> </observation> </component> <component> <observation moodCode="EVN" classCode="OBS"> <templateId root= "01.14.840.1.900212.09.17.22.4.2" /> <id nullFlavor="NA" /> < code codeSystem="local" code="08373693" displayName="INTERPRETATION/RESULT:" /> <statusCode code="completed" /> <effectiveTime value= "154540936817" /> <value unit="" xsi:type="PQ" value="" /> < referenceRange> <observationRange> <text>NRG</text> </observationRange> </referenceRange> </observation> </component> <component> <observation moodCode="EVN" classCode= "OBS"> <templateId root="16.840.1.245370.10..4.2" /> < id nullFlavor="NA" /> <code codeSystem="local" code="31086264" displayName="[facility]:" /> <statusCode code="completed" /> <effectiveTime value="189076544104" /> <value unit="" xsi:type= "PQ" value="" /> <referenceRange> <observationRange> <text>NRG</text> </observationRange> </referenceRange > </observation> </component> <component> <observation moodCode="EVN" classCode="OBS"> <templateId root= "01.14.840.1.018649...4.2" /> <id nullFlavor="NA" /> < code codeSystem="local" code="23760948" displayName="PATHOLOGIST:" /> < statusCode code="completed" /> <effectiveTime value="064049205616" /> <value unit="" xsi:type="PQ" value="" /> <referenceRange> <observationRange> <text>NRG</text> </ observationRange> </referenceRange> </observation> </ component> <component> <observation moodCode="EVN" classCode="OBS"> <templateId root="01.14.840.1.756980.09.17.224.2" /> <id nullFlavor="NA" /> <code codeSystem="local" code="05059161" displayName ="COMMENT" /> <statusCode code="completed" /> <effectiveTime value="619302049106" /> <value unit="" xsi:type="PQ" value="" /> <referenceRange> <observationRange> <text>NRG</text > </observationRange> </referenceRange> </observation > </component> </organizer> </entry> <entry> <organizer moodCode= "EVN" classCode="BATTERY"> <templateId root="16.840.1.780499.09.17.22.4.1 " /> <id nullFlavor="NA" /> <code codeSystem="local" code="52313" displayName="CMP" /> <statusCode code="completed" /> <component> <observation moodCode="EVN" classCode="OBS"> <templateId root= "16.840.1.061007.09.17.22.4.2" /> <id nullFlavor="NA" /> < code codeSystem="local" code="60175143" displayName="GLUCOSE" /> < statusCode code="completed" /> <effectiveTime value="645806076839" /> <value unit="mg/dL" xsi:type="PQ" value="86" /> < referenceRange> <observationRange> <text>65-99</text> </observationRange> </referenceRange> </observation> </component> <component> <observation moodCode="EVN" classCode= "OBS"> <templateId root="16.840.1.341716.09.17.22.4.2" /> < id nullFlavor="NA" /> <code codeSystem="local" code="60570669" displayName="UREA NITROGEN (BUN)" /> <statusCode code="completed" /> <effectiveTime value="" /> <value unit="mg/dL" xsi: type="PQ" value="10" /> <referenceRange> <observationRange> <text>7-25</text> </observationRange> </ referenceRange> </observation> </component> <component> <observation moodCode="EVN" classCode="OBS"> <templateId root= "216.840.1.141518.09.17.22.4.2" /> <id nullFlavor="NA" /> < code codeSystem="local" code="50488597" displayName="CREATININE" /> < statusCode code="completed" /> <effectiveTime value="195809920873" /> <value unit="mg/dL" xsi:type="PQ" value="0.71" /> < referenceRange> <observationRange> <text>0.50-1.10</text > </observationRange> </referenceRange> </observation > </component> <component> <observation moodCode="EVN" classCode="OBS"> <templateId root="216.840.1.258607.09.17.22.4.2" /> <id nullFlavor="NA" /> <code codeSystem="local" code="44756320 " displayName="eGFR NON-AFR. SUDANESE" /> <statusCode code="completed" /> <effectiveTime value="619721882641" /> <value unit="mL/min/ 1.73m2" xsi:type="PQ" value="120" /> <referenceRange> < observationRange> <text>> OR=60</text> </ observationRange> </referenceRange> </observation> </ component> <component> <observation moodCode="EVN" classCode="OBS"> <templateId root="216.840.1.985808.22.4.2" /> <id nullFlavor="NA" /> <code codeSystem="local" code="68605335" displayName ="eGFR " /> <statusCode code="completed" /> < effectiveTime value="258862694910" /> <value unit="mL/min/1.73m2" xsi: type="PQ" value="139" /> <referenceRange> <observationRange > <text>> OR=60</text> </observationRange> < /referenceRange> </observation> </component> <component> <observation moodCode="EVN" classCode="OBS"> <templateId root= "2.16.840.1.655729.09.17.22.4.2" /> <id nullFlavor="NA" /> < code codeSystem="local" code="71328986" displayName="BUN/CREATININE RATIO" /> <statusCode code="completed" /> <effectiveTime value= "797039074922" /> <value unit="(calc)" xsi:type="PQ" value="NOT APPLICABLE" /> <referenceRange> <observationRange> <text>6-22</text> </observationRange> </referenceRange > </observation> </component> <component> <observation moodCode="EVN" classCode="OBS"> <templateId root= "2.16.840.1.027190....4.2" /> <id nullFlavor="NA" /> < code codeSystem="local" code="47306538" displayName="SODIUM" /> < statusCode code="completed" /> <effectiveTime value="848568279820" /> <value unit="mmol/L" xsi:type="PQ" value="138" /> < referenceRange> <observationRange> <text>135-146</text> </observationRange> </referenceRange> </observation > </component> <component> <observation moodCode="EVN" classCode="OBS"> <templateId root="216.840.1.909569.10..4.2" /> <id nullFlavor="NA" /> <code codeSystem="local" code="55192186 " displayName="POTASSIUM" /> <statusCode code="completed" /> < effectiveTime value="" /> <value unit="mmol/L" xsi:type="PQ " value="4.6" /> <referenceRange> <observationRange> <text>3.5-5.3</text> </observationRange> </ referenceRange> </observation> </component> <component> <observation moodCode="EVN" classCode="OBS"> <templateId root= "16.840.1.222860.09.17.22.4.2" /> <id nullFlavor="NA" /> < code codeSystem="local" code="07428992" displayName="CHLORIDE" /> < statusCode code="completed" /> <effectiveTime value="" /> <value unit="mmol/L" xsi:type="PQ" value="103" /> < referenceRange> <observationRange> <text>98-110</text> </observationRange> </referenceRange> </observation> </component> <component> <observation moodCode="EVN" classCode ="OBS"> <templateId root="16.840.1.990443.10...4.2" /> < id nullFlavor="NA" /> <code codeSystem="local" code="35179653" displayName="CARBON DIOXIDE" /> <statusCode code="completed" /> <effectiveTime value="736099876334" /> <value unit="mmol/L" xsi:type ="PQ" value="27" /> <referenceRange> <observationRange> <text>20-32</text> </observationRange> </ referenceRange> </observation> </component> <component> <observation moodCode="EVN" classCode="OBS"> <templateId root= "01.14.840.1.007692.10.20.22.4.2" /> <id nullFlavor="NA" /> < code codeSystem="local" code="20576046" displayName="CALCIUM" /> < statusCode code="completed" /> <effectiveTime value="787828798242" /> <value unit="mg/dL" xsi:type="PQ" value="10.2" /> < referenceRange> <observationRange> <text>8.6-10.2</text > </observationRange> </referenceRange> </observation > </component> <component> <observation moodCode="EVN" classCode="OBS"> <templateId root="01.14.840.1.589565.10..22.4.2" /> <id nullFlavor="NA" /> <code codeSystem="local" code="76833520 " displayName="PROTEIN, TOTAL" /> <statusCode code="completed" /> <effectiveTime value="332240552201" /> <value unit="g/dL" xsi:type ="PQ" value="8.5" /> <interpretationCode codeSystem="local" code="*" / > <referenceRange> <observationRange> <text>6.1 -8.1</text> </observationRange> </referenceRange> </ observation> </component> <component> <observation moodCode= "EVN" classCode="OBS"> <templateId root="01.14.840.1.022457.10.20.22.4.2 " /> <id nullFlavor="NA" /> <code codeSystem="local" code= "24037839" displayName="ALBUMIN" /> <statusCode code="completed" /> <effectiveTime value="710195301474" /> <value unit="g/dL" xsi: type="PQ" value="5.1" /> <referenceRange> <observationRange > <text>3.6-5.1</text> </observationRange> </ referenceRange> </observation> </component> <component> <observation moodCode="EVN" classCode="OBS"> <templateId root= "216.840.1.636882.10..22.4.2" /> <id nullFlavor="NA" /> < code codeSystem="local" code="22314010" displayName="GLOBULIN" /> < statusCode code="completed" /> <effectiveTime value="052514338160" /> <value unit="g/dL(calc)" xsi:type="PQ" value="3.4" /> < referenceRange> <observationRange> <text>1.9-3.7</text> </observationRange> </referenceRange> </observation > </component> <component> <observation moodCode="EVN" classCode="OBS"> <templateId root="16.840.1.082177.10..22.4.2" /> <id nullFlavor="NA" /> <code codeSystem="local" code="73582064 " displayName="ALBUMIN/GLOBULIN RATIO" /> <statusCode code="completed" /> <effectiveTime value="048655391726" /> <value unit="(calc) " xsi:type="PQ" value="1.5" /> <referenceRange> < observationRange> <text>1.0-2.5</text> </ observationRange> </referenceRange> </observation> </ component> <component> <observation moodCode="EVN" classCode="OBS"> <templateId root="840.1.501051.10..4.2" /> <id nullFlavor="NA" /> <code codeSystem="local" code="28805194" displayName ="BILIRUBIN, TOTAL" /> <statusCode code="completed" /> < effectiveTime value="014429714234" /> <value unit="mg/dL" xsi:type="PQ " value="0.7" /> <referenceRange> <observationRange> <text>0.2-1.2</text> </observationRange> </ referenceRange> </observation> </component> <component> <observation moodCode="EVN" classCode="OBS"> <templateId root= "216.840.1.011314.09.17.22.4.2" /> <id nullFlavor="NA" /> < code codeSystem="local" code="27227630" displayName="ALKALINE PHOSPHATASE" /> <statusCode code="completed" /> <effectiveTime value= "" /> <value unit="U/L" xsi:type="PQ" value="77" /> <referenceRange> <observationRange> <text>33-115</ text> </observationRange> </referenceRange> </ observation> </component> <component> <observation moodCode= "EVN" classCode="OBS"> <templateId root="216.840.1.019205.10..4.2 " /> <id nullFlavor="NA" /> <code codeSystem="local" code= "15093749" displayName="AST" /> <statusCode code="completed" /> <effectiveTime value="097157675044" /> <value unit="U/L" xsi:type= "PQ" value="30" /> <referenceRange> <observationRange> <text>10-30</text> </observationRange> </ referenceRange> </observation> </component> <component> <observation moodCode="EVN" classCode="OBS"> <templateId root= "216.840.1.902339.10...4.2" /> <id nullFlavor="NA" /> < code codeSystem="local" code="15982943" displayName="ALT" /> < statusCode code="completed" /> <effectiveTime value="570182749665" /> <value unit="U/L" xsi:type="PQ" value="28" /> <referenceRange > <observationRange> <text>6-29</text> </ observationRange> </referenceRange> </observation> </ component> </organizer> </entry> <entry> <organizer moodCode="EVN" classCode="BATTERY"> <templateId root="216.840.1.697824.10..22.4.1" /> <id nullFlavor="NA" /> <code codeSystem="local" code="6399" displayName="CBC" /> <statusCode code="completed" /> <component> <observation moodCode="EVN" classCode="OBS"> <templateId root= "216.840.1.517707.10..22.4.2" /> <id nullFlavor="NA" /> < code codeSystem="local" code="84669082" displayName="WHITE BLOOD CELL COUNT" /> <statusCode code="completed" /> <effectiveTime value= "356256782276" /> <value unit="Thousand/uL" xsi:type="PQ" value="9.2" / > <referenceRange> <observationRange> <text>3.8 -10.8</text> </observationRange> </referenceRange> </ observation> </component> <component> <observation moodCode= "EVN" classCode="OBS"> <templateId root="16.840.1.168322.10.20.22.4.2 " /> <id nullFlavor="NA" /> <code codeSystem="local" code= "11142607" displayName="RED BLOOD CELL COUNT" /> <statusCode code= "completed" /> <effectiveTime value="731356910070" /> <value unit="Million/uL" xsi:type="PQ" value="4.89" /> <referenceRange> <observationRange> <text>3.80-5.10</text> </ observationRange> </referenceRange> </observation> </ component> <component> <observation moodCode="EVN" classCode="OBS"> <templateId root="216.840.1.139424.10..4.2" /> <id nullFlavor="NA" /> <code codeSystem="local" code="21721547" displayName ="HEMOGLOBIN" /> <statusCode code="completed" /> < effectiveTime value="287723965688" /> <value unit="g/dL" xsi:type="PQ" value="14.3" /> <referenceRange> <observationRange> <text>11.7-15.5</text> </observationRange> </ referenceRange> </observation> </component> <component> <observation moodCode="EVN" classCode="OBS"> <templateId root= "16.840.1.191728.10..22.4.2" /> <id nullFlavor="NA" /> < code codeSystem="local" code="05824794" displayName="HEMATOCRIT" /> < statusCode code="completed" /> <effectiveTime value="277985561881" /> <value unit="%" xsi:type="PQ" value="42.7" /> < referenceRange> <observationRange> <text>35.0-45.0</text > </observationRange> </referenceRange> </observation > </component> <component> <observation moodCode="EVN" classCode="OBS"> <templateId root="2.16.840.1.379462.10..4.2" /> <id nullFlavor="NA" /> <code codeSystem="local" code="41634828 " displayName="MCV" /> <statusCode code="completed" /> < effectiveTime value="" /> <value unit="fL" xsi:type="PQ" value="87.3" /> <referenceRange> <observationRange> <text>80.0-100.0</text> </observationRange> </ referenceRange> </observation> </component> <component> <observation moodCode="EVN" classCode="OBS"> <templateId root= "2.840.1.905371.09.17.22.4.2" /> <id nullFlavor="NA" /> < code codeSystem="local" code="80262952" displayName="MCH" /> < statusCode code="completed" /> <effectiveTime value="" /> <value unit="pg" xsi:type="PQ" value="29.2" /> <referenceRange > <observationRange> <text>27.0-33.0</text> < /observationRange> </referenceRange> </observation> </ component> <component> <observation moodCode="EVN" classCode="OBS"> <templateId root="216.840.1.492991...4.2" /> <id nullFlavor="NA" /> <code codeSystem="local" code="04155213" displayName ="MCHC" /> <statusCode code="completed" /> <effectiveTime value="" /> <value unit="g/dL" xsi:type="PQ" value="33.5" / > <referenceRange> <observationRange> <text> 32.0-36.0</text> </observationRange> </referenceRange> </observation> </component> <component> <observation moodCode="EVN" classCode="OBS"> <templateId root= "2.16.840.1.754956.10..22.4.2" /> <id nullFlavor="NA" /> < code codeSystem="local" code="59625014" displayName="RDW" /> < statusCode code="completed" /> <effectiveTime value="369607854050" /> <value unit="%" xsi:type="PQ" value="12.9" /> < referenceRange> <observationRange> <text>11.0-15.0</text > </observationRange> </referenceRange> </observation > </component> <component> <observation moodCode="EVN" classCode="OBS"> <templateId root="216.840.1.409593...4.2" /> <id nullFlavor="NA" /> <code codeSystem="local" code="41173077 " displayName="PLATELET COUNT" /> <statusCode code="completed" /> <effectiveTime value="647523698245" /> <value unit="Thousand/uL" xsi:type="PQ" value="462" /> <interpretationCode codeSystem="local" code="*" /> <referenceRange> <observationRange> <text>140-400</text> </observationRange> </referenceRange > </observation> </component> <component> <observation moodCode="EVN" classCode="OBS"> <templateId root= "216.840.1.619685.10...4.2" /> <id nullFlavor="NA" /> < code codeSystem="local" code="29303526" displayName="MPV" /> < statusCode code="completed" /> <effectiveTime value="" /> <value unit="fL" xsi:type="PQ" value="10.1" /> <referenceRange > <observationRange> <text>7.5-12.5</text> </ observationRange> </referenceRange> </observation> </ component> <component> <observation moodCode="EVN" classCode="OBS"> <templateId root="2.16.840.1.281272.10..22.4.2" /> <id nullFlavor="NA" /> <code codeSystem="local" code="93672574" displayName ="ABSOLUTE NEUTROPHILS" /> <statusCode code="completed" /> < effectiveTime value="" /> <value unit="cells/uL" xsi:type= "PQ" value="3275" /> <referenceRange> <observationRange> <text>9707-1388</text> </observationRange> </ referenceRange> </observation> </component> <component> <observation moodCode="EVN" classCode="OBS"> <templateId root= "2.16.840.1.905680.10..22.4.2" /> <id nullFlavor="NA" /> < code codeSystem="local" code="03002534" displayName="ABSOLUTE LYMPHOCYTES" /> <statusCode code="completed" /> <effectiveTime value= "" /> <value unit="cells/uL" xsi:type="PQ" value="4996" /> <interpretationCode codeSystem="local" code="*" /> < referenceRange> <observationRange> <text>850-3900</text > </observationRange> </referenceRange> </observation > </component> <component> <observation moodCode="EVN" classCode="OBS"> <templateId root="2.16.840.1.745324.10..22.4.2" /> <id nullFlavor="NA" /> <code codeSystem="local" code="98189519 " displayName="ABSOLUTE MONOCYTES" /> <statusCode code="completed" /> <effectiveTime value="" /> <value unit="cells/uL" xsi:type="PQ" value="543" /> <referenceRange> < observationRange> <text>200-950</text> </ observationRange> </referenceRange> </observation> </ component> <component> <observation moodCode="EVN" classCode="OBS"> <templateId root="216.840.1.928427.10..4.2" /> <id nullFlavor="NA" /> <code codeSystem="local" code="21332542" displayName ="ABSOLUTE EOSINOPHILS" /> <statusCode code="completed" /> < effectiveTime value="" /> <value unit="cells/uL" xsi:type= "PQ" value="285" /> <referenceRange> <observationRange> <text>15-500</text> </observationRange> </ referenceRange> </observation> </component> <component> <observation moodCode="EVN" classCode="OBS"> <templateId root= "216.840.1.891401.10..22.4.2" /> <id nullFlavor="NA" /> < code codeSystem="local" code="96236225" displayName="ABSOLUTE BASOPHILS" /> <statusCode code="completed" /> <effectiveTime value= "" /> <value unit="cells/uL" xsi:type="PQ" value="101" /> <referenceRange> <observationRange> <text>0-200 </text> </observationRange> </referenceRange> </ observation> </component> <component> <observation moodCode= "EVN" classCode="OBS"> <templateId root="216.840.1.081291.10..4.2 " /> <id nullFlavor="NA" /> <code codeSystem="local" code= "92319004" displayName="NEUTROPHILS" /> <statusCode code="completed" / > <effectiveTime value="" /> <value unit="%" xsi:type="PQ" value="35.6" /> <referenceRange> < observationRange> <text>NRG</text> </observationRange> </referenceRange> </observation> </component> < component> <observation moodCode="EVN" classCode="OBS"> < templateId root="01.14.840.1.107303.10.4.2" /> <id nullFlavor="NA " /> <code codeSystem="local" code="71640533" displayName="LYMPHOCYTES " /> <statusCode code="completed" /> <effectiveTime value= "" /> <value unit="%" xsi:type="PQ" value="54.3" /> <referenceRange> <observationRange> <text>NRG</ text> </observationRange> </referenceRange> </ observation> </component> <component> <observation moodCode= "EVN" classCode="OBS"> <templateId root="01.14.840.1.281891.10.4.2 " /> <id nullFlavor="NA" /> <code codeSystem="local" code= "01645090" displayName="MONOCYTES" /> <statusCode code="completed" /> <effectiveTime value="" /> <value unit="%" xsi :type="PQ" value="5.9" /> <referenceRange> <observationRange > <text>NRG</text> </observationRange> </ referenceRange> </observation> </component> <component> <observation moodCode="EVN" classCode="OBS"> <templateId root= "2.16.840.1.369811.10..22.4.2" /> <id nullFlavor="NA" /> < code codeSystem="local" code="89327097" displayName="EOSINOPHILS" /> < statusCode code="completed" /> <effectiveTime value="501891637265" /> <value unit="%" xsi:type="PQ" value="3.1" /> < referenceRange> <observationRange> <text>NRG</text> </observationRange> </referenceRange> </observation> </component> <component> <observation moodCode="EVN" classCode= "OBS"> <templateId root="216.840.1.744148.10...4.2" /> < id nullFlavor="NA" /> <code codeSystem="local" code="48265699" displayName="BASOPHILS" /> <statusCode code="completed" /> < effectiveTime value="669089652017" /> <value unit="%" xsi:type="PQ " value="1.1" /> <referenceRange> <observationRange> <text>NRG</text> </observationRange> </referenceRange > </observation> </component> </organizer> </entry> <entry> <organizer moodCode="EVN" classCode="BATTERY"> <templateId root= "216.840.1.026160.10.20.22.4.1" /> <id nullFlavor="NA" /> <code codeSystem="local" code="899" displayName="TSH" /> <statusCode code= "completed" /> <component> <observation moodCode="EVN" classCode= "OBS"> <templateId root="2.16.840.1.302417.10.20.22.4.2" /> < id nullFlavor="NA" /> <code codeSystem="local" code="76266818" displayName="TSH" /> <statusCode code="completed" /> < effectiveTime value="648863825123" /> <value unit="mIU/L" xsi:type="PQ " value="2.04" /> <referenceRange> <observationRange> <text>NRG</text> </observationRange> </ referenceRange> </observation> </component> </organizer> </entry ></section> Encounters ACCT No. Visit Date/Time Discharge Status Pt. Type Provider Facility Loc./Unit Complaint [id number] 12/28/2014 11:10:00 12/28/2014 11:10:00 DIS Outpatient NAN RENO, [facility] CLIN [id number] 12/28/2014 10:22:00 12/28/2014 10:22:00 DIS Outpatient NAN RENO, [facility] CLIN [id number] 10/05/2017 05:16:00 ACT Unknown [id number] 02/09/2018 13:24:23 02/09/2018 14:11: 54 DIS Outpatient Meiysabel DRUMMOND [facility] [id number] 12/30/2017 15:00:58 12/30/2017 15:42: 57 DIS Outpatient Reagan DRUMMOND [facility] [id number] 12/15/2017 11:19:04 12/15/2017 12:18: 18 DIS Outpatient Ramón Gonzalez Count includes the [facility] [id number] 11/17/2017 14:05:14 11/17/2017 15:27: 20 DIS Outpatient Meiysabel DRUMMONDSis Count includes the [facility] [id number] 11/10/2017 13:45:00 11/10/2017 14:09: 49 DIS Outpatient Ramón Gonzalez Count includes the [facility] [id number] 10/13/2017 10:54:09 10/13/2017 11:23: 17 DIS [facility] Count [facility] the [facility] [id number] 09/20/2017 15:18:26 09/20/2017 16:29: 59 DIS Outpatient Patrice Suarez Count includes the [facility] [id number] 09/13/2017 13:23:15 09/13/2017 13:56: 15 DIS Outpatient Ramón Gonzalez Count includes the [facility] [id number] 09/06/2017 13:46:11 09/06/2017 14:12: 58 DIS Outpatient Ramón Gonzalez Count includes the [facility] [id number] 08/23/2017 15:06:06 08/23/2017 15:52: 18 DIS Outpatient Ramón Gonzalez Count includes the [facility] [id number] 08/04/2017 11:09:11 08/04/2017 11:20: 20 DIS Outpatient Ramón Gonzalez Count includes the [facility] [id number] 07/21/2017 14:57:46 07/21/2017 15:24: 50 DIS Outpatient Ramón Gonzalez Count includes the [facility] [id number] 07/16/2017 14:06:57 07/16/2017 14:46: 25 DIS Outpatient Ramón Gonzalez Count includes the [facility] [id number] 06/28/2017 15:46:59 06/28/2017 16:24: 19 DIS Outpatient Ramón Gonzalez Count includes the [facility] [id number] 05/28/2017 11:34:46 05/28/2017 12:33: 13 DIS Outpatient Ramón Gonzalez Count includes the [facility] [id number] 09/06/2018 13:20:00 Document Registration [id number] 08/25/2018 14:20:00 Document Registration [id number] 04/23/2017 19:11:42 ACT Document Registration [id number] 08/26/2017 18:06:00 Document Registration [id number] 07/28/2016 22:28:21 07/28/2016 22:28:21 Outpatient [id number] 02/05/2016 10:14:09 02/05/2016 10:14:09 DIS Outpatient [id number] 01/14/2016 17:41:30 01/14/2016 17:41:30 DIS Outpatient [id number] 04/02/2015 14:58:31 04/02/2015 14:58:31 DIS Outpatient [id number] 03/12/2015 08:56:48 03/12/2015 08:56:48 DIS Outpatient [id number] 03/07/2015 12:34:05 03/07/2015 12:34:05 DIS Outpatient [id number] 01/09/2015 15:32:25 01/09/2015 15:32:25 DIS Outpatient [id number] 01/09/2015 15:32:23 01/09/2015 15:32:23 DIS Outpatient [id number] 03/23/2015 23:25:03 Document Registration [id number] 02/07/2015 13:58:05 Document Registration [id number] 02/05/2015 10:46:11 Document Registration [id number] 02/04/2015 21:37:18 Document Registration [id number] 02/04/2015 21:37:17 Document Registration [id number] 01/31/2015 17:26:26 Document Registration [id number] 01/31/2015 15:29:39 Document Registration [id number] 01/30/2015 17:14:58 Document Registration [id number] 01/30/2015 16:19:00 Document Registration [id number] 01/18/2015 08:00:11 Document Registration [id number] 01/17/2015 18:39:00 Document Registration [id number] 01/17/2015 11:25:00 Document Registration [id number] 02/11/2017 17:45:00 02/11/2017 21:20:00 DIS Emergency OSVALDO CHRIS~[facility] POSS UTI/6 WKS PREG [id number] 12/16/2016 02:24:00 12/16/2016 23:59:59 CLS Preadmit Reagan RENO, Isabel [facility] OFFICE [id number] 07/20/2016 16:32:00 07/20/2016 17:00:00 [facility] [id number] 07/16/2016 19:15:00 07/16/2016 22:59:00 DIS [facility] [id number] 01/31/2016 07:24:00 01/31/2016 09:50:00 DIS Emergency Ron Mansfield [facility] ABD PAIN [id number] 01/16/2016 12:36:00 01/16/2016 14:41:00 DIS Emergency Yordan RENO, [facility] HEAVY VAG BLEED [id number] 12/16/2015 15:12:00 12/16/2015 23:59:59 CLS Outpatient Reagan RENO, [facility] OFFICE [id number] 12/16/2015 16:54:00 12/16/2015 17:50:00 DIS Emergency Yordan RENO, [facility] ABD PAIN [id number] 11/09/2015 13:07:00 11/09/2015 14:20:00 DIS Emergency FranciscoMarlo [facility] VAGINAL LACERATION COMPLAINT [id number] 11/06/2015 03:41:00 11/06/2015 23:59:59 CLS Preadmit Reagan RENO, [facility] OFFICE [id number] 11/02/2015 17:19:00 11/05/2015 11:32:00 DIS Inpatient Ramón Reyes MD [address] OB CHECK [id number] 10/30/2015:59:00 10/30/2015 23:59:59 CLS Preadmit Reagan RENO [facility] OFFICE [id number] 10/23/2015 13:43:00 10/23/2015 23:59:59 CLS Outpatient Reagan RENO [facility] OFFICE [id number] 10/22/2015 02:17:00 10/22/2015 23:59:59 CLS Preadmit Reagan RENO [facility] OFFICE [id number] 10/21/2015 02:51:00 10/21/2015 23:59:59 CLS Preadmit Reagan RENO [facility] OFFICE [id number] 10/17/2015 16:11:00 10/17/2015 20:50:00 DIS Outpatient Reagan RENO [facility] OB CHECK [id number] 10/07/2015 14:42:00 10/07/2015 23:59:59 CLS Outpatient Reagan RENO [facility] OFFICE [id number] 10/02/2015 01:14:00 10/02/2015 23:59:59 CLS Preadmit Reagan RENO [facility] OFFICE [id number] 09/27/2015 13:17:00 09/27/2015 23:59:59 CLS Outpatient Reagan RENO [facility] OFFICE [id number] 09/22/2015 13:31:00 09/22/2015 16:00:00 DIS Outpatient Jesse Ugalde MD [facility] OB CHECK [id number] 09/12/2015 09:32:00 09/12/2015 23:59:59 CLS Outpatient Reagan RENO [facility] LABS [id number] 09/11/2015 09:17:00 09/11/2015 23:59:59 CLS Outpatient Reagan RENO [facility] LAB [id number] 09/11/2015 02:57:00 09/11/2015 23:59:59 CLS Preadmit Reagan RENO [facility] OFFICE [id number] 08/23/2015 11:03:00 08/23/2015 23:59:59 CLS Outpatient Reagan RENO [facility] OFFICE [id number] 08/13/2015 15:08:00 08/13/2015 17:33:00 DIS Outpatient Ramón Reyes MD [facility] OB CHECK [id number] 08/02/2015 07:47:00 08/02/2015 23:59:59 CLS Outpatient Reagan RENO [facility] OFFICE [id number] 2015 16:01:00 2015 23:59:59 CLS Outpatient Reagan RENO [facility] OFFICE [id number] 06/24/2015 19:26:00 06/24/2015 21:46:00 DIS Emergency Jw Yeager MD [facility] KCED CHEST PAIN INTO LEFT SHOULDER [id number] 06/07/2015 15:32:00 06/07/2015 23:59:59 CLS Outpatient Reagan RENO [facility] OFFICE [id number] 06/05/2015 14:50:00 06/05/2015 23:59:59 CLS Preadmit Reagan RENO [facility] OFFICE [id number] 05/20/2015 16:35:00 05/20/2015 23:59:59 CLS Outpatient [place] [facility] OFFICE [id number] 05/07/2015 14:42:00 05/07/2015 23:59:59 CLS Outpatient Reagan RENO [facility] OFFICE [id number] 04/29/2015 10:50:00 04/29/2015 12:12:00 DIS Emergency Akiko Moyer [facility] KCFTES FOOT INJURY [id number] 04/24/2015 10:31:00 04/24/2015 23:59:59 CLS Outpatient Reagan RENO [facility] OFFICE [id number] 05/25/2018 21:28:52 05/25/2018 22:47:00 DIS Emergency JF EUGENE KCED [id number] 01/15/2018 10:58:58 01/15/2018 12:50:00 DIS Emergency Tru Aranda KCED [id number] 11/17/2017 21:57:49 11/18/2017 00:15:00 DIS Emergency Berry Lucas KCED [id number] 11/12/2017 14:00:37 11/14/2017 15:00:00 DIS Inpatient BUFFY MILES KC2B Noninfective gastroenteritis and colitis, unspecified [id number] 09/22/2017 15:40:00 09/22/2017 18:50:00 DIS Outpatient Eros Wilkins Benjamin KC1B Unspecified abdominal pain [id number] 08/26/2017 18:59:00 08/26/2017 21:00:00 DIS Outpatient Hanh Bert Lares KC1B 34 weeks gestation of [id number] 06/21/2017 13:21:00 06/21/2017 14:02:00 DIS Emergency Ron Mansfield KCED [id number] 06/29/2017 00:00:00 Document Registration [id number] 04/21/2017 22:00:46 Document Registration [id number] 03/31/2017 11:00:29 Document Registration [id number] 03/29/2017 02:08:39 Document Registration [id number] 12/01/2018 11:50:00 12/01/2018 12:52:00 DIS Outpatient Gavin Ramos [id number] 08/23/2018 23:58:00 08/24/2018 02:20:00 DIS Outpatient Trena Frost [facility] ER [id number] 08/02/2018 15:18:00 08/02/2018 18:16:00 DIS Outpatient Denis Mix [facility] ER [id number] 08/02/2018 15:54:46 Document Registration [id number] 04/23/2017 18:58:00 04/23/2017 21:18:00 DIS Emergency Johanna Álvaro [facility] D.ER
[2018-12-04] MEDS ORDERED: METH750T3 (13:56)
[2018-12-04] MEDS ORDERED: PRD20T (13:56)
[2018-12-04] MEDS ORDERED: KETOROLAC 60 MG/2 ML VIAL IM ONE (14:15)
[2018-12-04] MEDS ORDERED: ORPHENADRINE 60 MG/2 ML (NORFLEX) AMP IM ONE (14:15)
[2018-12-04 14:18] LABS: BILIRUBIN,URINE NEGATIVE (NEGATIVE); CLARITY,URINE CLEAR; COLOR,URINE YELLOW; GLUCOSE, URINE (UA) NEGATIVE (NEGATIVE); KETONES,URINE NEGATIVE (NEGATIVE); LEUKOCYTE ESTERASE ,URINE NEGATIVE (NEGATIVE); NITRITE,URINE NEGATIVE (NEGATIVE); PH,URINE 6.5 (5-9); PROTEIN,URINE NEGATIVE (NEGATIVE); UROBILINOGEN,URINE NORMAL (NORMAL)
--- NOTE | 2018-12-04 14:23 | NUR ---
WHILE GIVING HER THE SHOTS HER STATES THEY WERE AT [place] THE OTHER DAY AND SHE RECIEVED DILAUDID AND IT DID NOT HELP MUCH.
--- NOTE | 2018-12-04 14:33 | Diagnostic Imaging Report ---
PROCEDURE: CT lumbar spine without contrast. TECHNIQUE: Multiple contiguous axial images were obtained through the lumbar spine without the use of intravenous contrast. Sagittal and coronal reformations were then performed. INDICATION: Low back pain. COMPARISON: There are no prior studies available for comparison. FINDINGS: The reconstructed sagittal images show the vertebral body heights and alignment to be within normal limits. The intervertebral spaces are fairly well maintained. There is no fracture or acute bony abnormality evident. There does appear to be a mild disc bulge eccentric to the right at L3-4. There is no evidence for spinal stenosis or nerve root encroachment at this level, however. The remainder of the lumbar spine is unremarkable for a high-grade stenosis or any significant neural foraminal narrowing. There is no paraspinal mass visualized. IMPRESSION: 1. There is a mild disc bulge to the right at L3-4. There is no evidence for spinal stenosis or nerve root encroachment at this level. 2. The remainder of the lumbar spine is unremarkable for a high-grade stenosis. 3. There is no acute bony abnormality noted. 4. If clinical concern regarding an underlying abnormality persists and further imaging is desired, then MRI would be recommended. Dictated by: Dictated on workstation # [id number]
[2018-12-04 14:37] LABS: BACTERIA,URINE TRACE /HPF; SQUAMOUS EPITHELIAL CELL,UR RARE /HPF
[2018-12-04] MEDS ORDERED: HYDROcodone/APAP 5 MG/325 MG (LORTAB) TAB PO ONE (15:15)
--- NOTE | 2018-12-04 15:17 | ED Back Pain ---
General Chief Complaint: Back Problems Stated Complaint: BACK PAIN Nursing Triage Note: TO TRIAGE WITH COMPLAINTS OF NON INJURY BACK PAIN FOR THREE DAYS. WAS SEEN AT [facility] AND PUT ON METHOCARBAM AND A STEROID SHOT. Nursing Sepsis Screen: No Definite Risk Source of Information: Patient Exam Limitations: No Limitations History of Present Illness Date Seen by Provider: Dec 04, 2018 Time Seen by Provider: 15:15 Initial Comments Patient is a 23-year-old female who presents to the emergency room with complaints of lower back pain for the past 3 days. Allergies and Home Medications Allergies Coded Allergies: red dye (Verified Allergy, Severe, SOA, 12/04/18) Past [place]-Qynuwa-Mdtdxo Hx Patient Social History Alcohol Use: Denies Use Recreational Drug Use: No Smoking Status: Current Everyday Smoker Recent Foreign Travel: No Contact w/Someone Who Travel: No Recent Infectious Disease Expo: No Recent Hopitalizations: No Past Medical History Surgeries: Yes Gallbladder, Orthopedic Respiratory: Yes Asthma Cardiac: No Neurological: No : No Last Menstrual Period: Nov 12, 2018 Genitourinary: No Gastrointestinal: No Musculoskeletal: No Endocrine: No HEENT: No Cancer: No Physical Exam Vital Signs Vital Signs - First Documented 12/04/18 13:50 Temp 98.1 Pulse 98 Resp 16 B/P (MAP) 127/79 (95) Pulse Ox 100 Capillary Refill : Less Than 3 Seconds Height, Weight, BMI Height: 5'5.00" Weight: 173lbs. oz. [id number]; BMI Method:Stated Progress/Results/Core Measures Results/Orders Lab Results Laboratory Tests Test 12/04/18 14:10 Range/Units Urine Color YELLOW Urine Clarity CLEAR Urine pH 6.5 5-9 Urine Specific Sixes 1.010 L 1.016-1.022 Urine Protein NEGATIVE NEGATIVE Urine Glucose (UA) NEGATIVE NEGATIVE Urine Ketones NEGATIVE NEGATIVE Urine Nitrite NEGATIVE NEGATIVE Urine Bilirubin NEGATIVE NEGATIVE Urine Urobilinogen NORMAL NORMAL MG/DL Urine Leukocyte Esterase NEGATIVE NEGATIVE Urine RBC (Auto) 1+ H NEGATIVE Urine RBC NONE /HPF Urine WBC NONE /HPF Urine Squamous Epithelial Cells RARE /HPF Urine Crystals NONE /LPF Urine Bacteria TRACE /HPF Urine Casts NONE /LPF Urine Mucus NEGATIVE /LPF Urine Culture Indicated NO My Orders Orders - [facility] Ketorolac Injection (Toradol Injection) (12/04/18 14:15) Orphenadrine Injection (Norflex Injectio (12/04/18 14:15) Ct Lumbar Spine Wo (12/04/18 14:04) Ua Culture If Indicated (12/04/18 14:11) Hydrocodone/Apap 5/325 Tablet (Lortab 5 (12/04/18 15:15) Medications Given in ED Current Medications Medications Dose Ordered Sig/Susan Route Start Time Stop Time Status Last Admin Dose Admin Ketorolac Tromethamine 60 mg ONCE ONCE IM 12/04/18 14:15 12/04/18 14:16 DC 12/04/18 14:18 60 MG Orphenadrine Citrate 60 mg ONCE ONCE IM 12/04/18 14:15 12/04/18 14:16 DC 12/04/18 14:18 60 MG Vital Signs/I&O 12/04/18 13:50 Temp 98.1 Pulse 98 Resp 16 B/P (MAP) 127/79 (95) Pulse Ox 100 Blood Pressure Mean: 95 Departure Impression Primary Impression: Bulging lumbar disc Additional Impression: Back pain Disposition: 01 HOME, SELF-CARE Condition: Stable/Unchanged Departure-Patient Inst. Decision time for Depature: 15:15 Referrals: [facility] (PCP/Family) Primary Care Physician Patient Instructions: Low Back Pain (DC) Add. Discharge Instructions: Call [facility] first thing tomorrow morning for an appointment time for further evaluation of your back pain. Continue your refused the prescribed medications as directed. You may use ibuprofen and Tylenol for additional pain relief. Alternating warm heat and ice may be beneficial to alleviate pain. Return back to the emergency room for any worsening symptoms or concerns as needed. All discharge instructions reviewed with patient and/or family. Voiced understanding. NABIL ESCOBEDO Dec 04, 2018 15:17
--- NOTE | 2018-12-04 15:25 | NUR ---
UPON GOING OVER PT'S INSTRUCTIONS SHE STATES SHE CANT TAKE IBUPROFEN AND TYLENOL DOES NOT HELP. STATES SHE WILL NOT BE ABLE TO GET INTO [facility] FOR A MONTH. ALSO REQUEST A WORK NOTE FOR TODAY WHICH I DID GIVE HER. ALSO OVERHEARD PT STATING "I AINT FUCKING WORKING, OR IF I WORK I MIGHT JUST FALL"
[2018-12-04 15:27] VITALS: BP 127/79
== END 2018-12-04 15:27 | disposition home or self-care (01) ==
LOC: ER 13:47
DX: M51.26 Other intervertebral disc displacement, lumbar region (principal); J45.909 Unspecified asthma, uncomplicated; F17.200 Nicotine dependence, unspecified, uncomplicated; Z91.041 Radiographic dye allergy status; Z98.890 Other specified postprocedural states
CPT/HCPCS: 72131; 81000; 96372

== ENCOUNTER → 2019-02-28 | Outpatient (CLI) | payer BC, MEDICAID ==
[~2019-02-28] MED LIST: METH750T3; PRD20T
--- NOTE | 2019-02-28 16:27 | Diagnostic Imaging Report ---
PROCEDURE: MRI lumbar spine. TECHNIQUE: Multiplanar, multisequence MRI of the lumbar spine was performed without contrast. INDICATION: Low back pain and bilateral leg pain and numbness. COMPARISON: No prior studies are available for comparison. FINDINGS: Curvature and alignment of the lumbar spine is normal. Vertebral body heights are maintained. No geographic marrow lesion or compression fracture is seen. There is normal height and signal intensity to the lumbar intervertebral discs. The conus is unremarkable at the L1 level. All levels of the lumbar spine demonstrate a widely patent central canal. No focal disc protrusion is seen. No central canal or neural foraminal stenosis is identified. Paraspinous tissues are unremarkable. IMPRESSION: Unremarkable MRI of the lumbar spine. Dictated by: Dictated on workstation # [id number]
== END ==
LOC: RAD 15:23
PROVIDERS: ATTEND Physician Assistant
DX: M54.5 Low back pain (principal)
CPT/HCPCS: 72148